=== PATIENT | male | born 1950 | race Caucasian/White ===

== ENCOUNTER → 2017-03-14 | Outpatient (CLI) | payer MEDICARE, OTHER ==
[2017-03-14 10:37] LABS: MEAN CORPUSCULAR HEMOGLOBIN 32.7 pg (27.0-33.0); MEAN CORPUSCULAR HGB CONC 34.6 g/dl (32.0-36.5); MEAN CORPUSCULAR VOLUME 94.5 fl (80.0-96.0); RED CELL DISTRIBUTION WIDTH 12.5 % (11.5-14.5); WHITE BLOOD COUNT 7.7 K/mm3 (4.0-10.0)
[2017-03-14 11:17] LABS: ALBUMIN 3.5 GM/DL (3.2-5.2); ALKALINE PHOSPHATASE 71 U/L (45-117); ALT/SGPT 35 U/L (12-78); ANION GAP 6 MEQ/L (8-16); AST/SGOT 26 U/L (15-37); BILIRUBIN,TOTAL 0.5 MG/DL (0.2-1.0); BLOOD UREA NITROGEN 13 MG/DL (7-18); CALCIUM LEVEL 8.7 MG/DL (8.8-10.2); CARBON DIOXIDE LEVEL 30 MEQ/L (21-32); CHLORIDE LEVEL 106 MEQ/L (98-107); CHOLESTEROL LEVEL 79 MG/DL (<200); CREATININE FOR GFR 0.95 MG/DL (0.70-1.30); GLOMERULAR FILTRATION RATE > 60.0 (>49); GLUCOSE, FASTING 124 MG/DL (80-110); SODIUM LEVEL 142 MEQ/L (136-145); TOTAL PROTEIN 6.2 GM/DL (6.4-8.2); TRIGLYCERIDES LEVEL 82 MG/DL (<150)
== END ==
LOC: M LAB 09:23
PROVIDERS: ATTEND Physician Assistant
DX: I25.118 Atherosclerotic heart disease of native coronary artery with other forms of angina pectoris (principal); E78.00 Pure hypercholesterolemia, unspecified; I25.5 Ischemic cardiomyopathy

== ENCOUNTER → 2017-03-14 | Outpatient (CLI) | payer MEDICARE, OTHER ==
[2017-03-14 10:36] LABS: MEAN CORPUSCULAR HEMOGLOBIN 32.5 pg (27.0-33.0); MEAN CORPUSCULAR HGB CONC 34.4 g/dl (32.0-36.5); MEAN CORPUSCULAR VOLUME 94.4 fl (80.0-96.0); RED CELL DISTRIBUTION WIDTH 12.5 % (11.5-14.5); WHITE BLOOD COUNT 7.4 K/mm3 (4.0-10.0)
[2017-03-14 11:15] LABS: ALBUMIN 3.5 GM/DL (3.2-5.2); ALKALINE PHOSPHATASE 70 U/L (45-117); ALT/SGPT 34 U/L (12-78); ANION GAP 7 MEQ/L (8-16); AST/SGOT 28 U/L (15-37); BILIRUBIN,TOTAL 0.5 MG/DL (0.2-1.0); BLOOD UREA NITROGEN 12 MG/DL (7-18); CALCIUM LEVEL 8.7 MG/DL (8.8-10.2); CARBON DIOXIDE LEVEL 30 MEQ/L (21-32); CHLORIDE LEVEL 105 MEQ/L (98-107); CHOLESTEROL LEVEL 84 MG/DL (<200); CREATININE FOR GFR 0.94 MG/DL (0.70-1.30); GLOMERULAR FILTRATION RATE > 60.0 (>49); GLUCOSE, FASTING 124 MG/DL (80-110); SODIUM LEVEL 142 MEQ/L (136-145); TOTAL PROTEIN 6.2 GM/DL (6.4-8.2); TRIGLYCERIDES LEVEL 82 MG/DL (<150)
== END ==
LOC: M LAB 09:21
PROVIDERS: ATTEND Family Medicine
DX: E11.9 Type 2 diabetes mellitus without complications (principal)

== ENCOUNTER → 2017-08-20 | Outpatient (CLI) | payer MEDICARE, OTHER ==
[2017-08-20 13:46] LABS: MEAN CORPUSCULAR HEMOGLOBIN 30.7 pg (27.0-33.0); MEAN CORPUSCULAR HGB CONC 33.3 g/dl (32.0-36.5); MEAN CORPUSCULAR VOLUME 92.3 fl (80.0-96.0); PLATELET COUNT, AUTOMATED 227 10^3/uL (150-450); WHITE BLOOD COUNT 9.7 10^3/uL (4.0-10.0)
[2017-08-20 14:07] LABS: ALBUMIN 3.3 GM/DL (3.2-5.2); ALBUMIN/GLOBULIN RATIO 1.03 (1.00-1.93); ALKALINE PHOSPHATASE 101 U/L (45-117); ALT/SGPT 22 U/L (12-78); ANION GAP 8 MEQ/L (8-16); AST/SGOT 20 U/L (7-37); BILIRUBIN,TOTAL 0.7 MG/DL (0.2-1.0); BLOOD UREA NITROGEN 16 MG/DL (7-18); CARBON DIOXIDE LEVEL 28 MEQ/L (21-32); CHLORIDE LEVEL 102 MEQ/L (98-107); CREATININE FOR GFR 1.02 MG/DL (0.70-1.30); GLOMERULAR FILTRATION RATE > 60.0 (>49); GLUCOSE, FASTING 244 MG/DL (80-110); SODIUM LEVEL 138 MEQ/L (136-145); TOTAL PROTEIN 6.5 GM/DL (6.4-8.2)
== END ==
LOC: M LAB 13:25
PROVIDERS: ATTEND Physician Assistant
DX: I25.118 Atherosclerotic heart disease of native coronary artery with other forms of angina pectoris (principal)

== ENCOUNTER → 2018-02-24 | Outpatient (CLI) | payer MEDICARE, OTHER ==
[2018-02-24 11:11] LABS: ALBUMIN 3.6 GM/DL (3.2-5.2); ALBUMIN/GLOBULIN RATIO 1.16 (1.00-1.93); ALKALINE PHOSPHATASE 77 U/L (45-117); ALT/SGPT 29 U/L (12-78); ANION GAP 6 MEQ/L (8-16); AST/SGOT 16 U/L (7-37); BILIRUBIN,TOTAL 0.5 MG/DL (0.2-1.0); BLOOD UREA NITROGEN 13 MG/DL (7-18); CALCIUM LEVEL 8.6 MG/DL (8.8-10.2); CARBON DIOXIDE LEVEL 30 MEQ/L (21-32); CHLORIDE LEVEL 104 MEQ/L (98-107); CHOLESTEROL LEVEL 56 MG/DL (<200); CHOLESTEROL RISK RATIO 2.074 (<5); CREATININE FOR GFR 1.08 MG/DL (0.70-1.30); GLOMERULAR FILTRATION RATE > 60.0 (>49); GLUCOSE, FASTING 249 MG/DL (70-100); HDL CHOLESTEROL 27 MG/DL (>40); LDL CHOLESTEROL 17.6 MG/DL (<100); MAGNESIUM LEVEL 1.3 MG/DL (1.8-2.4); NON-HDL-C 29 MG/DL; POTASSIUM SERUM 4.4 MEQ/L (3.5-5.1); SODIUM LEVEL 140 MEQ/L (136-145); TOTAL PROTEIN 6.7 GM/DL (6.4-8.2); TRIGLYCERIDES LEVEL 57 MG/DL (<150)
== END ==
LOC: M LAB 10:17
DX: I25.118 Atherosclerotic heart disease of native coronary artery with other forms of angina pectoris (principal); I25.5 Ischemic cardiomyopathy; E78.00 Pure hypercholesterolemia, unspecified
CPT/HCPCS: 83735

== ENCOUNTER → 2018-07-18 | Outpatient (CLI) | payer MEDICARE, OTHER ==
[2018-07-18 10:37] LABS: ANION GAP 3 MEQ/L (8-16); BLOOD UREA NITROGEN 26 MG/DL (7-18); CALCIUM LEVEL 8.9 MG/DL (8.8-10.2); CARBON DIOXIDE LEVEL 31 MEQ/L (21-32); CHLORIDE LEVEL 105 MEQ/L (98-107); CREATININE FOR GFR 1.24 MG/DL (0.70-1.30); GLOMERULAR FILTRATION RATE > 60.0 (>49); GLUCOSE, FASTING 195 MG/DL (70-100); POTASSIUM SERUM 4.5 MEQ/L (3.5-5.1); SODIUM LEVEL 139 MEQ/L (136-145)
== END ==
LOC: M LAB 09:37
DX: E11.9 Type 2 diabetes mellitus without complications (principal); I25.5 Ischemic cardiomyopathy

== ENCOUNTER → 2018-07-18 | Outpatient (CLI) | payer MEDICARE, OTHER ==
[2018-07-18 10:36] LABS: ANION GAP 4 MEQ/L (8-16); BLOOD UREA NITROGEN 24 MG/DL (7-18); CARBON DIOXIDE LEVEL 30 MEQ/L (21-32); CHLORIDE LEVEL 105 MEQ/L (98-107); CREATININE FOR GFR 1.21 MG/DL (0.70-1.30); GLOMERULAR FILTRATION RATE > 60.0 (>49); GLUCOSE, FASTING 190 MG/DL (70-100); MAGNESIUM LEVEL 1.6 MG/DL (1.8-2.4); POTASSIUM SERUM 4.7 MEQ/L (3.5-5.1); SODIUM LEVEL 139 MEQ/L (136-145)
== END ==
LOC: M LAB 09:31
DX: I25.5 Ischemic cardiomyopathy (principal); E11.9 Type 2 diabetes mellitus without complications
CPT/HCPCS: 83735

== ENCOUNTER 2018-10-18 09:55 | Inpatient (IN) | payer MEDICARE, OTHER ==
[~2018-10-18] VITALS: Ht 177.8 cm; Wt 72.6 kg
[2018-10-18 10:47] LABS: HEMATOCRIT 43.1 % (42.0-52.0); HEMOGLOBIN 14.4 g/dl (13.5-17.5); MEAN CORPUSCULAR HEMOGLOBIN 31.4 pg (27.0-33.0); MEAN CORPUSCULAR HGB CONC 33.4 g/dl (32.0-36.5); MEAN CORPUSCULAR VOLUME 94.1 fl (80.0-96.0); PLATELET COUNT, AUTOMATED 193 10^3/uL (150-450); RED BLOOD COUNT 4.58 10^6/uL (4.30-6.10)
[2018-10-18 11:01] LABS: INR 0.89; PROTHROMBIN TIME 12.1 SECONDS (12.1-14.4)
[2018-10-18 11:02] LABS: PARTIAL THROMBOPLASTIN TIME 29.9 SECONDS (25.4-37.6)
[2018-10-18 11:17] LABS: ALT/SGPT 24 U/L (12-78); BILIRUBIN,DIRECT 0.2 MG/DL (0.0-0.2); BILIRUBIN,TOTAL 0.5 MG/DL (0.2-1.0); BLOOD UREA NITROGEN 23 MG/DL (7-18); CALCIUM LEVEL 8.8 MG/DL (8.8-10.2); CARBON DIOXIDE LEVEL 28 MEQ/L (21-32); CHLORIDE LEVEL 104 MEQ/L (98-107); CPK CREATINE PHOSPHOKINASE 84 U/L (39-308); CREATININE FOR GFR 1.49 MG/DL (0.70-1.30); GLOMERULAR FILTRATION RATE 49.9 (>49); GLUCOSE, FASTING 221 MG/DL (70-100); LIPASE 584 U/L (73-393); MB/CK RELATIVE INDEX 2.02 (< OR =4); POTASSIUM SERUM 4.3 MEQ/L (3.5-5.1); SODIUM LEVEL 138 MEQ/L (136-145); TOTAL PROTEIN 6.9 GM/DL (6.4-8.2); TROPONIN I < 0.02 NG/ML (< 0.10)
[2018-10-18] MEDS ORDERED: ISOVUE-370 76% 100ML VIAL (Q9967) As Ordered ONE (11:18)
[2018-10-18 11:21] LABS: ATYPICAL LYMPH 2 % (0-5); EOSINOPHILS 1 % (0-5); LYMPHOCYTES 44 % (16-52); MONOCYTES 6 % (0-8); NEUTROPHILS 46 % (35-75); PLATELET ESTIMATE NORMAL (NORMAL)
[2018-10-18 11:22] LABS: ANISOCYTOSIS 1+
--- NOTE | 2018-10-18 11:23 | REP ---
CT BRAIN WITHOUT IV CONTRAST: CT brain performed without IV contrast. Comparison 11/25/2010. There is moderate atrophy. There is no midline shift or mass effect. There are mild periventricular small vessel ischemic changes which are chronic in nature. There is no acute hemorrhage. There is no extra-axial fluid collection. There are vascular calcifications in the carotid siphons. There is heavy calcification of the basilar artery. IMPRESSION: Atrophy. Mild periventricular small vessel ischemic change. Vascular calcifications. No acute intracranial process identified. Electronically Signed by Mushtaq Davidson MD 10/18/2018 07:22 P
--- NOTE | 2018-10-18 11:25 | REP ---
CHEST, SINGLE VIEW: Single AP view of the chest is performed and compared to a prior study of 10/16/2006. There is no acute infiltrate. Heart is normal in size. There are multiple mediastinal clips present. There are multiple sternal wires present. There is a left single lead pacemaker. IMPRESSION: No acute infiltrate. Electronically Signed by Mushtaq Davidson MD 10/18/2018 07:22 P
[2018-10-18] MEDS ORDERED: MULT1TAB18 PO (12:21)
[2018-10-18] MEDS ORDERED: GLIM4TAB PO (12:21)
[2018-10-18] MEDS ORDERED: MAGN64TASA PO ×2 (12:21→12:23)
[2018-10-18] MEDS ORDERED: VENL75CA47 PO (12:21)
[2018-10-18] MEDS ORDERED: METF10004 PO (12:21)
[2018-10-18] MEDS ORDERED: ISOS30TA4 PO (12:21)
[2018-10-18] MEDS ORDERED: ASPI81TA21 PO (12:21)
[2018-10-18] MEDS ORDERED: BENA20TA8 PO (12:21)
[2018-10-18] MEDS ORDERED: CLOP75TA2 PO (12:21)
[2018-10-18] MEDS ORDERED: RANI150C (12:21)
[2018-10-18] MEDS ORDERED: NIAC500T64 PO (12:23)
[2018-10-18] MEDS ORDERED: TOUJ1.2I (12:23)
[2018-10-18] MEDS ORDERED: ATOR80TA59 PO (12:23)
[2018-10-18] MEDS ORDERED: ATEN50TA2 PO (12:23)
--- NOTE | 2018-10-18 13:04 | REP ---
CT ANGIOGRAM OF THE NECK: Following the intravenous administration of 100 mL of Isovue 370 axial imaging is performed of the carotid vasculature in the neck from the aortic arch to the base of the skull. Sagittal, coronal, and 3D reconstruction images are performed. The right common carotid artery demonstrates mild scattered partially calcified plaquing. There is occlusion at the origin of the right internal carotid artery, with no flow in any portion of the more distal right internal carotid artery. There is moderate narrowing of the proximal right external iliac artery. Left common carotid artery demonstrates mild scattered plaquing and narrowing. Focal stenosis is seen of the left carotid bulb in the range of about 70-80%. There is moderate narrowing of the origin of the external iliac artery on the left. The left internal carotid artery demonstrates mild plaquing and narrowing. There is moderate plaquing and narrowing of the left internal carotid artery in the carotid siphon. Left vertebral artery is occluded at its origin. There is reconstitution of the left vertebral artery at about the C3 level. There is fairly high grade stenosis of the left vertebral artery just distal to that at the C2-3 level, another focal stenosis is seen at about the C1 level as well as in the distal aspect. Right vertebral artery is diffusely hypoplastic with severe stenosis at its distal aspect near the anastomosis with the left vertebral artery. IMPRESSION: There is occlusion of the right internal carotid artery from its origin to its distal end. Stenosis of the left carotid bulb in the range of about 70-80%. 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 The left vertebral artery is reconstituted at the C3 level with multifocal stenosis of its distal aspect. 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 Findings were discussed with Dr. Chantal Rowan 10/18/2018 at approximately 11:50 a.m. Electronically Signed by Mushtaq Davidson MD 10/18/2018 07:26 P
--- NOTE | 2018-10-18 13:10 | REP ---
CT ANGIOGRAM OF THE BRAIN: Following the intravenous administration of the 100 mL of Isovue [address] CT angiogram of the brain is performed with axial imaging followed by coronal, sagittal, and 3D reconstruction images. There is occlusion of the intracranial portion of the right internal carotid artery. Left internal carotid artery demonstrates moderate plaquing and narrowing in the region of the carotid siphon. Left middle cerebral artery is patent. Right middle cerebral artery demonstrates extremely high grade stenosis 1.3 cm distal to its origin. Anterior communicating arteries are patent. Anterior cerebral arteries are patent bilaterally. Basilar artery is patent as are the bilateral posterior cerebral arteries. There are patent posterior communicating arteries. Left posterior communicating artery appears diffusely narrowed compared to the right. No definite aneurysm or AVM is seen. IMPRESSION: Extremely high grade stenosis right middle cerebral artery approximately 1.3 cm distal to its origin. Electronically Signed by Mushtaq Davidson MD 10/18/2018 07:26 P
[2018-10-18] MEDS ORDERED: INSUH10VL SC (13:16)
[2018-10-18] MEDS ORDERED: VITMTA PO (13:16)
[2018-10-18] MEDS ORDERED: RANI150T PO (13:16)
[2018-10-18] MEDS ORDERED: GLUCAGON FOR INJ 1 MG VIAL (J1610) SC PRN (14:30)
[2018-10-18] MEDS ORDERED: DEXTROSE 50% 50 ML SYRINGE IV PRN (14:30)
[2018-10-18] MEDS ORDERED: GLUCOSE 4 GM CHEW TABLET PO PRN (14:30)
[2018-10-18 15:22] LABS: CHOLESTEROL RISK RATIO 2.541 (<5)
--- NOTE | 2018-10-18 15:47 | HPEPDOC ---
[facility] Medical History & Physical Date of Admission Oct 18, 2018 Primary Care Physician: MAGALY MORTENSEN MD [facility] Attending Physician: GUILLE ALBERT MD History and Physical CHIEF COMPLAINT: Skroke HISTORY OF PRESENT ILLNESS: Patient is a 67-year-old male with a past medical history of diabetes, 4 cardiac stents, hypertension, atherosclerotic disease, cardiac defibrillator, presents with left-sided weakness, slurred speech and left-sided facial droop. According to patient and his , he went to bed at 11 PM feeling his normal self. He got up in the middle of night to use the bathroom, and this is typical for patient. He did not notice any neurological symptom at that time. He woke up this morning at 8:30 and walked to the living room, where he noticed that his speech was slurred, he then did proceeded to have his morning coffee, he did not having dysphasia, did not have any cough. After coffee. Patient attempted to use the shower where he noticed that he had difficulty lifting his left leg to get into the shower tub. At the moment. Patient alerted his and his brought him to the ED. On the ED initial evaluation, patient was noted to have left-sided facial drooping, moderate s lurred speech, left-sided weakness, patient was unable to sit straight without falling. Transferred to [place] could not be done because patient had a completed stroke. Neurology, vascular surgery, and hospital team were consulted for admission. He denied any chest pain, denied any breathing difficulty, denies any recent sickness, denies any weight loss, denied nausea and vomiting. Admit to abdominal pain. He did admit to a recent bout of confusion one week ago and the hardware store when he could remember when he was doing. He denied any recent headaches, denied any blurry vision. He denied any recent changes in medication. Denied Patient is full code. PAST MEDICAL HISTORY: Diabetes Hypertension Arthrosclerotic disease. Cardiac defibrillator. Cardiac stent Lower extremity stents Hyperlipidemia GERD PAST SURGICAL HISTORY: 4 cardiac stents Hernia repair SOCIAL HISTORY: Lives at home with his , admits to occasional alcohol use, quit smoking in 1986, admits to infrequent marijuana use, denies any other illicit drugs FAMILY HISTORY: Noncontributory ALLERGIES: Please see below. REVIEW OF SYSTEMS: CONSTITUTIONAL: No fevers, denies chills, denies weight loss, denies lethargy HEENT: No rhinorrhea, no itchy eyes, no congesion, CARDIOVASCULAR: No murmurs no palpitations and arrhythmias RESPIRATORY: Not cough, No SOB, no issues to report GASTROINTESTINAL: No nausea, no vomiting, no difficulty swallowing, no pain with eating, no diarrhea HEMATOLOGICAL: No bleeding GENITOURINARY:No Issues HEMATOLOGIC/LYMPHATIC: No swelling NUERO: Left-sided facial drooping, left-sided weakness, no headache PE VITALS: See Below GENERAL APPEARANCE: Alert, pleasant gentleman, resting in bed, no acute distress SKIN: Warm, well perfused., No bruising, no rashes ENT: Supple, no JVD LUNGS: Clear to auscultation bilaterally. HEART: Normal S1, S2. No murmurs, no rubs, no gallops ABDOMEN: Soft. No masses. Bowel sounds are present., Slight tenderness noted on patient's left lower quadrant TRUNK/SPINE:Straight. EXTREMITIES: Moves all extremities equally. No gross deformities. PULSES: 2+ upper and lower extremity . NEURO: Cranial nerves II through XII grossly intact, patient is unable to sit up straight without falling to the left, left-sided whole-body weakness, sensation intact in bilateral upper and lower extremity, muscle strength is 2 out of 5 in left-sided upper extremity, muscle strength is 4 out of 5 in left lower extremity, no nystagmus, no numbness, abnormal finger to nose finger, due to patient's inability to move his left arm with ease, alert, oriented 3, facial drooping on left side, asymmetric smile, slurring of speech with few words in a sentence HOME MEDICATIONS: Please see below. LABORATORY DATA: See below. IMAGING: CT angiography OF THE BRAIN: Extremely high grade stenosis right middle cerebral artery approximately 1.3 cm distal to its origin. Neck CTA There is occlusion of the right internal carotid artery from its origin to its distal end. Stenosis of the left carotid bulb in the range of about 70-80%. 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 The left vertebral artery is reconstituted at the C3 level with multifocal stenosis of its distal aspect. 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 Findings were discussed with Dr. Chantal Rowan 10/18/2018 at approximately 11:50 a.m Chest x-ray No acute infiltrate. Head CT without contrast Atrophy. Mild periventricular small vessel ischemic change. Vascular calcifications. No acute intracranial process identified. MICROBIOLOGY: Please see below. ASSESSMENT: Patient is a 67-year-old male presenting with left facial droop, slurred speech and left sided weakness, he has a past medical history of diabetes, hypertension, atherosclerotic disease, and GERD. He'll be admitted for stroke with neurology and cardiovascular surgery on board. #Stroke most likely ischemic 2/2 . Right internal carotid artery stenosis, 2/2 of the sclerotic disease, 2/2 diabetes -MRI pending -CT angiography of the brain, CT of the neck, head CT above -Neurology consult, Dr. Ruby recommended Plavix, echocardiogram (Pending), Lipitor 80 mg, and aspirin -Vascular surgery has been consulted for right internal carotid stenosis -Admitted with telemetry, every 4 hours neuro checks, -Allow for permissive hypertension, holding BP meds, -IV fluids -PT ordered for rehabilitation -Lipid panel pending #Diabetes -Slight scale #Hypertension -Hold hypertension medications # #DVT -Plavix, TEDs Vital Signs Vital Signs Date Time Temp Pulse Resp B/P (MAP) Pulse Ox O2 Delivery O2 Flow Rate FiO2 10/18/18 14:46 63 10/18/18 14:45 132/58 (82) 10/18/18 13:16 16 10/18/18 09:56 97.1 97 Room Air Laboratory Data Labs 24H Laboratory Tests 2 10/18/18 10:38: White Blood Count 10.0, Red Blood Count 4.58, Hemoglobin 14.4, Hematocrit 43.1, Mean Corpuscular Volume 94.1, Mean Corpuscular Hemoglobin 31.4, Mean Corpuscular Hemoglobin Concent 33.4, Red Cell Distribution Width 12.5, Platelet Count 193, Lymphocytes # (Auto) , Nucleated Red Blood Cells % (auto) 0.0, Neutrophils 46, Band Neutrophils 1, Lymphocytes (Manual) 44, Monocytes (Manual) 6, Eosinophils (Manual) 1, Atypical Lymphocytes 2, Platelet Estimate NORMAL, Anisocytosis 1+, Prothrombin Time 12.1, Prothromb Time International Ratio 0.89, Activated Partial Thromboplast Time 29.9, Anion Gap 6L, Glomerular Filtration Rate 49.9, Calcium Level 8.8, Aspartate Amino Transf (AST/SGOT) 18, Alanine Aminotransferase (ALT/SGPT) 24, Alkaline Phosphatase 79, Total Bilirubin 0.5, Direct Bilirubin 0.2, Total Creatine Kinase 84, Creatine Kinase MB 2.0, Creatine Kinase MB Relative Index 2.02, Troponin I < 0.02, Total Protein 6.9, Albumin 4.0, Albumin/Globulin Ratio 1.38, Lipase 584H 10/18/18 10:47: Bedside Glucose (Misc Panel) 193H 10/18/18 14:49: CBC/BMP Laboratory Tests 10/18/18 10:38 Red Blood Count 4.58, Mean Corpuscular Volume 94.1, Mean Corpuscular Hemoglobin 31.4, Mean Corpuscular Hemoglobin Concent 33.4, Red Cell Distribution Width 12.5, Lymphocytes # (Auto) Home Medications Scheduled (Ivana Conway) 300 Unit/Ml Inj, 40 UNITS QHS Aspirin (Aspir-Low) 81 Mg Tab, 81 MG PO DAILY Atenolol (Atenolol) 50 Mg Tab, 50 MG PO BID Atorvastatin Calcium (Atorvastatin Calcium) 80 Mg Tab, 80 MG PO QHS Benazepril HCl (Benazepril HCl) 20 Mg Tab, 20 MG PO DAILY Clopidogrel Bisulfate (Clopidogrel) 75 Mg Tab, 75 MG PO DAILY Glimepiride (Glimepiride) 4 Mg Tab, 4 MG PO BID Insulin Aspart (Novolog) 100 U/Ml Inj, 1 DOSE SC AC PER SLIDING SCALE Isosorbide Mononitrate (Isosorbide Mononitrate ER) 30 Mg Tab, 30 MG PO DAILY Magnesium Chloride (Mag64) 64 Mg Tabcr, 2 TAB PO QAM Magnesium Chloride (Mag64) 64 Mg Tabcr, 1 TAB PO QPM Metformin Hydrochloride (Metformin HCl) 1,000 Mg Tab, 1,000 MG PO BID Multivitamins *[facility] STOCKED* (Thera M Plus *[facility] STOCKED*) 1 Tab Tab, 1 TAB PO DAILY Niacin (Niacin ER) 500 Mg Tab, 500 MG PO QHS Ranitidine HCl (Ranitidine HCl) 150 Mg Tab, 1 TAB PO DAILY Venlafaxine HCl (Venlafaxine HCl ER) 75 Mg Capcr, 75 MG PO DAILY Allergies Coded Allergies: No Known Allergies (Unverified , 10/18/18) GME ATTESTATION GME ATTESTATION My faculty preceptor for this patient encounter was physically present during the encounter and was fully available. All aspects of the patient interview, examination, medical decision making process, and medical care plan development were reviewed and approved by the faculty preceptor. The faculty preceptor is aware and concurs with the plan as stated in the body of this note and will attest to such by his/her cosignature. LATANYA DASILVA DO Oct 18, 2018 15:47
[2018-10-18] MEDS: NS 1,000 ML IV SCH (16:00)
[2018-10-18] MEDS: HumaLOG INSULIN (NovoLOG) PER UNIT SC SCH ×2 (17:30→21:00)
--- NOTE | 2018-10-18 19:27 | ECGEPIP ---
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
[2018-10-18 20:42] VITALS: BP 130/65
[2018-10-18] MEDS: ATORVASTATIN 20 MG TAB PO SCH (21:00)
[2018-10-18] MEDS: NIACIN SR (NIASPAN) 500 MG TAB PO SCH (21:00)
[2018-10-18 22:00] VITALS: BP 130/65
[2018-10-18] MEDS: HEPARIN SOD (PORCINE) 5000 UNITS/ML VIAL SQ SCH (22:10)
--- NOTE | 2018-10-18 22:12 | CR.PDOC ---
Subjective General Date/Time Seen The patient was seen on 10/18/18 at 22:10. Subject Chief Complaint/History The patient is a 67-year-old male admitted with a reason for visit of Carotid Artery Disease Non Hemorrhagic Cva. Current Medications Current Medications Current Medications Aspirin (Ecotrin) 81 mg DAILY PO ; Start 10/19/18 at 09:00 Atorvastatin Calcium (Lipitor) 80 mg QHS PO ; Start 10/18/18 at 21:00 Clopidogrel Bisulfate (PLAVix) 75 mg DAILY PO ; Start 10/19/18 at 09:00 Dextrose (Dextrose 50%) 25 ml ASDIRECTED PRN IV SEE LABEL COMMENTS; Start 10/18/18 at 14:30 Famotidine (Pepcid) 20 mg DAILY PO ; Start 10/19/18 at 09:00 Glucagon (Glucagon) 1 mg ASDIRECTED PRN SC SEE LABEL COMMENTS; Start 10/18/18 at 14:30 Glucose (Glucose) 16 GM ASDIRECTED PRN PO SEE LABEL COMMENTS; Start 10/18/18 at 14:30 Heparin Sodium (Porcine) (Heparin) 5,000 units Q8H SQ ; Start 10/18/18 at 22:00 Home Med (Med Rec Complete!) ASDIRECTED XX ; Start 10/18/18 at 13:30; Stop 10/18/18 at 13:30; Status DC Insulin Human Lispro (HumaLOG INSULIN) SEE PROTOCOL TABLE AC SC ; Start 10/18/18 at 17:30 Insulin Human Lispro (HumaLOG INSULIN) SEE PROTOCOL TABLE QHS SC ; Start 10/18/18 at 21:00 Multivitamins (Theragram-M) 1 tab DAILY PO ; Start 10/19/18 at 09:00 Niacin (Niaspan) 500 mg QHS PO ; Start 10/18/18 at 21:00 Sodium Chloride 1,000 ml @ 125 mls/hr Q8H IV Last administered on 10/18/18at 16:00; Start 10/18/18 at 16:00 Allergies Coded Allergies: No Known Allergies (Unverified , 10/18/18) General Date of Admission Oct 18, 2018 at 14:20 Chief Complaint The patient is a 67-year-old male admitted with a reason for visit of Carotid Artery Disease Non Hemorrhagic Cva. Home Medications Scheduled (Ivana Conway) 300 Unit/Ml Inj, 40 UNITS QHS, (Reported) Aspirin (Aspir-Low) 81 Mg Tab, 81 MG PO DAILY, (Reported) Atenolol (Atenolol) 50 Mg Tab, 50 MG PO BID, (Reported) Atorvastatin Calcium (Atorvastatin Calcium) 80 Mg Tab, 80 MG PO QHS, (Reported) Benazepril HCl (Benazepril HCl) 20 Mg Tab, 20 MG PO DAILY, (Reported) Clopidogrel Bisulfate (Clopidogrel) 75 Mg Tab, 75 MG PO DAILY, (Reported) Glimepiride (Glimepiride) 4 Mg Tab, 4 MG PO BID, (Reported) Insulin Aspart (Novolog) 100 U/Ml Inj, 1 DOSE SC AC, (Reported) PER SLIDING SCALE Isosorbide Mononitrate (Isosorbide Mononitrate ER) 30 Mg Tab, 30 MG PO DAILY, (Reported) Magnesium Chloride (Mag64) 64 Mg Tabcr, 2 TAB PO QAM, (Reported) Magnesium Chloride (Mag64) 64 Mg Tabcr, 1 TAB PO QPM, (Reported) Metformin Hydrochloride (Metformin HCl) 1,000 Mg Tab, 1,000 MG PO BID, (Reported) Multivitamins *[facility] STOCKED* (Thera M Plus *[facility] STOCKED*) 1 Tab Tab, 1 TAB PO DAILY, (Reported) Niacin (Niacin ER) 500 Mg Tab, 500 MG PO QHS, (Reported) Ranitidine HCl (Ranitidine HCl) 150 Mg Tab, 1 TAB PO DAILY, (Reported) Venlafaxine HCl (Venlafaxine HCl ER) 75 Mg Capcr, 75 MG PO DAILY, (Reported) Calvin Porras MD Oct 18, 2018 22:12
[2018-10-19] MEDS: NS 1,000 ML IV SCH ×2 (00:53→08:30)
[2018-10-19 04:38] LABS: HEMATOCRIT 39.4 % (42.0-52.0); HEMOGLOBIN 13.4 g/dl (13.5-17.5); MEAN CORPUSCULAR HEMOGLOBIN 31.5 pg (27.0-33.0); MEAN CORPUSCULAR VOLUME 92.5 fl (80.0-96.0); PLATELET COUNT, AUTOMATED 180 10^3/uL (150-450); RED BLOOD COUNT 4.26 10^6/uL (4.30-6.10); WHITE BLOOD COUNT 11.2 10^3/uL (4.0-10.0)
[2018-10-19 04:53] LABS: CALCIUM LEVEL 8.4 MG/DL (8.8-10.2); CREATININE FOR GFR 1.32 MG/DL (0.70-1.30); GLOMERULAR FILTRATION RATE 57.4 (>49); POTASSIUM SERUM 3.9 MEQ/L (3.5-5.1)
[2018-10-19 06:00] VITALS: BP 113/56
[2018-10-19] MEDS: HEPARIN SOD (PORCINE) 5000 UNITS/ML VIAL SQ SCH ×3 (06:14→21:11)
[2018-10-19 07:15] LABS: THYROID STIMULATING HORMONE 1.6 uIU/ML (0.358-3.740)
[2018-10-19 07:21] LABS: HEMOGLOBIN A1c 8.8 %
[2018-10-19 07:44] VITALS: BP 114/62
[2018-10-19] MEDS: MULTIVITAMINS/MINERALS THERAP 1 TAB PO SCH (08:18)
[2018-10-19] MEDS: HumaLOG INSULIN (NovoLOG) PER UNIT SC SCH ×4 (08:18→20:45)
[2018-10-19] MEDS: FAMOTIDINE 20 MG TAB PO SCH (09:27)
[2018-10-19] MEDS: CLOPIDOGREL 75 MG TAB PO SCH (09:28)
[2018-10-19] MEDS: ASPIRIN 81 MG ENTERIC TAB PO SCH (09:28)
--- NOTE | 2018-10-19 10:19 | IPNPDOC ---
Date Seen The patient was seen on 10/19/18. Progress Note SUBJECTIVE: Patient tells me that his left-sided weakness slurred speech and left-sided facial droop are all little bit better today, he still has significant weakness in the left hand does have a slight facial droop at the left leg is much improved OBJECTIVE PHYSICAL EXAMINATION: VITAL SIGNS: Please see below. GENERAL: Elderly man sleeping on his left side awake alert oriented 3 does not appear to be in any acute distress HEENT: Left-sided facial droop that is midline no elevation in CVP pressure CARDIOVASCULAR: . S1-S2 regular RESPIRATORY: . Clear to auscultation bilaterally ABDOMINAL: Bowel sounds are present abdomen soft EXTREMITIES: 4/5 strength in the left upper extremity but otherwise 5 out of 5 throughout NEUROLOGICAL: Significant decrease strength of the left upper extremity difficulty with spreading his fingers left facial droop LABORATORY DATA, IMAGING STUDIES, MICROBIOLOGY: Please see below. Echocardiogram: Ordered. DVT prophylaxis ordered?: Heparin every 8 ASSESSMENT AND PLAN: This is a 67-year-old man with what appears to be in acute CVA. PROBLEMS: 1. Left-sided weakness slurred speech and left-sided facial droop concerning for acute CVA: High likelihood of CVA secondary to intracranial vascular disease radiology reports as follows "Extremely high grade stenosis right middle cerebral artery approximately 1.3 cm distal to its origin. as well as There is occlusion of the right internal carotid artery from its origin to its distal end. Stenosis of the left carotid bulb in the range of about 70-80%. 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 The left vertebral artery is reconstituted at the C3 level with multifocal stenosis of its distal aspect. Right vertebral artery is hypoplastic with severe stenosis distally just before the anastomosis with the left vertebral artery." Vascular surgery consultation placed, neurology consult has been placed as well. The patient on aspirin Plavix high dose statin. With permissive hypertension he is actually on IV fluids PTOT and speech therapy ordered. We'll check a TSH and hemoglobin A1c to make her best ever for secondary prevention. I warned MRI/MRA as well echocardiogram has been ordered 2. Coronary artery disease status post defibrillator: No symptoms at this time he is on aspirin Plavix statin home beta casie currently on hold. 3. Diabetes: Home metformin and glimepiride and toujeo. He is on sliding scale insulin statistics well controlled 4. Hypertension: Home medications on hold for permissive hypertension consider resuming atenolol benazepril and isosorbide mononitrate as needed 5. Elevated lipase: No signs or symptoms of clinical pancreatitis 6. Mood disorder: Resume venlafaxine as he is able to tolerate by mouth 7. Dyslipidemia: He is on high intensity statin as well as niacin A gastric esophageal reflux disease: He is on Pepcid his home ranitidine is on hold DISPOSITION: Pending PT and OT echo neurology and vascular surgery consultation. VS, I&O, 24H, Fishbone Vital Signs/I&O Vital Signs Date Time Temp Pulse Resp B/P (MAP) Pulse Ox O2 Delivery O2 Flow Rate FiO2 10/19/18 06:00 98.2 60 12 113/56 (75) 98 10/18/18 20:29 Room Air I&O- Last 24 Hours up to 6 AM 10/19/18 06:00 Intake Total 1250 ml Output Total 425 ml Balance 825 ml Laboratory Data 24H LABS Laboratory Tests 2 10/18/18 10:38: White Blood Count 10.0, Red Blood Count 4.58, Hemoglobin 14.4, Hematocrit 43.1, Mean Corpuscular Volume 94.1, Mean Corpuscular Hemoglobin 31.4, Mean Corpuscular Hemoglobin Concent 33.4, Red Cell Distribution Width 12.5, Platelet Count 193, Lymphocytes # (Auto) , Nucleated Red Blood Cells % (auto) 0.0, Neutrophils 46, Band Neutrophils 1, Lymphocytes (Manual) 44, Monocytes (Manual) 6, Eosinophils (Manual) 1, Atypical Lymphocytes 2, Platelet Estimate NORMAL, Anisocytosis 1+, Prothrombin Time 12.1, Prothromb Time International Ratio 0.89, Activated Partial Thromboplast Time 29.9, Anion Gap 6L, Glomerular Filtration Rate 49.9, Calcium Level 8.8, Aspartate Amino Transf (AST/SGOT) 18, Alanine Aminotransferase (ALT/SGPT) 24, Alkaline Phosphatase 79, Total Bilirubin 0.5, Direct Bilirubin 0.2, Total Creatine Kinase 84, Creatine Kinase MB 2.0, Creatine Kinase MB Relative Index 2.02, Troponin I < 0.02, Total Protein 6.9, Albumin 4.0, Albumin/Globulin Ratio 1.38, Lipase 584H 10/18/18 10:47: Bedside Glucose (Misc Panel) 193H 10/18/18 14:49: Triglycerides Level 53, LDL Cholesterol 26, Total Cholesterol 61, Non-HDL Cholesterol (LDL + VLDL) 37, Total HDL Cholesterol 24L, Cholesterol/HDL Ratio 2.541 10/18/18 18:32: Bedside Glucose (Misc Panel) 67L 10/18/18 20:49: Bedside Glucose (Misc Panel) 185H 10/19/18 04:14: Nucleated Red Blood Cells % (auto) 0.0, Anion Gap 4L, Glomerular Filtration Rate 57.4, Blood Urea Nitrogen 19H, Creatinine 1.32H, Sodium Level 138, Potassium Level 3.9, Chloride Level 108H, Carbon Dioxide Level 26, Calcium Level 8.4L CBC/BMP Laboratory Tests 10/18/18 10:38 Red Blood Count 4.58, Mean Corpuscular Volume 94.1, Mean Corpuscular Hemoglobin 31.4, Mean Corpuscular Hemoglobin Concent 33.4, Red Cell Distribution Width 12.5, Lymphocytes # (Auto) 10/19/18 04:14 Red Blood Count 4.26 L, Mean Corpuscular Volume 92.5, Mean Corpuscular Hemoglobin 31.5, Mean Corpuscular Hemoglobin Concent 34.0, Red Cell Distribution Width 12.4, Calcium Level 8.4 L ROXANA MAJOR MD Oct 19, 2018 06:48
[2018-10-19 11:49] VITALS: BP 156/82
[2018-10-19] MEDS: VENLAFAXINE **XR** 75MG CAPSULE PO SCH (12:38)
[2018-10-19 16:29] VITALS: BP 170/85
[2018-10-19 20:00] VITALS: BP 138/71
[2018-10-19] MEDS: NIACIN SR (NIASPAN) 500 MG TAB PO SCH (20:45)
[2018-10-19] MEDS: ATORVASTATIN 20 MG TAB PO SCH (20:45)
[2018-10-20] VITALS (7 sets, daily range): BP systolic 132–174; BP diastolic 63–90
[2018-10-20 05:07] LABS: HEMATOCRIT 43.3 % (42.0-52.0); HEMOGLOBIN 14.8 g/dl (13.5-17.5); MEAN CORPUSCULAR HEMOGLOBIN 31.4 pg (27.0-33.0); MEAN CORPUSCULAR HGB CONC 34.2 g/dl (32.0-36.5); MEAN CORPUSCULAR VOLUME 91.7 fl (80.0-96.0); PLATELET COUNT, AUTOMATED 197 10^3/uL (150-450); RED BLOOD COUNT 4.72 10^6/uL (4.30-6.10); WHITE BLOOD COUNT 14.4 10^3/uL (4.0-10.0)
[2018-10-20 05:16] LABS: CALCIUM LEVEL 8.9 MG/DL (8.8-10.2); CREATININE FOR GFR 1.32 MG/DL (0.70-1.30); GLOMERULAR FILTRATION RATE 57.4 (>49); POTASSIUM SERUM 3.8 MEQ/L (3.5-5.1)
[2018-10-20] MEDS: HEPARIN SOD (PORCINE) 5000 UNITS/ML VIAL SQ SCH ×3 (05:25→21:45)
--- NOTE | 2018-10-20 07:21 | ECHO ---
DATE OF STUDY: 10/18/2018 REFERRING PHYSICIAN: Dr. Rashid INDICATION: Stroke. HEIGHT: 70 inches. WEIGHT: 73 kg. DIMENSIONS: IVS: 0.9 LV: 5.4 LVPW: 1.0 Left atrium: 4.6 Aorta: 3.2 IVC: 1.4 Left atrial volume index: 23 Mitral E wave velocity: 65 A-wave: 94 E prime septal: 4.7 E prime lateral: 8.7 FINDINGS: This study is of good technical quality. Left ventricle is normal size. There is severe global hypokinesis and septal dyskinesis possibly related to conductive system disease or ventricular pacing. I estimate overall EF around 30%, the computer calculated LVEF as 38%. The right ventricle appears grossly normal size and systolic function. Left atrium is normal size, right atrium also appears normal. There is an echo artifact in the right-sided heart chambers consistent with defibrillator or pacemaker lead. Aortic valve is heavily sclerotic but it has three leaflets and preserved mobility. Mitral tricuspid and pulmonic valves appear normal. No pericardial effusion is noted. Inferior vena cava is normal size and appropriately collapses with respiration, indicative of likely normal central venous pressure. Aortic root is normal. Aortic arch and abdominal aorta were not well seen. Doppler interrogation of aortic valve reveals no insufficiency and no stenosis. There is mild mitral and mild tricuspid insufficiency. Calculated pulmonary artery pressure is within normal limits. Pulmonic valve is functionally competent. Mitral inflow pattern and tissue Doppler imaging of mitral annulus reveals grade 1 diastolic dysfunction. CONCLUSIONS: 1. Study is of good technical quality. 2. Normal LV size with severe global hypokinesis, septal dyskinesis and overall left ventricle ejection fraction around 30%. No segmental wall motion abnormality is appreciated as such. No left ventricular thrombus was seen. 3. No hemodynamically significant valvular disease. 4. Normal central venous pressure and normal pulmonary artery pressure. COMMENTS: Subacute bacterial endocarditis (SBE) prophylaxis is not recommended. Study does not provide obvious explanation for cerebrovascular accident, even though LV dysfunction is certainly a risk factor. Both ischemic and nonischemic etiology of cardiomyopathy should be considered.
[2018-10-20] MEDS: HumaLOG INSULIN (NovoLOG) PER UNIT SC SCH ×4 (07:30→21:00)
--- NOTE | 2018-10-20 07:43 | REP ---
CT BRAIN WITHOUT IV CONTRAST: CT brain performed without IV contrast and compared to prior exam, 10/18/2018. New ill-defined low density is seen in the right basal ganglia region with edema in this area causing mild impression upon the frontal horn of the right lateral ventricle. There appears to be some mild ill-defined low density also involving the right internal capsule anterior limb, and there are new mild ill-defined areas of low density in the right menon radiata. Findings are consistent with acute infarct involving the vascular distribution of the right middle cerebral artery. There is no acute intracranial hemorrhage. There is no midline shift. There is moderate atrophy. There are no other acute changes. IMPRESSION: Findings consistent with acute infarct involving the vascular distribution of the right middle cerebral artery. No acute intracranial hemorrhage. There is mild edema and mild impression upon the frontal horn of the right lateral ventricle. Incomplete MTDD
--- NOTE | 2018-10-20 08:56 | CR ---
DATE OF CONSULTATION: 10/19/2018 REFERRING PHYSICIAN: Dr. Katia Rice REASON FOR CONSULTATION: Left-sided weakness. HISTORY OF PRESENT ILLNESS: Gary Messina is a 67-year-old man with history of diabetes, coronary artery disease, peripheral arterial disease, cardiac defibrillator, who presented to [facility] with slurred speech, left-sided facial and arm/leg weakness. He went to bed around 11 p.m. on 10/17/2018 and woke up at 4 in the morning and did not have any issues. He used the restroom and went back to sleep. He woke up at 8:30 in the morning and had slurred speech, left-sided weakness, left-sided facial weakness and trouble walking. He came to [facility] and was noted to have left hemiplegia. He had slurred speech. [facility] was contacted, but patient was deemed not to be a candidate for tissue plasminogen activator (tPA). 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 He has severe stenosis of right middle cerebral artery and 70-80% stenosis of left internal carotid artery. Patient has history of peripheral arterial disease and had a stent placed in his left iliac/femoral artery by Dr. Cunnignham at [place], [place]. He has been following with Dr. Cunningham for a number of years. He also has history of coronary artery disease and has four stents. He has been taking aspirin, Plavix regularly since 1996. He denies any headaches or neck pain. He has a history of chronic back pain. He denies any falls, loss of consciousness, diplopia or urinary incontinence. PAST MEDICAL HISTORY: 1. Diabetes. 2. Hypertension. 3. Peripheral arterial disease. 4. Coronary artery disease status post four stents, cardiac defibrillator. 5. Lower extremity stents for peripheral arterial disease. 6. Dyslipidemia. 7. Acid reflux. 8. Hernia repair. SOCIAL HISTORY: He quit smoking in 1996. He smoked 1/2-3/4 pack per day since age 17-years-old. FAMILY HISTORY: Mother had coronary artery disease. HOME MEDICATIONS: - aspirin 81 mg by mouth daily - atenolol 50 mg by mouth twice a day - Lipitor 80 mg by mouth daily - benazepril 20 mg by mouth daily - Plavix 75 mg by mouth daily - glimepiride 4 mg by mouth twice a day - insulin Toujeo 40 units subcutaneous daily - isosorbide mononitrate 30 mg by mouth daily - magnesium - metformin 1000 mg by mouth twice a day - multivitamin 1 tablet by mouth daily - Zantac 150 mg by mouth daily - venlafaxine extended release 75 mg by mouth daily ALLERGIES: NO KNOWN DRUG ALLERGIES. REVIEW OF SYSTEMS: All systems were reviewed and found to be noncontributory except as mentioned in history of present illness. PHYSICAL EXAMINATION: Temperature 97.1, respiratory 16, 97% saturation on room air. Blood pressure 132/58. Heart: regular rate and rhythm. Lungs: Clear to auscultation. Abdomen: Soft, nontender, nondistended. No pedal edema. No musculoskeletal abnormalities. No rash. No signs of meningeal irritation. No edema at ankles. Patient is awake, alert, oriented to place, person and time. Normal speech, comprehension and repetition. Recent and distant memory is intact. Extraocular muscles are intact. Visual william are full to confrontation. Pupils are 6 mm bilaterally reactive to light. He has left-sided upper motor neuron type facial weakness affecting left lower face only. Tongue and uvula are midline. Strength in his left upper extremity is 2/5 and left lower extremity 4-/5. His plantars are mute. He has decreased cold pinprick vibration sensation in his feet. Gait is unsteady. He has left-sided dysmetria. DIAGNOSTIC STUDIES: CT scan of head showed small vessel ischemic disease of brain without acute disease. CT angiography of head and neck is described above. Patient cannot have MRI scan of brain. His capital LDL was 26 with capital HDL 37 and total cholesterol 61. ASSESSMENT: 1. Suspected right middle cerebral artery distribution acute ischemic stroke. 2. Severe stenosis of right middle cerebral artery. 3. 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 4. Severe stenosis of bilateral vertebral arteries. 5. History of coronary artery disease, dyslipidemia, hypertension, diabetes, and peripheral arterial disease. PLAN: 1. Continue aspirin 81 mg by mouth daily and Plavix 75 mg by mouth daily. 2. Continue Lipitor 80 mg by mouth daily. 3. Vascular surgery consult for left internal carotid artery endarterectomy is strongly recommended. 4. Physical and occupational therapy. 5. Close followup with cardiology and vascular surgery. Dr. Porras has been consulted. Patient usually follows with Dr. Cunningham at [facility] for peripheral arterial disease. 6. Follow with our office in 2-4 weeks after hospital discharge.
[2018-10-20] MEDS: MULTIVITAMINS/MINERALS THERAP 1 TAB PO SCH (09:41)
[2018-10-20] MEDS: ASPIRIN 81 MG ENTERIC TAB PO SCH (09:41)
[2018-10-20] MEDS: CLOPIDOGREL 75 MG TAB PO SCH (09:41)
[2018-10-20] MEDS: VENLAFAXINE **XR** 75MG CAPSULE PO SCH (09:41)
[2018-10-20] MEDS: FAMOTIDINE 20 MG TAB PO SCH (09:42)
--- NOTE | 2018-10-20 11:04 | IPNPDOC ---
Text Note Date of Service The patient was seen on 10/20/18. NOTE SUBJECTIVE: Patient was examined bedside. He has ongoing slurred speech, with left-sided facial droop. He also has weakness in his left side. However, overall, patient has improved since initial presentation. He had no acute complaints. No overnight activities OBJECTIVE PHYSICAL EXAMINATION: VITAL SIGNS: Please see below. GENERAL: male, resting comfortably in bed, no acute complaints, alert and orientated, slurred speech HEENT: Left-sided facial droop , CARDIOVASCULAR: . S1-S2 regular. Normal RESPIRATORY: . Clear to auscultation bilaterally EXTREMITIES: 4/5 strength in the left upper extremity but otherwise 5 out of 5 throughout NEUROLOGICAL: Left-sided facial droop, cranial nerves II through XII grossly intact, sensation intact throughout upper and lower extremity LABORATORY DATA, IMAGING STUDIES, MICROBIOLOGY: Please see below. Echocardiogram: 1. Study is of good technical quality. 2. Normal LV size with severe global hypokinesis, septal dyskinesis and overall left ventricle ejection fraction around 30%. No segmental wall motion abnormality is appreciated as such. No left ventricular thrombus was seen. 3. No hemodynamically significant valvular disease. 4. Normal central venous pressure and normal pulmonary artery pressure. DVT prophylaxis ordered?: Heparin every 8 ASSESSMENT AND PLAN: This is a 67-year-old man with what appears to be in acute CVA. PROBLEMS: 1. Left-sided weakness slurred speech and left-sided facial droop concerning for acute CVA: High likelihood of CVA secondary to intracranial vascular disease radiology reports as follows "Extremely high grade stenosis right middle cerebral artery approximately 1.3 cm distal to its origin. as well as There is occlusion of the right internal carotid artery from its origin to its distal end. Stenosis of the left carotid bulb in the range of about 70-80%. 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 The left vertebral artery is reconstituted at the C3 level with multifocal stenosis of its distal aspect. Right vertebral artery is hypoplastic with severe stenosis distally just before the anastomosis with the left vertebral artery." -CTA of head without contrast Findings consistent with acute infarct involving the vascular distribution of the right middle cerebral artery. No acute intracranial hemorrhage. There is mild edema and mild impression upon the frontal horn of the right lateral ventricle CT of head with contrast Extremely high grade stenosis right middle cerebral artery approximately 1.3 cm distal to its origin -Vascular surgery, Dr. Porras, has recommended carotid endarterectomy in 1 month -Neurology consult, Dr. Ruby, he has recommended continue aspirin 81 mg, continue Plavix 75 mg, continue Lipitor 80 mg by mouth daily. Recommend physical and occupational therapy. Rule out SBP between 150 and 180, allow DBP between 70-100 -Patient has been development by speech pathology. There recommended mechanical soft diet at level II. Order has been placed -Continue physical therapy and occupational therapy -Will likely transfer patient ARU for rehab 2. Grade1 diastolic dysfunction. - Echocardiogram shows an ejection fraction of 30%, his previous echocardiogram had an ejection fraction of 40%, Dr. Mijares, wireline operator, has been made aware, he will adjust patient's medication as an outpatient, seening as how patient is well compensated and does not have any cardiac symptoms. He is euvolemic -Coronary artery disease status post defibrillator: No symptoms at this time he is on aspirin Plavix statin home beta casie currently on hold. 3. Diabetes: Home metformin and glimepiride and toujeo. He is on sliding scale insulin -Hemoglobin A1c of 8.8 4. Hypertension: Home medications on hold for permissive hypertension. Systolic blood pressure between 150 and 180, diastolic pressure between 70 and 100, consider resuming atenolol benazepril and isosorbide mononitrate as needed. 5. Elevated lipase: No signs or symptoms of clinical pancreatitis 6. Mood disorder: Resume venlafaxine as he is able to tolerate by mouth 7. Dyslipidemia: He is on high intensity statin as well as niacin A gastric esophageal reflux disease: He is on Pepcid his home ranitidine is on hold DISPOSITION: Possibly transfer to ARU tomorrow. VS,Fishbone, I+O VS, Fishbone, I+O Laboratory Tests 10/20/18 04:43 Red Blood Count 4.72, Mean Corpuscular Volume 91.7, Mean Corpuscular Hemoglobin 31.4, Mean Corpuscular Hemoglobin Concent 34.2, Red Cell Distribution Width 12.4, Calcium Level 8.9 Vital Signs Date Time Temp Pulse Resp B/P (MAP) Pulse Ox O2 Delivery O2 Flow Rate FiO2 10/20/18 06:00 98.4 75 16 162/66 (98) 99 10/18/18 20:29 Room Air I&O- Last 24 Hours up to 6 AM 10/20/18 06:00 Intake Total 812.5 ml Output Total 2700 ml Balance -1887.5 ml GME ATTESTATION GME ATTESTATION My faculty preceptor for this patient encounter was physically present during the encounter and was fully available. All aspects of the patient interview, examination, medical decision making process, and medical care plan development were reviewed and approved by the faculty preceptor. The faculty preceptor is aware and concurs with the plan as stated in the body of this note and will attest to such by his/her cosignature. LATANYA DASILVA DO Oct 20, 2018 07:43
--- NOTE | 2018-10-20 13:50 | NUR ---
Pt seen for beside swallow evaluation d/t CVA with observed oral dysfunction. Pt presents with mild-moderate oral phase dysphagia. Noted left facial droop, left tongue weakness and decreased left oral sensation. Recommend: Level 2 solids and regular thin liquids. Head turn to the left for all solids/liquids. Meds whole 2-3 at a time with liquid wash. Please administer meds from the Pt left side. Addendum: 10/20/18 at 1353 by JOSUE ALMENDAREZ [facility] Amended: Links added.
--- NOTE | 2018-10-20 20:26 | IPNPDOC ---
Subjective General Date/Time Seen The patient was seen on 10/20/18 at 20:23. Subject Chief Complaint/History The patient is a 67-year-old male admitted with a reason for visit of Carotid Artery Disease Non Hemorrhagic Cva. Current Medications Current Medications Current Medications Aspirin (Ecotrin) 81 mg DAILY PO Last administered on 10/20/18at 09:41; Start 10/19/18 at 09:00 Atorvastatin Calcium (Lipitor) 80 mg QHS PO Last administered on 10/19/18at 20:45; Start 10/18/18 at 21:00 Clopidogrel Bisulfate (PLAVix) 75 mg DAILY PO Last administered on 10/20/18 09 :41; Start 10/19/18 at 09:00 Dextrose (Dextrose 50%) 25 ml ASDIRECTED PRN IV SEE LABEL COMMENTS; Start 10/18/18 at 14:30 Famotidine (Pepcid) 20 mg DAILY PO Last administered on 10/20/18at 09:42; Start 10/19/18 at 09:00 Glucagon (Glucagon) 1 mg ASDIRECTED PRN SC SEE LABEL COMMENTS; Start 10/18/18 at 14:30 Glucose (Glucose) 16 GM ASDIRECTED PRN PO SEE LABEL COMMENTS; Start 10/18/18 at 14:30 Heparin Sodium (Porcine) (Heparin) 5,000 units Q8H SQ Last administered on 10/20/18at 14:34; Start 10/18/18 at 22:00 Home Med (Med Rec Complete!) ASDIRECTED XX ; Start 10/18/18 at 13:30; Stop 10/18/18 at 13:30; Status DC Insulin Human Lispro (HumaLOG INSULIN) SEE PROTOCOL TABLE AC SC Last administered on 10/20/18at 18:15; Start 10/18/18 at 17:30 Insulin Human Lispro (HumaLOG INSULIN) SEE PROTOCOL TABLE QHS SC ; Start 10/18/18 at 21:00 Multivitamins (Theragram-M) 1 tab DAILY PO Last administered on 10/20/18at 09:41; Start 10/19/18 at 09:00 Niacin (Niaspan) 500 mg QHS PO Last administered on 10/19/18at 20:45; Start 10/18/18 at 21:00 Sodium Chloride 1,000 ml @ 125 mls/hr Q8H IV Last administered on 10/19/18at 08:30; Start 10/18/18 at 16:00; Stop 10/19/18 at 12:29; Status DC Venlafaxine HCl (Effexor Xr) 75 mg DAILY PO Last administered on 10/20/18at 09:41; Start 10/19/18 at 09:00 Allergies Coded Allergies: No Known Allergies (Unverified , 10/18/18) VITAL SIGNS VITAL SIGNS Vital Signs Date Time Temp Pulse Resp B/P (MAP) Pulse Ox O2 Delivery O2 Flow Rate FiO2 10/20/18 14:52 98.1 93 18 172/90 (117) 97 10/20/18 12:00 170/78 (108) 10/20/18 08:00 98.4 87 20 174/84 (114) 99 10/20/18 06:00 98.4 75 16 162/66 (98) 99 10/20/18 04:00 98.3 74 14 134/66 (88) 98 10/20/18 00:00 99.2 73 18 165/89 (114) 99 Intake & Output 10/20/18 06:00 Intake Total 812.5 ml Output Total 2700 ml Balance -1887.5 ml Laboratory Tests 10/19/18 20:40: Bedside Glucose (Misc Panel) 64L 10/19/18 20:41: Bedside Glucose (Misc Panel) 68L 10/19/18 21:28: Bedside Glucose (Misc Panel) 116H 10/20/18 04:43: White Blood Count 14.4H, Red Blood Count 4.72, Hemoglobin 14.8, Hematocrit 43.3, Mean Corpuscular Volume 91.7, Mean Corpuscular Hemoglobin 31.4, Mean Corpuscular Hemoglobin Concent 34.2, Red Cell Distribution Width 12.4, Platelet Count 197, Nucleated Red Blood Cells % (auto) 0.0, Blood Urea Nitrogen 14, Creatinine 1.32H, Sodium Level 139, Potassium Level 3.8, Chloride Level 106, Carbon Dioxide Level 25, Calcium Level 8.9, Anion Gap 8, Glomerular Filtration Rate 57.4, Fast ing Glucose 114H 10/20/18 08:48: Bedside Glucose (Misc Panel) 128H 10/20/18 12:50: Bedside Glucose (Misc Panel) 334H 10/20/18 16:36: Bedside Glucose (Misc Panel) 225H Current Medications Medications (Trade) Dose Ordered Sig/Lisa Route PRN Reason Start Time Stop Time Status Last Admin Dose Admin Aspirin (Ecotrin) 81 mg DAILY PO 10/19/18 09:00 10/20/18 09:41 Atorvastatin Calcium (Lipitor) 80 mg QHS PO 10/18/18 21:00 10/19/18 20:45 Clopidogrel Bisulfate (PLAVix) 75 mg DAILY PO 10/19/18 09:00 10/20/18 09:41 Famotidine (Pepcid) 20 mg DAILY PO 10/19/18 09:00 10/20/18 09:42 Heparin Sodium (Porcine) (Heparin) 5,000 units Q8H SQ 10/18/18 22:00 10/20/18 14:34 Insulin Human Lispro (HumaLOG INSULIN) SEE PROTOCOL TABLE AC SC 10/18/18 17:30 10/20/18 18:15 Multivitamins (Theragram-M) 1 tab DAILY PO 10/19/18 09:00 10/20/18 09:41 Niacin (Niaspan) 500 mg QHS PO 10/18/18 21:00 10/19/18 20:45 Venlafaxine HCl (Effexor Xr) 75 mg DAILY PO 10/19/18 09:00 10/20/18 09:41 Laboratory Tests Test 10/19/18 20:40 10/19/18 20:41 10/19/18 21:28 10/20/18 08:48 Range/Units Bedside Glucose (Misc Panel) 64 68 116 128 80-115 MG/DL Test 10/20/18 12:50 10/20/18 16:36 Range/Units Bedside Glucose (Misc Panel) 334 225 80-115 MG/DL Laboratory Tests 10/19/18 04:14 Red Blood Count 4.26 L, Mean Corpuscular Volume 92.5, Mean Corpuscular Hemoglobin 31.5, Mean Corpuscular Hemoglobin Concent 34.0, Red Cell Distribution Width 12.4, Calcium Level 8.4 L 10/20/18 04:43 Red Blood Count 4.72, Mean Corpuscular Volume 91.7, Mean Corpuscular Hemoglobin 31.4, Mean Corpuscular Hemoglobin Concent 34.2, Red Cell Distribution Width 12.4, Calcium Level 8.9 Objective Date of Service The patient was seen on 10/20/18. Calvin Porras MD Oct 20, 2018 20:26
[2018-10-20] MEDS ORDERED: HEPARIN SOD (PORCINE) 5000 UNITS/ML VIAL As Ordered ONE (21:39)
[2018-10-20] MEDS: NIACIN SR (NIASPAN) 500 MG TAB PO SCH (21:44)
[2018-10-20] MEDS: ATORVASTATIN 20 MG TAB PO SCH (21:44)
[2018-10-21 06:00] VITALS: BP 182/86
[2018-10-21] MEDS: HEPARIN SOD (PORCINE) 5000 UNITS/ML VIAL SQ SCH ×3 (06:11→21:39)
[2018-10-21 06:39] LABS: HEMOGLOBIN 14.4 g/dl (13.5-17.5); MEAN CORPUSCULAR HEMOGLOBIN 30.8 pg (27.0-33.0); MEAN CORPUSCULAR HGB CONC 34.3 g/dl (32.0-36.5); MEAN CORPUSCULAR VOLUME 89.7 fl (80.0-96.0); PLATELET COUNT, AUTOMATED 173 10^3/uL (150-450); RED BLOOD COUNT 4.68 10^6/uL (4.30-6.10); WHITE BLOOD COUNT 11.2 10^3/uL (4.0-10.0)
[2018-10-21 07:12] LABS: CALCIUM LEVEL 8.8 MG/DL (8.8-10.2); CREATININE FOR GFR 1.32 MG/DL (0.70-1.30); GLOMERULAR FILTRATION RATE 57.4 (>49); POTASSIUM SERUM 3.9 MEQ/L (3.5-5.1)
[2018-10-21] MEDS: ASPIRIN 81 MG ENTERIC TAB PO SCH (08:03)
[2018-10-21] MEDS: CLOPIDOGREL 75 MG TAB PO SCH (08:03)
[2018-10-21] MEDS: VENLAFAXINE **XR** 75MG CAPSULE PO SCH (08:04)
[2018-10-21] MEDS: HumaLOG INSULIN (NovoLOG) PER UNIT SC SCH ×4 (08:04→21:38)
[2018-10-21] MEDS: FAMOTIDINE 20 MG TAB PO SCH (08:04)
[2018-10-21] MEDS: MULTIVITAMINS/MINERALS THERAP 1 TAB PO SCH (08:04)
--- NOTE | 2018-10-21 09:49 | IPNPDOC ---
Text Note Date of Service The patient was seen on 10/21/18. NOTE SUBJECTIVE: Patient was examined bedside. He was sleeping in bed without any acute distress. He is alert and oriented and is able to follow commands. No overnight activities. OBJECTIVE PHYSICAL EXAMINATION: VITAL SIGNS: Please see below. GENERAL: male, resting comfortably in bed, no acute complaints, alert and orientated, slurred speech HEENT: Left-sided facial droop CARDIOVASCULAR: S1-S2 regular normal RESPIRATORY: . Clear to auscultation bilaterally EXTREMITIES: 4/5 strength in the left upper extremity but otherwise 5 out of 5 throughout NEUROLOGICAL: Left-sided facial droop, cranial nerves II through XII grossly intact, LABORATORY DATA, IMAGING STUDIES, MICROBIOLOGY: Please see below. Echocardiogram: 1. Study is of good technical quality. 2. Normal LV size with severe global hypokinesis, septal dyskinesis and overall left ventricle ejection fraction around 30%. No segmental wall motion abnormality is appreciated as such. No left ventricular thrombus was seen. 3. No hemodynamically significant valvular disease. 4. Normal central venous pressure and normal pulmonary artery pressure. DVT prophylaxis ordered?: Heparin every 8 ASSESSMENT AND PLAN: This is a 67-year-old man with what appears to be in acute CVA. PROBLEMS: 1. Left-sided weakness slurred speech and left-sided facial droop concerning for acute CVA: High likelihood of CVA secondary to intracranial vascular disease radiology reports as follows "Extremely high grade stenosis right middle cerebral artery approximately 1.3 cm distal to its origin. as well as There is occlusion of the right internal carotid artery from its origin to its distal end. Stenosis of the left carotid bulb in the range of about 70-80%. 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 The left vertebral artery is reconstituted at the C3 level with multifocal stenosis of its distal aspect. Right vertebral artery is hypoplastic with severe stenosis distally just before the anastomosis with the left vertebral artery." -CTA of head without contrast Findings consistent with acute infarct involving the vascular distribution of the right middle cerebral artery. No acute intracranial hemorrhage. There is mild edema and mild impression upon the frontal horn of the right lateral ventr icle CT of head with contrast Extremely high grade stenosis right middle cerebral artery approximately 1.3 cm distal to its origin -Vascular surgery, Dr. Porras, has recommended carotid endarterectomy in 1 month -Neurology consult, Dr. Ruby, he has recommended continue aspirin 81 mg, continue Plavix 75 mg, continue Lipitor 80 mg by mouth daily. Recommend physical and occupational therapy. Rule out SBP between 150 and 180, allow DBP between 70-100 -Patient has been development by speech pathology. There recommended mechanical soft diet at level II. Order has been placed -Continue physical therapy and occupational therapy -ARU for rehab 2. Grade1 diastolic dysfunction - Echocardiogram shows an ejection fraction of 30%, his previous echocardiogram had an ejection fraction of 40%, Dr. Mijares, application integration engineer, has been made aware, he will adjust patient's medication as an outpatient, seening as how patient is well compensated and does not have any cardiac symptoms. He is euvolemic -Coronary artery disease status post defibrillator: No symptoms at this time he is on aspirin Plavix statin home beta casie currently on hold. 3. Diabetes: Home metformin and glimepiride and toujeo. He is on sliding scale insulin -Hemoglobin A1c of 8.8 4. Hypertension: Home medications on hold for permissive hypertension. Systolic blood pressure between 150 and 180, diastolic pressure between 70 and 100, consider resuming atenolol benazepril and isosorbide mononitrate as needed. 5. Elevated lipase: No signs or symptoms of clinical pancreatitis 6. Mood disorder: Resume venlafaxine as he is able to tolerate by mouth 7. Dyslipidemia: He is on high intensity statin as well as niacin A gastric esophageal reflux disease: He is on Pepcid his home ranitidine is on hold DISPOSITION: Possibly transfer to ARU tomorrow. VS,Fishbone, I+O VS, Fishbone, I+O Laboratory Tests 10/21/18 06:21 Red Blood Count 4.68, Mean Corpuscular Volume 89.7, Mean Corpuscular Hemoglobin 30.8, Mean Corpuscular Hemoglobin Concent 34.3, Red Cell Distribution Width 12.2, Calcium Level 8.8 Vital Signs Date Time Temp Pulse Resp B/P (MAP) Pulse Ox O2 Delivery O2 Flow Rate FiO2 10/21/18 06:00 96.8 75 20 182/86 (118) 96 10/18/18 20:29 Room Air I&O- Last 24 Hours up to 6 AM 10/21/18 06:00 Intake Total 2270 ml Output Total 1260 ml Balance 1010 ml GME ATTESTATION GME ATTESTATION My faculty preceptor for this patient encounter was physically present during the encounter and was fully available. All aspects of the patient interview, examination, medical decision making process, and medical care plan development were reviewed and approved by the faculty preceptor. The faculty preceptor is aware and concurs with the plan as stated in the body of this note and will attest to such by his/her cosignature. LATANYA DASILVA DO Oct 21, 2018 09:48
[2018-10-21 10:00] VITALS: BP 150/78
[2018-10-21] MEDS ORDERED: MIRALAX *UNIT DOSE* 17GM PACKET PO PRN (11:00)
[2018-10-21] MEDS: BENAZEPRIL 20 MG TAB PO SCH (11:01)
[2018-10-21] MEDS: ATENOLOL 50 MG TAB PO SCH ×2 (11:02→21:38)
[2018-10-21] MEDS: SENNA 8.6 MG TAB (SENOKOT) PO SCH ×2 (12:25→21:38)
[2018-10-21 13:15] VITALS: BP 146/88
[2018-10-21 14:00] VITALS: BP 143/78
[2018-10-21 16:19] VITALS: BP 148/80
--- NOTE | 2018-10-21 17:06 | REP ---
CT Head without contrast HISTORY: Change in neurologic status COMPARISON: 10/19/2018 Decreased attenuation is present in the right basal ganglia , internal capsule , insular and sub insular region of the right temporal lobe and centrum semiovale valley of the anterior right parietal lobe. This represents an acute infarction. A small amount of hemorrhage is present. There is mass effect with partial effacement of the anterior horn of the right lateral ventricle without midline shift. Areas of decreased attenuation are present in the periventricular white matter. This represents small-vessel ischemic disease. The ventricular system and cortical sulci are dilated consistent with mild volume loss. There is no extra cerebral collection. There is no fracture. The visualized sinuses are clear. IMPRESSION: 1. An acute infarction in the right basal ganglia, internal capsule , insular , sub insular right temporal lobe and centrum semiovale of the the anterior right parietal lobe. A small hemorrhagic component is present. There is no midline shift. 2. Small vessel ischemic disease. 3. Mild volume loss. Electronically Signed by Yuriy Grey MD 10/21/2018 04:57 P
--- NOTE | 2018-10-21 20:00 | IPNPDOC ---
Text Note Date of Service The patient was seen on 10/21/18. NOTE Progress note Update: Was called by nursing staff to be informed of change in neuro status with neurological checks. She was expressing worsening of his left upper and lower ex tremity strength. Patient received a CT scan stat. CT scan was consistent with acute infarction. The right basal ganglia, internal capsule, insular, subinsular right temporal lobe and centrum semiovale. I'll of the anterior right parietal lobe. A small hemorrhagic component is present. . There is no midline shift. I have contacted neurology and given them an update and they have recommended that I contact [facility] for potential transfer. Case has been discussed thoroughly with Dr. Smita Ordaz, the neuro-grinder machine setter at [facility]. . He has been given imaging for it by our radiology department for his own revealed. . He is indicated that he has reviewed all 3 imaging sets from October 18, and . Currently, he agrees that there was a small amount of hemorrhagic infarct present on the and that there has been progression to . I have explained to him that the patient has been placed on dual antiplatelet therapy for his vasculopathy including 100% occlusion in his right internal carotid artery, coronary artery disease status post stent placement as well as peripheral vascular disease, status post stent placement. Currently Dr. Ordaz's recommendation is to discontinue Plavix but to continue with aspirin 81 and heparin 5000 for DVT prophylaxis. He is indicated that he would not consider transfer of this patient at this time given that he would not be doing anything differently there. At this time we will get a repeat imaging via CT head tomorrow morning. If there is any worsening of the patient's neurologic symptoms and the CT head should be acquired sooner. VS,Tavaresbone, I+O VS, Fishbone, I+O Laboratory Tests 10/21/18 06:21 Red Blood Count 4.68, Mean Corpuscular Volume 89.7, Mean Corpuscular Hemoglobin 30.8, Mean Corpuscular Hemoglobin Concent 34.3, Red Cell Distribution Width 12.2, Calcium Level 8.8 Vital Signs Date Time Temp Pulse Resp B/P (MAP) Pulse Ox O2 Delivery O2 Flow Rate FiO2 10/21/18 16:19 148/80 (102) 10/21/18 14:00 97.8 68 16 96 10/18/18 20:29 Room Air I&O- Last 24 Hours up to 6 AM 10/21/18 06:00 Intake Total 2270 ml Output Total 1260 ml Balance 1010 ml VANIA BORJA MD Oct 21, 2018 20:00
[2018-10-21] MEDS: NIACIN SR (NIASPAN) 500 MG TAB PO SCH (21:38)
[2018-10-21] MEDS: ATORVASTATIN 20 MG TAB PO SCH (21:38)
[2018-10-21 22:00] VITALS: BP 144/77
[2018-10-22] MEDS: HEPARIN SOD (PORCINE) 5000 UNITS/ML VIAL SQ SCH ×3 (04:53→21:37)
[2018-10-22 06:00] VITALS: BP 146/81
[2018-10-22 06:44] LABS: HEMATOCRIT 43.3 % (42.0-52.0); HEMOGLOBIN 14.6 g/dl (13.5-17.5); MEAN CORPUSCULAR HGB CONC 33.7 g/dl (32.0-36.5); MEAN CORPUSCULAR VOLUME 91.9 fl (80.0-96.0); PLATELET COUNT, AUTOMATED 191 10^3/uL (150-450); RED BLOOD COUNT 4.71 10^6/uL (4.30-6.10); WHITE BLOOD COUNT 12.2 10^3/uL (4.0-10.0)
[2018-10-22 07:04] LABS: CALCIUM LEVEL 8.9 MG/DL (8.8-10.2); CREATININE FOR GFR 1.38 MG/DL (0.70-1.30); GLOMERULAR FILTRATION RATE 54.5 (>49)
--- NOTE | 2018-10-22 08:25 | REP ---
CT Head without contrast HISTORY: Infarction COMPARISON: 10/21/2018 Decreased attenuation is present in the right basal ganglia and internal capsular insular , right temporal lobe and anterior right parietal lobe. This represents an acute infarction. A small hemorrhagic component is present. There is mass effect with partial effacement of the sylvian fissure and anterior horn of the right lateral ventricle. There is no midline shift. This is unchanged compared to the previous study. Areas of decreased attenuation are present in the periventricular white matter. This represents small-vessel ischemic disease. The ventricular system and cortical sulci are dilated consistent with mild volume loss. There is no extracerebral collection. There is no fracture. The visualized sinuses are clear. IMPRESSION: 1. Acute right basal ganglia ganglia, temporal lobe and parietal lobe infarction with a small hemorrhagic component unchanged compared to the previous study. 2. Small vessel ischemic disease. 3. Mild volume loss. Electronically Signed by Yuriy Grey MD 10/22/2018 08:17 A
[2018-10-22] MEDS: MULTIVITAMINS/MINERALS THERAP 1 TAB PO SCH (08:26)
[2018-10-22] MEDS: HumaLOG INSULIN (NovoLOG) PER UNIT SC SCH ×4 (08:26→21:36)
[2018-10-22] MEDS: FAMOTIDINE 20 MG TAB PO SCH (08:27)
[2018-10-22] MEDS: VENLAFAXINE **XR** 75MG CAPSULE PO SCH (08:27)
[2018-10-22] MEDS: SENNA 8.6 MG TAB (SENOKOT) PO SCH ×2 (08:27→21:35)
[2018-10-22] MEDS: ATENOLOL 50 MG TAB PO SCH (08:27)
[2018-10-22] MEDS: BENAZEPRIL 20 MG TAB PO SCH (08:27)
[2018-10-22] MEDS ORDERED: ASPIRIN 81 MG ENTERIC TAB PO SCH (09:00)
[2018-10-22 14:00] VITALS: BP 179/84
--- NOTE | 2018-10-22 15:07 | REP ---
CT Head without contrast HISTORY: Confusion COMPARISON: 08:02 a.m. Decreased attenuation is present in the right basal ganglia and internal capsule, right temporal lobe and anterior right parietal lobe. This represents an acute infarction. A small a hemorrhagic component is present. There is mass effect with partial effacement of the sylvian fissure and anterior horn of the right lateral ventricle. There is no midline shift. This is unchanged compared to the previous study. Areas of decreased attenuation are present in the periventricular white matter. This represents small-vessel ischemic disease. The ventricular system and cortical sulci are dilated consistent with mild volume loss. The visualized sinuses are clear. IMPRESSION: 1. Acute right basal ganglia, internal capsule, right temporal and parietal lobe infarction with a small hemorrhagic component unchanged compared to the previous study. 2. Small vessel ischemic disease. 3. Mild volume loss. Electronically Signed by Yuriy Grey MD 10/22/2018 02:58 P
--- NOTE | 2018-10-22 17:31 | IPNPDOC ---
Text Note Date of Service The patient was seen on 10/22/18. NOTE Subjective: Patient was seen and examined at the bedside. Patient was seen on his way to get CT scan completed this morning. Denied any changes overnight. Is still experiencing weakness of his left upper and lower extremity. Denies any chest pain, shortness breath or palpitations. Denies any abdominal pain, constipation, diarrhea or discomfort with urination Objective: Vitals (See below) General: Lying in bed, no acute distress, comfortable, AAOx3 HEENT: NC, AT CVS: RRR, +S1S2 Lungs: Fair air entry b/l, -w/r/r Abdomen: Soft, Non-distended, non-tender Extremities: - Edema, - Calf tenderness Neuro: Significant loss of strength at left upper / lower extremity Assessment and plan: Left facial weakness / left upper + lower extremity weakness - likely 2/2 acute CVA - likely 2/2 ischemic etiology, possibly conversion to hemorrhagic - On 10/21 patient had worsening weakness of his left upper and lower extremity; his remains persistent. This morning - Physical confirms the above - Labs unremarkable - Patient is unable to go for MRI given that he has an pacemaker in place - CT head 10/22: 1. Acute right basal ganglia, internal capsule, right temporal and parietal lobe infarction with a small hemorrhagic component unchanged compared to the previous study. 2. Small vessel ischemic disease. 3. Mild volume loss. - CT head 10/21: 1. An acute infarction in the right basal ganglia, internal capsule, insular, sub insular right temporal lobe and centrum semiovale of the the anterior right parietal lobe. A small hemorrhagic component is present. There is no midline shift. 2. Small vessel ischemic disease. 3. Mild volume loss. - CT head 10/19: Findings consistent with acute infarct involving the vascular distribution of the right middle cerebral artery. No acute intracranial hemorrhage. There is mild edema and mild impression upon the frontal horn of the right lateral ventricle. - CT head 10/18: Atrophy. Mild periventricular small vessel ischemic change. Vascular calcifications. No acute intracranial process identified. - CTA head 10/18: Extremely high grade stenosis right middle cerebral artery approximately 1.3 cm distal to its origin. - CTA Neck 10/18: There is occlusion of the right internal carotid artery from its origin to its distal end. Stenosis of the left carotid bulb in the range of about 70-80%. 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 The left vertebral artery is reconstituted at the C3 level with multifocal stenosis of its distal aspect. 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 - Findings of new hemorrhagic notes on imaging were discussed with Dr. Smita Ordaz; currently does not want to accept patient on transfer; has recommended stopping Plavix alone - c/w ASA and Atorvastatin; s/p Plavix - Neurology on consultation; appreciate their input - Vascular surgery on consultation; will likely consider surgery in 4-6 weeks - c/w PT and OT Compensated Systolic and Diastolic CHF - ECHO 10/19: EF 30%, G1DD, CAD - c/w ASA, Atorvastatin, Benazepril, Atenolol DLP - c/w Atorvastatin and Niacin IDDM2 - c/w ISS HTN - BP moderately controlled - s/p Permissive hypertension period - c/w Benazepril, Atenolol Mood disorder - c/w Venlafaxine GERD - c/w Famotine DVT prophylaxis - c/w Heparin Disposition: - Awaiting clinical improvement - Repeat CT head if changes in mental status / neurological checks noted - Discussed with [facility]: Dr. Smita Guerrier; c/w ASA and Heparin (for DVT prophylaxis); hold Plavix DISPOSITION: Possibly transfer to ARU tomorrow. VS,Latisha, I+O VS, Tavaresbone, I+O Laboratory Tests 10/22/18 06:30 Red Blood Count 4.71, Mean Corpuscular Volume 91.9, Mean Corpuscular Hemoglobin 31.0, Mean Corpuscular Hemoglobin Concent 33.7, Red Cell Distribution Width 12.2, Calcium Level 8.9 Vital Signs Date Time Temp Pulse Resp B/P (MAP) Pulse Ox O2 Delivery O2 Flow Rate FiO2 10/22/18 14:00 97.6 67 20 179/84 (115) 97 10/18/18 20:29 Room Air I&O- Last 24 Hours up to 6 AM 10/22/18 06:00 Intake Total 2520 ml Output Total 2120 ml Balance 400 ml VANIA BORJA MD Oct 22, 2018 17:31
[2018-10-22] MEDS: ATORVASTATIN 20 MG TAB PO SCH (21:35)
[2018-10-22] MEDS: NIACIN SR (NIASPAN) 500 MG TAB PO SCH (21:35)
[2018-10-22 22:00] VITALS: BP 131/80
[2018-10-23] MEDS: HEPARIN SOD (PORCINE) 5000 UNITS/ML VIAL SQ SCH ×3 (05:05→21:15)
[2018-10-23 06:00] VITALS: BP 130/60
[2018-10-23 06:53] LABS: HEMATOCRIT 41.2 % (42.0-52.0); HEMOGLOBIN 14.3 g/dl (13.5-17.5); MEAN CORPUSCULAR HEMOGLOBIN 31.2 pg (27.0-33.0); MEAN CORPUSCULAR HGB CONC 34.7 g/dl (32.0-36.5); MEAN CORPUSCULAR VOLUME 89.8 fl (80.0-96.0); PLATELET COUNT, AUTOMATED 191 10^3/uL (150-450); RED BLOOD COUNT 4.59 10^6/uL (4.30-6.10); WHITE BLOOD COUNT 13.3 10^3/uL (4.0-10.0)
[2018-10-23 07:21] LABS: CREATININE FOR GFR 1.46 MG/DL (0.70-1.30); GLOMERULAR FILTRATION RATE 51.1 (>49); POTASSIUM SERUM 4.3 MEQ/L (3.5-5.1)
[2018-10-23] MEDS ORDERED: NS 1,000 ML IV SCH (07:45)
[2018-10-23] MEDS: ASPIRIN 81 MG ENTERIC TAB PO SCH (08:07)
[2018-10-23] MEDS: FAMOTIDINE 20 MG TAB PO SCH (08:07)
[2018-10-23] MEDS: VENLAFAXINE **XR** 75MG CAPSULE PO SCH (08:07)
[2018-10-23] MEDS: HumaLOG INSULIN (NovoLOG) PER UNIT SC SCH ×4 (08:07→21:15)
[2018-10-23] MEDS: SENNA 8.6 MG TAB (SENOKOT) PO SCH ×2 (08:07→21:15)
[2018-10-23] MEDS: MULTIVITAMINS/MINERALS THERAP 1 TAB PO SCH (08:07)
--- NOTE | 2018-10-23 09:38 | IPNPDOC ---
Text Note Date of Service The patient was seen on 10/23/18. NOTE Subjective: Patient was examined at bedside, prior to this, he was being assisted to use the bedside commode. Hearing complaints. Denies any further increase neurological deficit. He was afebrile at night. No new activities reported. Denies breathing difficulty, denies chest pain, denies palpitation, denies any issues or urination, denies any abdominal discomfort. Objective: Vitals (See below) General: Alert and oriented 3, comfortable, able to follow HEENT: Head is atraumatic, facial asymmetry with left-sided facial droop, no JVD CVS: S1, S2 normal, no murmurs, rubs or gallops Lungs: Clear to auscultate Abdomen: Soft, nontender. Bowel sounds present Extremities: Without edema, deformity Neuro: 2 / 5 strength in bilateral upper and lower left extremity, there is a significant decrease from presentation Assessment and plan: Left facial weakness / left upper + lower extremity weakness - likely 2/2 acute CVA - likely 2/2 ischemic etiology, possibly conversion to hemorrhagic - On 10/21 patient had worsening weakness of his left upper and lower extremity; his remains persistent. This morning - Physical confirms the above - Labs unremarkable - Patient is unable to go for MRI given that he has an pacemaker in place - CT head 10/22: 1. Acute right basal ganglia, internal capsule, right temporal and parietal lobe infarction with a small hemorrhagic component unchanged compared to the previous study. 2. Small vessel ischemic disease. 3. Mild volume loss. - CT head 10/21: 1. An acute infarction in the right basal ganglia, internal capsule, insular, sub insular right temporal lobe and centrum semiovale of the the anterior right parietal lobe. A small hemorrhagic component is present. There is no midline shift. 2. Small vessel ischemic disease. 3. Mild volume loss. - CT head 10/19: Findings consistent with acute infarct involving the vascular distribution of the right middle cerebral artery. No acute intracranial hemorrhage. There is mild edema and mild impression upon the frontal horn of the right lateral ventricle. - CT head 10/18: Atrophy. Mild periventricular small vessel ischemic change. Vascular calcifications. No acute intracranial process identified. - CTA head 10/18: Extremely high grade stenosis right middle cerebral artery approximately 1.3 cm distal to its origin. - CTA Neck 10/18: There is occlusion of the right internal carotid artery from its origin to its distal end. Stenosis of the left carotid bulb in the range of about 70-80%. 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 The left vertebral artery is reconstituted at the C3 level with multifocal stenosis of its distal aspect. 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 - Findings of new hemorrhagic notes on imaging were discussed with Dr. Smita Ordaz; currently does not want to accept patient on transfer; has recommended stopping Plavix alone - c/w ASA and Atorvastatin; s/p Plavix - Neurology on consultation; appreciate their input - Vascular surgery on consultation; will likely consider surgery in 4-6 weeks - c/w PT and OT - Neuro status appears to be stable for now. Will continue to monitor Elevated Cr on CKD3 - Cr baseline of 1-1.2 - Cr mildly elevated from baseline - Will start IV fluid hydration Compensated Systolic and Diastolic CHF - ECHO 10/19: EF 30%, G1DD CAD - c/w ASA, Atorvastatin DLP - c/w Atorvastatin and Niacin IDDM2 - c/w ISS HTN; Still allow for permissive hypertension - BP moderately suppressed - s/p Benazepril and Atenolol - Started IV fluid hydration Mood disorder - c/w Venlafaxine GERD - c/w Famotine DVT prophylaxis - c/w Heparin Disposition: - Awaiting clinical improvement - Repeat CT head if changes in mental status / neurological checks noted - Discussed with MICHELLE mann: Dr. Smita uGerrier; c/w ASA and Heparin (for DVT prophylaxis); Hold Plavix VS,Fishbone, I+O VS, Fishbone, I+O Laboratory Tests 10/23/18 06:40 Red Blood Count 4.59, Mean Corpuscular Volume 89.8, Mean Corpuscular Hemoglobin 31.2, Mean Corpuscular Hemoglobin Concent 34.7, Red Cell Distribution Width 12 .5, Calcium Level 9.0 Vital Signs Date Time Temp Pulse Resp B/P (MAP) Pulse Ox O2 Delivery O2 Flow Rate FiO2 10/23/18 06:00 97.8 62 18 130/60 (83) 100 10/18/18 20:29 Room Air I&O- Last 24 Hours up to 6 AM 10/23/18 06:00 Intake Total 1320 ml Output Total 1075 ml Balance 245 ml GME ATTESTATION GME ATTESTATION My faculty preceptor for this patient encounter was physically present during the encounter and was fully available. All aspects of the patient interview, examination, medical decision making process, and medical care plan development were reviewed and approved by the faculty preceptor. The faculty preceptor is aware and concurs with the plan as stated in the body of this note and will attest to such by his/her cosignature. ATTENDING NOTE I, Karol Roberts, have both independently examined this patient as well as reviewed the documentation. I have discussed in detail with the resident the findings and plan of treatment as documented in the residents documentation. I will continue to follow the patient and offer further guidance to the patients care as necessary during this hospital stay. LATANYA DASILVA DO Oct 23, 2018 07:40 KAROL ROBERTS MD Oct 23, 2018 15:26
[2018-10-23 15:20] VITALS: BP 182/90
[2018-10-23] MEDS ORDERED: ATENOLOL 12.5MG PER 1/2 TABLET PO ONE (18:00)
[2018-10-23 18:12] VITALS: BP 173/83
[2018-10-23] MEDS: NIACIN SR (NIASPAN) 500 MG TAB PO SCH (21:15)
[2018-10-23] MEDS: ATORVASTATIN 20 MG TAB PO SCH (21:15)
[2018-10-23 22:00] VITALS: BP 164/88
[2018-10-23 22:50] VITALS: BP 153/89
[2018-10-24] MEDS: HEPARIN SOD (PORCINE) 5000 UNITS/ML VIAL SQ SCH (05:42)
[2018-10-24 06:00] VITALS: BP 147/83
[2018-10-24 06:20] LABS: HEMATOCRIT 43.3 % (42.0-52.0); HEMOGLOBIN 14.9 g/dl (13.5-17.5); MEAN CORPUSCULAR HEMOGLOBIN 31.5 pg (27.0-33.0); MEAN CORPUSCULAR HGB CONC 34.4 g/dl (32.0-36.5); MEAN CORPUSCULAR VOLUME 91.5 fl (80.0-96.0); PLATELET COUNT, AUTOMATED 204 10^3/uL (150-450); RED BLOOD COUNT 4.73 10^6/uL (4.30-6.10); WHITE BLOOD COUNT 15.3 10^3/uL (4.0-10.0)
[2018-10-24 06:50] LABS: CALCIUM LEVEL 9.1 MG/DL (8.8-10.2); CREATININE FOR GFR 1.5 MG/DL (0.70-1.30); GLOMERULAR FILTRATION RATE 49.5 (>49); POTASSIUM SERUM 4.5 MEQ/L (3.5-5.1)
[2018-10-24] MEDS ORDERED: LEVEMIR (INSULIN DETEMIR) 1 UNITS/0.01ML SC SCH (09:00)
--- NOTE | 2018-10-24 09:08 | IPNPDOC ---
Text Note Date of Service The patient was seen on 10/24/18. NOTE Subjective: Patient was examined at bedside. He was sleeping comfortably, had to be awakened. He still has ongoing left-sided weakness. He had no acute complaints. He continues to follow with physical therapy. Objective: Vitals (See below) General: Alert and oriented 3,follows commands HEENT: Head is atraumatic, facial asymmetry with left-sided facial droop, neck is supple, no thyromegaly CVS: S1, S2 normal Lungs: Clear, no wheezing, Extremities: Without edema, deformity Neuro: Left-sided upper and lower extremity weakness Assessment and plan: Left facial weakness / left upper + lower extremity weakness - likely 2/2 acute CVA - likely 2/2 ischemic etiology, possibly conversion to hemorrhagic - On 10/21 patient had worsening weakness of his left upper and lower extremity; his remains persistent. This morning - Physical confirms the above - Labs unremarkable - Patient is unable to go for MRI given that he has an pacemaker in place - CT head 10/22: 1. Acute right basal ganglia, internal capsule, right temporal and parietal lobe infarction with a small hemorrhagic component unchanged compared to the previous study. 2. Small vessel ischemic disease. 3. Mild volume loss. - CT head 10/21: 1. An acute infarction in the right basal ganglia, internal capsule, insular, sub insular right temporal lobe and centrum semiovale of the the anterior right parietal lobe. A small hemorrhagic component is present. There is no midline shift. 2. Small vessel ischemic disease. 3. Mild volume loss. - CT head 10/19: Findings consistent with acute infarct involving the vascular distribution of the right middle cerebral artery. No acute intracranial hemorrhage. There is mild edema and mild impression upon the frontal horn of the right lateral ventricle. - CT head 10/18: Atrophy. Mild periventricular small vessel ischemic change. Vascular calcifications. No acute intracranial process identified. - CTA head 10/18: Extremely high grade stenosis right middle cerebral artery approximately 1.3 cm distal to its origin. - CTA Neck 10/18: There is occlusion of the right internal carotid artery from its origin to its distal end. Stenosis of the left carotid bulb in the range of about 70-80%. 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 The left vertebral artery is reconstituted at the C3 level with multifocal stenosis of its distal aspect. 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 - Findings of new hemorrhagic notes on imaging were discussed with Dr. Smita Ordaz; currently does not want to accept patient on transfer; has recommended stopping Plavix alone - Vascular surgery on consultation; will likely consider surgery in 4-6 weeks - c/w ASA and Atorvastatin; s/p Plavix - Neurology on consultation; appreciate their input - c/w PT and OT - Neuro status appears to be stable for now. Will continue to monitor Elevated Cr on CKD3 - Cr baseline of 1-1.2 - Elevated from baseline - Continue IV fluid hydration at 60 mls/h Compensated Systolic and Diastolic CHF - ECHO 10/19: EF 30%, G1DD CAD - c/w ASA, Atorvastatin DLP - c/w Atorvastatin and Niacin IDDM2 - c/w ISS HTN; Still allow for permissive hypertension - BP moderately suppressed - Hold BP meds - Started IV fluid hydration Mood disorder - c/w Venlafaxine GERD - c/w Famotine DVT prophylaxis - c/w Heparin Disposition: - Awaiting clinical improvement - Repeat CT head if changes in mental status / neurological checks noted - Discussed with MICHELLE mann: Dr. Smita Guerrier; c/w ASA and Heparin (for DVT prophylaxis); Hold Plavix VS,Fishbone, I+O VS, Fishbone, I+O Laboratory Tests 10/24/18 05:59 Red Blood Count 4.73, Mean Corpuscular Volume 91.5, Mean Corpuscular Hemoglobin 31.5, Mean Corpuscular Hemoglobin Concent 34.4, Red Cell Distribution Width 12. 3, Calcium Level 9.1 Vital Signs Date Time Temp Pulse Resp B/P (MAP) Pulse Ox O2 Delivery O2 Flow Rate FiO2 10/24/18 06:00 97.7 76 16 147/83 (104) 95 10/18/18 20:29 Room Air I&O- Last 24 Hours up to 6 AM 10/24/18 06:00 Intake Total 2028 ml Output Total 1550 ml Balance 478 ml GME ATTESTATION GME ATTESTATION My faculty preceptor for this patient encounter was physically present during the encounter and was fully available. All aspects of the patient interview, examination, medical decision making process, and medical care plan development were reviewed and approved by the faculty preceptor. The faculty preceptor is aware and concurs with the plan as stated in the body of this note and will attest to such by his/her cosignature. LATANYA DASILVA DO Oct 24, 2018 09:08
[2018-10-24] MEDS: MULTIVITAMINS/MINERALS THERAP 1 TAB PO SCH (10:20)
[2018-10-24] MEDS: ASPIRIN 81 MG ENTERIC TAB PO SCH (10:20)
[2018-10-24] MEDS: VENLAFAXINE **XR** 75MG CAPSULE PO SCH (10:20)
[2018-10-24] MEDS: SENNA 8.6 MG TAB (SENOKOT) PO SCH (10:20)
[2018-10-24] MEDS: FAMOTIDINE 20 MG TAB PO SCH (10:20)
[2018-10-24] MEDS: HumaLOG INSULIN (NovoLOG) PER UNIT SC SCH ×2 (10:22→13:04)
[2018-10-24] MEDS ORDERED: ATEN50TA2 PO (11:17)
--- NOTE | 2018-10-24 15:48 | DS.PDOC ---
Discharge Summary General Date of Admission Oct 18, 2018 at 14:20 Date of Discharge 10/24/2018 Primary Care Physician: MAGALY MORTENSEN MD [facility] Attending Physician: KAROL ROBERTS MD Specialist/Consultants Involve: Calvin Porras MD Specialist/Consultants Involve Mr. Kyung Ruby Shona Discharge Summary PROCEDURES PERFORMED DURING STAY: None ADMITTING DIAGNOSES / DISCHARGE DIAGNOSES: Left facial weakness / left upper + lower extremity weakness - likely 2/2 acute CVA - likely 2/2 ischemic etiology & conversion to hemorrhagic Compensated Systolic and Diastolic CHF CAD DLP IDDM2 HTN Mood disorder GERD DVT prophylaxis COMPLICATIONS/CHIEF COMPLAINT: Left sided weakness of arm, leg and face HISTORY OF PRESENT ILLNESS: Patient is a 67-year-old male with a past medical history of diabetes, 4 cardiac stents, hypertension, atherosclerotic disease, cardiac defibrillator, presents with left-sided weakness, slurred speech and left-sided facial droop. According to patient and his , he went to bed at 11 PM, the day before presentation, feeling his normal self. He got up in the middle of night to use the bathroom, this is typical for patient. He did not notice any neurological symptom at that time. He woke up this morning at 8:30 am and walked to the living room, where he noticed that his speech was slurred, he then did proceeded to have his morning coffee, he did not having dysphasia, did not have any cough. After coffee. Patient attempted to use the shower where he noticed that he had difficulty lifting his left leg to get into the shower tub. At the moment. Patient alerted his and his brought him to the ED. On the ED initial evaluation, patient was noted to have left-sided facial drooping, moderate slurred speech, left-sided weakness, patient was unable to sit straight without falling. Is discussed to [facility]; was outside of tPA window. Hospitalist team were called for evaluation and treatment. Urology and vascular surgery were called on consultation. HOSPITAL COURSE: Left facial weakness / left upper + lower extremity weakness - likely 2/2 acute CVA - likely 2/2 ischemic etiology & conversion to hemorrhagic - On 10/21 patient had worsening weakness of his left upper and lower extremity; this remained persistent until discharge - Patient is unable to go for MRI given that he has an pacemaker in place - CT head 10/22: 1. Acute right basal ganglia, internal capsule, right temporal and parietal lobe infarction with a small hemorrhagic component unchanged compared to the previous study. 2. Small vessel ischemic disease. 3. Mild volume loss. - CT head 10/21: 1. An acute infarction in the right basal ganglia, internal capsule, insular, sub insular right temporal lobe and centrum semiovale of the the anterior right parietal lobe. A small hemorrhagic component is present. There is no midline shift. 2. Small vessel ischemic disease. 3. Mild volume loss. - CT head 10/19: Findings consistent with acute infarct involving the vascular distribution of the right middle cerebral artery. No acute intracranial hemorrhage. There is mild edema and mild impression upon the frontal horn of the right lateral ventricle. - CT head 10/18: Atrophy. Mild periventricular small vessel ischemic change. Vascular calcifications. No acute intracranial process identified. - CTA head 10/18: Extremely high grade stenosis right middle cerebral artery approximately 1.3 cm distal to its origin. - CTA Neck 10/18: There is occlusion of the right internal carotid artery from its origin to its distal end. Stenosis of the left carotid bulb in the range of about 70-80%. 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 The left vertebral artery is reconstituted at the C3 level with multifocal stenosis of its distal aspect. 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 - Findings of new hemorrhagic notes on imaging were discussed with Dr. Smita Ordaz; currently does not want to accept patient on transfer; has recommended stopping Plavix alone - c/w ASA and Atorvastatin - Plan to resume Plavix in next 2 weeks; will likely require subsequent imaging to ensure no changes occur - Neurology on consultation; appreciate their input - Vascular surgery on consultation; will likely consider surgery , carotid endarterectomy in 4-6 weeks, - c/w PT and OT at [facility]U Compensated Systolic and Diastolic CHF - ECHO 10/19: EF 30%, G1DD, CAD - c/w ASA, Atorvastatin, Benazepril, Atenolol DLP - c/w Atorvastatin and Niacin IDDM2 - c/w ISS HTN - BP moderately controlled - c/w Benazepril, Atenolol Mood disorder - c/w Venlafaxine GERD - c/w Famotine DVT prophylaxis - c/w Heparin DISCHARGE MEDICATIONS: Please see below. ALLERGIES: Please see below. PHYSICAL EXAMINATION ON DISCHARGE: VITAL SIGNS: Please see below. General: Lying in bed, no acute distress, comfortable, AAOx3 HEENT: NC, AT CVS: RRR, +S1S2 Lungs: Fair air entry b/l, -w/r/r Abdomen: Soft, Non-distended, non-tender Extremities: - Edema, - Calf tenderness Neuro: Significant loss of strength at left upper / lower extremity LABORATORY DATA: Please see below. IMAGING: CT head 10/22/2018: 1. Acute right basal ganglia, internal capsule, right temporal and parietal lobe infarction with a small hemorrhagic component unchanged compared to the previous study. 2. Small vessel ischemic disease. 3. Mild volume loss. CT head 10/22/2018: 1. Acute right basal ganglia ganglia, temporal lobe and parietal lobe infarction with a small hemorrhagic component unchanged compared to the previous study. 2. Small vessel ischemic disease. 3. Mild volume loss. CT head 10/21/2018: 1. An acute infarction in the right basal ganglia, internal capsule , insular , sub insular right temporal lobe and centrum semiovale of the the anterior right parietal lobe. A small hemorrhagic component is present. There is no midline shift. 2. Small vessel ischemic disease. 3. Mild volume loss. CT head 10/19/2018: Findings consistent with acute infarct involving the vascular distribution of the right middle cerebral artery. No acute intracranial hemorrhage. There is mild edema and mild impression upon the frontal horn of the right lateral ventricle. CT angiography, 10/18/2018: Extremely high grade stenosis right middle cerebral artery approximately 1.3 cm distal to its origin. Neck CTA to 05/29/2019: 1. There is occlusion of the right internal carotid artery from its origin to its distal end. 2. Stenosis of the left carotid bulb in the range of about 70-80%. 3. 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 The left vertebral artery is reconstituted at the C3 level with multifocal stenosis of its distal aspect. 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 Chest x-ray 10/18/2018: No acute infiltrate. CT head 10/18/2018: Atrophy. Mild periventricular small vessel ischemic change. Vascular calcifications. No acute intracranial process identified. PROGNOSIS: Fair ACTIVITY: As tolerated DIET: Regular DISPOSITION: Stable DISCHARGE INSTRUCTIONS: Transfer to ARU for continued rehabilitation Remain compliant with treatment plan and medications Return to the ER if you experience any problems DISCHARGE CONDITION: Stable TIME SPENT ON DISCHARGE: Greater than 30 minutes. Vital Signs/I&Os Vital Signs Date Time Temp Pulse Resp B/P (MAP) Pulse Ox O2 Delivery O2 Flow Rate FiO2 10/24/18 06:00 97.7 76 16 147/83 (104) 95 10/18/18 20:29 Room Air I&O- Last 24 Hours up to 6 AM 10/24/18 06:00 Intake Total 2028 ml Output Total 1550 ml Balance 478 ml Laboratory Data Labs 24H Laboratory Tests 2 10/23/18 17:11: Bedside Glucose (Misc Panel) 304H 10/23/18 20:29: Bedside Glucose (Misc Panel) 361H 10/24/18 05:59: Nucleated Red Blood Cells % (auto) 0.0, Anion Gap 9, Glomerular Filtration Rate 49.5, Blood Urea Nitrogen 24H, Creatinine 1.50H, Sodium Level 134L, Potassium Level 4.5, Chloride Level 99, Carbon Dioxide Level 26, Calcium Level 9.1 10/24/18 11:35: Bedside Glucose (Misc Panel) 414H 10/24/18 11:38: Bedside Glucose (Misc Panel) 399H CBC/BMP Laboratory Tests 10/24/18 05:59 Red Blood Count 4.73, Mean Corpuscular Volume 91.5, Mean Corpuscular Hemoglobin 31.5, Mean Corpuscular Hemoglobin Concent 34.4, Red Cell Distribution Width 12.3, Calcium Level 9.1 FSBS Laboratory Tests Test 10/23/18 17:11 10/23/18 20:29 10/24/18 11:35 10/24/18 11:38 Range/Units Bedside Glucose (Misc Panel) 304 361 414 399 80-115 MG/DL Discharge Medications Scheduled (Ivana Conway) 300 Unit/Ml Inj, 40 UNITS QHS, (Reported) Aspirin (Aspir-Low) 81 Mg Tab, 81 MG PO DAILY, (Reported) Atenolol (Atenolol) 50 Mg Tab, 25 MG PO BID Atorvastatin Calcium (Atorvastatin Calcium) 80 Mg Tab, 80 MG PO QHS, (Reported) Benazepril HCl (Benazepril HCl) 20 Mg Tab, 20 MG PO DAILY, (Reported) Glimepiride (Glimepiride) 4 Mg Tab, 4 MG PO BID, (Reported) Insulin Aspart (Novolog) 100 U/Ml Inj, 1 DOSE SC AC, (Reported) PER SLIDING SCALE Magnesium Chloride (Mag64) 64 Mg Tabcr, 2 TAB PO QAM, (Reported) Magnesium Chloride (Mag64) 64 Mg Tabcr, 1 TAB PO QPM, (Reported) Metformin Hydrochloride (Metformin HCl) 1,000 Mg Tab, 1,000 MG PO BID, (Reported) Multivitamins *[facility] STOCKED* (Thera M Plus *[facility] STOCKED*) 1 Tab Tab, 1 TAB PO DAILY, (Reported) Niacin (Niacin ER) 500 Mg Tab, 500 MG PO QHS, (Reported) Ranitidine HCl (Ranitidine HCl) 150 Mg Tab, 1 TAB PO DAILY, (Reported) Venlafaxine HCl (Venlafaxine HCl ER) 75 Mg Capcr, 75 MG PO DAILY, (Reported) Allergies Coded Allergies: No Known Allergies (Unverified , 10/18/18) GME ATTESTATION GME ATTESTATION My faculty preceptor for this patient encounter was physically present during the encounter and was fully available. All aspects of the patient interview, examination, medical decision making process, and medical care plan development were reviewed and approved by the faculty preceptor. The faculty preceptor is aware and concurs with the plan as stated in the body of this note and will attest to such by his/her cosignature. ATTENDING NOTE I, Karol Roberts, have both independently examined this patient as well as reviewed the documentation. I have discussed in detail with the resident the findings and plan of treatment as documented in the residents documentation. I will continue to follow the patient and offer further guidance to the patients care as necessary during this hospital stay. LATANYA DASILVA DO Oct 24, 2018 15:48 KAROL ROBERTS MD Oct 24, 2018 17:48
== END 2018-10-24 14:35 | DRG 64 ==
LOC: M ED 09:55 → M ED INP 14:20 → M ICU 20:37 → M MS5PR 10-20 14:40 → M MS4PR 10-23 22:45
PROVIDERS: ADMIT Internal Medicine; ATTEND Internal Medicine
DX: I63.511 Cerebral infarction due to unspecified occlusion or stenosis of right middle cerebral artery (principal); G93.6 Cerebral edema; I50.42 Chronic combined systolic (congestive) and diastolic (congestive) heart failure; G81.94 Hemiplegia, unspecified affecting left nondominant side; E11.9 Type 2 diabetes mellitus without complications; I65.23 Occlusion and stenosis of bilateral carotid arteries; I11.0 Hypertensive heart disease with heart failure; I65.03 Occlusion and stenosis of bilateral vertebral arteries; I25.10 Atherosclerotic heart disease of native coronary artery without angina pectoris; E78.5 Hyperlipidemia, unspecified; R29.810 Facial weakness; F39 Unspecified mood [affective] disorder; R47.81 Slurred speech; K21.9 Gastro-esophageal reflux disease without esophagitis; Z95.810 Presence of automatic (implantable) cardiac defibrillator; Z95.5 Presence of coronary angioplasty implant and graft; Z87.891 Personal history of nicotine dependence; Z95.820 Peripheral vascular angioplasty status with implants and grafts; Z79.82 Long term (current) use of aspirin; Z79.02 Long term (current) use of antithrombotics/antiplatelets; Z79.4 Long term (current) use of insulin; Z79.899 Other long term (current) drug therapy

== ENCOUNTER 2018-10-24 12:10 | Inpatient (IN) | payer MEDICARE, OTHER ==
[~2018-10-24] VITALS: Ht 177.8 cm; Wt 54.0 kg
[~2018-10-24 12:10] MED LIST: ASPI81TA21 PO; ATEN50TA2 PO; ATOR80TA59 PO; BENA20TA8 PO; CLOP75TA2 PO; GLIM4TAB PO; INSUH10VL SC; ISOS30TA4 PO; MAGN64TASA PO; METF10004 PO; MULT1TAB18 PO; NIAC500T64 PO; RANI150C; RANI150T PO; TOUJ1.2I; VENL75CA47 PO; VITMTA PO
[2018-10-24 15:40] VITALS: BP 156/84
[2018-10-24] MEDS ORDERED: GLUCOSE 4 GM CHEW TABLET PO PRN (16:15)
[2018-10-24] MEDS ORDERED: MIRALAX *UNIT DOSE* 17GM PACKET PO PRN (16:15)
[2018-10-24] MEDS ORDERED: DEXTROSE 50% 50 ML SYRINGE IV PRN (16:15)
[2018-10-24] MEDS ORDERED: GLUCAGON FOR INJ 1 MG VIAL (J1610) SC PRN (16:15)
[2018-10-24] MEDS ORDERED: ONDANSETRON 4 MG TAB (S0181) PO PRN (16:30)
[2018-10-24] MEDS: HumaLOG INSULIN (NovoLOG) PER UNIT SC SCH ×2 (17:42→21:33)
[2018-10-24 20:00] VITALS: BP 158/79
[2018-10-24] MEDS ORDERED: LEVEMIR (INSULIN DETEMIR) 1 UNITS/0.01ML SC SCH (21:00)
[2018-10-24] MEDS ORDERED: NIACIN 100 MG TAB PO SCH (21:00)
[2018-10-24 21:03] LABS: APPEARANCE, URINE CLEAR (CLEAR); BACTERIA, URINE AUTO NEGATIVE (NEGATIVE); BILIRUBIN, URINE AUTO NEGATIVE (NEGATIVE); BLOOD, URINE BLOOD NEGATIVE (NEGATIVE); COLOR, URINE YELLOW (YELLOW); GLUCOSE, URINE (UA) AUTO 3+ mg/dL (NEGATIVE); KETONE, URINE AUTO NEGATIVE (NEGATIVE); LEUKOCYTE ESTERASE, URINE AUTO NEGATIVE (NEGATIVE); MUCUS, URINE SMALL (NEGATIVE); NITRITE, URINE AUTO NEGATIVE (NEGATIVE); PROTEIN, URINE AUTO NEGATIVE (NEGATIVE); RBC, URINE AUTO 0 /HPF (0-3); SPECIFIC GRAVITY URINE AUTO 1.021 (1.002-1.035); SQUAMOUS EPITHELIAL CELL UR AU 0 /HPF (0-6); UROBILINOGEN, URINE AUTO 0.2 mg/dL (0.0-2.0); WBC, URINE AUTO 0 /HPF (0-3)
[2018-10-24] MEDS: SENNA 8.6 MG TAB (SENOKOT) PO SCH (21:33)
[2018-10-24] MEDS: DOCUSATE SODIUM 100 MG CAP PO SCH (21:33)
[2018-10-24] MEDS: ATORVASTATIN 20 MG TAB PO SCH (21:33)
[2018-10-24] MEDS: HEPARIN SOD (PORCINE) 5000 UNITS/ML VIAL SQ SCH (21:34)
[2018-10-25 04:00] VITALS: BP 144/85
[2018-10-25] MEDS: HEPARIN SOD (PORCINE) 5000 UNITS/ML VIAL SQ SCH ×3 (06:14→21:25)
[2018-10-25 06:47] LABS: MEAN CORPUSCULAR HEMOGLOBIN 31.4 pg (27.0-33.0); MEAN CORPUSCULAR HGB CONC 34.1 g/dl (32.0-36.5); MEAN CORPUSCULAR VOLUME 92.1 fl (80.0-96.0); PLATELET COUNT, AUTOMATED 211 10^3/uL (150-450); RED BLOOD COUNT 4.78 10^6/uL (4.30-6.10)
[2018-10-25 06:52] LABS: WHITE BLOOD COUNT 13.7 10^3/uL (4.0-10.0)
[2018-10-25 07:15] LABS: ATYPICAL LYMPH 1 % (0-5); EOSINOPHILS 2 % (0-5); LYMPHOCYTES 47 % (16-52); MONOCYTES 1 % (0-8); NEUTROPHILS 49 % (35-75); PLATELET ESTIMATE NORMAL (NORMAL); SMUDGE CELLS 1+
[2018-10-25 07:20] LABS: ALBUMIN 3.8 GM/DL (3.2-5.2); BILIRUBIN,TOTAL 0.6 MG/DL (0.2-1.0); CALCIUM LEVEL 9.5 MG/DL (8.8-10.2); CREATININE FOR GFR 1.54 MG/DL (0.70-1.30); GLOMERULAR FILTRATION RATE 48.1 (>49); POTASSIUM SERUM 4.5 MEQ/L (3.5-5.1); TOTAL PROTEIN 7.7 GM/DL (6.4-8.2)
[2018-10-25] MEDS: VENLAFAXINE **XR** 75MG CAPSULE PO SCH (08:35)
[2018-10-25] MEDS: HumaLOG INSULIN (NovoLOG) PER UNIT SC SCH ×4 (08:35→20:25)
[2018-10-25] MEDS: FLUoxetine 20 MG CAP PO SCH (08:35)
[2018-10-25] MEDS: ASPIRIN 81 MG CHEW TABLET PO SCH (08:35)
[2018-10-25] MEDS: DOCUSATE SODIUM 100 MG CAP PO SCH ×2 (08:35→20:25)
[2018-10-25] MEDS: MULTIVITAMINS/MINERALS THERAP 1 TAB PO SCH (08:35)
[2018-10-25] MEDS: FAMOTIDINE 20 MG TAB PO SCH (08:35)
[2018-10-25] MEDS ORDERED: PREVNAR 13 VACCINE SYRINGE (CPT CODE:90670) IM ONE (09:00)
[2018-10-25 11:19] VITALS: BP 144/85
--- NOTE | 2018-10-25 12:14 | NUR ---
Bedside dysphagia eval completed. Recommend level 2 diet with thin liquids, meds whole 2-3 at a time with liquid wash. Give meds from L side (place on R side on mouth). Recommend pt use tongue/finger sweep, cheek rub, and mirror during meals/snacks to prevent and clear pocketed material. Fully upright OOB for all meals with support laterally to prevent slouching to side. Addendum: 10/25/18 at 1216 by NIEVES RAINEY SSBarby SP Amended: Links added.
--- NOTE | 2018-10-25 12:17 | NUR ---
Edu and visuals provided for pt and for carryover of compensatory strategies to be used with PO intake. Training in ROM exercises for tongue. Addendum: 10/25/18 at 1218 by NIEVES RAINEY SSBarby SP Amended: Links added.
--- NOTE | 2018-10-25 13:33 | IPNPDOC ---
Text Note Date of Service The patient was seen on 10/25/18. NOTE Subjective: Patient was examined today while receiving physical therapy in the gym. Patient denies any chest pain or shortness of breath. He denies any events overnight. Denies any nausea, vomiting, abdominal pain, constipation or diarrhea. Does not express any urinary discomfort. Objective: Vitals (See below) General: Alert and oriented 3,follows commands HEENT: NC, AT, facial asymmetry with left-sided facial droop CVS: S1, S2 normal Lungs: Fair air entry bilaterally without evidence of rhonchi, rales or wheeze Extremities: Lower extremities are without any edema, no calf tenderness Neuro: Persistence of left-sided weakness at U/LE Assessment and plan: Left facial weakness / left upper + lower extremity weakness - likely 2/2 acute CVA - likely 2/2 ischemic etiology, possibly conversion to hemorrhagic - On 10/21 patient had worsening weakness of his left upper and lower extremity; his remains persistent. This morning - Physical confirms the above - Labs unremarkable - Patient is unable to go for MRI given that he has an pacemaker in place - CT head 10/22: 1. Acute right basal ganglia, internal capsule, right temporal and parietal lobe infarction with a small hemorrhagic component unchanged compared to the previous study. 2. Small vessel ischemic disease. 3. Mild volume loss. - CT head 10/21: 1. An acute infarction in the right basal ganglia, internal capsule, insular, sub insular right temporal lobe and centrum semiovale of the the anterior right parietal lobe. A small hemorrhagic component is present. There is no midline shift. 2. Small vessel ischemic disease. 3. Mild volume loss. - CT head 10/19: Findings consistent with acute infarct involving the vascular distribution of the right middle cerebral artery. No acute intracranial hemorrhage. There is mild edema and mild impression upon the frontal horn of the right lateral ventricle. - CT head 10/18: Atrophy. Mild periventricular small vessel ischemic change. Vascular calcifications. No acute intracranial process identified. - CTA head 10/18: Extremely high grade stenosis right middle cerebral artery approximately 1.3 cm distal to its origin. - CTA Neck 10/18: There is occlusion of the right internal carotid artery from its origin to its distal end. Stenosis of the left carotid bulb in the range of about 70-80%. 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 The left vertebral artery is reconstituted at the C3 level with multifocal stenosis of its distal aspect. 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 - Vascular surgery on consultation; will likely consider possible endarterectomy in 4-6 weeks - c/w ASA and Atorvastatin; s/p Plavix; plan to resume in next 2 weeks - Patient and transferred over to ARU for continued PT and OT Elevated Cr on CKD3 - Cr baseline of 1-1.2 - Elevated from baseline - Will restart IV fluid at 60cc/hr Compensated Systolic and Diastolic CHF - ECHO 10/19: EF 30%, G1DD CAD - c/w ASA, Atorvastatin DLP - c/w Atorvastatin and Niacin IDDM2 - c/w ISS HTN - BP well controlled - BP medications currently on hold; likely will resume Benazepril and Atenolol in next 24 hours Mood disorder - c/w Venlafaxine GERD - c/w Famotine DVT prophylaxis - c/w Heparin Disposition: - c/w PT and OT VS,Fishbone, I+O VS, Fishbone, I+O Laboratory Tests 10/25/18 06:25 Red Blood Count 4.78, Mean Corpuscular Volume 92.1, Mean Corpuscular Hemoglobin 31.4, Mean Corpuscular Hemoglobin Concent 34.1, Red Cell Distribution Width 12.3, Lymphocytes # (Auto) , Calcium Level 9.5, Aspartate Amino Transf (AST/SGOT) 16, Alanine Aminotransferase (ALT/SGPT) 34, Alkaline Phosphatase 102, Total Bilirubin 0.6, Total Protein 7.7, Albumin 3.8 Vital Signs Date Time Temp Pulse Resp B/P (MAP) Pulse Ox O2 Delivery O2 Flow Rate FiO2 10/25/18 11:19 98.9 92 18 144/85 96 I&O- Last 24 Hours up to 6 AM 10/25/18 06:00 Intake Total 600 ml Output Total 200 ml Balance 400 ml VANIA BORJA MD Oct 25, 2018 13:33
[2018-10-25 14:00] VITALS: BP 176/101
[2018-10-25] MEDS: ATENOLOL 25 MG TAB PO SCH ×2 (14:41→20:26)
[2018-10-25] MEDS: NS 1,000 ML IV SCH (14:41)
--- NOTE | 2018-10-25 15:10 | HPEPDOC ---
Corporate Director Note DATE OF ADMISSION: Oct 24, 2018 at 14:30 SOURCE OF ADMISSION INFORMATION: [facility] records and patient CHIEF COMPLAINT: stroke HISTORY OF PRESENT ILLNESS: 67M pmh DM, CAD s/p stenting x4, PAD, defibrillator who developed slurred speech and left sided facial droop and left sided weakness on 10/17/18 and presented to [facility] ED where initial CTH was negative for infarct. He was deemed to be not appropriate for TPA. CTA neck showed, "There is occlusion of the right internal carotid artery from its origin to its distal end. Stenosis of the left carotid bulb in the range of about 70-80%. 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 The left vertebral artery is reconstituted at the C3 level with multifocal stenosis of its distal aspect. Right vertebral artery is hypoplastic with severe stenosis distally just before the anastomosis with the left vertebral artery." CTA brain showed, "Extremely high grade stenosis right middle cerebral artery approximately 1.3 cm distal to its origin." He was seen by Dr. Porras who recommended surgical intervention in 4-6 weeks. ECHO on 10/18/18 showed, "Normal LV size with severe global hypokinesis, septal dyskinesis and overall left ventricle ejection fraction around 30%." He developed worsening weakness of his left side and repeat CTH on 10/21/18 showed, "An acute infarction in the right basal ganglia, internal capsule , insular ,sub insular right temporal lobe and centrum semiovale of the the anterior right parietal lobe. A small hem orrhagic component is present." His Plavix was held and ASA and prophylactic heparin continued. He was evaluated by therapy and found to have significant gait and ADL impairments and deemed medically appropriate for discharge to ARU on 10/24/18. REVIEW OF SYSTEMS: The following is a completed review of systems and has been reviewed. Review of systems otherwise unremarkable. PAIN: Patient self reports no pain EYES: Negative for recent vision loss EARS, NOSE, & THROAT: +dysphagia CARDIOVASCULAR: denies chest pain or palpitations PULMONARY: Negative. Denies shortness of breath GASTROINTESTINAL: Negative for diarrhea or constipation GENITOURINARY: Negative for dysuria or hematuria NEUROLOGICAL: left sided paresis HEMATOLOGICAL: Negative SKIN: no rash or skin breakdown PSYCHIATRIC: Unremarkable All other review of systems found to be negative. PAST MEDICAL HISTORY: DM, CAD s/p stenting x4, PAD, defibrillator, GERD, depression PAST SURGICAL HISTORY: cardiac stenting x4 left iliofemoral bypass (Dr. Cunningham) ALLERGIES: Please see below. MEDICATIONS: Please see below. 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 GENERAL: Pleasant and cooperative. No acute distress. HEENT: PERRL. Extraocular movements intact. Clear conjunctiva, left facial droop CARDIOVASCULAR: Regular rate and rhythm. No murmurs, rubs, or gallops LUNGS: Clear to auscultation bilaterally. No wheezes. No rhonchi. ABDOMEN: Soft, nontender, nondistended. Positive bowel sounds. Normal active bowel sounds. NEUROLOGICAL: Alert and oriented times three. Cranial nerves II through XII grossly intact. Sensation grossly intact. EXTREMITIES: 5\\5 strength right upper extremities. flaccid paralysis LUE except 1/5 product management analyst, 5\\5 strength right lower extremity. 1/5 strength in left hip flexors, 2/5 knee extensors, 1/5 ankle Df and EHL SKIN:intact IMAGING: Imaging documentation personally reviewed by record FUNCTIONAL STATUS: Premorbid: Independent with all activities of daily life as well as mobility. On Admission: Mod-Max assistance for lower body dressing, shower transfers, and all functional transfers. GOALS: Contact Guard-SBA for ambulation with RW, functional transfers, dressing, bathing, medical optimization, family training, assess for DME needs. ASSESSMENT:67-year-old M with past medical history of CAD, DM, PAD who presents status post stroke with hemorrhagia conversion. PLAN: 1. 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 Neuro: s/p MCA territory stroke in the setting of "Extremely high grade stenosis right middle cerebral artery approximately 1.3 cm distal to its origin." and right ICA occlusion with hemorrhagic conversion, Plavix being held, continue ASA and statin therapy, avoid hypoperfusion -Prozac for motor recovery, monitor for serotonin syndrome with concurrent Effexors -will need outpatient follow-up with Dr Porras for CEA in 4-6 weeks 3. Cardio: systolic and diastolic CHF with EF of 30% with defibrillator- medicine consulted, continue Atenolol 4. Resp: Monitor for infection, encourage incentive spirometry 5. Renal: CKD ,receiving gentle hydration 6. Endo: pmh uncontrolled DM, continue insulin 7. : f/u admission UA and Ucx, monitor PVRs 8. DVT ppx: on heparin 9. Psych: pmh depression continue Effexor 10. Dispo: TBD to home POST ADMISSION PHYSICIAN EVALUATION: Medical and functional status: Description of medical status, medical assessment: As above. Rehabilitation diagnosis and current and prior cold morbid medical conditions as above. Risk of complications and plans to mitigate them as above. Description of functional status current status is as above. Prior status as above. Status compared to preadmission: There are no clinically significant differences between the patient's current status and the information described on the preadmission screening document. Treatment plan anticipated: Treatment plan is as described above. Required disciplines including physical therapy, occupational therapy, others as noted above. Intensity of services: 3 hours a day, 6 days a week. Special considerations: There are no specific special or safety considerations that would likely preclude immediate implementation of an intensive rehabilitation program or subsequently influence the plan of care ATTESTATION: Considering all the information above, it is my best judgment that this patient requires intensive rehabilitation therapy as described above and an inpatient hospital environment due to the complexity of nursing, medical, and rehabilitation needs required by the patient. Furthermore, this patient can reasonably be expected to participate in an benefit from an inpatient rehabilitation stay with an interdisciplinary team approach to the delivery of rehabilitation care under the direction and supervision of rehabilitation physician PROGNOSIS: good ESTIMATED LENGTH OF STAY:21-24 days. PROJECTED DISCHARGE DESTINATION: Home with family support and any durable medical equipment required to increase functional safety and mobility. TIME SPENT COUNSELING AND COORDINATING INITIAL CARE: Greater than 70minutes. Vital Signs Vital Signs Date Time Temp Pulse Resp B/P (MAP) Pulse Ox O2 Delivery O2 Flow Rate FiO2 10/24/18 15:40 97.7 96 18 156/84 (108) 97 Home Medications Scheduled (Ivana Conway) 300 Unit/Ml Inj, 40 UNITS QHS, (Reported) Aspirin (Aspir-Low) 81 Mg Tab, 81 MG PO DAILY, (Reported) Atenolol (Atenolol) 50 Mg Tab, 25 MG PO BID Atorvastatin Calcium (Atorvastatin Calcium) 80 Mg Tab, 80 MG PO QHS, (Reported) Benazepril HCl (Benazepril HCl) 20 Mg Tab, 20 MG PO DAILY, (Reported) Glimepiride (Glimepiride) 4 Mg Tab, 4 MG PO BID, (Reported) Insulin Aspart (Novolog) 100 U/Ml Inj, 1 DOSE SC AC, (Reported) PER SLIDING SCALE Magnesium Chloride (Mag64) 64 Mg Tabcr, 2 TAB PO QAM, (Reported) Magnesium Chloride (Mag64) 64 Mg Tabcr, 1 TAB PO QPM, (Reported) Metformin Hydrochloride (Metformin HCl) 1,000 Mg Tab, 1,000 MG PO BID, (Reported) Multivitamins *[facility] STOCKED* (Thera M Plus *[facility] STOCKED*) 1 Tab Tab, 1 TAB PO DAILY, (Reported) Niacin (Niacin ER) 500 Mg Tab, 500 MG PO QHS, (Reported) Ranitidine HCl (Ranitidine HCl) 150 Mg Tab, 1 TAB PO DAILY, (Reported) Venlafaxine HCl (Venlafaxine HCl ER) 75 Mg Capcr, 75 MG PO DAILY, (Reported) Allergies Coded Allergies: No Known Allergies (Unverified , 10/18/18) PAUL YE MD Oct 24, 2018 16:01
[2018-10-25 17:20] VITALS: BP 184/103
[2018-10-25 20:00] VITALS: BP 162/90
[2018-10-25] MEDS: ATORVASTATIN 20 MG TAB PO SCH (20:25)
[2018-10-25] MEDS: LEVEMIR (INSULIN DETEMIR) 1 UNITS/0.01ML SC SCH (20:25)
[2018-10-25] MEDS: BENAZEPRIL 20 MG TAB PO SCH (20:26)
[2018-10-25] MEDS: SENNA 8.6 MG TAB (SENOKOT) PO SCH (20:26)
[2018-10-25] MEDS: ACETAMINOPHEN TAB 650MG DOSE (2X325MG) PO PRN (23:32)
--- NOTE | 2018-10-26 00:46 | REPVR ---
EXAM: XR Left Ankle Complete, 3 or more Views EXAM DATE/TIME: 10/25/2018 11:17 PM CLINICAL HISTORY: 67 years old, male; Injury or trauma; Fall; Initial encounter; Sprain or strain; Ankle; Left TECHNIQUE: XR Left ankle 3 or more views. COMPARISON: CR Foot, complete 02/28/2012 1:45 PM FINDINGS: Bones/joints: Transverse nondisplaced fracture of the distal fibular/ malleolus. On lateral view, there appears to be tiny density adjacent to the medial malleolus, may represent tiny avulsion fracture. Soft tissues: Moderate soft tissue swelling. Vasculature: vascular calcification. IMPRESSION: Transverse nondisplaced fracture of the distal fibular/ malleolus. On lateral view, there appears to be tiny density adjacent to the medial malleolus, may represent tiny avulsion fracture. Moderate soft tissue swelling. Electronically signed by: Angelica Phelan On 10/26/2018 00:45:48 AM
--- NOTE | 2018-10-26 01:27 | IPNPDOC ---
Text Note Date of Service The patient was seen on 10/26/18. NOTE Called to ARU to evaluate a swollen ankle with ankle pain S: 67 year old male who had CVA resulting in left-sided hemiparesis. He states that he slipped out of his chair this afternoon. States his left ankle is swollen, and that the pain is on the outside, and rates it a 5/10. He denies any numbness or tingling in his toes, but states that he has had difficulty moving that leg/foot/ankle/toes since having his stroke. O: VS stable, Patient is an elderly male in no acute distress. Knee: No swelling or pain to palpation of the left patella, proximal fibula, or proximal tibia. Good popliteal pulse. Right knee is without swelling or tenderness. Calves: No pain to palpation of the calves bilaterally Ankles: Left ankle is noticeably more swollen than the right. The right ankle has no pinpoint tenderness, dorsiflexion and plantarflexion are intact, ankle drawer test within normal limits. The left ankle has point tenderness to the inferior aspect of the lateral malleolus. No pain to palpation of the superior aspect of the malleolus. No pain to palpation of the medial malleolus. Feet: Good dorsalis pedis and posterior tibialis pulses bilaterally. Sensation intact bilaterally. Xray of the left ankle: Official read pending, but there is a transverse nondisplaced fracture of lateral malleolus/distal fibula. A: 67 year old male with CVA resulting in left-sided hemiparesis, status post fall with a transverse nondisplaced fracture of the lateral malleolus. No vascular or neurological compromise. P: I splinted the left lower extremity to immobilize, kidney function may not support anti-inflammatories so tylenol for pain control. Orthopedic consult in the morning. VS,Fishbone, I+O VS, Fishbone, I+O Laboratory Tests 10/25/18 06:25 Red Blood Count 4.78, Mean Corpuscular Volume 92.1, Mean Corpuscular Hemoglobin 31.4, Mean Corpuscular Hemoglobin Concent 34.1, Red Cell Distribution Width 12.3, Lymphocytes # (Auto) , Calcium Level 9.5, Aspartate Amino Transf (AST/SGOT) 16, Alanine Aminotransferase (ALT/SGPT) 34, Alkaline Phosphatase 102, Total Bilirubin 0.6, Total Protein 7.7, Albumin 3.8 Vital Signs Date Time Temp Pulse Resp B/P (MAP) Pulse Ox O2 Delivery O2 Flow Rate FiO2 10/25/18 20:26 74 162/90 10/25/18 20:00 99.5 18 95 I&O- Last 24 Hours up to 6 AM 10/26/18 06:00 Intake Total 980 ml Output Total 100 ml Balance 880 ml GME ATTESTATION GME ATTESTATION My faculty preceptor for this patient encounter was physically present during the encounter and was fully available. All aspects of the patient interview, examination, medical decision making process, and medical care plan development were reviewed and approved by the faculty preceptor. The faculty preceptor is aware and concurs with the plan as stated in the body of this note and will attest to such by his/her cosignature. MANAS YE DO Oct 26, 2018 01:27
[2018-10-26 04:00] VITALS: BP 133/79
[2018-10-26] MEDS: NS 1,000 ML IV SCH ×2 (04:02→14:30)
[2018-10-26] MEDS: HEPARIN SOD (PORCINE) 5000 UNITS/ML VIAL SQ SCH ×3 (06:15→21:31)
[2018-10-26 08:05] LABS: HEMATOCRIT 42.3 % (42.0-52.0); HEMOGLOBIN 14.4 g/dl (13.5-17.5); MEAN CORPUSCULAR HEMOGLOBIN 31.5 pg (27.0-33.0); MEAN CORPUSCULAR VOLUME 92.6 fl (80.0-96.0); PLATELET COUNT, AUTOMATED 199 10^3/uL (150-450); RED BLOOD COUNT 4.57 10^6/uL (4.30-6.10)
[2018-10-26 08:13] LABS: WHITE BLOOD COUNT 16.4 10^3/uL (4.0-10.0)
[2018-10-26 08:21] LABS: INR 0.9; PROTHROMBIN TIME 12.2 SECONDS (12.1-14.4)
[2018-10-26 08:44] LABS: ATYPICAL LYMPH 1 % (0-5); EOSINOPHILS 1 % (0-5); LYMPHOCYTES 37 % (16-52); MONOCYTES 5 % (0-8); NEUTROPHILS 56 % (35-75); PLATELET ESTIMATE NORMAL (NORMAL)
[2018-10-26 08:45] LABS: OVALOCYTES 1+
[2018-10-26 08:50] LABS: ALBUMIN 3.5 GM/DL (3.2-5.2); CREATININE FOR GFR 1.3 MG/DL (0.70-1.30); GLOMERULAR FILTRATION RATE 58.4 (>49); MAGNESIUM LEVEL 1.9 MG/DL (1.8-2.4); POTASSIUM SERUM 4.7 MEQ/L (3.5-5.1); TOTAL PROTEIN 7.1 GM/DL (6.4-8.2)
[2018-10-26] MEDS: FLUoxetine 20 MG CAP PO SCH (08:54)
[2018-10-26] MEDS: HumaLOG INSULIN (NovoLOG) PER UNIT SC SCH ×4 (08:54→21:31)
[2018-10-26] MEDS: ASPIRIN 81 MG CHEW TABLET PO SCH (08:54)
[2018-10-26] MEDS: VENLAFAXINE **XR** 75MG CAPSULE PO SCH (08:54)
[2018-10-26] MEDS: MULTIVITAMINS/MINERALS THERAP 1 TAB PO SCH (08:54)
[2018-10-26] MEDS: DOCUSATE SODIUM 100 MG CAP PO SCH ×2 (08:54→21:29)
[2018-10-26] MEDS: FAMOTIDINE 20 MG TAB PO SCH (08:55)
[2018-10-26] MEDS: ATENOLOL 25 MG TAB PO SCH ×2 (08:55→21:30)
--- NOTE | 2018-10-26 10:57 | HPE ---
DATE OF ADMISSION: 10/24/2018 CHIEF COMPLAINT: Left ankle fracture. HISTORY OF PRESENT ILLNESS: This 59-year-old man was seen today at the ARU unit in [facility]. I got a call this morning for an injury that he sustained yesterday. He was trying to get out of bed apparently, or out of a chair, and had a slip and fall twisting injury to his left ankle. He is having no pain or problems on that side before. However, he did recently have a stroke that left him was some definite left lower extremity weakness. He was seen by the admitting physician and they placed him into a splint. PAST MEDICAL HISTORY: Includes: Diabetes. Coronary artery disease (CAD), stenting times four. Peripheral arterial disease. Defibrillator. Recent stroke. MEDICATIONS: - aspirin. - atenolol - atorvastatin - benazepril - glimepiride - insulin - magnesium - metformin - multivitamin - niacin - ranitidine - venlafaxine ALLERGIES: No known drug allergies. SURGICAL HISTORY: Cardiac stenting times four. Left iliofemoral bypass. FAMILY HISTORY: Mother with CAD. SOCIAL HISTORY: Ex-smoker. Denies illicit drug use or alcohol use. Lives with his who is here with him today. PHYSICAL EXAMINATION: Vital signs blood pressure 133/79, pulse rate 69, temperature 97.3. 95% on room air. Respiratory rate 17. He is alert and oriented times three, but definitely somnolent. His mood affect a little bit withdrawn. Examination of both his lower extremities reveal splint on the left side which I cut down to see the ankle. Little bit of pain to the lateral malleolus, nothing on the medial side. He is not able to wiggle his toes presumably from the stroke. Does have sensation in the foot and foot is warm and well perfused with good pedal pulses. No pain or pathology at the knee. Radiographs were reviewed. Three views of left ankle. This shows a transverse fracture, a Muñiz A of the distal fibula. This is definitely below the syndesmosis. There is perhaps a small avulsion type fracture of the medial malleolus. Overall the mortise appears in good alignment. The distal fibula fracture appears nondisplaced on the AP radiograph. However, on the lateral radiograph the distal fragment appears to be slightly displaced posteriorly. This was 1-2 mm or less. There was some angulation of the distal fragment as well on the lateral radiographs. Overall, there is no medial space widening or other problems of the ankle mortise. ASSESSMENT/PLAN: This is a 67-year-old man with a minimally displaced Muñiz A ankle fracture. With a history of recent stroke and left-sided hemiparesis, I believe that we should be treating this nonoperatively. Even if we went ahead with surgery this would not speed his recovery. I discussed the pros and cons of nonoperative versus operative management in this with his and she is agreement as well as Gary. They had no further questions. I think that the best thing would actually to be in an orthosis boot, which I will go ahead and order. The fiberglass back slab was not really providing much support on the lateral side and I think he can be toe-touch, or touchdown, or weightbearing as he will have some difficulty ambulating given his medical status. We will take x-rays in a week to follow this up.
--- NOTE | 2018-10-26 11:01 | NUR ---
Training in use of safe swallowing strategies during meal with present and assisting pt. Mod-max cues necessary for appropriate use. Needs consistent support to demo L head turn with swallow and management and prevention of pocketed material. AMANDA Gage updated with today's presentation and recommendations for supervision with meals d/t inconsistent awareness and self monitoring. Addendum: 10/26/18 at 1102 by NIEVES RAINEY SSV SP Amended: Links added.
--- NOTE | 2018-10-26 11:26 | NUR ---
Deficits noted in the following areas: attention to L visual field (reduced visual scanning/cancellation, begins task in center of page moving to R side with lack of attention to L side; however, will attend to people on L side); visual perceptual tasks; short term recall (difficulty recalling events of yesterday); problem solving and safety awareness (fell out of recliner in pm and caused hairline fx to L leg); distractible; reduced awareness and self monitoring. Addendum: 10/26/18 at 1132 by NIEVES RAINEY SSV SP Amended: Links added.
[2018-10-26 14:00] VITALS: BP 131/75
--- NOTE | 2018-10-26 16:18 | IPNPDOC ---
Text Note Date of Service The patient was seen on 10/26/18. NOTE Subjective: Overnight, patient was complaining of left foot pain after he had all his recliner that afternoon. He received imaging that was consistent with an avul criss fracture and orthopedic surgery was called on consultation. Orthopedic surgery has recommended a boot, no surgical intervention at this time. Patient was examined at the bedside. Currently, he does not experience any chest pain, shortness of breath or palpitations. Denies any nausea or vomiting. Has constipation, diarrhea, or discomfort with urination. Objective: Vitals (See below) General: Alert and oriented 3,follows commands HEENT: NC, AT, facial asymmetry with left-sided facial droop CVS: +S1S2 Lungs: Fair air entry bilaterally, does not appear to be any evidence of rhonchi, wheezing or rales. Upon auscultation Extremities: Lower extremities are without any edema, no calf tenderness, left foot pain (has been splinted) Neuro: Persistence of left-sided weakness at U/LE Assessment and plan: Left ankle pain - likely 2/2 fracture - likely 2/2 mechanical fall of recliner - XR Ankle 10/25: Transverse nondisplaced fracture of the distal fibular/ malleolus. On lateral view, there appears to be tiny density adjacent to the medial malleolus, may represent tiny avulsion fracture. Moderate soft tissue swelling. - c/w pain control and PT - Orthopedic surgery on consultation; recommended a boot; no indications for surgery at this time Left facial weakness / left upper + lower extremity weakness - likely 2/2 acute CVA - likely 2/2 ischemic etiology, possibly conversion to hemorrhagic - On 10/21 patient had worsening weakness of his left upper and lower extremity; his remains persistent. This morning - Physical confirms the above - Labs unremarkable - Patient is unable to go for MRI given that he has an pacemaker in place - CT head 10/22: 1. Acute right basal ganglia, internal capsule, right temporal and parietal lobe infarction with a small hemorrhagic component unchanged compared to the previous study. 2. Small vessel ischemic disease. 3. Mild volume loss. - CT head 10/21: 1. An acute infarction in the right basal ganglia, internal capsule, insular, sub insular right temporal lobe and centrum semiovale of the the anterior right parietal lobe. A small hemorrhagic component is present. There is no midline shift. 2. Small vessel ischemic disease. 3. Mild volume loss. - CT head 10/19: Findings consistent with acute infarct involving the vascular distribution of the right middle cerebral artery. No acute intracranial hemorrhage. There is mild edema and mild impression upon the frontal horn of the right lateral ventricle. - CT head 10/18: Atrophy. Mild periventricular small vessel ischemic change. Vascular calcifications. No acute intracranial process identified. - CTA head 10/18: Extremely high grade stenosis right middle cerebral artery approximately 1.3 cm distal to its origin. - CTA Neck 10/18: There is occlusion of the right internal carotid artery from its origin to its distal end. Stenosis of the left carotid bulb in the range of about 70-80%. 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 The left vertebral artery is reconstituted at the C3 level with multifocal stenosis of it s distal aspect. 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 - Vascular surgery on consultation; will likely consider possible endarterectomy in 4-6 weeks - c/w ASA and Atorvastatin; s/p Plavix; plan to resume in next 2 weeks - Patient and transferred over to ARU for continued PT and OT Elevated Cr on CKD3 - Cr baseline of 1-1.2 - Elevated from baseline - Will DC IV fluids today Compensated Systolic and Diastolic CHF - No evidence of fluid overload - ECHO 10/19: EF 30%, G1DD - Currently not on any diuretics CAD - c/w ASA, Atorvastatin DLP - c/w Atorvastatin and Niacin IDDM2 - c/w ISS HTN - BP well controlled - c/w Benazepril and Atenolol Mood disorder - c/w Venlafaxine GERD - c/w Famotine DVT prophylaxis - c/w Heparin Disposition: - c/w PT and OT VS,Fishbone, I+O VS, Fishbone, I+O Laboratory Tests 10/26/18 07:55 Red Blood Count 4.57, Mean Corpuscular Volume 92.6, Mean Corpuscular Hemoglobin 31.5, Mean Corpuscular Hemoglobin Concent 34.0, Red Cell Distribution Width 12.4, Lymphocytes # (Auto) , Calcium Level 9.0, Aspartate Amino Transf (AST/SGOT) 19, Alanine Aminotransferase (ALT/SGPT) 31, Alkaline Phosphatase 97, Total Bilirubin 1.0 #, Total Protein 7.1, Albumin 3.5 Vital Signs Date Time Temp Pulse Resp B/P (MAP) Pulse Ox O2 Delivery O2 Flow Rate FiO2 10/26/18 14:00 97.1 95 16 131/75 (93) 95 I&O- Last 24 Hours up to 6 AM 10/26/18 06:00 Intake Total 2043 ml Output Total 250 ml Balance 1793 ml VANIA BORJA MD Oct 26, 2018 16:18
[2018-10-26 20:00] VITALS: BP 134/78
[2018-10-26] MEDS: ATORVASTATIN 20 MG TAB PO SCH (21:29)
[2018-10-26] MEDS: BENAZEPRIL 20 MG TAB PO SCH (21:29)
[2018-10-26] MEDS: LEVEMIR (INSULIN DETEMIR) 1 UNITS/0.01ML SC SCH (21:30)
[2018-10-26] MEDS: SENNA 8.6 MG TAB (SENOKOT) PO SCH (21:30)
[2018-10-27] MEDS: ACETAMINOPHEN TAB 650MG DOSE (2X325MG) PO PRN ×3 (05:12→13:29)
[2018-10-27] MEDS: HEPARIN SOD (PORCINE) 5000 UNITS/ML VIAL SQ SCH ×3 (05:12→21:35)
[2018-10-27 06:00] VITALS: BP 140/70
[2018-10-27 07:08] LABS: HEMATOCRIT 43.2 % (42.0-52.0); HEMOGLOBIN 14.9 g/dl (13.5-17.5); MEAN CORPUSCULAR HEMOGLOBIN 31.7 pg (27.0-33.0); MEAN CORPUSCULAR HGB CONC 34.5 g/dl (32.0-36.5); MEAN CORPUSCULAR VOLUME 91.9 fl (80.0-96.0); PLATELET COUNT, AUTOMATED 234 10^3/uL (150-450)
[2018-10-27 07:09] LABS: WHITE BLOOD COUNT 15.8 10^3/uL (4.0-10.0)
[2018-10-27 07:29] LABS: ATYPICAL LYMPH 5 % (0-5); LYMPHOCYTES 29 % (16-52); MONOCYTES 7 % (0-8); NEUTROPHILS 59 % (35-75)
[2018-10-27 07:30] LABS: ANISOCYTOSIS 1+; CALCIUM LEVEL 9.2 MG/DL (8.8-10.2); CREATININE FOR GFR 1.35 MG/DL (0.70-1.30); MAGNESIUM LEVEL 1.9 MG/DL (1.8-2.4); PLATELET ESTIMATE NORMAL (NORMAL); POTASSIUM SERUM 4.3 MEQ/L (3.5-5.1)
[2018-10-27] MEDS: VENLAFAXINE **XR** 75MG CAPSULE PO SCH (09:09)
[2018-10-27] MEDS: HumaLOG INSULIN (NovoLOG) PER UNIT SC SCH ×3 (09:10→17:49)
[2018-10-27] MEDS: FLUoxetine 20 MG CAP PO SCH (09:10)
[2018-10-27] MEDS: MULTIVITAMINS/MINERALS THERAP 1 TAB PO SCH (09:10)
[2018-10-27] MEDS: FAMOTIDINE 20 MG TAB PO SCH (09:10)
[2018-10-27] MEDS: DOCUSATE SODIUM 100 MG CAP PO SCH ×2 (09:11→21:34)
[2018-10-27] MEDS: ATENOLOL 25 MG TAB PO SCH ×2 (09:11→21:34)
[2018-10-27] MEDS: ASPIRIN 81 MG CHEW TABLET PO SCH (09:12)
--- NOTE | 2018-10-27 12:51 | IPNPDOC ---
PM&R Progress Note DATE OF SERVICE: Oct 27, 2018 Security And Privacy Consultant Progress Note Subjective: Patient fell on Saturday from his recliner and sustained a left ankle fracture, was evaluated by ortho, splinted, and made NWB until boot placement. Patient and his very upset about this injury. Patient noted to be gaining motor strength in both his LUE and LLE, therapy restarted today. REVIEW OF SYSTEMS: The following is a completed review of systems and has been reviewed. Review of systems otherwise unremarkable. PAIN: Patient self reports no pain EYES: Negative for recent vision loss EARS, NOSE, & THROAT: +dysphagia CARDIOVASCULAR: denies chest pain or palpitations PULMONARY: Negative. Denies shortness of breath GASTROINTESTINAL: Negative for diarrhea or constipation GENITOURINARY: Negative for dysuria or hematuria NEUROLOGICAL: left sided paresis MSK: left ankle fracture HEMATOLOGICAL: Negative SKIN: no rash or skin breakdown PSYCHIATRIC: Unremarkable All other review of systems found to be negative. PHYSICAL EXAMINATION: VITAL SIGNS: Please see below. GENERAL: Pleasant and cooperative. No acute distress. HEENT: PERRL. Extraocular movements intact. Clear conjunctiva, left facial droop CARDIOVASCULAR: Regular rate and rhythm. No murmurs, rubs, or gallops LUNGS: Clear to auscultation bilaterally. No wheezes. No rhonchi. ABDOMEN: Soft, nontender, nondistended. Positive bowel sounds. Normal active bowel sounds. NEUROLOGICAL: Alert and oriented times three. Cranial nerves II through XII grossly intact. Sensation grossly intact. EXTREMITIES: 5\\5 strength right upper extremities. Left biceps 1/5, triceps 2/5, wrist extension1/5, water superintendent 2/5, 5\\5 strength right lower extremity. 3/5 strength in left hip flexors, 3/5 knee extensors, ankle DF and EHL unable to be tested SKIN:intact ASSESSMENT:67-year-old M with past medical history of CAD, DM, PAD who presents status post stroke with hemorrhagia conversion. PLAN: 1. Rehab: PT/OT, [employer], assess for DME needs 2. Neuro: s/p MCA territory stroke in the setting of "Extremely high grade stenosis right middle cerebral artery approximately 1.3 cm distal to its origin. " and right ICA occlusion with hemorrhagic conversion, Plavix being held, continue ASA and statin therapy, avoid hypoperfusion -Prozac for motor recovery, monitor for serotonin syndrome with concurrent Effexors -will need outpatient follow-up with Dr Porras for CEA in 4-6 weeks 3. Cardio: systolic and diastolic CHF with EF of 30% with defibrillator- medicine consulted, continue Atenolol and Benazepril 4. Resp: Monitor for infection, encourage incentive spirometry-stable 5. Renal: CKD , s/p gentle hydration 6. Endo: pmh uncontrolled DM, will increase evening Detemir to 20 units and monitor 7. : admission UA and Ucx negative, monitor PVRs 8. DVT ppx: on heparin 9. Psych: pmh depression continue Effexor 10. Ortho: s/p fall on 10/25/18 with left ankle fracture, currently NWB while awaiting boot placement- medical hold 10/26/18 for ankle fracture 10. Dispo: TBD to home Allergies Coded Allergies: No Known Allergies (Unverified , 10/18/18) Vital Signs Vital Signs Date Time Temp Pulse Resp B/P (MAP) Pulse Ox O2 Delivery O2 Flow Rate FiO2 10/27/18 09:11 82 140/80 10/27/18 06:00 96.2 18 95 Laboratory Data CBC/BMP Laboratory Tests 10/27/18 06:51 Red Blood Count 4.70, Mean Corpuscular Volume 91.9, Mean Corpuscular Hemoglobin 31.7, Mean Corpuscular Hemoglobin Concent 34.5, Red Cell Distribution Width 12.4, Lymphocytes # (Auto) , Calcium Level 9.2 Labs 24H Laboratory Tests 2 10/26/18 11:59: Bedside Glucose (Misc Panel) 340H 10/26/18 16:58: Bedside Glucose (Misc Panel) 300H 10/26/18 20:12: Bedside Glucose (Misc Panel) 341H 10/27/18 06:51: White Blood Count 15.8H, Red Blood Count 4.70, Hemoglobin 14.9, Hematocrit 43.2, Mean Corpuscular Volume 91.9, Mean Corpuscular Hemoglobin 31.7, Mean Corpuscular Hemoglobin Concent 34.5, Red Cell Distribution Width 12.4, Platelet Count 234, Lymphocytes # (Auto) , Nucleated Red Blood Cells % (auto) 0.0, Neutrophils 59, Lymphocytes (Manual) 29, Monocytes (Manual) 7, Atypical Lymphocytes 5, Platelet Estimate NORMAL, Anisocytosis 1+, Anion Gap 7L, Glomerular Filtration Rate 56.0, Blood Urea Nitrogen 28H, Creatinine 1.35H, Sodium Level 133L, Potassium Level 4.3, Chloride Level 99, Carbon Dioxide Level 27, Calcium Level 9.2, Magnesium Level 1.9 10/27/18 11:18: Bedside Glucose (Misc Panel) 370H Microbiology Microbiology 10/24/18 Urine Culture - Final, Complete Current Medications Current Medications Current Medications Acetaminophen (Tylenol Tab) 650 mg Q4HP PRN PO fever/MILD PAIN (PS 1-4) Last administered on 10/27/18 09:11; Start 10/24/18 at 16:30 Aspirin (Aspirin Chewable) 81 mg DAILY PO Last administered on 10/27/18 09:12; Start 10/25/18 at 09:00 Atenolol (Tenormin) 25 mg BID PO Last administered on 10/27/18 09:11; Start 10/25/18 at 15:00 Atorvastatin Calcium (Lipitor) 80 mg QHS PO Last administered on 10/26/18 21:29; Start 10/24/18 at 21:00 Benazepril HCl (Lotensin) 20 mg QPM PO Last administered on 10/26/18 21:29; Start 10/25/18 at 21:00 Dextrose (Dextrose 50%) 25 ml ASDIRECTED PRN IV SEE LABEL COMMENTS; Start 10/24/18 at 16:15 Docusate Sodium (Colace) 100 mg BID PO Last administered on 10/27/18 09:11; Start 10/24/18 at 21:00 Famotidine (Pepcid) 20 mg DAILY PO Last administered on 10/27/18 09:10; Start 10/25/18 at 09:00 Fluoxetine HCl (PROzac) 20 mg DAILY PO Last administered on 10/27/18 09:10; Start 10/25/18 at 09:00 Glucagon (Glucagon) 1 mg ASDIRECTED PRN SC SEE LABEL COMMENTS; Start 10/24/18 at 16:15 Glucose (Glucose) 16 GM ASDIRECTED PRN PO SEE LABEL COMMENTS; Start 10/24/18 at 16:15 Heparin Sodium (Porcine) (Heparin) 5,000 units Q8H SQ Last administered on 10/27/18at 05:12; Start 10/24/18 at 22:00 Insulin Detemir (Levemir Insulin) 5 units QHS SC Last administered on 10/24/18at 21:34; Start 10/24/18 at 21:00; Stop 10/25/18 at 13:03; Status DC Insulin Detemir (Levemir Insulin) 12 units QHS SC Last administered on 10/26/18 21:30; Start 10/25/18 at 21:00 Insulin Human Lispro (HumaLOG INSULIN) SEE PROTOCOL TABLE AC SC Last administ ered on 10/27/18 09:10; Start 10/24/18 at 17:30 Insulin Human Lispro (HumaLOG INSULIN) SEE PROTOCOL TABLE QHS SC Last administered on 10/26/18 21:31; Start 10/24/18 at 21:00 Multivitamins (Theragram-M) 1 tab DAILY PO Last administered on 10/27/18 09:10; Start 10/25/18 at 09:00 Niacin (Niacin) 500 mg QHS PO ; Start 10/24/18 at 21:00; Status Future Hold Ondansetron HCl (Zofran) 4 mg Q6HP PRN PO NAUSEA; Start 10/24/18 at 16:30 Polyethylene Glycol (Miralax) 1 pkt DAILYPRN PRN PO CONSTIPATION; Start 10/24/18 at 16:15 Senna (Senokot) 1 tab QHS PO Last administered on 10/26/18 21:30; Start 10/24/18 at 21:00 Sodium Chloride 1,000 ml @ 80 mls/hr [id number] IV Last administered on 10/26/18at 04:02; Start 10/25/18 at 13:30; Stop 10/26/18 at 19:59; Status DC Venlafaxine HCl (Effexor Xr) 75 mg DAILY PO Last administered on 10/27/18 09:09; Start 10/25/18 at 09:00 PAUL YE MD Oct 27, 2018 12:51
[2018-10-27 14:00] VITALS: BP 129/73
--- NOTE | 2018-10-27 15:13 | REP ---
LEFT WRIST, FOUR VIEWS: HISTORY: Fall. There is no acute fracture or dislocation. The joint spaces are normal in appearance. IMPRESSION:There is no acute fracture or dislocation. Electronically Signed by Yuriy Grey MD 10/27/2018 03:48 P
[2018-10-27 20:00] VITALS: BP 169/86
[2018-10-27] MEDS ORDERED: LEVEMIR (INSULIN DETEMIR) 1 UNITS/0.01ML SC SCH (21:00)
[2018-10-27] MEDS: SENNA 8.6 MG TAB (SENOKOT) PO SCH (21:34)
[2018-10-27] MEDS: BENAZEPRIL 20 MG TAB PO SCH (21:34)
[2018-10-27] MEDS: ATORVASTATIN 20 MG TAB PO SCH (21:34)
[2018-10-28] MEDS: HEPARIN SOD (PORCINE) 5000 UNITS/ML VIAL SQ SCH ×3 (05:48→21:01)
[2018-10-28 06:00] VITALS: BP 128/74
[2018-10-28] MEDS: ASPIRIN 81 MG CHEW TABLET PO SCH (09:25)
[2018-10-28] MEDS: MULTIVITAMINS/MINERALS THERAP 1 TAB PO SCH (09:25)
[2018-10-28] MEDS: DOCUSATE SODIUM 100 MG CAP PO SCH ×2 (09:25→21:00)
[2018-10-28] MEDS: FLUoxetine 20 MG CAP PO SCH (09:25)
[2018-10-28] MEDS: FAMOTIDINE 20 MG TAB PO SCH (09:26)
[2018-10-28] MEDS: ATENOLOL 25 MG TAB PO SCH ×2 (09:26→21:00)
[2018-10-28] MEDS: HumaLOG INSULIN (NovoLOG) PER UNIT SC SCH ×4 (09:27→17:36)
[2018-10-28] MEDS: VENLAFAXINE **XR** 75MG CAPSULE PO SCH (09:29)
--- NOTE | 2018-10-28 13:53 | IPNPDOC ---
Date Seen The patient was seen on 10/28/18. 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 He also had slipped out of his chair 10/26/18 sustaining left ankle fracture. Boot in place. Pt was transferred to the care of ARU, Dr Owen, 10/25/18. No acute medical complaints today. The pt is OOB to chair eating lunch. Feeling frustrated overall with progress. at bedside. Denies any fevers, chills, weakness, fatigue, Headache, Chest Pain, Shortness of breath, cough, palpitations, abdominal pain, N/V/D or changes in bowel or bladder habits. PAST MEDICAL HISTORY: Diabetes Hypertension Arthrosclerotic disease. Cardiac defibrillator. Cardiac stent Lower extremity stents. Dr Cunningham. Hyperlipidemia GERD PAST SURGICAL HISTORY: 4 cardiac stents Hernia repair PE: GEN: yo, appears stated age. Well-nourished, well developed. No acute distress. Alert and oriented x 3. Pleasant, interactive. HEENT: Normocephalic, atraumatic. Pupils are equal, round, and reactive to light. Extraocular movements are intact. No nystagmus appreciated. Sclera are nonicteric. Conjunctiva without injection. Nose midline. Nasal turbinates without bogginess. EACs both patent BL. TMs both visualized and miles with good cone of light, no bulging or erythema. No facial asymmetry. Moist mucous membranes. Dentition fair. Pharynx pink and moist, no cobblestoning. Neck supple, trachea midline. No lymphadenopathy or thyromegaly appreciated. CHEST: Regular rate and rhythm, +S1, +S2 LUNGS: Clear to auscultation bilaterally. No wheezes, rales, or rhonchi. Breathing appears symmetric and easy. Patient is speaking in full sentences. No accessory muscle use. ABD: Round, soft, non-tender, non-distended. +Bowel sounds throughout. No rebound or guarding. No costovertebral angle tenderness. EXT: Pulses 2+ bilaterally dorsalis pedis and radial. No lower extremity edema appreciated. SKIN: Gerrard, dry, warm. Capillary refill <2sec. No rashes. NEURO: Alert and oriented x 3. Cranial nerves III-XII are intact. No focal deficits appreciated. 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 He also had slipped out of his chair 10/26/18 sustaining left ankle fracture. Boot in place. Pt was transferred to the care of ARU, Dr Owen, 10/25/18. 1. Left facial weakness / left upper + lower extremity weakness/acute CVA. Patient unable to have MRI given that he has an pacemaker in place - CT head 10/22: 1. Acute right basal ganglia, internal capsule, right temporal and parietal lobe infarction with a small hemorrhagic component unchanged compared to the previous study. 2. Small vessel ischemic disease. 3. Mild volume loss. - CTA head 10/18: Extremely high grade stenosis right middle cerebral artery approximately 1.3 cm distal to its origin. - CTA Neck 10/18: There is occlusion of the right internal carotid artery from its origin to its distal end. Stenosis of the left carotid bulb in the range of about 70-80%. 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 The left vertebral artery is reconstituted at the C3 level with multifocal stenosis of its distal aspect. 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 Vascular surgery consulted, possibly consider possible endarterectomy in 4-6 weeks Outpt F/U with Neurology. Mgmt as per ARU. PT/OT/ST as per ARU. Pain control/Bowel care as per ARU. DVT prophylaxis as per ARU, SQ Heparin. Disposition as per ARU. Continue ASA and Atorvastatin Plan at time of d/c was to resume Plavix in next 2 weeks; will likely require subsequent imaging to ensure no changes occur Elevated Cr on CKD3 Cr baseline of 1-1.2 1.35, monitor. Systolic and Diastolic CHF, compensated. ECHO 10/19: EF 30%, G1DD CAD c/w ASA, Atorvastatin DLP c/w Atorvastatin and Niacin IDDM2 c/w ISS adjustments as per Dr Owen. HTN Benazepril Atenolol Mood disorder Venlafaxine GERD Famotine VS, I&O, 24H, Fishbone Vital Signs/I&O Vital Signs Date Time Temp Pulse Resp B/P (MAP) Pulse Ox O2 Delivery O2 Flow Rate FiO2 10/28/18 09:26 68 128/74 10/28/18 06:00 96.2 17 98 I&O- Last 24 Hours up to 6 AM 10/28/18 06:00 Intake Total 1020 ml Output Total 800 ml Balance 220 ml Laboratory Data 24H LABS Laboratory Tests 2 10/27/18 16:55: Bedside Glucose (Misc Panel) 368H 10/27/18 21:07: Bedside Glucose (Misc Panel) 310H 10/28/18 05:45: Bedside Glucose (Misc Panel) 302H 10/28/18 05:48: Bedside Glucose (Misc Panel) 285H 10/28/18 11:46: Bedside Glucose (Misc Panel) 391H Microbiology Microbiology 10/24/18 Urine Culture - Final, Complete Margaret Hsieh Oct 28, 2018 13:53
[2018-10-28 14:45] VITALS: BP 154/78
[2018-10-28 20:00] VITALS: BP 169/86
[2018-10-28] MEDS: ATORVASTATIN 20 MG TAB PO SCH (20:59)
[2018-10-28] MEDS: SENNA 8.6 MG TAB (SENOKOT) PO SCH (21:00)
[2018-10-28] MEDS: BENAZEPRIL 20 MG TAB PO SCH (21:00)
[2018-10-28] MEDS ORDERED: LEVEMIR (INSULIN DETEMIR) 1 UNITS/0.01ML SC SCH (21:00)
[2018-10-29] MEDS: ACETAMINOPHEN TAB 650MG DOSE (2X325MG) PO PRN (04:10)
[2018-10-29 06:00] VITALS: BP 141/82
[2018-10-29] MEDS: HEPARIN SOD (PORCINE) 5000 UNITS/ML VIAL SQ SCH ×3 (06:30→21:57)
[2018-10-29 07:20] LABS: HEMATOCRIT 42.7 % (42.0-52.0); HEMOGLOBIN 14.4 g/dl (13.5-17.5); MEAN CORPUSCULAR HGB CONC 33.7 g/dl (32.0-36.5); PLATELET COUNT, AUTOMATED 252 10^3/uL (150-450); RED BLOOD COUNT 4.64 10^6/uL (4.30-6.10)
[2018-10-29 07:48] LABS: ALBUMIN 3.4 GM/DL (3.2-5.2); BILIRUBIN,TOTAL 0.7 MG/DL (0.2-1.0); CALCIUM LEVEL 9.3 MG/DL (8.8-10.2); CREATININE FOR GFR 1.66 MG/DL (0.70-1.30); GLOMERULAR FILTRATION RATE 44.1 (>49); POTASSIUM SERUM 4.6 MEQ/L (3.5-5.1); TOTAL PROTEIN 7.5 GM/DL (6.4-8.2)
[2018-10-29] MEDS: HumaLOG INSULIN (NovoLOG) PER UNIT SC SCH ×7 (08:26→21:57)
[2018-10-29] MEDS: ASPIRIN 81 MG CHEW TABLET PO SCH (08:27)
[2018-10-29] MEDS: MULTIVITAMINS/MINERALS THERAP 1 TAB PO SCH (08:27)
[2018-10-29] MEDS: FLUoxetine 20 MG CAP PO SCH (08:27)
[2018-10-29] MEDS: VENLAFAXINE **XR** 75MG CAPSULE PO SCH (08:27)
[2018-10-29] MEDS: DOCUSATE SODIUM 100 MG CAP PO SCH ×2 (08:27→21:56)
[2018-10-29] MEDS: FAMOTIDINE 20 MG TAB PO SCH (08:28)
[2018-10-29] MEDS: ATENOLOL 25 MG TAB PO SCH ×2 (08:31→21:56)
[2018-10-29] MEDS ORDERED: LEVEMIR (INSULIN DETEMIR) 1 UNITS/0.01ML SC SCH ×2 (09:00→21:00)
--- NOTE | 2018-10-29 11:05 | IPNPDOC ---
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 REVIEW OF SYSTEMS: The following is a completed review of systems and has been reviewed. Review of systems otherwise unremarkable. PAIN: Patient self reports no pain EYES: Negative for recent vision loss EARS, NOSE, & THROAT: +dysphagia CARDIOVASCULAR: denies chest pain or palpitations PULMONARY: Negative. Denies shortness of breath GASTROINTESTINAL: Negative for diarrhea or constipation GENITOURINARY: Negative for dysuria or hematuria NEUROLOGICAL: left sided paresis MSK: left ankle fracture HEMATOLOGICAL: Negative SKIN: no rash or skin breakdown PSYCHIATRIC: Unremarkable All other review of systems found to be negative. PHYSICAL EXAMINATION: VITAL SIGNS: Please see below. GENERAL: Pleasant and cooperative. No acute distress. HEENT: PERRL. Extraocular movements intact. Clear conjunctiva, left facial droop CARDIOVASCULAR: Regular rate and rhythm. No murmurs, rubs, or gallops LUNGS: Clear to auscultation bilaterally. No wheezes. No rhonchi. ABDOMEN: Soft, nontender, nondistended. Positive bowel sounds. Normal active bowel sounds. NEUROLOGICAL: Alert and oriented times three. Cranial nerves II through XII grossly intact. Sensation grossly intact. EXTREMITIES: 5\\5 strength right upper extremities. Left biceps 1/5, triceps 2/5, wrist extension1/5, agile test lead 2/5, 5\\5 strength right lower extremity. 3/5 strength in left hip flexors, 3/5 knee extensors, ankle DF and EHL unable to be tested SKIN:+blanchable erythematous area dorsum of left foot and medal ankle ASSESSMENT:67-year-old M with past medical history of CAD, DM, PAD who presents status post stroke with hemorrhagia conversion. PLAN: 1. Rehab: PT/OT, [employer], assess for DME needs, working on [id number], left wrist splint ordered 2. Neuro: s/p MCA territory stroke in the setting of "Extremely high grade stenosis right middle cerebral artery approximately 1.3 cm distal to its origin." and right ICA occlusion with hemorrhagic conversion, Plavix being held, continue ASA and statin therapy, avoid hypoperfusion -Prozac for motor recovery, monitor for serotonin syndrome with concurrent Effexors -will need outpatient follow-up with Dr Porras for CEA in 4-6 weeks 3. Cardio: systolic and diastolic CHF with EF of 30% with defibrillator- medicine consulted, continue Atenolol and Benazepril with holding parameters 4. Resp: Monitor for infection, encourage incentive spirometry-stable 5. Renal: CKD , s/p gentle hydration-stable 6. Endo: pmh uncontrolled DM, will increase evening Detemir to 25 units and will continue to adjust 7. : admission UA and Ucx negative, monitor PVRs 8. DVT ppx: on heparin 9. Psych: pmh depression continue Effexor 10. Ortho: s/p fall on 10/25/18 with left ankle fracture, CAM boot placed, WBAT, inside barrel polisher and ortho recs appreciated, monitor for skin breakdown, mepilex applied to right ankle, sock removed 10. Dispo: 11/17/18 to home, progressing towards goals Allergies Coded Allergies: No Known Allergies (Unverified , 10/18/18) Vital Signs Vital Signs Date Time Temp Pulse Resp B/P (MAP) Pulse Ox O2 Delivery O2 Flow Rate FiO2 10/29/18 08:31 84 120/82 10/29/18 06:00 96.7 18 96 Laboratory Data CBC/BMP Laboratory Tests 10/29/18 06:44 Red Blood Count 4.64, Mean Corpuscular Volume 92.0, Mean Corpuscular Hemoglobin 31.0, Mean Corpuscular Hemoglobin Concent 33.7, Red Cell Distribution Width 12.5, Calcium Level 9.3, Aspartate Amino Transf (AST/SGOT) 20, Alanine Aminotransferase (ALT/SGPT) 29, Alkaline Phosphatase 104, Total Bilirubin 0.7, Total Protein 7.5, Albumin 3.4 Labs 24H Laboratory Tests 2 10/28/18 11:46: Bedside Glucose (Misc Panel) 391H 10/28/18 17:23: Bedside Glucose (Misc Panel) 339H 10/28/18 20:15: Bedside Glucose (Misc Panel) 434H 10/29/18 06:44: Nucleated Red Blood Cells % (auto) 0.0, Anion Gap 6L, Glomerular Filtration Rate 44.1L, Blood Urea Nitrogen 38H, Creatinine 1.66H, Sodium Level 135L, Potassium Level 4.6, Chloride Level 102, Carbon Dioxide Level 27, Calcium Level 9.3, Aspartate Amino Transf (AST/SGOT) 20, Alanine Aminotransferase (ALT/SGPT) 29, Alkaline Phosphatase 104, Total Bilirubin 0.7, Total Protein 7.5, Albumin 3.4, Albumin/Globulin Ratio 0.83L Microbiology Microbiology 10/24/18 Urine Culture - Final, Complete Current Medications Current Medications Current Medications Acetaminophen (Tylenol Tab) 650 mg Q4HP PRN PO fever/MILD PAIN (PS 1-4) Last administered on 10/29/18 04:10; Start 10/24/18 at 16:30 Aspirin (Aspirin Chewable) 81 mg DAILY PO Last administered on 10/29/18 08:27; Start 10/25/18 at 09:00 Atenolol (Tenormin) 25 mg BID PO Last administered on 10/28/18 21:00; Start 10/25/18 at 15:00 Atorvastatin Calcium (Lipitor) 80 mg QHS PO Last administered on 10/28/18 20:59; Start 10/24/18 at 21:00 Benazepril HCl (Lotensin) 20 mg QPM PO Last administered on 10/28/18at 21:00; Start 10/25/18 at 21:00 Dextrose (Dextrose 50%) 25 ml ASDIRECTED PRN IV SEE LABEL COMMENTS; Start 10/24/18 at 16:15 Docusate Sodium (Colace) 100 mg BID PO Last administered on 10/29/18 08:27; Start 10/24/18 at 21:00 Famotidine (Pepcid) 20 mg DAILY PO Last administered on 10/29/18at 08:28; Start 10/25/18 at 09:00 Fluoxetine HCl (PROzac) 20 mg DAILY PO Last administered on 10/29/18at 08:27; Start 10/25/18 at 09:00 Glucagon (Glucagon) 1 mg ASDIRECTED PRN SC SEE LABEL COMMENTS; Start 10/24/18 at 16:15 Glucose (Glucose) 16 GM ASDIRECTED PRN PO SEE LABEL COMMENTS; Start 10/24/18 at 16:15 Heparin Sodium (Porcine) (Heparin) 5,000 units Q8H SQ Last administered on 10/29at 06:30; Start 10/24/18 at 22:00 Insulin Detemir (Levemir Insulin) 5 units QHS SC Last administered on 10/24/18at 21:34; Start 10/24/18 at 21:00; Stop 10/25/18 at 13:03; Status DC Insulin Detemir (Levemir Insulin) 8 units DAILY SC ; Start 10/29/18 at 09:00 Insulin Detemir (Levemir Insulin) 12 units QHS SC Last administered on 10/26/18at 21:30; Start 10/25/18 at 21:00; Stop 10/27/18 at 11:48; Status DC Insulin Detemir (Levemir Insulin) 20 units QHS SC Last administered on 10/27/18at 21:35; Start 10/27/18 at 21:00; Stop 10/28/18 at 10:12; Status DC Insulin Detemir (Levemir Insulin) 25 units QHS SC Last administered on 10/28/18at 21:01; Start 10/28/18 at 21:00 Insulin Human Lispro (HumaLOG INSULIN) 4 units AC SC Last administered on 10/29/18at 08:27; Start 10/28/18 at 17:30 Insulin Human Lispro (HumaLOG INSULIN) SEE PROTOCOL TABLE AC SC Last administered on 10/29/18at 08:26; Start 10/24/18 at 17:30 Insulin Human Lispro (HumaLOG INSULIN) SEE PROTOCOL TABLE QHS SC Last administered on 10/26/18at 21:31; Start 10/24/18 at 21:00; Stop 10/27/18 at 11:48; Status DC Multivitamins (Theragram-M) 1 tab DAILY PO Last administered on 10/29/18at 08:27; Start 10/25/18 at 09:00 Niacin (Niacin) 500 mg QHS PO ; Start 10/24/18 at 21:00; Stop 10/29/18 at 10:54; Status DC Niacin (Niaspan) 500 mg QHS PO ; Start 10/29/18 at 21:00 Ondansetron HCl (Zofran) 4 mg Q6HP PRN PO NAUSEA; Start 10/24/18 at 16:30 Polyethylene Glycol (Miralax) 1 pkt DAILYPRN PRN PO CONSTIPATION; Start 10/24/18 at 16:15 Senna (Senokot) 1 tab QHS PO Last administered on 10/28/18at 21:00; Start 10/24/18 at 21:00 Sodium Chloride 1,000 ml @ 80 mls/hr [id number] IV Last administered on 10/26/18at 04:02; Start 10/25/18 at 13:30; Stop 10/26/18 at 19:59; Status DC Venlafaxine HCl (Effexor Xr) 75 mg DAILY PO Last administered on 10/29/18at 08:27; Start 10/25/18 at 09:00 PAUL YE MD Oct 29, 2018 11:05
[2018-10-29] MEDS ORDERED: DEXTROSE 50% 50 ML SYRINGE IV PRN (11:15)
[2018-10-29] MEDS ORDERED: GLUCAGON FOR INJ 1 MG VIAL (J1610) SC PRN (11:15)
[2018-10-29] MEDS ORDERED: GLUCOSE 4 GM CHEW TABLET PO PRN (11:15)
--- NOTE | 2018-10-29 11:25 | IPNPDOC ---
PM&R Progress Note DATE OF SERVICE: Oct 29, 2018 Slate Cutter Operator Progress Note Subjective: Patient seen in his room, denies cough, fever or chills. He reports he has not been drinking Glucerna. REVIEW OF SYSTEMS: The following is a completed review of systems and has been reviewed. Review of systems otherwise unremarkable. PAIN: Patient self reports no pain EYES: Negative for recent vision loss EARS, NOSE, & THROAT: +dysphagia CARDIOVASCULAR: denies chest pain or palpitations PULMONARY: Negative. Denies shortness of breath GASTROINTESTINAL: Negative for diarrhea or constipation GENITOURINARY: Negative for dysuria or hematuria NEUROLOGICAL: left sided paresis MSK: left ankle fracture HEMATOLOGICAL: Negative SKIN: no rash or skin breakdown PSYCHIATRIC: Unremarkable All other review of systems found to be negative. PHYSICAL EXAMINATION: VITAL SIGNS: Please see below. GENERAL: Pleasant and cooperative. No acute distress. HEENT: PERRL. Extraocular movements intact. Clear conjunctiva, left facial droop CARDIOVASCULAR: Regular rate and rhythm. No murmurs, rubs, or gallops LUNGS: Clear to auscultation bilaterally. No wheezes. No rhonchi. ABDOMEN: Soft, nontender, nondistended. Positive bowel sounds. Normal active bowel sounds. NEUROLOGICAL: Alert and oriented times three. Cranial nerves II through XII grossly intact. Sensation grossly intact. EXTREMITIES: 5\\5 strength right upper extremities. Left biceps 1/5, triceps 2/5, wrist extension1/5, business insurance agent 2/5, 5\\5 strength right lower extremity. 3/5 strength in left hip flexors, 3/5 knee extensors, ankle DF and EHL unable to be tested SKIN:+blanchable erythematous area dorsum of left foot and medial ankle- covered with mepilex ASSESSMENT:67-year-old M with past medical history of CAD, DM, PAD who presents status post stroke with hemorrhagia conversion. PLAN: 1. 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 Neuro: s/p MCA territory stroke in the setting of "Extremely high grade stenosis right middle cerebral artery approximately 1.3 cm distal to its origin." and right ICA occlusion with hemorrhagic conversion, Plavix being held, continue ASA and statin therapy, avoid hypoperfusion -Prozac for motor recovery, monitor for serotonin syndrome with concurrent Effexors -will need outpatient follow-up with Dr Porras for CEA in 4-6 weeks 3. Cardio: systolic and diastolic CHF with EF of 30% with defibrillator- wi luigi consulted, continue Atenolol and Benazepril with holding parameters 4. Resp: Monitor for infection, encourage incentive spirometry-stable -CXR ordered today for persistent leukocytosis despite denying a cough 5. Renal: CKD , s/p gentle hydration-stable 6. Endo: pmh uncontrolled DM, will increase evening Detemir to 30 units, add HS coverage, change to consistent carb diet and d/c glucerna, will continue to monitor and adjust prn 7. : admission UA and Ucx negative, monitor PVRs 8. DVT ppx: on heparin 9. Psych: pmh depression continue Effexor 10. Ortho: s/p fall on 10/25/18 with left ankle fracture, CAM boot placed, WBAT, auto servicer and ortho recs appreciated, monitor for skin breakdown, mepilex applied to right ankle, sock removed 10. Dispo: 11/17/18 to home, progressing towards goals Allergies Coded Allergies: No Known Allergies (Unverified , 10/18/18) Vital Signs Vital Signs Date Time Temp Pulse Resp B/P (MAP) Pulse Ox O2 Delivery O2 Flow Rate FiO2 10/29/18 08:31 84 120/82 10/29/18 06:00 96.7 18 96 Laboratory Data CBC/BMP Laboratory Tests 10/29/18 06:44 Red Blood Count 4.64, Mean Corpuscular Volume 92.0, Mean Corpuscular Hemoglobin 31.0, Mean Corpuscular Hemoglobin Concent 33.7, Red Cell Distribution Width 12.5, Calcium Level 9.3, Aspartate Amino Transf (AST/SGOT) 20, Alanine Aminotransferase (ALT/SGPT) 29, Alkaline Phosphatase 104, Total Bilirubin 0.7, Total Protein 7.5, Albumin 3.4 Labs 24H Laboratory Tests 2 10/28/18 11:46: Bedside Glucose (Misc Panel) 391H 10/28/18 17:23: Bedside Glucose (Misc Panel) 339H 10/28/18 20:15: Bedside Glucose (Misc Panel) 434H 10/29/18 06:44: Nucleated Red Blood Cells % (auto) 0.0, Anion Gap 6L, Glomerular Filtration Rate 44.1L, Blood Urea Nitrogen 38H, Creatinine 1.66H, Sodium Level 135L, Potassium Level 4.6, Chloride Level 102, Carbon Dioxide Level 27, Calcium Level 9.3, Aspartate Amino Transf (AST/SGOT) 20, Alanine Aminotransferase (ALT/SGPT) 29, Alkaline Phosphatase 104, Total Bilirubin 0.7, Total Protein 7.5, Albumin 3.4, Albumin/Globulin Ratio 0.83L Microbiology Microbiology 10/24/18 Urine Culture - Final, Complete Current Medications Current Medications Current Medications Acetaminophen (Tylenol Tab) 650 mg Q4HP PRN PO fever/MILD PAIN (PS 1-4) Last administered on 10/29/18 04:10; Start 10/24/18 at 16:30 Aspirin (Aspirin Chewable) 81 mg DAILY PO Last administered on 10/29/18at 08:27; Start 10/25/18 at 09:00 Atenolol (Tenormin) 25 mg BID PO Last administered on 10/28/18 21:00; Start 10/25/18 at 15:00 Atorvastatin Calcium (Lipitor) 80 mg QHS PO Last administered on 10/28/18at 20:59; Start 10/24/18 at 21:00 Benazepril HCl (Lotensin) 20 mg QPM PO Last administered on 10/28/18 21:00; Start 10/25/18 at 21:00 Dextrose (Dextrose 50%) 25 ml ASDIRECTED PRN IV SEE LABEL COMMENTS; Start 10/24/18 at 16:15 Docusate Sodium (Colace) 100 mg BID PO Last administered on 10/29/18at 08:27; Start 10/24/18 at 21:00 Famotidine (Pepcid) 20 mg DAILY PO Last administered on 10/29/18at 08:28; Start 10/25/18 at 09:00 Fluoxetine HCl (PROzac) 20 mg DAILY PO Last administered on 10/29/18at 08:27; Start 10/25/18 at 09:00 Glucagon (Glucagon) 1 mg ASDIRECTED PRN SC SEE LABEL COMMENTS; Start 10/24/18 at 16:15 Glucose (Glucose) 16 GM ASDIRECTED PRN PO SEE LABEL COMMENTS; Start 10/24/18 at 16:15 Heparin Sodium (Porcine) (Heparin) 5,000 units Q8H SQ Last administered on 10/29/18at 06:30; Start 10/24/18 at 22:00 Insulin Detemir (Levemir Insulin) 5 units QHS SC Last administered on 10/24/18at 21:34; Start 10/24/18 at 21:00; Stop 10/25/18 at 13:03; Status DC Insulin Detemir (Levemir Insulin) 8 units DAILY SC ; Start 10/29/18 at 09:00 Insulin Detemir (Levemir Insulin) 12 units QHS SC Last administered on 10/26/18at 21:30; Start 10/25/18 at 21:00; Stop 10/27/18 at 11:48; Status DC Insulin Detemir (Levemir Insulin) 20 units QHS SC Last administered on 10/27/18at 21:35; Start 10/27/18 at 21:00; Stop 10/28/18 at 10:12; Status DC Insulin Detemir (Levemir Insulin) 25 units QHS SC Last administered on 10/28/18at 21:01; Start 10/28/18 at 21:00 Insulin Human Lispro (HumaLOG INSULIN) 4 units AC SC Last administered on 10/29/18at 08:27; Start 10/28/18 at 17:30 Insulin Human Lispro (HumaLOG INSULIN) SEE PROTOCOL TABLE AC SC Last administered on 10/29/18at 08:26; Start 10/24/18 at 17:30 Insulin Human Lispro (HumaLOG INSULIN) SEE PROTOCOL TABLE QHS SC Last administered on 10/26/18at 21:31; Start 10/24/18 at 21:00; Stop 10/27/18 at 11:48; Status DC Multivitamins (Theragram-M) 1 tab DAILY PO Last administered on 10/29/18at 08:27; Start 10/25/18 at 09:00 Niacin (Niacin) 500 mg QHS PO ; Start 10/24/18 at 21:00; Stop 10/29/18 at 10:54; Status DC Niacin (Niaspan) 500 mg QHS PO ; Start 10/29/18 at 21:00 Ondansetron HCl (Zofran) 4 mg Q6HP PRN PO NAUSEA; Start 10/24/18 at 16:30 Polyethylene Glycol (Miralax) 1 pkt DAILYPRN PRN PO CONSTIPATION; Start 10/24/18 at 16:15 Senna (Senokot) 1 tab QHS PO Last administered on 10/28/18at 21:00; Start 10/24/18 at 21:00 Sodium Chloride 1,000 ml @ 80 mls/hr [id number] IV Last administered on 10/26/18at 04:02; Start 10/25/18 at 13:30; Stop 10/26/18 at 19:59; Status DC Venlafaxine HCl (Effexor Xr) 75 mg DAILY PO Last administered on 10/29/18at 08:27; Start 10/25/18 at 09:00 PAUL YE MD Oct 29, 2018 11:25
--- NOTE | 2018-10-29 12:16 | REP ---
Portable chest, 09:14 a.m., single AP view, patient sitting: Comparison is 10/18/2018. Lung william are clear. Cardiac size is normal. The scott, mediastinum, skeletal structures are unremarkable. Sternotomy wires and pacemaker/AICD are again identified, unchanged. Impression: There are no acute cardiopulmonary findings. No interval change. Electronically Signed by Msuhtaq Muñiz MD 10/29/2018 12:07 P
--- NOTE | 2018-10-29 13:55 | IPNPDOC ---
Date Seen The patient was seen on 10/29/18. 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 He also had slipped out of his chair 10/26/18 sustaining left ankle fracture. Boot in place. Pt was transferred to the care of ARU, Dr Owen, 10/25/18. The pt is OOB to chair eating lunch. at bedside. The pt states he has had some urinary urgency. Denies dysuria, frequency, abdominal or back pain. Denies any fevers, chills, weakness, fatigue, Headache, Chest Pain, Shortness of breath, cough, palpitations, abdominal pain, N/V/D or changes in bowel or bladder habits. PAST MEDICAL HISTORY: Diabetes Hypertension Arthrosclerotic disease. Cardiac defibrillator. Cardiac stent Lower extremity stents. Dr Cunningham. Hyperlipidemia GERD PAST SURGICAL HISTORY: 4 cardiac stents Hernia repair PE: GEN: yo, appears stated age. Well-nourished, well developed. No acute distress. Alert and oriented x 3. Pleasant, interactive. HEENT: Normocephalic, atraumatic. Pupils are equal, round, and reactive to light. Extraocular movements are intact. No nystagmus appreciated. Sclera are nonicteric. Conjunctiva without injection. Nose midline. Nasal turbinates without bogginess. EACs both patent BL. TMs both visualized and miles with good cone of light, no bulging or erythema. No facial asymmetry. Moist mucous membranes. Dentition fair. Pharynx pink and moist, no cobblestoning. Neck supple, trachea midline. No lymphadenopathy or thyromegaly appreciated. CHEST: Regular rate and rhythm, +S1, +S2 LUNGS: Clear to auscultation bilaterally. No wheezes, rales, or rhonchi. Breathing appears symmetric and easy. Patient is speaking in full sentences. No accessory muscle use. ABD: Round, soft, non-tender, non-distended. +Bowel sounds throughout. No rebound or guarding. No costovertebral angle tenderness. EXT: Pulses 2+ bilaterally dorsalis pedis and radial. No lower extremity edema appreciated. SKIN: [place], dry, warm. Capillary refill <2sec. No rashes. NEURO: Alert and oriented x 3. Cranial nerves III-XII are intact. No focal deficits appreciated. 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 He also had slipped out of his chair 10/26/18 sustaining left ankle fracture. Boot in place. Pt was transferred to the care of ARU, Dr Owen, 10/25/18. Left facial weakness / left upper + lower extremity weakness/acute CVA. Patient unable to have MRI given that he has an pacemaker in place - CT head 10/22: 1. Acute right basal ganglia, internal capsule, right temporal and parietal lobe infarction with a small hemorrhagic component unchanged compared to the previous study. 2. Small vessel ischemic disease. 3. Mild volume loss. - CTA head 10/18: Extremely high grade stenosis right middle cerebral artery approximately 1.3 cm distal to its origin. - CTA Neck 10/18: There is occlusion of the right internal carotid artery from its origin to its distal end. Stenosis of the left carotid bulb in the range of about 70-80%. 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 The left vertebral artery is reconstituted at the C3 level with multifocal stenosis of its distal aspect. 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 Vascular surgery consulted, possibly consider possible endarterectomy in 4-6 weeks Outpt F/U with Neurology. Mgmt as per ARU. PT/OT/ST as per ARU. Pain control/Bowel care as per ARU. DVT prophylaxis as per ARU, SQ Heparin. Disposition as per ARU. Continue ASA and Atorvastatin Plan at time of d/c was to resume Plavix in next 2 weeks; will likely require subsequent imaging to ensure no changes occur Elevated Cr on CKD3 Cr trend 1.3-1.5. 1.66 this AM, monitor. BMP in Am. leukocytosis. pt is afebrile, he reports some urinary urgency but no urinary symptoms otherwise. CXR this Am with NAD. UA with reflex culture pending. Recheck CBC in Am. Systolic and Diastolic CHF, compensated. ECHO 10/19: EF 30%, G1DD Would advise caution with IVF. CAD c/w ASA, Atorvastatin DLP c/w Atorvastatin and Niacin IDDM2 c/w ISS adjustments as per Dr Owen. HTN Benazepril Atenolol Mood disorder Venlafaxine GERD Famotine VS, I&O, 24H, Fishbone Vital Signs/I&O Vital Signs Date Time Temp Pulse Resp B/P (MAP) Pulse Ox O2 Delivery O2 Flow Rate FiO2 10/29/18 08:31 84 120/82 10/29/18 06:00 96.7 18 96 I&O- Last 24 Hours up to 6 AM 10/29/18 06:00 Intake Total 1240 ml Output Total 1050 ml Balance 190 ml Laboratory Data 24H LABS Laboratory Tests 2 10/28/18 17:23: Bedside Glucose (Misc Panel) 339H 10/28/18 20:15: Bedside Glucose (Misc Panel) 434H 10/29/18 06:44: Nucleated Red Blood Cells % (auto) 0.0, Anion Gap 6L, Glomerular Filtration Rate 44.1L, Blood Urea Nitrogen 38H, Creatinine 1.66H, Sodium Level 135L, Potassium Level 4.6, Chloride Level 102, Carbon Dioxide Level 27, Calcium Level 9.3, Aspartate Amino Transf (AST/SGOT) 20, Alanine Aminotransferase (ALT/SGPT) 29, Alkaline Phosphatase 104, Total Bilirubin 0.7, Total Protein 7.5, Albumin 3.4, Albumin/Globulin Ratio 0.83L 10/29/18 11:44: Bedside Glucose (Misc Panel) 396H CBC/BMP Laboratory Tests 10/29/18 06:44 Red Blood Count 4.64, Mean Corpuscular Volume 92.0, Mean Corpuscular Hemoglobin 31.0, Mean Corpuscular Hemoglobin Concent 33.7, Red Cell Distribution Width 12.5, Calcium Level 9.3, Aspartate Amino Transf (AST/SGOT) 20, Alanine Aminotransferase (ALT/SGPT) 29, Alkaline Phosphatase 104, Total Bilirubin 0.7, Total Protein 7.5, Albumin 3.4 Microbiology Microbiology 10/24/18 Urine Culture - Final, Complete Margaert Hsieh Oct 29, 2018 13:55
[2018-10-29 14:00] VITALS: BP 132/78
[2018-10-29 20:00] VITALS: BP 162/84
[2018-10-29] MEDS: ATORVASTATIN 20 MG TAB PO SCH (21:56)
[2018-10-29] MEDS: NIACIN SR (NIASPAN) 500 MG TAB PO SCH (21:56)
[2018-10-29] MEDS: SENNA 8.6 MG TAB (SENOKOT) PO SCH (21:56)
[2018-10-29] MEDS: BENAZEPRIL 20 MG TAB PO SCH (21:56)
[2018-10-30 06:00] VITALS: BP 138/84
[2018-10-30] MEDS: HEPARIN SOD (PORCINE) 5000 UNITS/ML VIAL SQ SCH ×3 (06:11→21:39)
[2018-10-30 07:08] LABS: HEMOGLOBIN 13.8 g/dl (13.5-17.5); MEAN CORPUSCULAR HEMOGLOBIN 30.7 pg (27.0-33.0); MEAN CORPUSCULAR HGB CONC 34.5 g/dl (32.0-36.5); MEAN CORPUSCULAR VOLUME 89.1 fl (80.0-96.0); PLATELET COUNT, AUTOMATED 243 10^3/uL (150-450); RED BLOOD COUNT 4.49 10^6/uL (4.30-6.10)
[2018-10-30 07:25] LABS: CALCIUM LEVEL 9.2 MG/DL (8.8-10.2); CREATININE FOR GFR 1.44 MG/DL (0.70-1.30); GLOMERULAR FILTRATION RATE 51.9 (>49); POTASSIUM SERUM 4.4 MEQ/L (3.5-5.1)
[2018-10-30] MEDS: BOUDREAUX'S BUTT PASTE 4OZ TOP SCH ×2 (09:00→21:41)
[2018-10-30] MEDS: LIDOCAINE 5% (LIDODERM) PATCH TD SCH (09:00)
[2018-10-30] MEDS: DOCUSATE SODIUM 100 MG CAP PO SCH ×2 (09:06→21:38)
[2018-10-30] MEDS: FLUoxetine 20 MG CAP PO SCH (09:06)
[2018-10-30] MEDS: MULTIVITAMINS/MINERALS THERAP 1 TAB PO SCH (09:06)
[2018-10-30] MEDS: VENLAFAXINE **XR** 75MG CAPSULE PO SCH (09:06)
[2018-10-30] MEDS: ASPIRIN 81 MG CHEW TABLET PO SCH (09:07)
[2018-10-30] MEDS: FAMOTIDINE 20 MG TAB PO SCH (09:07)
[2018-10-30] MEDS: ATENOLOL 25 MG TAB PO SCH ×2 (09:07→21:38)
[2018-10-30] MEDS: HumaLOG INSULIN (NovoLOG) PER UNIT SC SCH ×7 (09:10→21:40)
[2018-10-30] MEDS: LEVEMIR (INSULIN DETEMIR) 1 UNITS/0.01ML SC SCH (13:10)
[2018-10-30 14:00] VITALS: BP 137/80
[2018-10-30 20:00] VITALS: BP 149/85
[2018-10-30] MEDS ORDERED: LEVEMIR (INSULIN DETEMIR) 1 UNITS/0.01ML SC SCH (21:00)
[2018-10-30] MEDS: **NOTE PATIENT COMMENT** MISC XX SCH (21:00)
[2018-10-30] MEDS: ATORVASTATIN 20 MG TAB PO SCH (21:38)
[2018-10-30] MEDS: SENNA 8.6 MG TAB (SENOKOT) PO SCH (21:38)
[2018-10-30] MEDS: NIACIN SR (NIASPAN) 500 MG TAB PO SCH (21:39)
[2018-10-30] MEDS: BENAZEPRIL 20 MG TAB PO SCH (21:39)
[2018-10-31 06:00] VITALS: BP 127/77
[2018-10-31] MEDS: HEPARIN SOD (PORCINE) 5000 UNITS/ML VIAL SQ SCH ×3 (06:25→20:22)
[2018-10-31 07:20] LABS: HEMATOCRIT 44.3 % (42.0-52.0); HEMOGLOBIN 14.8 g/dl (13.5-17.5); MEAN CORPUSCULAR HEMOGLOBIN 30.8 pg (27.0-33.0); MEAN CORPUSCULAR HGB CONC 33.4 g/dl (32.0-36.5); MEAN CORPUSCULAR VOLUME 92.1 fl (80.0-96.0); PLATELET COUNT, AUTOMATED 297 10^3/uL (150-450); RED BLOOD COUNT 4.81 10^6/uL (4.30-6.10)
[2018-10-31 07:43] LABS: CALCIUM LEVEL 9.4 MG/DL (8.8-10.2); CREATININE FOR GFR 1.47 MG/DL (0.70-1.30); GLOMERULAR FILTRATION RATE 50.7 (>49)
--- NOTE | 2018-10-31 08:06 | IPNPDOC ---
PM&R Progress Note DATE OF SERVICE: Oct 30, 2018 Substation Design Draftsperson Progress Note Subjective: Patient seen in his room and later in the gym working on gravity eliminated LUE strengthening. He and his were educated on importance of adding long-acting detemir to daytime regimen for better glucose control. REVIEW OF SYSTEMS: The following is a completed review of systems and has been reviewed. Review of systems otherwise unremarkable. PAIN: Patient self reports no pain EYES: Negative for recent vision loss EARS, NOSE, & THROAT: +dysphagia CARDIOVASCULAR: denies chest pain or palpitations PULMONARY: Negative. Denies shortness of breath GASTROINTESTINAL: Negative for diarrhea or constipation GENITOURINARY: Negative for dysuria or hematuria NEUROLOGICAL: left sided paresis MSK: left ankle fracture HEMATOLOGICAL: Negative SKIN: no rash or skin breakdown PSYCHIATRIC: Unremarkable All other review of systems found to be negative. PHYSICAL EXAMINATION: VITAL SIGNS: Please see below. GENERAL: Pleasant and cooperative. No acute distress. HEENT: PERRL. Extraocular movements intact. Clear conjunctiva, left facial droop CARDIOVASCULAR: Regular rate and rhythm. No murmurs, rubs, or gallops LUNGS: Clear to auscultation bilaterally. No wheezes. No rhonchi. ABDOMEN: Soft, nontender, nondistended. Positive bowel sounds. Normal active bowel sounds. NEUROLOGICAL: Alert and oriented times three. Cranial nerves II through XII grossly intact. Sensation grossly intact. EXTREMITIES: 5\\5 strength right upper extremities. Left biceps 1/5, triceps 2/5, wrist extension1/5, front desk coordinator 2/5, 5\\5 strength right lower extremity. 3/5 strength in left hip flexors, 3/5 knee extensors, ankle DF and EHL unable to be tested left wrist non-tender to palpation, however pain with valgus strain SKIN:+blanchable erythematous area dorsum of left foot and medial ankle- covered with mepilex ASSESSMENT:67-year-old M with past medical history of CAD, DM, PAD who presents status post stroke with hemorrhagia conversion. PLAN: 1. Rehab: PT/OT, SLAG MIXER, assess for DME needs, working on [id number], continue left wrist splint and left shoulder taping, left knee buckling in therapy howver gaining active movement in limb. 2. Neuro: s/p MCA territory stroke in the setting of "Extremely high grade stenosis right middle cerebral artery approximately 1.3 cm distal to its origin." and right ICA occlusion with hemorrhagic conversion, Plavix being held, continue ASA and statin therapy, avoid hypoperfusion -Prozac for motor recovery, monitor for serotonin syndrome with concurrent Effexors -will need outpatient follow-up with Dr Porras for CEA in 4-6 weeks 3. Cardio: systolic and diastolic CHF with EF of 30% with defibrillator- medicine consulted, continue Atenolol and Benazepril with holding parameters 4. Resp: Monitor for infection, encourage incentive spirometry-stable -CXR ordered today for persistent leukocytosis despite denying a cough 5. Renal: CKD , s/p gentle hydration-stable 6. Endo: pmh uncontrolled DM, will increase evening Detemir to 36 units, add HS coverage and add daily long-acting coverage, change to consistent carb diet and d/c glucerna, will continue to monitor and adjust prn 7. : admission UA and Ucx negative, monitor PVRs 8. DVT ppx: on heparin 9. Psych: pmh depression continue Effexor 10. 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 Dispo: 11/17/18 to home, progressing towards goals Allergies Coded Allergies: No Known Allergies (Unverified , 10/18/18) Vital Signs Vital Signs Date Time Temp Pulse Resp B/P (MAP) Pulse Ox O2 Delivery O2 Flow Rate FiO2 10/31/18 06:00 97.9 77 18 127/77 (94) 96 Laboratory Data CBC/BMP Laboratory Tests 10/31/18 06:54 Red Blood Count 4.81, Mean Corpuscular Volume 92.1, Mean Corpuscular Hemoglobin 30.8, Mean Corpuscular Hemoglobin Concent 33.4, Red Cell Distribution Width 12.3, Calcium Level 9.4 Labs 24H Laboratory Tests 2 10/30/18 12:15: Bedside Glucose (Misc Panel) 322H 10/30/18 16:27: Bedside Glucose (Misc Panel) 284H 10/30/18 20:35: Bedside Glucose (Misc Panel) 349H 10/31/18 06:26: Bedside Glucose (Misc Panel) 200H 10/31/18 06:54: Nucleated Red Blood Cells % (auto) 0.0, Anion Gap 7L, Glomerular Filtration Rate 50.7, Blood Urea Nitrogen 36H, Creatinine 1.47H, Sodium Level 137, Potassium Level 4.0, Chloride Level 101, Carbon Dioxide Level 29, Calcium Level 9.4 Microbiology Microbiology 10/24/18 Urine Culture - Final, Complete Current Medications Current Medications Current Medications Acetaminophen (Tylenol Tab) 650 mg Q4HP PRN PO fever/MILD PAIN (PS 1-4) Last administered on 10/29/18 04:10; Start 10/24/18 at 16:30 Aspirin (Aspirin Chewable) 81 mg DAILY PO Last administered on 10/30/18 09:07; Start 10/25/18 at 09:00 Atenolol (Tenormin) 25 mg BID PO Last administered on 10/30/18at 21:38; Start 10/25/18 at 15:00 Atorvastatin Calcium (Lipitor) 80 mg QHS PO Last administered on 10/30/18 21:38; Start 10/24/18 at 21:00 Benazepril HCl (Lotensin) 20 mg QPM PO Last administered on 10/30/18at 21:39; Start 10/25/18 at 21:00 Dextrose (Dextrose 50%) 25 ml ASDIRECTED PRN IV SEE LABEL COMMENTS; Start 10/24/18 at 16:15; Stop 10/29/18 at 11:19; Status DC Dextrose (Dextrose 50%) 25 ml ASDIRECTED PRN IV SEE LABEL COMMENTS; Start 10/29/18 at 11:15 Docusate Sodium (Colace) 100 mg BID PO Last administered on 10/30/18at 21:38; Start 10/24/18 at 21:00 Famotidine (Pepcid) 20 mg DAILY PO Last administered on 10/30/18at 09:07; Start 10/25/18 at 09:00 Fluoxetine HCl (PROzac) 20 mg DAILY PO Last administered on 10/30/18at 09:06; Start 10/25/18 at 09:00 Glucagon (Glucagon) 1 mg ASDIRECTED PRN SC SEE LABEL COMMENTS; Start 10/24/18 at 16:15; Stop 10/29/18 at 11:19; Status DC Glucagon (Glucagon) 1 mg ASDIRECTED PRN SC SEE LABEL COMMENTS; Start 10/29/18 at 11:15 Glucose (Glucose) 16 GM ASDIRECTED PRN PO SEE LABEL COMMENTS; Start 10/24/18 at 16:15; Stop 10/29/18 at 11:19; Status DC Glucose (Glucose) 16 GM ASDIRECTED PRN PO SEE LABEL COMMENTS; Start 10/29/18 at 11:15 Heparin Sodium (Porcine) (Heparin) 5,000 units Q8H SQ Last administered on 10/31/18at 06:25; Start 10/24/18 at 22:00 Insulin Detemir (Levemir Insulin) 5 units QHS SC Last administered on 10/24/18at 21:34; Start 10/24/18 at 21:00; Stop 10/25/18 at 13:03; Status DC Insulin Detemir (Levemir Insulin) 8 units DAILY SC ; Start 10/29/18 at 09:00; Stop 10/29/18 at 11:02; Status DC Insulin Detemir (Levemir Insulin) 10 units DAILY SC Last administered on 10/30/18at 13:10; Start 10/30/18 at 09:45 Insulin Detemir (Levemir Insulin) 12 units QHS SC Last administered on 10/26/18at 21:30; Start 10/25/18 at 21:00; Stop 10/27/18 at 11:48; Status DC Insulin Detemir (Levemir Insulin) 20 units QHS SC Last administered on 10/27/18at 21:35; Start 10/27/18 at 21:00; Stop 10/28/18 at 10:12; Status DC Insulin Detemir (Levemir Insulin) 25 units QHS SC Last administered on 10/28/18at 21:01; Start 10/28/18 at 21:00; Stop 10/29/18 at 11:17; Status DC Insulin Detemir (Levemir Insulin) 30 units QHS SC Last administered on 10/29/18at 21:57; Start 10/29/18 at 21:00; Stop 10/30/18 at 09:34; Status DC Insulin Detemir (Levemir Insulin) 36 units QHS SC Last administered on 10/30/18at 21:40; Start 10/30/18 at 21:00; Stop 10/31/18 at 07:18; Status DC Insulin Detemir (Levemir Insulin) 40 units QHS SC ; Start 10/31/18 at 21:00 Insulin Human Lispro (HumaLOG INSULIN) 4 units AC SC Last administered on 10/30/18at 17:30; Start 10/28/18 at 17:30 Insulin Human Lispro (HumaLOG INSULIN) SEE PROTOCOL TABLE AC SC Last administered on 10/30/18at 17:29; Start 10/24/18 at 17:30 Insulin Human Lispro (HumaLOG INSULIN) SEE PROTOCOL TABLE QHS SC Last administered on 10/26/18at 21:31; Start 10/24/18 at 21:00; Stop 10/27/18 at 11:48; Status DC Insulin Human Lispro (HumaLOG INSULIN) SEE PROTOCOL TABLE QHS SC Last administered on 10/30/18at 21:40; Start 10/29/18 at 21:00 Lidocaine (Lidoderm Patch) APPLY TO LEFT WRIST DAILY TD ; Start 10/30/18 at 09:00 Multivitamins (Theragram-M) 1 tab DAILY PO Last administered on 10/30/18at 09:06; Start 10/25/18 at 09:00 Niacin (Niacin) 500 mg QHS PO ; Start 10/24/18 at 21:00; Stop 10/29/18 at 10:54; Status DC Niacin (Niaspan) 500 mg QHS PO Last administered on 10/30/18at 21:39; Start 10/29/18 at 21:00 Non-Formulary Medication ( See Comment Field Below ) REMOVE LIDODERM PATCH DAILY@21 XX ; Start 10/30/18 at 21:00 Ondansetron HCl (Zofran) 4 mg Q6HP PRN PO NAUSEA; Start 10/24/18 at 16:30 Polyethylene Glycol (Miralax) 1 pkt DAILYPRN PRN PO CONSTIPATION; Start 10/24/18 at 16:15 Senna (Senokot) 1 tab QHS PO Last administered on 10/30/18at 21:38; Start 10/24/18 at 21:00 Sodium Chloride 1,000 ml @ 80 mls/hr [id number] IV Last administered on 10/26/18at 04:02; Start 10/25/18 at 13:30; Stop 10/26/18 at 19:59; Status DC Venlafaxine HCl (Effexor Xr) 75 mg DAILY PO Last administered on 10/30/18at 09:06; Start 10/25/18 at 09:00 Zinc Oxide (Boudreauxs Butt Paste) APPLY TO BUTTOCK AREA BID TOP Last administered on 10/30/18at 21:41; Start 10/30/18 at 09:00 PAUL YE MD Oct 31, 2018 08:06
[2018-10-31] MEDS: BOUDREAUX'S BUTT PASTE 4OZ TOP SCH ×2 (09:00→20:24)
[2018-10-31] MEDS: HumaLOG INSULIN (NovoLOG) PER UNIT SC SCH ×7 (09:03→20:23)
[2018-10-31] MEDS: ASPIRIN 81 MG CHEW TABLET PO SCH (09:03)
[2018-10-31] MEDS: VENLAFAXINE **XR** 75MG CAPSULE PO SCH (09:03)
[2018-10-31] MEDS: ATENOLOL 25 MG TAB PO SCH ×2 (09:03→20:23)
[2018-10-31] MEDS: DOCUSATE SODIUM 100 MG CAP PO SCH ×2 (09:03→20:20)
[2018-10-31] MEDS: FLUoxetine 20 MG CAP PO SCH (09:04)
[2018-10-31] MEDS: MULTIVITAMINS/MINERALS THERAP 1 TAB PO SCH (09:04)
[2018-10-31] MEDS: FAMOTIDINE 20 MG TAB PO SCH (09:04)
[2018-10-31] MEDS: LEVEMIR (INSULIN DETEMIR) 1 UNITS/0.01ML SC SCH ×2 (09:06→20:23)
[2018-10-31] MEDS: LIDOCAINE 5% (LIDODERM) PATCH TD SCH (09:07)
[2018-10-31 14:00] VITALS: BP 135/69
[2018-10-31 20:00] VITALS: BP 137/82
[2018-10-31] MEDS: ATORVASTATIN 20 MG TAB PO SCH (20:20)
[2018-10-31] MEDS: SENNA 8.6 MG TAB (SENOKOT) PO SCH (20:20)
[2018-10-31] MEDS: BENAZEPRIL 20 MG TAB PO SCH (20:21)
[2018-10-31] MEDS: NIACIN SR (NIASPAN) 500 MG TAB PO SCH (20:21)
[2018-10-31] MEDS: **NOTE PATIENT COMMENT** MISC XX SCH (20:24)
[2018-11-01 06:00] VITALS: BP 123/72
[2018-11-01] MEDS: HEPARIN SOD (PORCINE) 5000 UNITS/ML VIAL SQ SCH ×3 (06:04→20:31)
[2018-11-01] MEDS: LEVEMIR (INSULIN DETEMIR) 1 UNITS/0.01ML SC SCH ×2 (08:30→20:32)
[2018-11-01] MEDS: HumaLOG INSULIN (NovoLOG) PER UNIT SC SCH ×7 (08:30→20:32)
[2018-11-01] MEDS: ASPIRIN 81 MG CHEW TABLET PO SCH (08:31)
[2018-11-01] MEDS: ATENOLOL 25 MG TAB PO SCH ×2 (08:31→20:30)
[2018-11-01] MEDS: FLUoxetine 20 MG CAP PO SCH (08:31)
[2018-11-01] MEDS: DOCUSATE SODIUM 100 MG CAP PO SCH ×2 (08:31→20:30)
[2018-11-01] MEDS: FAMOTIDINE 20 MG TAB PO SCH (08:31)
[2018-11-01] MEDS: VENLAFAXINE **XR** 75MG CAPSULE PO SCH (08:31)
[2018-11-01] MEDS: MULTIVITAMINS/MINERALS THERAP 1 TAB PO SCH (08:31)
[2018-11-01] MEDS: BOUDREAUX'S BUTT PASTE 4OZ TOP SCH ×2 (08:32→20:32)
[2018-11-01] MEDS: LIDOCAINE 5% (LIDODERM) PATCH TD SCH (08:32)
[2018-11-01] MEDS: ACETAMINOPHEN TAB 650MG DOSE (2X325MG) PO PRN ×2 (11:42→20:27)
[2018-11-01 14:13] VITALS: BP 121/78
[2018-11-01 20:00] VITALS: BP 138/78
[2018-11-01] MEDS: NIACIN SR (NIASPAN) 500 MG TAB PO SCH (20:28)
[2018-11-01] MEDS: SENNA 8.6 MG TAB (SENOKOT) PO SCH (20:28)
[2018-11-01] MEDS: BENAZEPRIL 20 MG TAB PO SCH (20:30)
[2018-11-01] MEDS: ATORVASTATIN 20 MG TAB PO SCH (20:30)
[2018-11-01] MEDS: **NOTE PATIENT COMMENT** MISC XX SCH (20:33)
[2018-11-02] MEDS: ACETAMINOPHEN TAB 650MG DOSE (2X325MG) PO PRN ×2 (01:56→20:17)
[2018-11-02 06:00] VITALS: BP 126/61
[2018-11-02] MEDS: HEPARIN SOD (PORCINE) 5000 UNITS/ML VIAL SQ SCH ×3 (06:00→20:17)
[2018-11-02] MEDS: HumaLOG INSULIN (NovoLOG) PER UNIT SC SCH ×7 (07:51→20:18)
[2018-11-02] MEDS: LIDOCAINE 5% (LIDODERM) PATCH TD SCH (07:51)
[2018-11-02] MEDS: ASPIRIN 81 MG CHEW TABLET PO SCH (07:52)
[2018-11-02] MEDS: FAMOTIDINE 20 MG TAB PO SCH (07:52)
[2018-11-02] MEDS: ATENOLOL 25 MG TAB PO SCH ×2 (07:52→20:16)
[2018-11-02] MEDS: DOCUSATE SODIUM 100 MG CAP PO SCH ×2 (07:52→20:15)
[2018-11-02] MEDS: FLUoxetine 20 MG CAP PO SCH (07:52)
[2018-11-02] MEDS: MULTIVITAMINS/MINERALS THERAP 1 TAB PO SCH (07:52)
[2018-11-02] MEDS: BOUDREAUX'S BUTT PASTE 4OZ TOP SCH ×2 (07:52→20:18)
[2018-11-02] MEDS: VENLAFAXINE **XR** 75MG CAPSULE PO SCH (07:53)
[2018-11-02] MEDS: LEVEMIR (INSULIN DETEMIR) 1 UNITS/0.01ML SC SCH ×2 (07:53→20:18)
[2018-11-02 14:26] VITALS: BP 120/66
[2018-11-02 20:04] VITALS: BP 129/77
[2018-11-02] MEDS: ATORVASTATIN 20 MG TAB PO SCH (20:15)
[2018-11-02] MEDS: SENNA 8.6 MG TAB (SENOKOT) PO SCH (20:15)
[2018-11-02] MEDS: BENAZEPRIL 20 MG TAB PO SCH (20:16)
[2018-11-02] MEDS: NIACIN SR (NIASPAN) 500 MG TAB PO SCH (20:16)
[2018-11-02] MEDS: **NOTE PATIENT COMMENT** MISC XX SCH (20:19)
[2018-11-03] MEDS: ACETAMINOPHEN TAB 650MG DOSE (2X325MG) PO PRN ×2 (05:26→21:17)
[2018-11-03] MEDS: HEPARIN SOD (PORCINE) 5000 UNITS/ML VIAL SQ SCH ×3 (05:26→21:10)
[2018-11-03 06:00] VITALS: BP 134/74
[2018-11-03] MEDS: HumaLOG INSULIN (NovoLOG) PER UNIT SC SCH ×7 (07:54→21:10)
[2018-11-03] MEDS: LEVEMIR (INSULIN DETEMIR) 1 UNITS/0.01ML SC SCH ×2 (07:55→21:10)
[2018-11-03] MEDS: ASPIRIN 81 MG CHEW TABLET PO SCH (07:55)
[2018-11-03] MEDS: FLUoxetine 20 MG CAP PO SCH (07:55)
[2018-11-03] MEDS: VENLAFAXINE **XR** 75MG CAPSULE PO SCH (07:55)
[2018-11-03] MEDS: FAMOTIDINE 20 MG TAB PO SCH (07:56)
[2018-11-03] MEDS: ATENOLOL 25 MG TAB PO SCH ×2 (07:56→21:09)
[2018-11-03] MEDS: MULTIVITAMINS/MINERALS THERAP 1 TAB PO SCH (07:56)
[2018-11-03] MEDS: LIDOCAINE 5% (LIDODERM) PATCH TD SCH (07:56)
[2018-11-03] MEDS: DOCUSATE SODIUM 100 MG CAP PO SCH ×2 (07:56→21:08)
[2018-11-03] MEDS: BOUDREAUX'S BUTT PASTE 4OZ TOP SCH ×2 (07:57→21:11)
--- NOTE | 2018-11-03 12:29 | IPNPDOC ---
Date Seen The patient was seen on 11/03/18. 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 He also had slipped out of his chair 10/26/18 sustaining left ankle fracture. Boot in place. Pt was transferred to the care of ARU, Dr Owen, 10/25/18. The pt is OOB to chair. at bedside. The pt states he still has some Left wrist discomfort, splint applied. XR of Lt ankle pending. Denies any fevers, chills, weakness, fatigue, Headache, Chest Pain, Shortness of breath, cough, palpitations, abdominal pain, N/V/D or changes in bowel or bladder habits. PAST MEDICAL HISTORY: Diabetes Hypertension Arthrosclerotic disease. Cardiac defibrillator. Cardiac stent Lower extremity stents. Dr Cunningham. Hyperlipidemia GERD PAST SURGICAL HISTORY: 4 cardiac stents Hernia repair PE: GEN: yo, appears stated age. Alert and oriented x 3. HEENT: Normocephalic, atraumatic. Sclera are nonicteric. Conjunctiva without injection. Moist mucous membranes. CHEST: Regular rate and rhythm, +S1, +S2 LUNGS: Clear to auscultation bilaterally. No wheezes, rales, or rhonchi. ABD: Round, soft, non-tender, non-distended. +Bowel sounds throughout. EXT: No lower extremity edema appreciated. SKIN: [place], dry, warm. No rashes. NEURO: Alert and oriented x 3. Left sided weakness. 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 He also had slipped out of his chair 10/26/18 sustaining left ankle fracture. Boot in pl [place]. Pt was transferred to the care of ARU, Dr Owen, 10/25/18. Left facial weakness / left upper + lower extremity weakness/acute CVA. Patient unable to have MRI given that he has an pacemaker in place - CT head 10/22: 1. Acute right basal ganglia, internal capsule, right temporal and parietal lobe infarction with a small hemorrhagic component unchanged compared to the previous study. 2. Small vessel ischemic disease. 3. Mild volume loss. - CTA head 10/18: Extremely high grade stenosis right middle cerebral artery approximately 1.3 cm distal to its origin. - CTA Neck 10/18: There is occlusion of the right internal carotid artery from its origin to its distal end. Stenosis of the left carotid bulb in the range of about 70-80%. 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 The left vertebral artery is reconstituted at the C3 level with multifocal stenosis of its distal aspect. 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 Vascular surgery consulted, possibly consider possible endarterectomy in 4-6 weeks Outpt F/U with Neurology. Mgmt as per ARU. PT/OT/ST as per ARU. Pain control/Bowel care as per ARU. DVT prophylaxis as per ARU, SQ Heparin. Disposition as per ARU. Continue ASA and Atorvastatin Plan at time of d/c was to resume Plavix in next 2 weeks; will likely require subsequent imaging to ensure no changes occur Pt had slipped out of his chair 10/26/18 sustaining left ankle fracture. Boot ordered as per Orthopedic surgery. XR Left ankle pending. XR Lt wrist unremarkable. Elevated Cr on CKD3 Cr trend 1.3-1.5. 1.47 per labs 10/31 leukocytosis. pt is afebrile. CXR 10/29 with NAD. UA neg 10/30 Recheck CBC in Am. Systolic and Diastolic CHF, compensated. ECHO 10/19: EF 30%, G1DD Would advise caution with IVF. CAD ASA, Atorvastatin DLP c/w Atorvastatin and Niacin IDDM2 c/w ISS adjustments as per Dr Owen. HTN Benazepril Atenolol Mood disorder Venlafaxine GERD Pepcid VS, I&O, 24H, Fishbone Vital Signs/I&O Vital Signs Date Time Temp Pulse Resp B/P (MAP) Pulse Ox O2 Delivery O2 Flow Rate FiO2 11/03/18 07:56 68 134/74 11/03/18 06:00 96.6 18 98 I&O- Last 24 Hours up to 6 AM 11/03/18 06:00 Intake Total 1260 ml Output Total 850 ml Balance 410 ml Laboratory Data 24H LABS Laboratory Tests 2 11/02/18 16:32: Bedside Glucose (Misc Panel) 221H 11/02/18 19:48: Bedside Glucose (Misc Panel) 317H 11/03/18 05:47: Bedside Glucose (Misc Panel) 180H 11/03/18 11:25: Bedside Glucose (Misc Panel) 244H Microbiology Microbiology 10/24/18 Urine Culture - Final, Complete Margaret Hsieh Nov 03, 2018 12:29
--- NOTE | 2018-11-03 12:51 | REP ---
Clinical: Trauma. Fall. Technique: AP, lateral views of the left ankle. Findings: Minimally displaced fracture of the distal fibula / lateral malleolus noted with overlying soft tissue swelling and mild widening to the ankle mortise. Peripheral vascular disease. Impression: Mildly displaced fracture involving the distal fibular metaphysis / lateral malleolus with overlying soft tissue swelling. Electronically Signed by Olivier Zhu MD 11/03/2018 10:59 A
[2018-11-03 14:19] VITALS: BP 138/85
--- NOTE | 2018-11-03 14:48 | NUR ---
Recommend please upgrade to level 3 mechanical soft (NDD) solids and continue thin liquids, OOB for meals w/ set-up assist. Addendum: 11/03/18 at 1450 by CLARISA RASCON [facility] Amended: Links added.
[2018-11-03 20:00] VITALS: BP 158/81
[2018-11-03] MEDS: NIACIN SR (NIASPAN) 500 MG TAB PO SCH (21:08)
[2018-11-03] MEDS: SENNA 8.6 MG TAB (SENOKOT) PO SCH (21:09)
[2018-11-03] MEDS: ATORVASTATIN 20 MG TAB PO SCH (21:09)
[2018-11-03] MEDS: BENAZEPRIL 20 MG TAB PO SCH (21:09)
[2018-11-03] MEDS: **NOTE PATIENT COMMENT** MISC XX SCH (21:11)
[2018-11-04] MEDS: HEPARIN SOD (PORCINE) 5000 UNITS/ML VIAL SQ SCH ×3 (05:31→21:00)
[2018-11-04 06:00] VITALS: BP 144/70
[2018-11-04 06:31] LABS: HEMATOCRIT 42.8 % (42.0-52.0); HEMOGLOBIN 14.5 g/dl (13.5-17.5); MEAN CORPUSCULAR HGB CONC 33.9 g/dl (32.0-36.5); MEAN CORPUSCULAR VOLUME 91.5 fl (80.0-96.0); PLATELET COUNT, AUTOMATED 272 10^3/uL (150-450); RED BLOOD COUNT 4.68 10^6/uL (4.30-6.10); WHITE BLOOD COUNT 13.2 10^3/uL (4.0-10.0)
[2018-11-04] MEDS: ACETAMINOPHEN TAB 650MG DOSE (2X325MG) PO PRN ×3 (06:39→18:12)
[2018-11-04 07:03] LABS: CALCIUM LEVEL 8.9 MG/DL (8.8-10.2); CREATININE FOR GFR 1.44 MG/DL (0.70-1.30); GLOMERULAR FILTRATION RATE 51.9 (>49); POTASSIUM SERUM 4.5 MEQ/L (3.5-5.1)
[2018-11-04] MEDS: HumaLOG INSULIN (NovoLOG) PER UNIT SC SCH ×7 (07:30→20:58)
--- NOTE | 2018-11-04 07:50 | IPN ---
DATE OF SERVICE: 11/04/2018 CHIEF COMPLAINT: 1 week follow-up of left ankle fracture. HISTORY OF PRESENT ILLNESS: This 67-year-old man was admitted to the hospital with a stroke and left-sided weakness. He had a slip and fall, sustained a Muñiz A lateral malleolus fracture on the left side. Due to his difficulty ambulating and weakness, we had been making him weightbearing as tolerated/toe-touch weightbearing if he is able to and an orthosis boot as a cast I think would be a little bit too difficult given his current medical situation. He is doing well. No concerns from the nurses or him. He has still a little bit of pain to the distal lateral aspect of the left ankle. PHYSICAL EXAMINATION: Vital signs 144/70. Pulse rate 73. Temperature 97.7. 97% on room air, respiratory rate 18. He is alert and oriented times three. He is sitting up in chair eating breakfast. He has orthosis boot on left side. Nothing on the right side. Also left wrist brace/splint. He is unable to wiggle his toes given the left-sided weakness but he does have normal sensation throughout the foot. The foot is warm and well-perfused. No pain on the medial side but still with residual soreness and swelling to the lateral malleolus. Radiographs were reviewed, three views left ankle, AP, lateral and mortise. This shows transverse fracture of the distal fibula below the mortise and below the joint line itself. This appears relatively undisplaced on AP radiograph, however on the lateral radiograph, it has some gaping anteriorly. The ankle mortise appears well reduced and free of any kind of Ethel shaft or tibiofibular widening. No medial malleolus fracture is noted. ASSESSMENT/PLAN: 67-year-old man with Muñiz A ankle fracture. We are treating this with an orthosis boot due to his medical situation. He continued to be toe-touch/weightbearing as tolerated given that he has difficulty protecting left side and still ambulating appropriately. We will take another x-ray in 1 week to follow this up. He is in agreement with plan and aware.
[2018-11-04] MEDS: ASPIRIN 81 MG CHEW TABLET PO SCH (08:47)
[2018-11-04] MEDS: FLUoxetine 20 MG CAP PO SCH (08:47)
[2018-11-04] MEDS: DOCUSATE SODIUM 100 MG CAP PO SCH ×2 (08:47→20:56)
[2018-11-04] MEDS: ATENOLOL 25 MG TAB PO SCH ×2 (08:47→20:57)
[2018-11-04] MEDS: FAMOTIDINE 20 MG TAB PO SCH (08:47)
[2018-11-04] MEDS: MULTIVITAMINS/MINERALS THERAP 1 TAB PO SCH (08:47)
[2018-11-04] MEDS: VENLAFAXINE **XR** 75MG CAPSULE PO SCH (08:47)
[2018-11-04] MEDS: LEVEMIR (INSULIN DETEMIR) 1 UNITS/0.01ML SC SCH ×2 (08:48→20:58)
[2018-11-04] MEDS: LIDOCAINE 5% (LIDODERM) PATCH TD SCH (08:49)
[2018-11-04] MEDS: BOUDREAUX'S BUTT PASTE 4OZ TOP SCH ×2 (08:49→20:58)
--- NOTE | 2018-11-04 11:08 | IPNPDOC ---
Date Seen The patient was seen on 11/04/18. 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 He also had slipped out of his chair 10/26/18 sustaining left ankle fracture. Boot in place. Pt was transferred to the care of ARU, Dr Owen, 10/25/18. The pt is in bed, waiting for OT to wash and dress this AM at bedside. Splint applied to left wrist, XR negative for fracture. XR of Lt ankle reviewed by [facility], Dr Main 11/04/18. Denies any fevers, chills, weakness, fatigue, Headache, Chest Pain, Shortness of breath, cough, palpitations, abdominal pain, N/V/D or changes in bowel or bladder habits. PAST MEDICAL HISTORY: Diabetes Hypertension Arthrosclerotic disease. Cardiac defibrillator. Cardiac stent Lower extremity stents. Dr Cunningham. Hyperlipidemia GERD PAST SURGICAL HISTORY: 4 cardiac stents Hernia repair PE: GEN: 67yo, appears stated age. Alert and oriented x 3. HEENT: Normocephalic, atraumatic. Sclera are nonicteric. Conjunctiva without injection. Moist mucous membranes. CHEST: Regular rate and rhythm, +S1, +S2 LUNGS: Clear to auscultation bilaterally. No wheezes, rales, or rhonchi. ABD: Round, soft, non-tender, non-distended. +Bowel sounds throughout. EXT: No lower extremity edema appreciated. SKIN: [place], dry, warm. No rashes. NEURO: Alert and oriented x 3. Left sided weakness. 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 He also had slipped out of his chair 10/26/18 sustaining left ankle fracture. Boot in place. Pt was transferred to the care of ARU, Dr Owen, 10/25/18. Left facial weakness / left upper + lower extremity weakness/acute CVA. Patient unable to have MRI given that he has an pacemaker in place - CT head 10/22: 1. Acute right basal ganglia, internal capsule, right temporal and parietal lobe infarction with a small hemorrhagic component unchanged compared to the previous study. 2. Small vessel ischemic disease. 3. Mild volume loss. - CTA head 10/18: Extremely high grade stenosis right middle cerebral artery approximately 1.3 cm distal to its origin. - CTA Neck 10/18: There is occlusion of the right internal carotid artery from its origin to its distal end. Stenosis of the left carotid bulb in the range of about 70-80%. 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 The left vertebral artery is reconstituted at the C3 level with multifocal stenosis of its distal aspect. 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 Vascular surgery consulted, possibly consider possible endarterectomy in 4-6 weeks, Outpt F/U. Outpt F/U with Neurology. Mgmt as per ARU. PT/OT/ST as per ARU. Pain control/Bowel care as per ARU. DVT prophylaxis as per ARU, SQ Heparin. Disposition as per ARU. Continue ASA and Atorvastatin Plan at time of d/c was to resume Plavix in next 2 weeks; will likely require alfredo bsequent imaging to ensure no changes occur. Pt had slipped out of his chair 10/26/18 sustaining left ankle fracture. Mgmt as per Orthopedic Surgery. Boot ordered as per Orthopedic surgery. Pt reviewed by Orthopedics 11/04/18 with review of repeat imaging. XR Lt wrist unremarkable. Plan as per orthopedics is to continue with boot, WB as per orthopedics, repeat XR 1 week. Elevated Cr on CKD3 Cr trend 1.3-1.5. 1.44 leukocytosis. pt is afebrile. CXR 10/29 with NAD. UA neg 10/30 UA with reflex culture today pending. Trend improved this AM. Monitor. Systolic and Diastolic CHF, compensated. ECHO 10/19: EF 30%, G1DD Would advise caution with IVF. CAD ASA, Atorvastatin DLP c/w Atorvastatin and Niacin IDDM2 c/w ISS adjustments as per Dr Owen. HTN Benazepril Atenolol Mood disorder Venlafaxine GERD Pepcid VS, I&O, 24H, Fishbone Vital Signs/I&O Vital Signs Date Time Temp Pulse Resp B/P (MAP) Pulse Ox O2 Delivery O2 Flow Rate FiO2 11/04/18 08:47 73 144/70 11/04/18 06:00 97.7 18 97 I&O- Last 24 Hours up to 6 AM 11/04/18 06:00 Intake Total 1200 ml Output Total 775 ml Balance 425 ml Laboratory Data 24H LABS Laboratory Tests 2 2/25/19 11:25: Bedside Glucose (Misc Panel) 244H 11/03/18 16:41: Bedside Glucose (Misc Panel) 311H 11/03/18 20:56: Bedside Glucose (Misc Panel) 278H 11/04/18 06:14: Nucleated Red Blood Cells % (auto) 0.2H, Anion Gap 5L, Glomerular Filtration Rate 51.9, Blood Urea Nitrogen 28H, Creatinine 1.44H, Sodium Level 134L, Potassium Level 4.5, Chloride Level 100, Carbon Dioxide Level 29, Calcium Level 8.9 CBC/BMP Laboratory Tests 11/04/18 06:14 Red Blood Count 4.68, Mean Corpuscular Volume 91.5, Mean Corpuscular Hemoglobin 31.0, Mean Corpuscular Hemoglobin Concent 33.9, Red Cell Distribution Width 12.3, Calcium Level 8.9 Margaret Hsieh Nov 04, 2018 11:08
--- NOTE | 2018-11-04 12:26 | REP ---
Left ankle two views: Comparison is 10/25/2018. There is a nondisplaced fracture of the distal fibula. The mortise appears symmetric. There is circumferential soft tissue edema. Electronically Signed by Mushtaq Muñiz MD 11/02/2018 09:04 A
[2018-11-04 14:00] VITALS: BP 137/73
--- NOTE | 2018-11-04 14:21 | IPNPDOC ---
PM&R Progress Note DATE OF SERVICE: Nov 03, 2018 [facility] Progress Note Subjective: Patient seen in his room reporting his feels well overall and denies any new weakness. REVIEW OF SYSTEMS: The following is a completed review of systems and has been reviewed. Review of systems otherwise unremarkable. PAIN: Patient self reports no pain EYES: Negative for recent vision loss EARS, NOSE, & THROAT: +dysphagia CARDIOVASCULAR: denies chest pain or palpitations PULMONARY: Negative. Denies shortness of breath GASTROINTESTINAL: Negative for diarrhea or constipation GENITOURINARY: Negative for dysuria or hematuria NEUROLOGICAL: left sided paresis MSK: left ankle fracture HEMATOLOGICAL: Negative SKIN: no rash or skin breakdown PSYCHIATRIC: Unremarkable All other review of systems found to be negative. PHYSICAL EXAMINATION: VITAL SIGNS: Please see below. GENERAL: Pleasant and cooperative. No acute distress. HEENT: PERRL. Extraocular movements intact. Clear conjunctiva, left facial droop CARDIOVASCULAR: Regular rate and rhythm. No murmurs, rubs, or gallops LUNGS: Clear to auscultation bilaterally. No wheezes. No rhonchi. ABDOMEN: Soft, nontender, nondistended. Positive bowel sounds. Normal active bowel sounds. NEUROLOGICAL: Alert and oriented times three. Cranial nerves II through XII grossly intact. Sensation grossly intact. EXTREMITIES: 5\\5 strength right upper extremities. Left biceps 1/5, triceps 2/5, wrist extension1/5, hr manager 2/5, 5\\5 strength right lower extremity. 3/5 strength in left hip flexors, 3/5 knee extensors, ankle DF and EHL unable to be tested left wrist non-tender to palpation, however pain with valgus strain SKIN:+blanchable erythematous area dorsum of left foot, medial ankle resolved- covered with mepilex ASSESSMENT:67-year-old M with past medical history of CAD, DM, PAD who presents status post stroke with hemorrhagic conversion. PLAN: 1. Rehab: PT/OT, [employer], assess for DME needs, working on [id number], continue left wrist splint and left shoulder taping, left knee buckling in therapy ho wever gaining active movement in limb, vacillating levels of assistance required given energy levels -upgraded to level 3 diet 2. Neuro: s/p MCA territory stroke in the setting of "Extremely high grade stenosis right middle cerebral artery approximately 1.3 cm distal to its origin." and right ICA occlusion with hemorrhagic conversion, Plavix being held, continue ASA and statin therapy, avoid hypoperfusion -Prozac for motor recovery, monitor for serotonin syndrome with concurrent Effexors-stable -will need outpatient follow-up with Dr Porras for CEA in 4-6 weeks 3. Cardio: systolic and diastolic CHF with EF of 30% with defibrillator- medicine consulted, continue Atenolol and Benazepril with holding parameters 4. Resp: Monitor for infection, encourage incentive spirometry-stable -CXR 10/30/18 shows no active disease, no cough, no fever 5. Renal: CKD , s/p gentle hydration-stable 6. Endo: pmh uncontrolled DM, will increase evening Detemir to 40 units, add HS coverage and continue daily long-acting coverage, change to consistent carb diet and d/c glucerna, will continue to monitor and adjust prn-gradually improving 7. : admission UA and Ucx negative, monitor PVRs 8. DVT ppx: c/u heparin 9. Psych: pmh depression continue Effexor 10. Ortho: s/p fall on 10/25/18 with left ankle fracture, CAM boot placed, WBAT, supervisor special services and ortho recs appreciated, monitor for skin breakdown, mepilex applied to left ankle, sock removed -left shoulder pain-improves with taping, encouraging patient and therapists to work on scapular retraction -left wrist pain- recent XRs negative for fracture, no swelling suspect ligamental injury, will continue splint and add lidoderm patch -repeat ankle X-ray ordered, results pending, recs to continue CAM boot 10. Dispo: 11/17/18 to home, progressing towards goals Allergies Coded Allergies: No Known Allergies (Unverified , 10/18/18) Vital Signs Vital Signs Date Time Temp Pulse Resp B/P (MAP) Pulse Ox O2 Delivery O2 Flow Rate FiO2 11/04/18 14:00 98.0 82 19 137/73 (94) 97 Laboratory Data CBC/BMP Laboratory Tests 11/04/18 06:14 Red Blood Count 4.68, Mean Corpuscular Volume 91.5, Mean Corpuscular Hemoglobin 31.0, Mean Corpuscular Hemoglobin Concent 33.9, Red Cell Distribution Width 12.3, Calcium Level 8.9 Labs 24H Laboratory Tests 2 11/03/18 16:41: Bedside Glucose (Misc Panel) 311H 11/03/18 20:56: Bedside Glucose (Misc Panel) 278H 11/04/18 06:14: Nucleated Red Blood Cells % (auto) 0.2H, Anion Gap 5L, Glomerular Filtration Rate 51.9, Blood Urea Nitrogen 28H, Creatinine 1.44H, Sodium Level 134L, Potassium Level 4.5, Chloride Level 100, Carbon Dioxide Level 29, Calcium Level 8.9 11/04/18 11:40: Bedside Glucose (Misc Panel) 316H Current Medications Current Medications Current Medications Acetaminophen (Tylenol Tab) 650 mg Q4HP PRN PO fever/MILD PAIN (PS 1-4) Last administered on 11/04/18 13:55; Start 10/24/18 at 16:30 Aspirin (Aspirin Chewable) 81 mg DAILY PO Last administered on 11/04/18 08:47; Start 10/25/18 at 09:00 Atenolol (Tenormin) 25 mg BID PO Last administered on 11/04/18 08:47; Start 10/25/18 at 15:00 Atorvastatin Calcium (Lipitor) 80 mg QHS PO Last administered on 11/03/18 21:09; Start 10/24/18 at 21:00 Benazepril HCl (Lotensin) 20 mg QPM PO Last administered on 11/03/18 21:09; Start 10/25/18 at 21:00 Dextrose (Dextrose 50%) 25 ml ASDIRECTED PRN IV SEE LABEL COMMENTS; Start 10/24/18 at 16:15; Stop 10/29/18 at 11:19; Status DC Dextrose (Dextrose 50%) 25 ml ASDIRECTED PRN IV SEE LABEL COMMENTS; Start 10/29/18 at 11:15 Docusate Sodium (Colace) 100 mg BID PO Last administered on 11/04/18 08:47; Start 10/24/18 at 21:00 Famotidine (Pepcid) 20 mg DAILY PO Last administered on 11/04/18 08:47; Start 10/25/18 at 09:00 Fluoxetine HCl (PROzac) 20 mg DAILY PO Last administered on 11/04/18at 08:47; Start 10/25/18 at 09:00 Glucagon (Glucagon) 1 mg ASDIRECTED PRN SC SEE LABEL COMMENTS; Start 10/24/18 at 16:15; Stop 10/29/18 at 11:19; Status DC Glucagon (Glucagon) 1 mg ASDIRECTED PRN SC SEE LABEL COMMENTS; Start 10/29/18 at 11:15 Glucose (Glucose) 16 GM ASDIRECTED PRN PO SEE LABEL COMMENTS; Start 10/24/18 at 16:15; Stop 10/29/18 at 11:19; Status DC Glucose (Glucose) 16 GM ASDIRECTED PRN PO SEE LABEL COMMENTS; Start 10/29/18 at 11:15 Heparin Sodium (Porcine) (Heparin) 5,000 units Q8H SQ Last administered on 11/04at 13:56; Start 10/24/18 at 22:00 Insulin Detemir (Levemir Insulin) 5 units QHS SC Last administered on 10/24/18at 21:34; Start 10/24/18 at 21:00; Stop 10/25/18 at 13:03; Status DC Insulin Detemir (Levemir Insulin) 8 units DAILY SC ; Start 10/29/18 at 09:00; Stop 10/29/18 at 11:02; Status DC Insulin Detemir (Levemir Insulin) 10 units DAILY SC Last administered on 11/01/18at 08:30; Start 10/30/18 at 09:45; Stop 11/01/18 at 20:23; Status DC Insulin Detemir (Levemir Insulin) 12 units QHS SC Last administered on 10/26/18at 21:30; Start 10/25/18 at 21:00; Stop 10/27/18 at 11:48; Status DC Insulin Detemir (Levemir Insulin) 15 units DAILY SC Last administered on 11/04/18at 08:48; Start 11/02/18 at 09:00 Insulin Detemir (Levemir Insulin) 20 units QHS SC Last administered on 10/27/18at 21:35; Start 10/27/18 at 21:00; Stop 10/28/18 at 10:12; Status DC Insulin Detemir (Levemir Insulin) 25 units QHS SC Last administered on 10/28/18at 21:01; Start 10/28/18 at 21:00; Stop 10/29/18 at 11:17; Status DC Insulin Detemir (Levemir Insulin) 30 units QHS SC Last administered on 10/29/18at 21:57; Start 10/29/18 at 21:00; Stop 10/30/18 at 09:34; Status DC Insulin Detemir (Levemir Insulin) 36 units QHS SC Last administered on 10/30/18at 21:40; Start 10/30/18 at 21:00; Stop 10/31/18 at 07:18; Status DC Insulin Detemir (Levemir Insulin) 40 units QHS SC Last administered on 11/03/18at 21:10; Start 10/31/18 at 21:00; Stop 11/04/18 at 10:24; Status DC Insulin Detemir (Levemir Insulin) 44 units QHS SC ; Start 11/04/18 at 21:00 Insulin Human Lispro (HumaLOG INSULIN) 4 units AC SC Last administered on 11/01/18at 16:47; Start 10/28/18 at 17:30; Stop 11/01/18 at 20:23; Status DC Insulin Human Lispro (HumaLOG INSULIN) 6 units AC SC Last administered on 11/04/18at 12:00; Start 11/02/18 at 07:30 Insulin Human Lispro (HumaLOG INSULIN) SEE PROTOCOL TABLE AC SC Last administered on 11/04/18at 12:07; Start 10/24/18 at 17:30 Insulin Human Lispro (HumaLOG INSULIN) SEE PROTOCOL TABLE QHS SC Last administered on 10/26/18at 21:31; Start 10/24/18 at 21:00; Stop 10/27/18 at 11:48; Status DC Insulin Human Lispro (HumaLOG INSULIN) SEE PROTOCOL TABLE QHS SC Last administered on 11/03/18at 21:10; Start 10/29/18 at 21:00 Lidocaine (Lidoderm Patch) APPLY TO LEFT WRIST DAILY TD Last administered on at 08:49; Start 10/30/18 at 09:00 Multivitamins (Theragram-M) 1 tab DAILY PO Last administered on 11/04/18at 08:47; Start 10/25/18 at 09:00 Niacin (Niacin) 500 mg QHS PO ; Start 10/24/18 at 21:00; Stop 10/29/18 at 10:54; Status DC Niacin (Niaspan) 500 mg QHS PO Last administered on 11/03/18 21:08; Start 10/29/18 at 21:00 Non-Formulary Medication ( See Comment Field Below ) REMOVE LIDODERM PATCH DAILY@21 XX Last administered on 11/03/18at 21:11; Start 10/30/18 at 21:00 Ondansetron HCl (Zofran) 4 mg Q6HP PRN PO NAUSEA; Start 10/24/18 at 16:30 Polyethylene Glycol (Miralax) 1 pkt DAILYPRN PRN PO CONSTIPATION; Start 10/24/18 at 16:15 Senna (Senokot) 1 tab QHS PO Last administered on 11/03/18 21:09; Start 10/24/18 at 21:00 Sodium Chloride 1,000 ml @ 80 mls/hr [id number] IV Last administered on 10/26/18at 04:02; Start 10/25/18 at 13:30; Stop 10/26/18 at 19:59; Status DC Venlafaxine HCl (Effexor Xr) 75 mg DAILY PO Last administered on 11/04/18 08:47; Start 10/25/18 at 09:00 Zinc Oxide (Boudreauxs Butt Paste) APPLY TO BUTTOCK AREA BID TOP Last administered on 11/04/18at 08:49; Start 10/30/18 at 09:00 PAUL YE MD Nov 04, 2018 14:21
--- NOTE | 2018-11-04 16:34 | IPNPDOC ---
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 He reported pain in his chest with deep inspiration that began while in side-lying position ad resolved with normal breathing. REVIEW OF SYSTEMS: The following is a completed review of systems and has been reviewed. Review of systems otherwise unremarkable. PAIN: Patient self reports no pain EYES: Negative for recent vision loss EARS, NOSE, & THROAT: +dysphagia CARDIOVASCULAR: denies chest pain or palpitations PULMONARY: Negative. Denies shortness of breath GASTROINTESTINAL: Negative for diarrhea or constipation GENITOURINARY: Negative for dysuria or hematuria NEUROLOGICAL: left sided paresis MSK: left ankle fracture HEMATOLOGICAL: Negative SKIN: no rash or skin breakdown PSYCHIATRIC: Unremarkable All other review of systems found to be negative. PHYSICAL EXAMINATION: VITAL SIGNS: Please see below. GENERAL: Pleasant and cooperative. No acute distress. HEENT: PERRL. Extraocular movements intact. Clear conjunctiva, left facial droop CARDIOVASCULAR: Regular rate and rhythm. No murmurs, rubs, or gallops, +TTP left chest wall at the costo-sternal joint LUNGS: Clear to auscultation bilaterally. No wheezes. No rhonchi. ABDOMEN: Soft, nontender, nondistended. Positive bowel sounds. Normal active bowel sounds. NEUROLOGICAL: Alert and oriented times three. Cranial nerves II through XII grossly intact. Sensation grossly intact. EXTREMITIES: 5\\5 strength right upper extremities. 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 3/5 strength in left hip flexors, 3/5 knee extensors, ankle DF and EHL unable to be tested left wrist non-tender to palpation, however pain with valgus strain SKIN:+blanchable erythematous area dorsum of left foot, medial ankle resolved- covered with mepilex ASSESSMENT:67-year-old M with past medical history of CAD, DM, PAD who presents status post stroke with hemorrhagic conversion. PLAN: 1. 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 Neuro: s/p MCA territory stroke in the setting of "Extremely high grade stenosis right middle cerebral artery approximately 1.3 cm distal to its origin." and right ICA occlusion with hemorrhagic conversion, Plavix being held, continue ASA and statin therapy, avoid hypoperfusion -Prozac for motor recovery, monitor for serotonin syndrome with concurrent Effexors-stable -will need outpatient follow-up with Dr Porras for CEA in 4-6 weeks 3. Cardio: systolic and diastolic CHF with EF of 30% with defibrillator- medicine consulted, continue Atenolol and Benazepril with holding parameters -patient reported focal chest pain with deep inhalation today, able to point to it with one finger and exam consistent with costochondritis treat with Tylenol 4. Resp: Monitor for infection, encourage incentive spirometry-stable -CXR 10/30/18 shows no active disease, no cough, no fever 5. Renal: CKD , s/p gentle hydration-stable 6. Endo: pmh uncontrolled DM, will increase evening Detemir to 40 units, add HS coverage and will increase daily long-acting coverage, change to consistent carb diet and d/c glucerna, will continue to monitor and adjust prn-gradually improving 7. : admission UA and Ucx negative, monitor PVRs 8. DVT ppx: c/u heparin 9. Psych: pmh depression continue Effexor, episodes of delirium discussed this with patient's and will order repeat UA and optimize sleep-wake cycle and to look for infectious source, patient lucid on my exam today 10. Ortho: s/p fall on 10/25/18 with left ankle fracture, CAM boot placed, WBAT, schedule hanger and ortho recs appreciated, monitor for skin breakdown, mepilex applied to left ankle, sock removed -left shoulder pain-improves with taping, encouraging patient and therapists to work on scapular retraction -left wrist pain- recent XRs negative for fracture, no swelling suspect ligamental injury, will continue splint and add lidoderm patch -repeat ankle X-ray ordered showing mild lateral malleoli displacement, reviewed by Dr. Main and discussed with patient, continue CAM boot 11. Sleep: patient reporting insomnia- will trial trazodone 10. Dispo: 11/17/18 to home, progressing towards goals Allergies Coded Allergies: No Known Allergies (Unverified , 10/18/18) Vital Signs Vital Signs Date Time Temp Pulse Resp B/P (MAP) Pulse Ox O2 Delivery O2 Flow Rate FiO2 11/04/18 14:00 98.0 82 19 137/73 (94) 97 Laboratory Data CBC/BMP Laboratory Tests 11/04/18 06:14 Red Blood Count 4.68, Mean Corpuscular Volume 91.5, Mean Corpuscular Hemoglobin 31.0, Mean Corpuscular Hemoglobin Concent 33.9, Red Cell Distribution Width 12.3, Calcium Level 8.9 Labs 24H Laboratory Tests 2 11/03/18 16:41: Bedside Glucose (Misc Panel) 311H 11/03/18 20:56: Bedside Glucose (Misc Panel) 278H 11/04/18 06:14: Nucleated Red Blood Cells % (auto) 0.2H, Anion Gap 5L, Glomerular Filtration Rate 51.9, Blood Urea Nitrogen 28H, Creatinine 1.44H, Sodium Level 134L, Potassium Level 4.5, Chloride Level 100, Carbon Dioxide Level 29, Calcium Level 8.9 11/04/18 11:40: Bedside Glucose (Misc Panel) 316H Current Medications Current Medications Current Medications Acetaminophen (Tylenol Tab) 650 mg Q4HP PRN PO fever/MILD PAIN (PS 1-4) Last administered on 11/04/18at 13:55; Start 10/24/18 at 16:30 Aspirin (Aspirin Chewable) 81 mg DAILY PO Last administered on 11/04/18at 08:47; Start 10/25/18 at 09:00 Atenolol (Tenormin) 25 mg BID PO Last administered on 11/04/18at 08:47; Start 10/25/18 at 15:00 Atorvastatin Calcium (Lipitor) 80 mg QHS PO Last administered on 11/03/18at 21:09; Start 10/24/18 at 21:00 Benazepril HCl (Lotensin) 20 mg QPM PO Last administered on 11/03/18at 21:09; Start 10/25/18 at 21:00 Dextrose (Dextrose 50%) 25 ml ASDIRECTED PRN IV SEE LABEL COMMENTS; Start 10/10 01/25 at 16:15; Stop 10/29/18 at 11:19; Status DC Dextrose (Dextrose 50%) 25 ml ASDIRECTED PRN IV SEE LABEL COMMENTS; Start 10/29/18 at 11:15 Docusate Sodium (Colace) 100 mg BID PO Last administered on 11/04/18at 08:47; Start 10/24/18 at 21:00 Famotidine (Pepcid) 20 mg DAILY PO Last administered on 11/04/18at 08:47; Start 10/25/18 at 09:00 Fluoxetine HCl (PROzac) 20 mg DAILY PO Last administered on 11/04/18at 08:47; Start 10/25/18 at 09:00 Glucagon (Glucagon) 1 mg ASDIRECTED PRN SC SEE LABEL COMMENTS; Start 10/24/18 at 16:15; Stop 10/29/18 at 11:19; Status DC Glucagon (Glucagon) 1 mg ASDIRECTED PRN SC SEE LABEL COMMENTS; Start 10/29/18 at 11:15 Glucose (Glucose) 16 GM ASDIRECTED PRN PO SEE LABEL COMMENTS; Start 10/24/18 at 16:15; Stop 10/29/18 at 11:19; Status DC Glucose (Glucose) 16 GM ASDIRECTED PRN PO SEE LABEL COMMENTS; Start 10/29/18 at 11:15 Heparin Sodium (Porcine) (Heparin) 5,000 units Q8H SQ Last administered on 11/04/18at 13:56; Start 10/24/18 at 22:00 Insulin Detemir (Levemir Insulin) 5 units QHS SC Last administered on 10/24/18at 21:34; Start 10/24/18 at 21:00; Stop 10/25/18 at 13:03; Status DC Insulin Detemir (Levemir Insulin) 8 units DAILY SC ; Start 10/29/18 at 09:00; Stop 10/29/18 at 11:02; Status DC Insulin Detemir (Levemir Insulin) 10 units DAILY SC Last administered on 11/01/18at 08:30; Start 10/30/18 at 09:45; Stop 11/01/18 at 20:23; Status DC Insulin Detemir (Levemir Insulin) 12 units QHS SC Last administered on 10/26/18at 21:30; Start 10/25/18 at 21:00; Stop 10/27/18 at 11:48; Status DC Insulin Detemir (Levemir Insulin) 15 units DAILY SC Last administered on 11/04/18at 08:48; Start 11/02/18 at 09:00; Stop 11/04/18 at 14:17; Status DC Insulin Detemir (Levemir Insulin) 20 units DAILY SC ; Start 11/05/18 at 09:00 Insulin Detemir (Levemir Insulin) 20 units QHS SC Last administered on 10/27/18at 21:35; Start 10/27/18 at 21:00; Stop 10/28/18 at 10:12; Status DC Insulin Detemir (Levemir Insulin) 25 units QHS SC Last administered on at 21:01; Start 10/28/18 at 21:00; Stop 10/29/18 at 11:17; Status DC Insulin Detemir (Levemir Insulin) 30 units QHS SC Last administered on 10/29/18at 21:57; Start 10/29/18 at 21:00; Stop 10/30/18 at 09:34; Status DC Insulin Detemir (Levemir Insulin) 36 units QHS SC Last administered on 10/30/18 at 21:40; Start 10/30/18 at 21:00; Stop 10/31/18 at 07:18; Status DC Insulin Detemir (Levemir Insulin) 40 units QHS SC Last administered on 11/03/18at 21:10; Start 10/31/18 at 21:00; Stop 11/04/18 at 10:24; Status DC Insulin Detemir (Levemir Insulin) 44 units QHS SC ; Start 11/04/18 at 21:00 Insulin Human Lispro (HumaLOG INSULIN) 4 units AC SC Last administered on 11/01/18at 16:47; Start 10/28/18 at 17:30; Stop 11/01/18 at 20:23; Status DC Insulin Human Lispro (HumaLOG INSULIN) 6 units AC SC Last administered on 11/04/18at 12:00; Start 11/02/18 at 07:30 Insulin Human Lispro (HumaLOG INSULIN) SEE PROTOCOL TABLE AC SC Last administered on 11/04/18at 12:07; Start 10/24/18 at 17:30 Insulin Human Lispro (HumaLOG INSULIN) SEE PROTOCOL TABLE QHS SC Last administered on 10/26/18at 21:31; Start 10/24/18 at 21:00; Stop 10/27/18 at 11:48; Status DC Insulin Human Lispro (HumaLOG INSULIN) SEE PROTOCOL TABLE QHS SC Last administered on 11/03/18 21:10; Start 10/29/18 at 21:00 Lidocaine (Lidoderm Patch) APPLY TO LEFT WRIST DAILY TD Last administered on 11/04/18 08:49; Start 10/30/18 at 09:00 Multivitamins (Theragram-M) 1 tab DAILY PO Last administered on 11/04/18 08:47; Start 10/25/18 at 09:00 Niacin (Niacin) 500 mg QHS PO ; Start 10/24/18 at 21:00; Stop 10/29/18 at 10:54; Status DC Niacin (Niaspan) 500 mg QHS PO Last administered on 11/03/18 21:08; Start 10/29/18 at 21:00 Non-Formulary Medication ( See Comment Field Below ) REMOVE LIDODERM PATCH DAILY@21 XX Last administered on 11/03/18 21:11; Start 10/30/18 at 21:00 Ondansetron HCl (Zofran) 4 mg Q6HP PRN PO NAUSEA; Start 10/24/18 at 16:30 Polyethylene Glycol (Miralax) 1 pkt DAILYPRN PRN PO CONSTIPATION; Start 10/24 at 16:15 Senna (Senokot) 1 tab QHS PO Last administered on 11/03/18 21:09; Start 10/24/18 at 21:00 Sodium Chloride 1,000 ml @ 80 mls/hr [id number] IV Last administered on 10/26/18at 04:02; Start 10/25/18 at 13:30; Stop 10/26/18 at 19:59; Status DC Venlafaxine HCl (Effexor Xr) 75 mg DAILY PO Last administered on 11/04/18 08:47; Start 10/25/18 at 09:00 Zinc Oxide (Boudreauxs Butt Paste) APPLY TO BUTTOCK AREA BID TOP Last administered on 11/04/18 08:49; Start 10/30/18 at 09:00 PAUL YE MD Nov 04, 2018 16:34
[2018-11-04 20:00] VITALS: BP 140/78
[2018-11-04] MEDS: NIACIN SR (NIASPAN) 500 MG TAB PO SCH (20:56)
[2018-11-04] MEDS: traZODone 25MG PER 1/2 TABLET PO SCH (20:56)
[2018-11-04] MEDS: SENNA 8.6 MG TAB (SENOKOT) PO SCH (20:56)
[2018-11-04] MEDS: ATORVASTATIN 20 MG TAB PO SCH (20:57)
[2018-11-04] MEDS: BENAZEPRIL 20 MG TAB PO SCH (20:57)
[2018-11-04] MEDS: **NOTE PATIENT COMMENT** MISC XX SCH (20:58)
[2018-11-05 06:00] VITALS: BP 111/61
[2018-11-05] MEDS: HEPARIN SOD (PORCINE) 5000 UNITS/ML VIAL SQ SCH ×3 (06:36→20:41)
[2018-11-05] MEDS: FAMOTIDINE 20 MG TAB PO SCH (09:54)
[2018-11-05] MEDS: ATENOLOL 25 MG TAB PO SCH ×2 (09:54→20:39)
[2018-11-05] MEDS: DOCUSATE SODIUM 100 MG CAP PO SCH ×2 (09:54→20:39)
[2018-11-05] MEDS: VENLAFAXINE **XR** 75MG CAPSULE PO SCH (09:54)
[2018-11-05] MEDS: ASPIRIN 81 MG CHEW TABLET PO SCH (09:54)
[2018-11-05] MEDS: MULTIVITAMINS/MINERALS THERAP 1 TAB PO SCH (09:54)
[2018-11-05] MEDS: FLUoxetine 20 MG CAP PO SCH (09:54)
[2018-11-05] MEDS: HumaLOG INSULIN (NovoLOG) PER UNIT SC SCH ×7 (09:55→20:40)
[2018-11-05] MEDS: LEVEMIR (INSULIN DETEMIR) 1 UNITS/0.01ML SC SCH ×2 (09:55→20:41)
[2018-11-05] MEDS: LIDOCAINE 5% (LIDODERM) PATCH TD SCH (09:56)
[2018-11-05] MEDS: BOUDREAUX'S BUTT PASTE 4OZ TOP SCH ×2 (09:56→20:42)
[2018-11-05 14:00] VITALS: BP 118/69
--- NOTE | 2018-11-05 14:11 | IPNPDOC ---
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 He was isntructed to work on eccentric activation of his left arm and his was taught how to help him engage his biceps muscles. REVIEW OF SYSTEMS: The following is a completed review of systems and has been reviewed. Review of systems otherwise unremarkable. PAIN: Patient self reports no pain EYES: Negative for recent vision loss EARS, NOSE, & THROAT: +dysphagia(improving) CARDIOVASCULAR: denies chest pain or palpitations PULMONARY: Negative. Denies shortness of breath GASTROINTESTINAL: Negative for diarrhea or constipation GENITOURINARY: Negative for dysuria or hematuria NEUROLOGICAL: left sided paresis MSK: left ankle fracture HEMATOLOGICAL: Negative SKIN: no rash or skin breakdown PSYCHIATRIC: Unremarkable All other review of systems found to be negative. PHYSICAL EXAMINATION: VITAL SIGNS: Please see below. GENERAL: Pleasant and cooperative. No acute distress. HEENT: PERRL. Extraocular movements intact. Clear conjunctiva, left facial droop CARDIOVASCULAR: Regular rate and rhythm. No murmurs, rubs, or gallops, +TTP left chest wall at the costo-sternal joint LUNGS: Clear to auscultation bilaterally. No wheezes. No rhonchi. ABDOMEN: Soft, nontender, nondistended. Positive bowel sounds. Normal active bowel sounds. NEUROLOGICAL: Alert and oriented times three. Cranial nerves II through XII grossly intact. Sensation grossly intact. EXTREMITIES: 5\\5 strength right upper extremities. Left biceps 1/5, triceps 2/5, wrist extension1/5, doula 2/5, 5\\5 strength right lower extremity. 3/5 strength in left hip flexors, 3/5 knee extensors, ankle DF and EHL unable to be tested left wrist non-tender to palpation, however pain with valgus strain SKIN:+blanchable erythematous area dorsum of left foot, medial ankle resolved- covered with mepilex ASSESSMENT:67-year-old M with past medical history of CAD, DM, PAD who presents status post stroke with hemorrhagic conversion. PLAN: 1. 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 Neuro: s/p MCA territory stroke in the setting of "Extremely high grade stenosis right middle cerebral artery approximately 1.3 cm distal to its origin." and right ICA occlusion with hemorrhagic conversion, Plavix being held, continue ASA and statin therapy, avoid hypoperfusion -Prozac for motor recovery, monitor for serotonin syndrome with concurrent Effexors-stable -will need outpatient follow-up with Dr Porras for CEA in 4-6 weeks 3. Cardio: systolic and diastolic CHF with EF of 30% with defibrillator- medici ne consulted, continue Atenolol and Benazepril with holding parameters -patient reported focal chest pain 11/04/18 with deep inhalation today, able to point to it with one finger and exam consistent with costochondritis treat with Tylenol-improved today 4. Resp: Monitor for infection, encourage incentive spirometry-stable -CXR 10/30/18 shows no active disease, no cough, no fever 5. Renal: CKD , s/p gentle hydration-stable 6. Endo: pmh uncontrolled DM, will increase evening Detemir to 40 units, add HS coverage and will increase daily long-acting coverage, change to consistent carb diet and d/c glucerna, will continue to monitor and adjust prn-gradually improving 7. : admission UA and Ucx negative, monitor PVRs 8. DVT ppx: c/u heparin 9. Psych: pmh depression continue Effexor, episodes of delirium discussed this with patient's and will order repeat UA and optimize sleep-wake cycle and to look for infectious source, patient continue to be lucid on my exam today- repeat UA negative 10. 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 Main and discussed with patient, continue CAM boot 11. Sleep: patient reporting insomnia- continue trazodone 10. Dispo: 11/17/18 to home, progressing towards goals Allergies Coded Allergies: No Known Allergies (Unverified , 10/18/18) Vital Signs Vital Signs Date Time Temp Pulse Resp B/P (MAP) Pulse Ox O2 Delivery O2 Flow Rate FiO2 11/05/18 09:54 81 121/78 11/05/18 06:00 97.9 17 98 Laboratory Data Labs 24H Laboratory Tests 2 11/04/18 16:39: Bedside Glucose (Misc Panel) 220H 11/04/18 19:59: Bedside Glucose (Misc Panel) 357H 11/04/18 22:00: Urine Color STRAW, Urine Appearance CLEAR, Urine pH 5.0, Urine Specific [place] 1.016, Urine Protein NEGATIVE, Urine Glucose (UA) 3+H, Urine Ketones NEGATIVE, Urine Blood NEGATIVE, Urine Nitrite NEGATIVE, Urine Bilirubin NEGATIVE, Urine Urobilinogen 0.2, Urine Leukocyte Esterase NEGATIVE, Urine WBC (Auto) 1, Urine RBC (Auto) 0, Urine Hyaline Casts (Auto) 0, Urine Bacteria (Auto) NEGATIVE, Urine Squamous Epithelial Cells 0, Urine Sperm (Auto) 11/05/18 06:18: Bedside Glucose (Misc Panel) 184H 11/05/18 12:00: Bedside Glucose (Misc Panel) 335H Current Medications Current Medications Current Medications Acetaminophen (Tylenol Tab) 650 mg Q4HP PRN PO fever/MILD PAIN (PS 1-4) Last administered on 11/04/18at 18:12; Start 10/24/18 at 16:30 Aspirin (Aspirin Chewable) 81 mg DAILY PO Last administered on 11/05/18at 09:54; Start 10/25/18 at 09:00 Atenolol (Tenormin) 25 mg BID PO Last administered on 11/05/18at 09:54; Start 10/25/18 at 15:00 Atorvastatin Calcium (Lipitor) 80 mg QHS PO Last administered on 11/04/18at 20:57; Start 10/24/18 at 21:00 Benazepril HCl (Lotensin) 20 mg QPM PO Last administered on 11/04/18at 20:57; Start 10/25/18 at 21:00 Dextrose (Dextrose 50%) 25 ml ASDIRECTED PRN IV SEE LABEL COMMENTS; Start 10/24/18 at 16:15; Stop 10/29/18 at 11:19; Status DC Dextrose (Dextrose 50%) 25 ml ASDIRECTED PRN IV SEE LABEL COMMENTS; Start 10/29/18 at 11:15 Docusate Sodium (Colace) 100 mg BID PO Last administered on 11/05/18at 09:54; Start 10/24/18 at 21:00 Famotidine (Pepcid) 20 mg DAILY PO Last administered on 11/05/18at 09:54; Start 10/25/18 at 09:00 Fluoxetine HCl (PROzac) 20 mg DAILY PO Last administered on 11/05/18at 09:54; Start 10/25/18 at 09:00 Glucagon (Glucagon) 1 mg ASDIRECTED PRN SC SEE LABEL COMMENTS; Start 10/24/18 at 16:15; Stop 10/29/18 at 11:19; Status DC Glucagon (Glucagon) 1 mg ASDIRECTED PRN SC SEE LABEL COMMENTS; Start 10/29/18 at 11:15 Glucose (Glucose) 16 GM ASDIRECTED PRN PO SEE LABEL COMMENTS; Start 10/24/18 at 16:15; Stop 10/29/18 at 11:19; Status DC Glucose (Glucose) 16 GM ASDIRECTED PRN PO SEE LABEL COMMENTS; Start 10/29/18 at 11:15 Heparin Sodium (Porcine) (Heparin) 5,000 units Q8H SQ Last administered on 11/05/18at 06:36; Start 10/24/18 at 22:00 Insulin Detemir (Levemir Insulin) 5 units QHS SC Last administered on 10/24/18at 21:34; Start 10/24/18 at 21:00; Stop 10/25/18 at 13:03; Status DC Insulin Detemir (Levemir Insulin) 8 units DAILY SC ; Start 10/29/18 at 09:00; Stop 10/29/18 at 11:02; Status DC Insulin Detemir (Levemir Insulin) 10 units DAILY SC Last administered on 11/01/18at 08:30; Start 10/30/18 at 09:45; Stop 11/01/18 at 20:23; Status DC Insulin Detemir (Levemir Insulin) 12 units QHS SC Last administered on 10/26/18at 21:30; Start 10/25/18 at 21:00; Stop 10/27/18 at 11:48; Status DC Insulin Detemir (Levemir Insulin) 15 units DAILY SC Last administered on 11/04/18at 08:48; Start 11/02/18 at 09:00; Stop 11/04/18 at 14:17; Status DC Insulin Detemir (Levemir Insulin) 20 units DAILY SC Last administered on 11/05/18at 09:55; Start 11/05/18 at 09:00 Insulin Detemir (Levemir Insulin) 20 units QHS SC Last administered on 10/27/18at 21:35; Start 10/27/18 at 21:00; Stop 10/28/18 at 10:12; Status DC Insulin Detemir (Levemir Insulin) 25 units QHS SC Last administered on 10/28/18at 21:01; Start 10/28/18 at 21:00; Stop 10/29/18 at 11:17; Status DC Insulin Detemir (Levemir Insulin) 30 units QHS SC Last administered on 10/29/18at 21:57; Start 10/29/18 at 21:00; Stop 10/30/18 at 09:34; Status DC Insulin Detemir (Levemir Insulin) 36 units QHS SC Last administered on 10/30/18at 21:40; Start 10/30/18 at 21:00; Stop 10/31/18 at 07:18; Status DC Insulin Detemir (Levemir Insulin) 40 units QHS SC Last administered on 11/03/18at 21:10; Start 10/31/18 at 21:00; Stop 11/04/18 at 10:24; Status DC Insulin Detemir (Levemir Insulin) 44 units QHS SC Last administered on 11/04/18at 20:58; Start 11/04/18 at 21:00 Insulin Human Lispro (HumaLOG INSULIN) 4 units AC SC Last administered on 11/01/18at 16:47; Start 10/28/18 at 17:30; Stop 11/01/18 at 20:23; Status DC Insulin Human Lispro (HumaLOG INSULIN) 6 units AC SC Last administered on 11/05/18at 12:26; Start 11/02/18 at 07:30 Insulin Human Lispro (HumaLOG INSULIN) SEE PROTOCOL TABLE AC SC Last administered on 11/05/18at 12:26; Start 10/24/18 at 17:30 Insulin Human Lispro (HumaLOG INSULIN) SEE PROTOCOL TABLE QHS SC Last administered on 10/26/18at 21:31; Start 10/24/18 at 21:00; Stop 10/27/18 at 11:48; Status DC Insulin Human Lispro (HumaLOG INSULIN) SEE PROTOCOL TABLE QHS SC Last administered on 11/04/18at 20:58; Start 10/29/18 at 21:00 Lidocaine (Lidoderm Patch) APPLY TO LEFT WRIST DAILY TD Last administered on 11/05/18 09:56; Start 10/30/18 at 09:00 Multivitamins (Theragram-M) 1 tab DAILY PO Last administered on 11/05/18at 09:54; Start 10/25/18 at 09:00 Niacin (Niacin) 500 mg QHS PO ; Start 10/24/18 at 21:00; Stop 10/29/18 at 10:54; Status DC Niacin (Niaspan) 500 mg QHS PO Last administered on 11/04/18at 20:56; Start 10/29/18 at 21:00 Non-Formulary Medication ( See Comment Field Below ) REMOVE LIDODERM PATCH DAILY@21 XX Last administered on 11/04/18at 20:58; Start 10/30/18 at 21:00 Ondansetron HCl (Zofran) 4 mg Q6HP PRN PO NAUSEA; Start 10/24/18 at 16:30; Stop 11/04/18 at 16:22; Status DC Polyethylene Glycol (Miralax) 1 pkt DAILYPRN PRN PO CONSTIPATION; Start 10/24/18 at 16:15 Senna (Senokot) 1 tab QHS PO Last administered on 11/04/18at 20:56; Start 10/24/18 at 21:00 Sodium Chloride 1,000 ml @ 80 mls/hr [id number] IV Last administered on 10/26/18at 04:02; Start 10/25/18 at 13:30; Stop 10/26/18 at 19:59; Status DC Trazodone HCl (Desyrel) 25 mg QHS PO Last administered on 11/04/18at 20:56; Start 11/04/18 at 21:00 Trazodone HCl (Desyrel) 25 mg QHSP PRN PO INSOMNIA; Start 11/04/18 at 16:30 Venlafaxine HCl (Effexor Xr) 75 mg DAILY PO Last administered on 11/05/18at 09:54; Start 10/25/18 at 09:00 Zinc Oxide (Boudreauxs Butt Paste) APPLY TO BUTTOCK AREA BID TOP Last administered on 11/05/18at 09:56; Start 10/30/18 at 09:00 PAUL YE MD Nov 05, 2018 14:11
--- NOTE | 2018-11-05 18:31 | REP ---
CT BRAIN WITHOUT CONTRAST: CT brain performed without IV contrast. COMPARISON: 10/22/2018 Once again there is an evolving subacute infarct seen in the right basal ganglia and internal capsule also involving the adjacent right temporal and parietal lobes. There is mass effect on the right lateral ventricle which has slightly improved. The inferior hemorrhagic component is essentially resolved but there is a new thin linear area of acute hemorrhage in the superior posterior aspect of the infarct in the right parietal lobe. No other new findings are seen. There is underlying moderate atrophy as well as periventricular small vessel ischemic changes. Vascular calcifications are see in the carotid siphons. Vascular calcifications are seen in the basilar artery. IMPRESSION: Evolving right sided infarct involving the basal ganglia, anterior limb internal capsule, , as well as portions of the right temporal and parietal lobes. Previously noted more inferior area of hemorrhage within the infarct has resolved, while there is a new tiny linear area of more acute hemorrhage, more superiorly in the area of infarction. Electronically Signed by Mushtaq Davidson MD 11/05/2018 07:47 P
[2018-11-05 20:00] VITALS: BP 130/79
[2018-11-05] MEDS: NIACIN SR (NIASPAN) 500 MG TAB PO SCH (20:38)
[2018-11-05] MEDS: traZODone 25MG PER 1/2 TABLET PO SCH (20:38)
[2018-11-05] MEDS: SENNA 8.6 MG TAB (SENOKOT) PO SCH (20:38)
[2018-11-05] MEDS: ATORVASTATIN 20 MG TAB PO SCH (20:39)
[2018-11-05] MEDS: BENAZEPRIL 20 MG TAB PO SCH (20:39)
[2018-11-05] MEDS: **NOTE PATIENT COMMENT** MISC XX SCH (20:42)
[2018-11-06] MEDS: ACETAMINOPHEN TAB 650MG DOSE (2X325MG) PO PRN (01:49)
[2018-11-06] MEDS: HEPARIN SOD (PORCINE) 5000 UNITS/ML VIAL SQ SCH (05:41)
[2018-11-06 06:00] VITALS: BP 118/73
[2018-11-06 06:51] LABS: HEMATOCRIT 39.6 % (42.0-52.0); HEMOGLOBIN 13.2 g/dl (13.5-17.5); MEAN CORPUSCULAR HEMOGLOBIN 30.8 pg (27.0-33.0); MEAN CORPUSCULAR HGB CONC 33.3 g/dl (32.0-36.5); MEAN CORPUSCULAR VOLUME 92.3 fl (80.0-96.0); PLATELET COUNT, AUTOMATED 256 10^3/uL (150-450); RED BLOOD COUNT 4.29 10^6/uL (4.30-6.10)
[2018-11-06 06:52] LABS: WHITE BLOOD COUNT 13.3 10^3/uL (4.0-10.0)
[2018-11-06 07:10] LABS: ATYPICAL LYMPH 17 % (0-5); EOSINOPHILS 1 % (0-5); LYMPHOCYTES 44 % (16-52); MONOCYTES 4 % (0-8); NEUTROPHILS 34 % (35-75); PLATELET CLUMPS SMALL AMT; PLATELET ESTIMATE NORMAL (NORMAL)
[2018-11-06 07:19] LABS: CREATININE FOR GFR 1.44 MG/DL (0.70-1.30); GLOMERULAR FILTRATION RATE 51.9 (>49)
[2018-11-06] MEDS: LIDOCAINE 5% (LIDODERM) PATCH TD SCH (09:00)
[2018-11-06] MEDS: BOUDREAUX'S BUTT PASTE 4OZ TOP SCH ×2 (09:00→21:25)
[2018-11-06] MEDS: ATENOLOL 25 MG TAB PO SCH ×2 (09:00→21:19)
[2018-11-06] MEDS: VENLAFAXINE **XR** 75MG CAPSULE PO SCH (09:25)
[2018-11-06] MEDS: MULTIVITAMINS/MINERALS THERAP 1 TAB PO SCH (09:25)
[2018-11-06] MEDS: FLUoxetine 20 MG CAP PO SCH (09:25)
[2018-11-06] MEDS: ASPIRIN 81 MG CHEW TABLET PO SCH (09:25)
[2018-11-06] MEDS: FAMOTIDINE 20 MG TAB PO SCH (09:25)
[2018-11-06] MEDS: DOCUSATE SODIUM 100 MG CAP PO SCH ×2 (09:25→21:19)
[2018-11-06] MEDS: LEVEMIR (INSULIN DETEMIR) 1 UNITS/0.01ML SC SCH ×2 (09:26→21:24)
[2018-11-06] MEDS: HumaLOG INSULIN (NovoLOG) PER UNIT SC SCH ×7 (09:27→21:25)
--- NOTE | 2018-11-06 10:36 | IPN ---
DATE OF SERVICE: 11/06/2018 CHIEF COMPLAINT: Followup of left lateral malleolus fracture. 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 He is asleep. His was, unfortunately, not there yet this morning. PHYSICAL EXAMINATION: Again, this man was simply just asleep this morning, and I looked for his , but she had not arrived yet. ASSESSMENT AND PLAN: I would like to continue this man to be weightbearing as tolerated. Ideally, he would be protected weightbearing for 6 weeks with this kind of fracture, but given his left-sided weakness from his stroke, I do not think this is reasonable, so for now if he is able to be protected weightbearing that would be ideal, but given his medical circumstances, I think it is reasonable to focus more on his rehabilitation in terms of getting his strength back in the lower extremity; and of he has to bear weight on this, this is fine; so, he remains weightbearing as tolerated.
[2018-11-06 14:00] VITALS: BP 137/85
--- NOTE | 2018-11-06 16:03 | NUR ---
Recommending please upgrade to regular solids. Reported to Dr. Owen. Addendum: 11/06/18 at [address] [facility] Amended: Links added.
[2018-11-06 20:00] VITALS: BP 142/84
[2018-11-06] MEDS: **NOTE PATIENT COMMENT** MISC XX SCH (21:00)
[2018-11-06] MEDS: NIACIN SR (NIASPAN) 500 MG TAB PO SCH (21:19)
[2018-11-06] MEDS: traZODone 25MG PER 1/2 TABLET PO SCH (21:20)
[2018-11-06] MEDS: SENNA 8.6 MG TAB (SENOKOT) PO SCH (21:20)
[2018-11-06] MEDS: ATORVASTATIN 20 MG TAB PO SCH (21:20)
[2018-11-06] MEDS: BENAZEPRIL 20 MG TAB PO SCH (21:24)
[2018-11-06 22:00] VITALS: BP 142/84
[2018-11-07 04:00] VITALS: BP 127/75
[2018-11-07] MEDS: HumaLOG INSULIN (NovoLOG) PER UNIT SC SCH ×7 (07:30→22:31)
[2018-11-07] MEDS: BOUDREAUX'S BUTT PASTE 4OZ TOP SCH ×2 (09:00→22:31)
[2018-11-07] MEDS: MULTIVITAMINS/MINERALS THERAP 1 TAB PO SCH (09:32)
[2018-11-07] MEDS: DOCUSATE SODIUM 100 MG CAP PO SCH ×2 (09:32→22:29)
[2018-11-07] MEDS: VENLAFAXINE **XR** 75MG CAPSULE PO SCH (09:32)
[2018-11-07] MEDS: ASPIRIN 81 MG CHEW TABLET PO SCH (09:32)
[2018-11-07] MEDS: FLUoxetine 20 MG CAP PO SCH (09:32)
[2018-11-07] MEDS: FAMOTIDINE 20 MG TAB PO SCH (09:33)
[2018-11-07] MEDS: LIDOCAINE 5% (LIDODERM) PATCH TD SCH (09:33)
[2018-11-07] MEDS: ATENOLOL 25 MG TAB PO SCH ×2 (09:33→22:30)
[2018-11-07] MEDS: LEVEMIR (INSULIN DETEMIR) 1 UNITS/0.01ML SC SCH ×2 (09:34→22:30)
--- NOTE | 2018-11-07 11:29 | IPNPDOC ---
Date Seen The patient was seen on 11/07/18. 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 He also had slipped out of his chair 10/26/18 sustaining left ankle fracture. Boot in place. Pt was transferred to the care of ARU, Dr Owen, 10/25/18. The pt is OOB, has been working with therapy, at bedside. Pt states he is feeling stronger, has noticed improvements with speech. Splint applied to left wrist, XR negative for fracture. [facility], Dr Main is following pt for Lt ankle fracture, last seen 11/06/18. Boot in place. Denies any fevers, chills, weakness, fatigue, Headache, Chest Pain, Shortness of breath, cough, palpitations, abdominal pain, N/V/D or changes in bowel or bladder habits. PAST MEDICAL HISTORY: Diabetes Hypertension Arthrosclerotic disease. Cardiac defibrillator. Cardiac stent Lower extremity stents. Dr Cunningham. Hyperlipidemia GERD PAST SURGICAL HISTORY: 4 cardiac stents Hernia repair PE: GEN: 67yo, appears stated age. Alert and oriented x 3. HEENT: Normocephalic, atraumatic. Sclera are nonicteric. Conjunctiva without injection. Moist mucous membranes. CHEST: Regular rate and rhythm, +S1, +S2 LUNGS: Clear to auscultation bilaterally. No wheezes, rales, or rhonchi. ABD: Round, soft, non-tender, non-distended. +Bowel sounds throughout. EXT: No lower extremity edema appreciated. Boot in place LLE. SKIN: Margaret, dry, warm. No rashes. NEURO: Alert and oriented x 3. left sided weakness. 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 He also had slipped out of his chair 10/26/18 sustaining left ankle fracture. Boot in place. Pt was transferred to the care of ARU, Dr Owen, 10/25/18. Left facial weakness / left upper + lower extremity weakness/acute CVA. Patient unable to have MRI given that he has an pacemaker in place - CT head 10/22: 1. Acute right basal ganglia, internal capsule, right temporal and parietal lobe infarction with a small hemorrhagic component unchanged compared to the previous study. 2. Small vessel ischemic disease. 3. Mild volume loss. - CTA head 10/18: Extremely high grade stenosis right middle cerebral artery approximately 1.3 cm distal to its origin. - CTA Neck 10/18: There is occlusion of the right internal carotid artery from its origin to its distal end. Stenosis of the left carotid bulb in the range of about 70-80%. 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 The left vertebral artery is reconstituted at the C3 level with multifocal stenosis of its distal aspect. 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 Vascular surgery consulted, possibly consider possible endarterectomy in 4-6 weeks, Outpt F/U. Outpt F/U with Neurology. Mgmt as per ARU. PT/OT/ST as per ARU. Pain control/Bowel care as per ARU. DVT prophylaxis as per ARU. TEDS. Disposition as per ARU. Continue ASA and Atorvastatin Plan at time of d/c was to resume Plavix in next 2 weeks pending F/U imaging. CTH 11/05/18 Evolving right sided infarct involving the basal ganglia, anterior limb internal capsule, , as well as portions of the right temporal and parietal lobes. Previously noted more inferior area of hemorrhage within the infarct has resolved, while there is a new tiny linear area of more acute hemorrhage, more superiorly in the area of infarction. Electronically Signed by Mushtaq Davidson MD 11/05/2018 07:47 P Imaging was reviewed by Dr Owen with neurology, Dr Ruby, who is familiar with the pt. Recommended f/u CTH in 1-2 days and Hold off on restarting Plavix for now. Discussed with Dr Owen, F/U CTH is planned for 11/10/18. SQ Heparin d/cd. LLE ankle fracture Pt had slipped out of his chair 10/26/18 sustaining left ankle fracture. Mgmt as per Orthopedic Surgery, Dr Main. Boot ordered as per Orthopedic surgery. Pt reviewed by Orthopedics 11/04/18 with review of repeat imaging. XR Lt wrist unremarkable. Plan as per orthopedics is to continue with boot, WB as per orthopedics, repeat XR 1 week. Elevated Cr on CKD3 Cr trend 1.3-1.5. 1.44 leukocytosis. pt is afebrile. CXR 10/29 with NAD. UA neg 10/30 UA with reflex culture today pending. Trend improved this AM. Monitor. Systolic and Diastolic CHF, compensated. ECHO 10/19: EF 30%, G1DD Would advise caution with IVF. CAD ASA, Atorvastatin DLP Atorvastatin and Niacin IDDM2 SSI adjustments as per Dr Owen. HTN Benazepril Atenolol Mood disorder Venlafaxine GERD Pepcid VS, I&O, 24H, Fishbone Vital Signs/I&O Vital Signs Date Time Temp Pulse Resp B/P (MAP) Pulse Ox O2 Delivery O2 Flow Rate FiO2 11/07/18 09:33 79 127/75 11/07/18 04:00 98.6 20 99 I&O- Last 24 Hours up to 6 AM 11/07/18 06:00 Intake Total 2040 ml Output Total 1045 ml Balance 995 ml Laboratory Data 24H LABS Laboratory Tests 2 11/06/18 11:42: Bedside Glucose (Misc Panel) 336H 11/06/18 16:52: Bedside Glucose (Misc Panel) 236H 11/06/18 20:09: Bedside Glucose (Misc Panel) 267H 11/07/18 06:14: Bedside Glucose (Misc Panel) 126H Margaret Hsieh Nov 07, 2018 11:29
--- NOTE | 2018-11-07 12:52 | IPNPDOC ---
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 REVIEW OF SYSTEMS: The following is a completed review of systems and has been reviewed. Review of systems otherwise unremarkable. PAIN: Patient self reports no pain EYES: Negative for recent vision loss EARS, NOSE, & THROAT: +dysphagia(improving) CARDIOVASCULAR: denies chest pain or palpitations PULMONARY: Negative. Denies shortness of breath GASTROINTESTINAL: Negative for diarrhea or constipation GENITOURINARY: Negative for dysuria or hematuria NEUROLOGICAL: left sided paresis MSK: left ankle fracture HEMATOLOGICAL: Negative SKIN: no rash or skin breakdown PSYCHIATRIC: Unremarkable All other review of systems found to be negative. PHYSICAL EXAMINATION: VITAL SIGNS: Please see below. GENERAL: Pleasant and cooperative. No acute distress. HEENT: PERRL. Extraocular movements intact. Clear conjunctiva, left facial droop CARDIOVASCULAR: Regular rate and rhythm. No murmurs, rubs, or gallops, +TTP left chest wall at the costo-sternal joint LUNGS: Clear to auscultation bilaterally. No wheezes. No rhonchi. ABDOMEN: Soft, nontender, nondistended. Positive bowel sounds. Normal active bowel sounds. NEUROLOGICAL: Alert and oriented times three. Cranial nerves II through XII grossly intact. Sensation grossly intact. EXTREMITIES: 5\\5 strength right upper extremities. 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 3/5 strength in left hip flexors, 3/5 knee extensors, ankle DF and EHL unable to be tested left wrist non-tender to palpation, however pain with valgus strain SKIN:+blanchable erythematous area dorsum of left foot, medial ankle resolved- covered with mepilex ASSESSMENT:67-year-old M with past medical history of CAD, DM, PAD who presents status post stroke with hemorrhagic conversion. PLAN: 1. Rehab: PT/OT, [employer], assess for DME needs, working on [id number], continue left wrist splint and left shoulder taping, better left knee stability in therapy -upgraded to regular diet 2. Neuro: s/p MCA territory stroke in the setting of "Extremely high grade stenosis right middle cerebral artery approximately 1.3 cm distal to its origin." and right ICA occlusion with hemorrhagic conversion, Plavix being held, continue ASA and statin therapy, avoid hypoperfusion -Prozac for motor recovery, monitor for serotonin syndrome with concurrent Effexors-stable -repeat CT11/05/18 showed new linear hemorrhage discussed with Dr. Osorio who recommended continue to hold Plavix and repeat imaging in a few days before considering restarting-will also hold prophylactic c heparin -will need outpatient follow-up with Dr Porras for CEA in 4-6 weeks 3. Cardio: systolic and diastolic CHF with EF of 30% with defibrillator- medicine consulted, continue Atenolol and Benazepril with holding parameters -patient reported focal chest pain 11/04/18 with deep inhalation today, able to point to it with one finger and exam consistent with costochondritis treat with Tylenol-improved today 4. Resp: Monitor for infection, encourage incentive spirometry-stable -CXR 10/30/18 shows no active disease, no cough, no fever 5. Renal: CKD , s/p gentle hydration-stable 6. Endo: pmh uncontrolled DM, will increase evening Detemir to 40 units, add HS coverage and will increase daily long-acting coverage, change to consistent carb diet and d/c glucerna, will continue to monitor and adjust prn-gradually improving 7. : admission UA and Ucx negative, monitor PVRs 8. DVT ppx: c/u heparin 9. Psych: pmh depression continue Effexor, episodes of delirium discussed this with patient's and will order repeat UA and optimize sleep-wake cycle and to look for infectious source, patient continue to be lucid on my exam today- repeat UA negative 10. Ortho: s/p fall on 10/25/18 with left ankle fracture, CAM boot placed, WBAT, tape transferrer and ortho recs appreciated, monitor for skin breakdown, mepilex applied to left ankle, sock removed -left shoulder pain-improves with taping, encouraging patient and therapists to work on scapular retraction -left wrist pain- recent XRs negative for fracture, no swelling suspect ligamental injury, will continue splint and add lidoderm patch -repeat ankle X-ray ordered showing mild lateral malleoli displacement, reviewed by Dr. Main and discussed with patient, continue CAM boot and WBAT 11. Sleep: patient reporting insomnia- continue trazodone-improving 10. Dispo: 11/17/18 to home, progressing towards goals Allergies Coded Allergies: No Known Allergies (Unverified , 10/18/18) Vital Signs Vital Signs Date Time Temp Pulse Resp B/P (MAP) Pulse Ox O2 Delivery O2 Flow Rate FiO2 11/07/18 09:33 79 127/75 11/07/18 04:00 98.6 20 99 Laboratory Data Labs 24H Laboratory Tests 2 11/06/18 16:52: Bedside Glucose (Misc Panel) 236H 11/06/18 20:09: Bedside Glucose (Misc Panel) 267H 11/07/18 06:14: Bedside Glucose (Misc Panel) 126H 11/07/18 11:47: Bedside Glucose (Misc Panel) 239H Current Medications Current Medications Current Medications Acetaminophen (Tylenol Tab) 650 mg Q4HP PRN PO fever/MILD PAIN (PS 1-4) Last administered on 11/06/18 01:49; Start 10/24/18 at 16:30 Aspirin (Aspirin Chewable) 81 mg DAILY PO Last administered on 11/07/18 09:32; Start 10/25/18 at 09:00 Atenolol (Tenormin) 25 mg BID PO Last administered on 11/07/18 09:33; Start 10/25/18 at 15:00 Atorvastatin Calcium (Lipitor) 80 mg QHS PO Last administered on 11/06/18 21:20; Start 10/24/18 at 21:00 Benazepril HCl (Lotensin) 20 mg QPM PO Last administered on 11/06/18at 21:24; Start 10/25/18 at 21:00 Dextrose (Dextrose 50%) 25 ml ASDIRECTED PRN IV SEE LABEL COMMENTS; Start 10/24/18 at 16:15; Stop 10/29/18 at 11:19; Status DC Dextrose (Dextrose 50%) 25 ml ASDIRECTED PRN IV SEE LABEL COMMENTS; Start 10/29/18 at 11:15 Docusate Sodium (Colace) 100 mg BID PO Last administered on 11/07/18 09:32; Start 10/24/18 at 21:00 Famotidine (Pepcid) 20 mg DAILY PO Last administered on 11/07/18at 09:33; Start 10/25/18 at 09:00 Fluoxetine HCl (PROzac) 20 mg DAILY PO Last administered on 11/07/18at 09:32; Start 10/25/18 at 09:00 Glucagon (Glucagon) 1 mg ASDIRECTED PRN SC SEE LABEL COMMENTS; Start 10/24/18 at 16:15; Stop 10/29/18 at 11:19; Status DC Glucagon (Glucagon) 1 mg ASDIRECTED PRN SC SEE LABEL COMMENTS; Start 10/29/18 at 11:15 Glucose (Glucose) 16 GM ASDIRECTED PRN PO SEE LABEL COMMENTS; Start 10/24/18 at 16:15; Stop 10/29/18 at 11:19; Status DC Glucose (Glucose) 16 GM ASDIRECTED PRN PO SEE LABEL COMMENTS; Start 10/29/18 at 11:15 Heparin Sodium (Porcine) (Heparin) 5,000 units Q8H SQ Last administered on 11/06/18at 05:41; Start 10/24/18 at 22:00; Stop 11/06/18 at 09:30; Status DC Insulin Detemir (Levemir Insulin) 5 units QHS SC Last administered on 10/24/18at 21:34; Start 10/24/18 at 21:00; Stop 10/25/18 at 13:03; Status DC Insulin Detemir (Levemir Insulin) 8 units DAILY SC ; Start 10/29/18 at 09:00; Stop 10/29/18 at 11:02; Status DC Insulin Detemir (Levemir Insulin) 10 units DAILY SC Last administered on 11/01/18at 08:30; Start 10/30/18 at 09:45; Stop 11/01/18 at 20:23; Status DC Insulin Detemir (Levemir Insulin) 12 units QHS SC Last administered on 10/26/18at 21:30; Start 10/25/18 at 21:00; Stop 10/27/18 at 11:48; Status DC Insulin Detemir (Levemir Insulin) 15 units DAILY SC Last administered on 11/04/18at 08:48; Start 11/02/18 at 09:00; Stop 11/04/18 at 14:17; Status DC Insulin Detemir (Levemir Insulin) 20 units DAILY SC Last administered on 11/07/18at 09:34; Start 11/05/18 at 09:00 Insulin Detemir (Levemir Insulin) 20 units QHS SC Last administered on 10/27/18at 21:35; Start 10/27/18 at 21:00; Stop 10/28/18 at 10:12; Status DC Insulin Detemir (Levemir Insulin) 25 units QHS SC Last administered on 10/28/18at 21:01; Start 10/28/18 at 21:00; Stop 10/29/18 at 11:17; Status DC Insulin Detemir (Levemir Insulin) 30 units QHS SC Last administered on 10/29/18at 21:57; Start 10/29/18 at 21:00; Stop 10/30/18 at 09:34; Status DC Insulin Detemir (Levemir Insulin) 36 units QHS SC Last administered on 10/30/18at 21:40; Start 10/30/18 at 21:00; Stop 10/31/18 at 07:18; Status DC Insulin Detemir (Levemir Insulin) 40 units QHS SC Last administered on 11/03/18at 21:10; Start 10/31/18 at 21:00; Stop 11/04/18 at 10:24; Status DC Insulin Detemir (Levemir Insulin) 44 units QHS SC Last administered on 11/05/18at 20:41; Start 11/04/18 at 21:00; Stop 11/06/18 at 10:14; Status DC Insulin Detemir (Levemir Insulin) 46 units QHS SC Last administered on 11/06/18at 21:24; Start 11/06/18 at 21:00 Insulin Human Lispro (HumaLOG INSULIN) 4 units AC SC Last administered on 11/01/18at 16:47; Start 10/28/18 at 17:30; Stop 11/01/18 at 20:23; Status DC Insulin Human Lispro (HumaLOG INSULIN) 6 units AC SC Last administered on 11/06/18at 12:07; Start 11/02/18 at 07:30; Stop 11/06/18 at 16:29; Status DC Insulin Human Lispro (HumaLOG INSULIN) 12 units AC SC Last administered on 11/07/18at 07:30; Start 11/06/18 at 17:30 Insulin Human Lispro (HumaLOG INSULIN) SEE PROTOCOL TABLE AC SC Last administered on 11/07/18 09:32; Start 10/24/18 at 17:30 Insulin Human Lispro (HumaLOG INSULIN) SEE PROTOCOL TABLE QHS SC Last administered on 10/26/18at 21:31; Start 10/24/18 at 21:00; Stop 10/27/18 at 11:48; Status DC Insulin Human Lispro (HumaLOG INSULIN) SEE PROTOCOL TABLE QHS SC Last admini stered on 11/06/18at 21:25; Start 10/29/18 at 21:00 Lidocaine (Lidoderm Patch) APPLY TO LEFT WRIST DAILY TD Last administered on 11/07/18 09:33; Start 10/30/18 at 09:00 Miscellaneous (Unresolved Clarification Entry) SEE LABEL COMMENTS DAILY XX ; Start 11/06/18 at 09:00; Stop 11/06/18 at 09:33; Status DC Multivitamins (Theragram-M) 1 tab DAILY PO Last administered on 11/07/18 09:32; Start 10/25/18 at 09:00 Niacin (Niacin) 500 mg QHS PO ; Start 10/24/18 at 21:00; Stop 10/29/18 at 10:54; Status DC Niacin (Niaspan) 500 mg QHS PO Last administered on 11/06/18 21:19; Start 10/29/18 at 21:00 Non-Formulary Medication ( See Comment Field Below ) REMOVE LIDODERM PATCH DAILY@21 XX Last administered on 11/05/18at 20:42; Start 10/30/18 at 21:00 Ondansetron HCl (Zofran) 4 mg Q6HP PRN PO NAUSEA; Start 10/24/18 at 16:30; Stop 11/04/18 at 16:22; Status DC Polyethylene Glycol (Miralax) 1 pkt DAILYPRN PRN PO CONSTIPATION; Start 10/24/18 at 16:15 Senna (Senokot) 1 tab QHS PO Last administered on 11/06/18at 21:20; Start 10/24/18 at 21:00 Sodium Chloride 1,000 ml @ 80 mls/hr [id number] IV Last administered on 10/26/18at 04:02; Start 10/25/18 at 13:30; Stop 10/26/18 at 19:59; Status DC Trazodone HCl (Desyrel) 25 mg QHS PO Last administered on 11/06/18at 21:20; Start 11/04/18 at 21:00 Trazodone HCl (Desyrel) 25 mg QHSP PRN PO INSOMNIA; Start 11/04/18 at 16:30 Venlafaxine HCl (Effexor Xr) 75 mg DAILY PO Last administered on 11/07/18at 09:32; Start 10/25/18 at 09:00 Zinc Oxide (Boudreauxs Butt Paste) APPLY TO BUTTOCK AREA BID TOP Last administered on 11/07/18at 09:00; Start 10/30/18 at 09:00 PAUL YE MD Nov 07, 2018 12:52
--- NOTE | 2018-11-07 12:55 | IPNPDOC ---
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 REVIEW OF SYSTEMS: The following is a completed review of systems and has been reviewed. Review of systems otherwise unremarkable. PAIN: Patient self reports no pain EYES: Negative for recent vision loss EARS, NOSE, & THROAT: +dysphagia(improving) CARDIOVASCULAR: denies chest pain or palpitations PULMONARY: Negative. Denies shortness of breath GASTROINTESTINAL: Negative for diarrhea or constipation GENITOURINARY: Negative for dysuria or hematuria NEUROLOGICAL: left sided paresis MSK: left ankle fracture HEMATOLOGICAL: Negative SKIN: no rash or skin breakdown PSYCHIATRIC: Unremarkable All other review of systems found to be negative. PHYSICAL EXAMINATION: VITAL SIGNS: Please see below. GENERAL: Pleasant and cooperative. No acute distress. HEENT: PERRL. Extraocular movements intact. Clear conjunctiva, left facial droop CARDIOVASCULAR: Regular rate and rhythm. No murmurs, rubs, or gallops, +TTP left chest wall at the costo-sternal joint LUNGS: Clear to auscultation bilaterally. No wheezes. No rhonchi. ABDOMEN: Soft, nontender, nondistended. Positive bowel sounds. Normal active bowel sounds. NEUROLOGICAL: Alert and oriented times three. Cranial nerves II through XII grossly intact. Sensation grossly intact. EXTREMITIES: 5\\5 strength right upper extremities. 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 3/5 strength in left hip flexors, 3/5 knee extensors, ankle DF and EHL unable to be tested left wrist non-tender to palpation, however pain with valgus strain SKIN:+blanchable erythematous area dorsum of left foot, medial ankle resolved- covered with mepilex ASSESSMENT:67-year-old M with past medical history of CAD, DM, PAD who presents status post stroke with hemorrhagic conversion. PLAN: 1. Rehab: PT/OT, [employer], assess for DME needs, working on [id number], continue left wrist splint and left shoulder taping, better left knee stability in therap y -upgraded to regular diet 2. Neuro: s/p MCA territory stroke in the setting of "Extremely high grade stenosis right middle cerebral artery approximately 1.3 cm distal to its origin." and right ICA occlusion with hemorrhagic conversion, Plavix being held, continue ASA and statin therapy, avoid hypoperfusion -Prozac for motor recovery, monitor for serotonin syndrome with concurrent Effexors-stable -repeat CT11/05/18 showed new linear hemorrhage discussed with Dr. Osorio who recommended continue to hold Plavix and repeat imaging in a few days before considering restarting-will also hold prophylactic c heparin -will need outpatient follow-up with Dr Porras for CEA in 4-6 weeks 3. Cardio: systolic and diastolic CHF with EF of 30% with defibrillator- medi cine consulted, continue Atenolol and Benazepril with holding parameters -patient reported focal chest pain 11/04/18 with deep inhalation able to point to it with one finger and exam consistent with costochondritis treat with Tylenol- resolved 4. Resp: Monitor for infection, encourage incentive spirometry-stable -CXR 10/30/18 shows no active disease, no cough, no fever 5. Renal: CKD , s/p gentle hydration-stable 6. Endo: pmh uncontrolled DM, will increase evening Detemir to 40 units, add HS coverage and increased daily long-acting coverage, continue consistent carb diet and d/c glucerna, will continue to monitor and adjust prn-better 7. : admission UA and Ucx negative, monitor PVRs 8. DVT ppx: hold heparin, continue TEDs 9. Psych: pmh depression continue Effexor, episodes of delirium discussed this with patient's and will order repeat UA and optimize sleep-wake cycle and to look for infectious source, patient continue to be lucid on my exam today- repeat UA negative 10. Ortho: s/p fall on 10/25/18 with left ankle fracture, CAM boot placed, WBAT, climbing guide and ortho recs appreciated, monitor for skin breakdown, mepilex applied to left ankle, sock removed -left shoulder pain-improves with taping, encouraging patient and therapists to work on scapular retraction -left wrist pain- recent XRs negative for fracture, no swelling suspect ligamental injury, will continue splint- requesting to stop lidoderm patch -repeat ankle X-ray ordered showing mild lateral malleoli displacement, reviewed by Dr. Main and discussed with patient, continue CAM boot and WBAT 11. Sleep: patient reporting insomnia- continue trazodone-improving 10. Dispo: 11/17/18 to home, progressing towards goals Allergies Coded Allergies: No Known Allergies (Unverified , 10/18/18) Vital Signs Vital Signs Date Time Temp Pulse Resp B/P (MAP) Pulse Ox O2 Delivery O2 Flow Rate FiO2 11/07/18 09:33 79 127/75 11/07/18 04:00 98.6 20 99 Laboratory Data Labs 24H Laboratory Tests 2 11/06/18 16:52: Bedside Glucose (Misc Panel) 236H 11/06/18 20:09: Bedside Glucose (Misc Panel) 267H 11/07/18 06:14: Bedside Glucose (Misc Panel) 126H 11/07/18 11:47: Bedside Glucose (Misc Panel) 239H Current Medications Current Medications Current Medications Acetaminophen (Tylenol Tab) 650 mg Q4HP PRN PO fever/MILD PAIN (PS 1-4) Last administered on 11/06/18 01:49; Start 10/24/18 at 16:30 Aspirin (Aspirin Chewable) 81 mg DAILY PO Last administered on 11/07/18 09:32; Start 10/25/18 at 09:00 Atenolol (Tenormin) 25 mg BID PO Last administered on 11/07/18 09:33; Start 10/25/18 at 15:00 Atorvastatin Calcium (Lipitor) 80 mg QHS PO Last administered on 11/06/18 21:20; Start 10/24/18 at 21:00 Benazepril HCl (Lotensin) 20 mg QPM PO Last administered on 11/06/18at 21:24; Start 10/25/18 at 21:00 Dextrose (Dextrose 50%) 25 ml ASDIRECTED PRN IV SEE LABEL COMMENTS; Start 10/24/18 at 16:15; Stop 10/29/18 at 11:19; Status DC Dextrose (Dextrose 50%) 25 ml ASDIRECTED PRN IV SEE LABEL COMMENTS; Start 10/29/18 at 11:15 Docusate Sodium (Colace) 100 mg BID PO Last administered on 11/07/18 09:32; Start 10/24/18 at 21:00 Famotidine (Pepcid) 20 mg DAILY PO Last administered on 11/07/18at 09:33; Start 10/25/18 at 09:00 Fluoxetine HCl (PROzac) 20 mg DAILY PO Last administered on 11/07/18at 09:32; Start 10/25/18 at 09:00 Glucagon (Glucagon) 1 mg ASDIRECTED PRN SC SEE LABEL COMMENTS; Start 10/24/18 at 16:15; Stop 10/29/18 at 11:19; Status DC Glucagon (Glucagon) 1 mg ASDIRECTED PRN SC SEE LABEL COMMENTS; Start 10/29/18 at 11:15 Glucose (Glucose) 16 GM ASDIRECTED PRN PO SEE LABEL COMMENTS; Start 10/24/18 at 16:15; Stop 10/29/18 at 11:19; Status DC Glucose (Glucose) 16 GM ASDIRECTED PRN PO SEE LABEL COMMENTS; Start 10/29/18 at 11:15 Heparin Sodium (Porcine) (Heparin) 5,000 units Q8H SQ Last administered on 11/06/18at 05:41; Start 10/24/18 at 22:00; Stop 11/06/18 at 09:30; Status DC Insulin Detemir (Levemir Insulin) 5 units QHS SC Last administered on 10/24/18at 21:34; Start 10/24/18 at 21:00; Stop 10/25/18 at 13:03; Status DC Insulin Detemir (Levemir Insulin) 8 units DAILY SC ; Start 10/29/18 at 09:00; Stop 10/29/18 at 11:02; Status DC Insulin Detemir (Levemir Insulin) 10 units DAILY SC Last administered on 11/01/18at 08:30; Start 10/30/18 at 09:45; Stop 11/01/18 at 20:23; Status DC Insulin Detemir (Levemir Insulin) 12 units QHS SC Last administered on 10/26/18at 21:30; Start 10/25/18 at 21:00; Stop 10/27/18 at 11:48; Status DC Insulin Detemir (Levemir Insulin) 15 units DAILY SC Last administered on 11/04/18at 08:48; Start 11/02/18 at 09:00; Stop 11/04/18 at 14:17; Status DC Insulin Detemir (Levemir Insulin) 20 units DAILY SC Last administered on 11/07/18at 09:34; Start 11/05/18 at 09:00 Insulin Detemir (Levemir Insulin) 20 units QHS SC Last administered on 10/27/18at 21:35; Start 10/27/18 at 21:00; Stop 10/28/18 at 10:12; Status DC Insulin Detemir (Levemir Insulin) 25 units QHS SC Last administered on 10/28/18at 21:01; Start 10/28/18 at 21:00; Stop 10/29/18 at 11:17; Status DC Insulin Detemir (Levemir Insulin) 30 units QHS SC Last administered on 10/29/18at 21:57; Start 10/29/18 at 21:00; Stop 10/30/18 at 09:34; Status DC Insulin Detemir (Levemir Insulin) 36 units QHS SC Last administered on 10/30/18at 21:40; Start 10/30/18 at 21:00; Stop 10/31/18 at 07:18; Status DC Insulin Detemir (Levemir Insulin) 40 units QHS SC Last administered on at 21:10; Start 10/31/18 at 21:00; Stop 11/04/18 at 10:24; Status DC Insulin Detemir (Levemir Insulin) 44 units QHS SC Last administered on 11/05/18at 20:41; Start 11/04/18 at 21:00; Stop 11/06/18 at 10:14; Status DC Insulin Detemir (Levemir Insulin) 46 units QHS SC Last administered on 11/06/18at 21:24; Start 11/06/18 at 21:00 Insulin Human Lispro (HumaLOG INSULIN) 4 units AC SC Last administered on 11/01/18at 16:47; Start 10/28/18 at 17:30; Stop 11/01/18 at 20:23; Status DC Insulin Human Lispro (HumaLOG INSULIN) 6 units AC SC Last administered on 11/06/18at 12:07; Start 11/02/18 at 07:30; Stop 11/06/18 at 16:29; Status DC Insulin Human Lispro (HumaLOG INSULIN) 12 units AC SC Last administered on 11/07/18at 07:30; Start 11/06/18 at 17:30 Insulin Human Lispro (HumaLOG INSULIN) SEE PROTOCOL TABLE AC SC Last administered on 11/07/18 09:32; Start 10/24/18 at 17:30 Insulin Human Lispro (HumaLOG INSULIN) SEE PROTOCOL TABLE QHS SC Last administered on 10/26/18at 21:31; Start 10/24/18 at 21:00; Stop 10/27/18 at 11:48; Status DC Insulin Human Lispro (HumaLOG INSULIN) SEE PROTOCOL TABLE QHS SC Last administered on 11/06/18at 21:25; Start 10/29/18 at 21:00 Lidocaine (Lidoderm Patch) APPLY TO LEFT WRIST DAILY TD Last administered on 11/07/18 09:33; Start 10/30/18 at 09:00 Miscellaneous (Unresolved Clarification Entry) SEE LABEL COMMENTS DAILY XX ; Start 11/06/18 at 09:00; Stop 11/06/18 at 09:33; Status DC Multivitamins (Theragram-M) 1 tab DAILY PO Last administered on 11/07/18 09:32; Start 10/25/18 at 09:00 Niacin (Niacin) 500 mg QHS PO ; Start 10/24/18 at 21:00; Stop 10/29/18 at 10:54; Status DC Niacin (Niaspan) 500 mg QHS PO Last administered on 11/06/18at 21:19; Start 10/29/18 at 21:00 Non-Formulary Medication ( See Comment Field Below ) REMOVE LIDODERM PATCH DAILY@21 XX Last administered on 11/05/18at 20:42; Start 10/30/18 at 21:00 Ondansetron HCl (Zofran) 4 mg Q6HP PRN PO NAUSEA; Start 10/24/18 at 16:30; Stop 11/04/18 at 16:22; Status DC Polyethylene Glycol (Miralax) 1 pkt DAILYPRN PRN PO CONSTIPATION; Start 10/24/18 at 16:15 Senna (Senokot) 1 tab QHS PO Last administered on 11/06/18at 21:20; Start 10/24/18 at 21:00 Sodium Chloride 1,000 ml @ 80 mls/hr [id number] IV Last administered on 10/26/18at 04:02; Start 10/25/18 at 13:30; Stop 10/26/18 at 19:59; Status DC Trazodone HCl (Desyrel) 25 mg QHS PO Last administered on 11/06/18at 21:20; Start 11/04/18 at 21:00 Trazodone HCl (Desyrel) 25 mg QHSP PRN PO INSOMNIA; Start 11/04/18 at 16:30 Venlafaxine HCl (Effexor Xr) 75 mg DAILY PO Last administered on 11/07/18at 09:32; Start 10/25/18 at 09:00 Zinc Oxide (Boudreauxs Butt Paste) APPLY TO BUTTOCK AREA BID TOP Last administered on 11/07/18at 09:00; Start 10/30/18 at 09:00 PAUL YE MD Nov 07, 2018 12:55
[2018-11-07 20:00] VITALS: BP 135/73
[2018-11-07] MEDS: ATORVASTATIN 20 MG TAB PO SCH (22:29)
[2018-11-07] MEDS: NIACIN SR (NIASPAN) 500 MG TAB PO SCH (22:29)
[2018-11-07] MEDS: traZODone 25MG PER 1/2 TABLET PO SCH (22:29)
[2018-11-07] MEDS: BENAZEPRIL 20 MG TAB PO SCH (22:29)
[2018-11-07] MEDS: SENNA 8.6 MG TAB (SENOKOT) PO SCH (22:29)
[2018-11-08 06:00] VITALS: BP 128/78
[2018-11-08] MEDS: VENLAFAXINE **XR** 75MG CAPSULE PO SCH (09:02)
[2018-11-08] MEDS: DOCUSATE SODIUM 100 MG CAP PO SCH ×2 (09:02→20:29)
[2018-11-08] MEDS: ACETAMINOPHEN TAB 650MG DOSE (2X325MG) PO PRN ×2 (09:02→13:06)
[2018-11-08] MEDS: MULTIVITAMINS/MINERALS THERAP 1 TAB PO SCH (09:02)
[2018-11-08] MEDS: ASPIRIN 81 MG CHEW TABLET PO SCH (09:02)
[2018-11-08] MEDS: FAMOTIDINE 20 MG TAB PO SCH (09:02)
[2018-11-08] MEDS: ATENOLOL 25 MG TAB PO SCH ×2 (09:02→20:28)
[2018-11-08] MEDS: FLUoxetine 20 MG CAP PO SCH (09:02)
[2018-11-08] MEDS: BOUDREAUX'S BUTT PASTE 4OZ TOP SCH ×2 (09:03→20:30)
[2018-11-08] MEDS: LEVEMIR (INSULIN DETEMIR) 1 UNITS/0.01ML SC SCH ×2 (09:03→20:29)
[2018-11-08] MEDS: HumaLOG INSULIN (NovoLOG) PER UNIT SC SCH ×7 (09:03→20:29)
[2018-11-08 14:00] VITALS: BP 143/66
[2018-11-08 20:00] VITALS: BP 135/69
[2018-11-08] MEDS: ATORVASTATIN 20 MG TAB PO SCH (20:28)
[2018-11-08] MEDS: traZODone 25MG PER 1/2 TABLET PO SCH (20:28)
[2018-11-08] MEDS: SENNA 8.6 MG TAB (SENOKOT) PO SCH (20:29)
[2018-11-08] MEDS: BENAZEPRIL 20 MG TAB PO SCH (20:29)
[2018-11-08] MEDS: NIACIN SR (NIASPAN) 500 MG TAB PO SCH (20:29)
[2018-11-09 06:00] VITALS: BP 137/67
[2018-11-09 07:26] LABS: HEMATOCRIT 40.8 % (42.0-52.0); HEMOGLOBIN 13.5 g/dl (13.5-17.5); MEAN CORPUSCULAR HEMOGLOBIN 30.8 pg (27.0-33.0); MEAN CORPUSCULAR HGB CONC 33.1 g/dl (32.0-36.5); MEAN CORPUSCULAR VOLUME 93.2 fl (80.0-96.0); PLATELET COUNT, AUTOMATED 254 10^3/uL (150-450); RED BLOOD COUNT 4.38 10^6/uL (4.30-6.10); WHITE BLOOD COUNT 13.7 10^3/uL (4.0-10.0)
[2018-11-09 07:54] LABS: CALCIUM LEVEL 8.8 MG/DL (8.8-10.2); CREATININE FOR GFR 1.51 MG/DL (0.70-1.30); GLOMERULAR FILTRATION RATE 49.2 (>49); MAGNESIUM LEVEL 1.7 MG/DL (1.8-2.4); POTASSIUM SERUM 4.1 MEQ/L (3.5-5.1)
[2018-11-09] MEDS: LEVEMIR (INSULIN DETEMIR) 1 UNITS/0.01ML SC SCH ×2 (08:34→20:36)
[2018-11-09] MEDS: ACETAMINOPHEN TAB 650MG DOSE (2X325MG) PO PRN ×2 (08:34→20:37)
[2018-11-09] MEDS: HumaLOG INSULIN (NovoLOG) PER UNIT SC SCH ×7 (08:35→20:36)
[2018-11-09] MEDS: VENLAFAXINE **XR** 75MG CAPSULE PO SCH (08:35)
[2018-11-09] MEDS: FLUoxetine 20 MG CAP PO SCH (08:35)
[2018-11-09] MEDS: MULTIVITAMINS/MINERALS THERAP 1 TAB PO SCH (08:35)
[2018-11-09] MEDS: ATENOLOL 25 MG TAB PO SCH ×2 (08:36→20:35)
[2018-11-09] MEDS: ASPIRIN 81 MG CHEW TABLET PO SCH (08:36)
[2018-11-09] MEDS: FAMOTIDINE 20 MG TAB PO SCH (08:36)
[2018-11-09] MEDS: DOCUSATE SODIUM 100 MG CAP PO SCH ×2 (08:36→20:34)
[2018-11-09] MEDS: BOUDREAUX'S BUTT PASTE 4OZ TOP SCH ×2 (08:36→20:38)
[2018-11-09] MEDS ORDERED: MAG SULF 1GM/100ML (MAG RUN) 1 GM in APPROPRIATE DILUENT 1 EA IV ONE (12:00)
[2018-11-09 14:00] VITALS: BP 134/74
[2018-11-09 20:00] VITALS: BP 162/80
[2018-11-09] MEDS: traZODone 25MG PER 1/2 TABLET PO SCH (20:34)
[2018-11-09] MEDS: ATORVASTATIN 20 MG TAB PO SCH (20:34)
[2018-11-09] MEDS: SENNA 8.6 MG TAB (SENOKOT) PO SCH (20:36)
[2018-11-09] MEDS: NIACIN SR (NIASPAN) 500 MG TAB PO SCH (20:36)
[2018-11-09] MEDS: BENAZEPRIL 20 MG TAB PO SCH (20:38)
[2018-11-09] MEDS: traZODone 25MG PER 1/2 TABLET PO PRN (22:10)
[2018-11-10 06:00] VITALS: BP 128/63
[2018-11-10] MEDS: VENLAFAXINE **XR** 75MG CAPSULE PO SCH (08:06)
[2018-11-10] MEDS: DOCUSATE SODIUM 100 MG CAP PO SCH ×2 (08:06→21:00)
[2018-11-10] MEDS: FLUoxetine 20 MG CAP PO SCH (08:06)
[2018-11-10] MEDS: ASPIRIN 81 MG CHEW TABLET PO SCH (08:06)
[2018-11-10] MEDS: MULTIVITAMINS/MINERALS THERAP 1 TAB PO SCH (08:06)
[2018-11-10] MEDS: FAMOTIDINE 20 MG TAB PO SCH (08:06)
[2018-11-10] MEDS: ATENOLOL 25 MG TAB PO SCH ×2 (08:06→20:50)
[2018-11-10] MEDS: HumaLOG INSULIN (NovoLOG) PER UNIT SC SCH ×7 (08:07→20:50)
[2018-11-10] MEDS: LEVEMIR (INSULIN DETEMIR) 1 UNITS/0.01ML SC SCH ×2 (08:07→21:00)
[2018-11-10] MEDS: BOUDREAUX'S BUTT PASTE 4OZ TOP SCH ×2 (08:08→21:01)
--- NOTE | 2018-11-10 11:26 | REP ---
CT brain without contrast: History: Question progression or new hemorrhage. Comparison CT study November 05, 2018. Findings: Previously noted area of infarction is again seen involving the right basal ganglia and right posterior frontal lobe periventricular white matter. There are hemorrhagic changes within the area of infarction. These are more prominent today than on the November 05, 2018 study although similar in distribution within the infarct. No josé miguel hematoma is seen. There is edema and mass effect attenuating the frontal horn of the right lateral ventricle similar to the prior study. No new infarct or hemorrhage is seen. Impression: Hemorrhagic changes within the right basal ganglia infarct, somewhat increased in size and extent compared to the most recent prior study of November 05, 2018. Electronically Signed by Tylor Resendiz MD 11/10/2018 12:51 P
[2018-11-10 14:00] VITALS: BP 143/66
--- NOTE | 2018-11-10 14:42 | IPNPDOC ---
Date Seen The patient was seen on 11/10/18. 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 He also had slipped out of his chair 10/26/18 sustaining left ankle fracture. Boot in place. Pt was transferred to the care of ARU, Dr Owen, 10/25/18. The pt is OOB, has been working with therapy, at bedside. Pt states he is feeling stronger, has noticed improvements with speech. Splint applied to left wrist, XR negative for fracture. [facility], Dr Main is following pt for Lt ankle fracture, last seen 11/06/18. Boot in place. Pt at bedside and states overall she feels he has been doing slightly better. Denies any increased weakness, dysarthria, dysphagia. Seems to be confused only when he is over tired per . Resolves with rest. Denies any fevers, chills, Headache, Chest Pain, Shortness of breath, cough, palpitations, abdominal pain, N/V/D or changes in bowel or bladder habits. PAST MEDICAL HISTORY: Diabetes Hypertension Arthrosclerotic disease. Cardiac defibrillator. Cardiac stent Lower extremity stents. Dr Cunningham. Hyperlipidemia GERD PAST SURGICAL HISTORY: 4 cardiac stents Hernia repair PE: GEN: 67yo, appears stated age. Alert and oriented x 3. HEENT: Normocephalic, atraumatic. Sclera are nonicteric. Conjunctiva without injection. Moist mucous membranes. CHEST: Regular rate and rhythm, +S1, +S2 LUNGS: Clear to auscultation bilaterally. No wheezes, rales, or rhonchi. ABD: Round, soft, non-tender, non-distended. +Bowel sounds throughout. EXT: No lower extremity edema appreciated. Boot in place LLE. SKIN: [place], dry, warm. No rashes. NEURO: Alert and oriented x 3. Left sided weakness. 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 He also had slipped out of his chair 10/26/18 sustaining left ankle fracture. Boot in place. Pt was transferred to the care of ARU, Dr Owen, 10/25/18. Left facial weakness / left upper + lower extremity weakness/acute CVA. Patient unable to have MRI given that he has an pacemaker in place - CT head 2/13: 1. Acute right basal ganglia, internal capsule, right temporal and parietal lobe infarction with a small hemorrhagic component unchanged compared to the previous study. 2. Small vessel ischemic disease. 3. Mild volume loss. - CTA head 10/18: Extremely high grade stenosis right middle cerebral artery approximately 1.3 cm distal to its origin. - CTA Neck 10/18: There is occlusion of the right internal carotid artery from its origin to its distal end. Stenosis of the left carotid bulb in the range of about 70-80%. 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 The left vertebral artery is reconstituted at the C3 level with multifocal stenosis of its distal aspect. 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 Vascular surgery consulted, possibly consider possible endarterectomy in 4-6 weeks, Outpt F/U. Outpt F/U with Neurology. Mgmt as per ARU. PT/OT/ST as per ARU. Pain control/Bowel care as per ARU. DVT prophylaxis as per ARU. TEDS. SQ Heparin d/cd 11/06. Disposition as per ARU. Continue ASA and Atorvastatin Plan at time of d/c was to resume Plavix in next 2 weeks pending F/U imaging. CTH 11/05/18 Evolving right sided infarct involving the basal ganglia, anterior limb internal capsule, , as well as portions of the right temporal and parietal lobes. Previously noted more inferior area of hemorrhage within the infarct has resolved, while there is a new tiny linear area of more acute hemorrhage, more superiorly in the area of infarction. Electronically Signed by Mushtaq Davidson MD 11/05/2018 07:47 PM CTH 11/10/18 Hemorrhagic changes within the right basal ganglia infarct, somewhat increased in size and extent compared to the most recent prior study of November 05, 2018. Electronically Signed by Tylor Resendiz MD 11/10/2018 12:51 P Imaging was reviewed by Dr Owen with Neurology, Dr Mayers. Recommended f/u CTH 11/11/18 and Hold off on restarting Plavix, cont with ASA 81mg daily for now. Discussed with Dr Owen, F/U CTH is planned for 11/11/18. Consider neurology consultation if needed. LLE ankle fracture Pt had slipped out of his chair 10/26/18 sustaining left ankle fracture. Mgmt as per Orthopedic Surgery, Dr Main. Boot ordered as per Orthopedic surgery. Pt reviewed by Orthopedics 11/04/18 with review of repeat imaging. XR Lt wrist unremarkable. Plan as per orthopedics is to continue with boot, WB as per orthopedics, repeat XR 1 week. Elevated Cr on CKD3 Cr trend 1.3-1.5. 1.51 leukocytosis. pt is afebrile. CXR 10/29 with NAD. UA neg 10/30 UA 11/04 neg. Monitor. Systolic and Diastolic CHF, compensated. ECHO 10/19: EF 30%, G1DD Would advise caution with IVF. CAD ASA, Atorvastatin DLP Atorvastatin and Niacin IDDM2 SSI adjustments as per Dr Owen. HTN Benazepril Atenolol Mood disorder Venlafaxine GERD Pepcid VS, I&O, 24H, Fishbone Vital Signs/I&O Vital Signs Date Time Temp Pulse Resp B/P (MAP) Pulse Ox O2 Delivery O2 Flow Rate FiO2 11/10/18 08:06 67 128/63 11/10/18 06:00 96.9 17 99 I&O- Last 24 Hours up to 6 AM 11/10/18 06:00 Intake Total 1300 ml Output Total 675 ml Balance 625 ml Laboratory Data 24H LABS Laboratory Tests 2 11/09/18 16:43: Bedside Glucose (Misc Panel) 145H 11/09/18 20:00: Bedside Glucose (Misc Panel) 252H 11/10/18 06:26: Bedside Glucose (Misc Panel) 136H 11/10/18 11:35: Bedside Glucose (Misc Panel) 223H Margaret Hsieh Nov 10, 2018 14:42
[2018-11-10] MEDS: ACETAMINOPHEN TAB 650MG DOSE (2X325MG) PO PRN ×2 (18:14→23:13)
[2018-11-10] MEDS: BENAZEPRIL 20 MG TAB PO SCH (20:50)
[2018-11-10] MEDS: ATORVASTATIN 20 MG TAB PO SCH (21:00)
[2018-11-10] MEDS: traZODone 25MG PER 1/2 TABLET PO SCH (21:00)
[2018-11-10] MEDS: SENNA 8.6 MG TAB (SENOKOT) PO SCH (21:00)
[2018-11-10] MEDS: NIACIN SR (NIASPAN) 500 MG TAB PO SCH (21:00)
[2018-11-10 21:24] VITALS: BP 113/63
[2018-11-11 05:07] VITALS: BP 138/80
[2018-11-11] MEDS: HumaLOG INSULIN (NovoLOG) PER UNIT SC SCH ×8 (07:30→21:55)
[2018-11-11] MEDS: FLUoxetine 20 MG CAP PO SCH (08:46)
[2018-11-11] MEDS: ATENOLOL 25 MG TAB PO SCH ×2 (08:46→21:45)
[2018-11-11] MEDS: MULTIVITAMINS/MINERALS THERAP 1 TAB PO SCH (08:46)
[2018-11-11] MEDS: DOCUSATE SODIUM 100 MG CAP PO SCH ×2 (08:46→21:44)
[2018-11-11] MEDS: VENLAFAXINE **XR** 75MG CAPSULE PO SCH (08:46)
[2018-11-11] MEDS: LEVEMIR (INSULIN DETEMIR) 1 UNITS/0.01ML SC SCH ×2 (08:47→21:46)
[2018-11-11] MEDS: FAMOTIDINE 20 MG TAB PO SCH (08:47)
[2018-11-11] MEDS: ASPIRIN 81 MG CHEW TABLET PO SCH (08:47)
[2018-11-11] MEDS: BOUDREAUX'S BUTT PASTE 4OZ TOP SCH ×2 (08:48→21:46)
--- NOTE | 2018-11-11 11:52 | REP ---
CT brain without contrast: History: Question of hemorrhage is still involving. Comparison is made with recent prior CT studies dated November 10 and November 05. Findings: The hemorrhagic component in the right basal ganglia infarct is unchanged from CT study of November 10, 2018 but increased compared to the hemorrhagic component in the infarct on November 05, 2018. No other new finding. Electronically Signed by Tylor Resendiz MD 11/11/2018 11:43 A
[2018-11-11 14:00] VITALS: BP 119/78
--- NOTE | 2018-11-11 15:35 | IPNPDOC ---
Date Seen The patient was seen on 11/11/18. 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 He also had slipped out of his chair 10/26/18 sustaining left ankle fracture. Boot in place. Pt was transferred to the care of ARU, Dr Owen, 10/25/18. The pt is OOB, has been working with therapy, at bedside. Pt states he is feeling stronger, has noticed improvements with speech. Splint applied to left wrist, XR negative for fracture. [facility], Dr Main is following pt for Lt ankle fracture, last seen 11/06/18. Boot in place. Pt at bedside and states overall she feels he has been doing slightly better. Denies any increased weakness, dysarthria, dysphagia. Seems to be confused only when he is over tired per . Resolves with rest. Denies any fevers, chills, Headache, Chest Pain, Shortness of breath, cough, palpitations, abdominal pain, N/V/D or changes in bowel or bladder habits. PAST MEDICAL HISTORY: Diabetes Hypertension Arthrosclerotic disease. Cardiac defibrillator. Cardiac stent Lower extremity stents. Dr Cunningham. Hyperlipidemia GERD PAST SURGICAL HISTORY: 4 cardiac stents Hernia repair PE: GEN: 67yo, appears stated age. Alert and oriented x 3. HEENT: Normocephalic, atraumatic. Sclera are nonicteric. Conjunctiva without injection. Moist mucous membranes. CHEST: Regular rate and rhythm, +S1, +S2 LUNGS: Clear to auscultation bilaterally. No wheezes, rales, or rhonchi. ABD: Round, soft, non-tender, non-distended. +Bowel sounds throughout. EXT: No lower extremity edema appreciated. Boot in place LLE. SKIN: [place], dry, warm. No rashes. NEURO: Alert and oriented x 3. Left sided weakness. 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 He also had slipped out of his chair 10/26/18 sustaining left ankle fracture. Boot in place. Pt was transferred to the care of ARU, Dr Owen, 10/25/18. Left facial weakness / left upper + lower extremity weakness/acute CVA. Patient unable to have MRI given that he has an pacemaker in place - CT head 2/13: 1. Acute right basal ganglia, internal capsule, right temporal and parietal lobe infarction with a small hemorrhagic component unchanged compared to the previous study. 2. Small vessel ischemic disease. 3. Mild volume loss. - CTA head 10/18: Extremely high grade stenosis right middle cerebral artery approximately 1.3 cm distal to its origin. - CTA Neck 10/18: There is occlusion of the right internal carotid artery from its origin to its distal end. Stenosis of the left carotid bulb in the range of about 70-80%. 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 The left vertebral artery is reconstituted at the C3 level with multifocal stenosis of its distal aspect. 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 Vascular surgery consulted, possibly consider possible endarterectomy in 4-6 weeks, Outpt F/U. Outpt F/U with Neurology. Mgmt as per ARU. PT/OT/ST as per ARU. Pain control/Bowel care as per ARU. DVT prophylaxis as per ARU. TEDS. SQ Heparin d/cd 11/06. Disposition as per ARU. Continue ASA and Atorvastatin Plan at time of d/c was to resume Plavix in next 2 weeks pending F/U imaging. CTH 11/05/18 Evolving right sided infarct involving the basal ganglia, anterior limb internal capsule, , as well as portions of the right temporal and parietal lobes. Previously noted more inferior area of hemorrhage within the infarct has resolved, while there is a new tiny linear area of more acute hemorrhage, more superiorly in the area of infarction. Electronically Signed by Mushtaq Davidson MD 11/05/2018 07:47 PM CTH 11/10/18 Hemorrhagic changes within the right basal ganglia infarct, somewhat increased in size and extent compared to the most recent prior study of November 05, 2018. Electronically Signed by Tylor Resendiz MD 11/10/2018 12:51 P CTH 11/11/18The hemorrhagic component in the right basal ganglia infarct is unchanged from CT study of November 10, 2018 but increased compared to the hemorrhagic component in the infarct on November 05, 2018. No other new finding. Electronically Signed by Tylor Resendiz MD 11/11/2018 11:43 A Imaging was reviewed by Dr Owen and also to be forwarded to Neurology. Continue with neuro recommendation to hold off on restarting Plavix, cont with ASA 81mg daily for now. Consider neurology consultation if needed. Plan for repeat imaging. Monitor. LLE ankle fracture Pt had slipped out of his chair 10/26/18 sustaining left ankle fracture. Mgmt as per Orthopedic Surgery, Dr Main. Boot ordered as per Orthopedic surgery. Pt reviewed by Orthopedics 11/04/18 with review of repeat imaging. XR Lt wrist unremarkable. Plan as per orthopedics is to continue with boot, WB as per orthopedics, repeat XR 1 week. Elevated Cr on CKD3 Cr trend 1.3-1.5. 1.51 leukocytosis. pt is afebrile. CXR 10/29 with NAD. UA neg 10/30 UA 11/04 neg. Monitor. Systolic and Diastolic CHF, compensated. ECHO 10/19: EF 30%, G1DD Would advise caution with IVF. CAD ASA, Atorvastatin DLP Atorvastatin and Niacin IDDM2 SSI adjustments as per Dr Owen. HTN Benazepril Atenolol Mood disorder Venlafaxine GERD pepcid VS, I&O, 24H, Fishbone Vital Signs/I&O Vital Signs Date Time Temp Pulse Resp B/P (MAP) Pulse Ox O2 Delivery O2 Flow Rate FiO2 11/11/18 14:00 97.4 92 17 119/78 (92) 97 I&O- Last 24 Hours up to 6 AM 11/11/18 06:00 Intake Total 620 ml Output Total 800 ml Balance -180 ml Laboratory Data 24H LABS Laboratory Tests 2 11/10/18 17:01: Bedside Glucose (Misc Panel) 181H 11/10/18 20:17: Bedside Glucose (Misc Panel) 223H 11/11/18 06:01: Bedside Glucose (Misc Panel) 197H 11/11/18 11:45: Bedside Glucose (Misc Panel) 197H Margaret Hsieh Nov 11, 2018 15:35
[2018-11-11] MEDS: ACETAMINOPHEN TAB 650MG DOSE (2X325MG) PO PRN (18:52)
[2018-11-11 20:00] VITALS: BP 128/64
[2018-11-11] MEDS: traZODone 25MG PER 1/2 TABLET PO SCH (21:44)
[2018-11-11] MEDS: NIACIN SR (NIASPAN) 500 MG TAB PO SCH (21:44)
[2018-11-11] MEDS: SENNA 8.6 MG TAB (SENOKOT) PO SCH (21:44)
[2018-11-11] MEDS: ATORVASTATIN 20 MG TAB PO SCH (21:45)
[2018-11-11] MEDS: BENAZEPRIL 20 MG TAB PO SCH (21:45)
[2018-11-12] MEDS: traZODone 25MG PER 1/2 TABLET PO PRN (00:43)
[2018-11-12 06:00] VITALS: BP 139/81
[2018-11-12] MEDS: MULTIVITAMINS/MINERALS THERAP 1 TAB PO SCH (09:31)
[2018-11-12] MEDS: FLUoxetine 20 MG CAP PO SCH (09:31)
[2018-11-12] MEDS: ATENOLOL 25 MG TAB PO SCH ×2 (09:31→20:41)
[2018-11-12] MEDS: ASPIRIN 81 MG CHEW TABLET PO SCH (09:31)
[2018-11-12] MEDS: DOCUSATE SODIUM 100 MG CAP PO SCH ×2 (09:31→20:41)
[2018-11-12] MEDS: FAMOTIDINE 20 MG TAB PO SCH (09:31)
[2018-11-12] MEDS: VENLAFAXINE **XR** 75MG CAPSULE PO SCH (09:31)
[2018-11-12] MEDS: HumaLOG INSULIN (NovoLOG) PER UNIT SC SCH ×7 (09:32→20:44)
[2018-11-12] MEDS: BOUDREAUX'S BUTT PASTE 4OZ TOP SCH ×2 (09:33→20:44)
[2018-11-12] MEDS: LEVEMIR (INSULIN DETEMIR) 1 UNITS/0.01ML SC SCH ×2 (09:33→20:42)
[2018-11-12 14:00] VITALS: BP 133/87
--- NOTE | 2018-11-12 14:02 | IPNPDOC ---
Date Seen The patient was seen on 11/12/18. 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 He also had slipped out of his chair 10/26/18 sustaining left ankle fracture. Boot in place. Pt was transferred to the care of ARU, Dr Owen, 10/25/18. The pt is OOB, has been working with therapy, at bedside. Pt states he is feeling stronger, has noticed improvements with speech. Splint applied to left wrist, XR negative for fracture. [facility], Dr Main is following pt for Lt ankle fracture, last seen 11/06/18. Boot in place. Pt at bedside and states overall she feels he has been doing better. Denies any increased weakness, dysarthria, dysphagia. Sometimes confused when he is over tired, resolves with rest. Denies any fevers, chills, Headache, Chest Pain, Shortness of breath, cough, palpitations, abdominal pain, N/V/D or changes in bowel or bladder habits. PAST MEDICAL HISTORY: Diabetes Hypertension Arthrosclerotic disease. Cardiac defibrillator. Cardiac stent Lower extremity stents. Dr Cunningham. Hyperlipidemia GERD PAST SURGICAL HISTORY: 4 cardiac stents Hernia repair PE: GEN: 67yo, appears stated age. Alert and oriented x 3. HEENT: Normocephalic, atraumatic. Sclera are nonicteric. Conjunctiva without injection. Moist mucous membranes. CHEST: Regular rate and rhythm, +S1, +S2 LUNGS: Clear to auscultation bilaterally. No wheezes, rales, or rhonchi. ABD: Round, soft, non-tender, non-distended. +Bowel sounds throughout. EXT: No lower extremity edema appreciated. Boot in place LLE. SKIN: [place], dry, warm. No rashes. NEURO: Alert and oriented x 3. Left sided weakness. 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 He also had slipped out of his chair 10/26/18 sustaining left ankle fracture. Boot in place. Pt was transferred to the care of ARU, Dr Owen, 10/25/18. Left facial weakness / left upper + lower extremity weakness/acute CVA. Patient unable to have MRI given that he has an pacemaker in place - CT head 10/22: 1. Acute right basal ganglia, internal capsule, right temporal and parietal lobe infarction with a small hemorrhagic component unchanged compared to the previous study. 2. Small vessel ischemic disease. 3. Mild volume loss. - CTA head 10/18: Extremely high grade stenosis right middle cerebral artery approximately 1.3 cm distal to its origin. - CTA Neck 10/18: There is occlusion of the right internal carotid artery from its origin to its distal end. Stenosis of the left carotid bulb in the range of about 70-80%. 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 The left vertebral artery is reconstituted at the C3 level with multifocal stenosis of its distal aspect. 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 Vascular surgery consulted, possibly consider possible endarterectomy in 4-6 weeks, Outpt F/U. Outpt F/U with Neurology. Mgmt as per ARU. PT/OT/ST as per ARU. Pain control/Bowel care as per ARU. DVT prophylaxis as per ARU. TEDS. SQ Heparin d/cd 11/06. Disposition as per ARU. Continue ASA and Atorvastatin Plan at time of d/c was to resume Plavix in next 2 weeks pending F/U imaging. CTH 11/05/18 Evolving right sided infarct involving the basal ganglia, anterior limb internal capsule, , as well as portions of the right temporal and parietal lobes. Previously noted more inferior area of hemorrhage within the infarct has resolved, while there is a new tiny linear area of more acute hemorrhage, more superiorly in the area of infarction. Electronically Signed by Mushtaq Davidson MD 11/05/2018 07:47 PM CTH 11/10/18 Hemorrhagic changes within the right basal ganglia infarct, somewhat increased in size and extent compared to the most recent prior study of November 05, 2018. Electronically Signed by Tylor Resendiz MD 11/10/2018 12:51 P CTH 11/11/18The hemorrhagic component in the right basal ganglia infarct is unchanged from CT study of November 10, 2018 but increased compared to the hemorrhagic component in the infarct on November 05, 2018. No other new finding. Electronically Signed by Tylor Resendiz MD 11/11/2018 11:43 A Imaging was reviewed by Dr Owen and also to be forwarded to Neurology. Continue with neuro recommendation to hold off on restarting Plavix, cont with ASA 81mg daily for now. Consider neurology consultation if needed. Plan for repeat imaging. Pt with no changes in symptom status. Monitor. LLE ankle fracture Pt had slipped out of his chair 10/26/18 sustaining left ankle fracture. Mgmt as per Orthopedic Surgery, Dr Main. Boot ordered as per Orthopedic surgery. Pt reviewed by Orthopedics 11/04/18 with review of repeat imaging. XR Lt wrist unremarkable. Plan as per orthopedics is to continue with boot, WB as per orthopedics, repeat XR 1 week. Elevated Cr on CKD3 Cr trend 1.3-1.5. 11/09/18 1.51 leukocytosis. pt is afebrile. CXR 10/29 with NAD. UA neg 10/30 UA 11/04 neg. Monitor. Systolic and Diastolic CHF, compensated. ECHO 10/19: EF 30%, G1DD Would advise caution with IVF. CAD ASA, Atorvastatin DLP Atorvastatin and Niacin IDDM2 SSI adjustments as per Dr Owen. HTN Benazepril Atenolol Mood disorder Venlafaxine GERD pepcid VS, I&O, 24H, Fishbone Vital Signs/I&O Vital Signs Date Time Temp Pulse Resp B/P (MAP) Pulse Ox O2 Delivery O2 Flow Rate FiO2 11/12/18 09:31 76 139/81 11/12/18 06:00 96.7 18 94 I&O- Last 24 Hours up to 6 AM 11/12/18 06:00 Intake Total 500 ml Output Total 525 ml Balance -25 ml Laboratory Data 24H LABS Laboratory Tests 2 11/11/18 16:38: Bedside Glucose (Misc Panel) 169H 11/11/18 20:16: Bedside Glucose (Misc Panel) 256H 11/12/18 06:31: Bedside Glucose (Misc Panel) 146H 11/12/18 11:28: Bedside Glucose (Misc Panel) 307H Margaret Hsieh Nov 12, 2018 14:02
[2018-11-12 20:00] VITALS: BP 159/75
--- NOTE | 2018-11-12 20:23 | IPNPDOC ---
PM&R Progress Note DATE OF SERVICE: Nov 11, 2018 Maxillofacial Pathology Progress Note Subjective: Patent and seen in gym ambulating well with CAM boot. REVIEW OF SYSTEMS: The following is a completed review of systems and has been reviewed. Review of systems otherwise unremarkable. PAIN: Patient self reports no pain EYES: Negative for recent vision loss EARS, NOSE, & THROAT: +dysphagia(improving) CARDIOVASCULAR: denies chest pain or palpitations PULMONARY: Negative. Denies shortness of breath GASTROINTESTINAL: Negative for diarrhea or constipation GENITOURINARY: Negative for dysuria or hematuria NEUROLOGICAL: left sided paresis MSK: left ankle fracture HEMATOLOGICAL: Negative SKIN: no rash or skin breakdown PSYCHIATRIC: Unremarkable All other review of systems found to be negative. PHYSICAL EXAMINATION: VITAL SIGNS: Please see below. GENERAL: Pleasant and cooperative. No acute distress. HEENT: PERRL. Extraocular movements intact. Clear conjunctiva, left facial droop CARDIOVASCULAR: Regular rate and rhythm. No murmurs, rubs, or gallops, +TTP left chest wall at the costo-sternal joint LUNGS: Clear to auscultation bilaterally. No wheezes. No rhonchi. ABDOMEN: Soft, nontender, nondistended. Positive bowel sounds. Normal active bowel sounds. NEUROLOGICAL: Alert and oriented times three. Cranial nerves II through XII grossly intact. Sensation grossly intact. EXTREMITIES: 5\\5 strength right upper extremities. 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 3/5 strength in left hip flexors, 3/5 knee extensors, ankle DF and EHL unable to be tested left wrist non-tender to palpation, however pain with valgus strain SKIN:+blanchable erythematous area dorsum of left foot, medial ankle resolved- covered with mepilex ASSESSMENT:67-year-old M with past medical history of CAD, DM, PAD who presents status post stroke with hemorrhagic conversion. PLAN: 1. Rehab: PT/OT, [facility] [facility], assess for DME needs, working on [id number], continue left wrist splint and left shoulder taping, better left knee stability in therapy -upgraded to regular diet 2. Neuro: s/p MCA territory stroke in the setting of "Extremely high grade stenosis right middle cerebral artery approximately 1.3 cm distal to its origin." and right ICA occlusion with hemorrhagic conversion, Plavix being held, continue ASA and statin therapy, avoid hypoperfusion -Prozac for motor recovery, monitor for serotonin syndrome with concurrent Effexors-stable -repeat CT11/05/18 showed new linear hemorrhage discussed with Dr. Osorio who recommended continue to hold Plavix and repeat imaging in a few days before considering restarting-will also hold prophylactic c heparin -repeat CTH 11/10/18 showed evolving hemorrhage in original infarcted region, CTH 11/11/18 showing, "hemorrhagic component in the right basal ganglia infarct is unchanged from CT study of November 10, 2018 but increased compared to the hemorrhagic component in the infarct on November 05, 2018"-will c/u ASA and plan for repeat cth in 2 weeks and o/p neuro -will need outpatient follow-up with Dr Porras for CEA in 4-6 weeks 3. Cardio: systolic and diastolic CHF with EF of 30% with defibrillator- medicine consulted, continue Atenolol and Benazepril with holding parameters -patient reported focal chest pain 11/04/18 with deep inhalation able to point to it with one finger and exam consistent with costochondritis treat with Tylenol- resolved 4. Resp: Monitor for infection, encourage incentive spirometry-stable -CXR 10/30/18 shows no active disease, no cough, no fever 5. Renal: CKD , s/p gentle hydration-stable 6. Endo: pmh uncontrolled DM, will increase evening Detemir to 40 units, add HS coverage and increased daily long-acting coverage, continue consistent carb diet and d/c glucerna, will continue to monitor and adjust prn-better 7. : admission UA and Ucx negative, monitor PVRs 8. DVT ppx: hold heparin, continue TEDs 9. Psych: pmh depression continue Effexor, episodes of delirium discussed this with patient's and will order repeat UA and optimize sleep-wake cycle and to look for infectious source, patient continue to be lucid on my exam today- repeat UA negative 10. 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 Main and discussed with patient, continue CAM boot and WBAT 11. Sleep: patient reporting insomnia- continue trazodone-improving 10. Dispo: 11/24/18 to home, progressing towards goals, home eval for next week Allergies Coded Allergies: No Known Allergies (Unverified , 10/18/18) Vital Signs Vital Signs Date Time Temp Pulse Resp B/P (MAP) Pulse Ox O2 Delivery O2 Flow Rate FiO2 11/12/18 14:00 97.4 88 18 133/87 (102) 97 Laboratory Data Labs 24H Laboratory Tests 2 11/12/18 06:31: Bedside Glucose (Misc Panel) 146H 11/12/18 11:28: Bedside Glucose (Misc Panel) 307H 11/12/18 16:46: Bedside Glucose (Misc Panel) 241H Current Medications Current Medications Current Medications Acetaminophen (Tylenol Tab) 650 mg Q4HP PRN PO fever/MILD PAIN (PS 1-4) Last administered on 11/11/18 18:52; Start 10/24/18 at 16:30 Aspirin (Aspirin Chewable) 81 mg DAILY PO Last administered on 11/12/18 09:31; Start 10/25/18 at 09:00 Atenolol (Tenormin) 25 mg BID PO Last administered on 11/12/18at 09:31; Start 10/25/18 at 15:00 Atorvastatin Calcium (Lipitor) 80 mg QHS PO Last administered on 11/11/18at 21:45; Start 10/24/18 at 21:00 Benazepril HCl (Lotensin) 20 mg QPM PO Last administered on 11/11/18at 21:45; Start 10/25/18 at 21:00 Dextrose (Dextrose 50%) 25 ml ASDIRECTED PRN IV SEE LABEL COMMENTS; Start 10/24/18 at 16:15; Stop 10/29/18 at 11:19; Status DC Dextrose (Dextrose 50%) 25 ml ASDIRECTED PRN IV SEE LABEL COMMENTS; Start 10/29/18 at 11:15 Docusate Sodium (Colace) 100 mg BID PO Last administered on 11/12/18 09:31; Start 10/24/18 at 21:00 Famotidine (Pepcid) 20 mg DAILY PO Last administered on 11/12/18at 09:31; Start 10/25/18 at 09:00 Fluoxetine HCl (PROzac) 20 mg DAILY PO Last administered on 11/12/18at 09:31; Start 10/25/18 at 09:00 Glucagon (Glucagon) 1 mg ASDIRECTED PRN SC SEE LABEL COMMENTS; Start 10/24/18 at 16:15; Stop 10/29/18 at 11:19; Status DC Glucagon (Glucagon) 1 mg ASDIRECTED PRN SC SEE LABEL COMMENTS; Start 10/29/18 at 11:15 Glucose (Glucose) 16 GM ASDIRECTED PRN PO SEE LABEL COMMENTS; Start 10/24/18 at 16:15; Stop 10/29/18 at 11:19; Status DC Glucose (Glucose) 16 GM ASDIRECTED PRN PO SEE LABEL COMMENTS; Start 10/29/18 at 11:15 Heparin Sodium (Porcine) (Heparin) 5,000 units Q8H SQ Last administered on 11/06/18at 05:41; Start 10/24/18 at 22:00; Stop 11/06/18 at 09:30; Status DC Insulin Detemir (Levemir Insulin) 5 units QHS SC Last administered on 10/24/18at 21:34; Start 10/24/18 at 21:00; Stop 10/25/18 at 13:03; Status DC Insulin Detemir (Levemir Insulin) 8 units DAILY SC ; Start 10/29/18 at 09:00; Stop 10/29/18 at 11:02; Status DC Insulin Detemir (Levemir Insulin) 10 units DAILY SC Last administered on 11/01/18at 08:30; Start 10/30/18 at 09:45; Stop 11/01/18 at 20:23; Status DC Insulin Detemir (Levemir Insulin) 12 units QHS SC Last administered on 10/26/18at 21:30; Start 10/25/18 at 21:00; Stop 10/27/18 at 11:48; Status DC Insulin Detemir (Levemir Insulin) 15 units DAILY SC Last administered on 11/04/18at 08:48; Start 11/02/18 at 09:00; Stop 11/04/18 at 14:17; Status DC Insulin Detemir (Levemir Insulin) 20 units DAILY SC Last administered on 11/12/18at 09:33; Start 11/05/18 at 09:00 Insulin Detemir (Levemir Insulin) 20 units QHS SC Last administered on 10/27/18at 21:35; Start 10/27/18 at 21:00; Stop 10/28/18 at 10:12; Status DC Insulin Detemir (Levemir Insulin) 25 units QHS SC Last administered on 10/28/18at 21:01; Start 10/28/18 at 21:00; Stop 10/29/18 at 11:17; Status DC Insulin Detemir (Levemir Insulin) 30 units QHS SC Last administered on 10/29/18at 21:57; Start 10/29/18 at 21:00; Stop 10/30/18 at 09:34; Status DC Insulin Detemir (Levemir Insulin) 36 units QHS SC Last administered on 10/30/18at 21:40; Start 10/30/18 at 21:00; Stop 10/31/18 at 07:18; Status DC Insulin Detemir (Levemir Insulin) 40 units QHS SC Last administered on 11/03/18 at 21:10; Start 10/31/18 at 21:00; Stop 11/04/18 at 10:24; Status DC Insulin Detemir (Levemir Insulin) 44 units QHS SC Last administered on 11/05/18at 20:41; Start 11/04/18 at 21:00; Stop 11/06/18 at 10:14; Status DC Insulin Detemir (Levemir Insulin) 46 units QHS SC Last administered on 11/07/18at 22:30; Start 11/06/18 at 21:00; Stop 11/08/18 at 14:21; Status DC Insulin Detemir (Levemir Insulin) 50 units QHS SC Last administered on 11/11/18at 21:46; Start 11/08/18 at 21:00 Insulin Human Lispro (HumaLOG INSULIN) 4 units AC SC Last administered on 11/01/18at 16:47; Start 10/28/18 at 17:30; Stop 11/01/18 at 20:23; Status DC Insulin Human Lispro (HumaLOG INSULIN) 6 units AC SC Last administered on 11/06/18at 12:07; Start 11/02/18 at 07:30; Stop 11/06/18 at 16:29; Status DC Insulin Human Lispro (HumaLOG INSULIN) 12 units AC SC Last administered on 11/08/18at 12:19; Start 11/06/18 at 17:30; Stop 11/08/18 at 14:21; Status DC Insulin Human Lispro (HumaLOG INSULIN) 18 units AC SC Last administered on 11/12/18at 17:20; Start 11/08/18 at 17:30 Insulin Human Lispro (HumaLOG INSULIN) SEE PROTOCOL TABLE AC SC Last administered on 11/12/18at 17:20; Start 10/24/18 at 17:30 Insulin Human Lispro (HumaLOG INSULIN) SEE PROTOCOL TABLE QHS SC Last administered on 10/26/18at 21:31; Start 10/24/18 at 21:00; Stop 10/27/18 at 11:48; Status DC Insulin Human Lispro (HumaLOG INSULIN) SEE PROTOCOL TABLE QHS SC Last administered on 11/11/18at 21:55; Start 10/29/18 at 21:00 Lidocaine (Lidoderm Patch) APPLY TO LEFT WRIST DAILY TD Last administered on 11/07/18at 09:33; Start 10/30/18 at 09:00; Stop 11/07/18 at 12:36; Status DC Miscellaneous (Unresolved Clarification Entry) SEE LABEL COMMENTS DAILY XX ; Start 11/06/18 at 09:00; Stop 11/06/18 at 09:33; Status DC Multivitamins (Theragram-M) 1 tab DAILY PO Last administered on 11/12/18 09:31; Start 10/25/18 at 09:00 Niacin (Niacin) 500 mg QHS PO ; Start 10/24/18 at 21:00; Stop 10/29/18 at 10:54; Status DC Niacin (Niaspan) 500 mg QHS PO Last administered on 11/11/18at 21:44; Start 10/29/18 at 21:00 Non-Formulary Medication ( See Comment Field Below ) REMOVE LIDODERM PATCH DAILY@21 XX Last administered on 2/27/19at 20:42; Start 10/30/18 at 21:00; Stop 11/07/18 at 12:36; Status DC Ondansetron HCl (Zofran) 4 mg Q6HP PRN PO NAUSEA; Start 10/24/18 at 16:30; Stop 11/04/18 at 16:22; Status DC Polyethylene Glycol (Miralax) 1 pkt DAILYPRN PRN PO CONSTIPATION; Start 10/24/18 at 16:15 Senna (Senokot) 1 tab QHS PO Last administered on 11/11/18 21:44; Start 10/24/18 at 21:00 Sodium Chloride 1,000 ml @ 80 mls/hr [id number] IV Last administered on 10/26/18 04:02; Start 10/25/18 at 13:30; Stop 10/26/18 at 19:59; Status DC Trazodone HCl (Desyrel) 25 mg QHS PO Last administered on 11/11/18 21:44; Start 11/04/18 at 21:00 Trazodone HCl (Desyrel) 25 mg QHSP PRN PO INSOMNIA Last administered on 11/12/18 00:43; Start 11/04/18 at 16:30 Venlafaxine HCl (Effexor Xr) 75 mg DAILY PO Last administered on 11/12/18 09:31; Start 10/25/18 at 09:00 Zinc Oxide (Boudreauxs Butt Paste) APPLY TO BUTTOCK AREA BID TOP Last admin istered on 11/12/18 09:33; Start 10/30/18 at 09:00 PAUL YE MD Nov 12, 2018 20:23
--- NOTE | 2018-11-12 20:24 | IPNPDOC ---
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 REVIEW OF SYSTEMS: The following is a completed review of systems and has been reviewed. Review of systems otherwise unremarkable. PAIN: Patient self reports no pain EYES: Negative for recent vision loss EARS, NOSE, & THROAT: +dysphagia(improving) CARDIOVASCULAR: denies chest pain or palpitations PULMONARY: Negative. Denies shortness of breath GASTROINTESTINAL: Negative for diarrhea or constipation GENITOURINARY: Negative for dysuria or hematuria NEUROLOGICAL: left sided paresis MSK: left ankle fracture HEMATOLOGICAL: Negative SKIN: no rash or skin breakdown PSYCHIATRIC: Unremarkable All other review of systems found to be negative. PHYSICAL EXAMINATION: VITAL SIGNS: Please see below. GENERAL: Pleasant and cooperative. No acute distress. HEENT: PERRL. Extraocular movements intact. Clear conjunctiva, left facial droop CARDIOVASCULAR: Regular rate and rhythm. No murmurs, rubs, or gallops, +TTP left chest wall at the costo-sternal joint LUNGS: Clear to auscultation bilaterally. No wheezes. No rhonchi. ABDOMEN: Soft, nontender, nondistended. Positive bowel sounds. Normal active bowel sounds. NEUROLOGICAL: Alert and oriented times three. Cranial nerves II through XII gucci ssly intact. Sensation grossly intact. EXTREMITIES: 5\\5 strength right upper extremities. 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 3/5 strength in left hip flexors, 3/5 knee extensors, ankle DF and EHL unable to be tested left wrist non-tender to palpation, however pain with valgus strain SKIN:+blanchable erythematous area dorsum of left foot, medial ankle resolved- covered with mepilex ASSESSMENT:67-year-old M with past medical history of CAD, DM, PAD who presents status post stroke with hemorrhagic conversion. PLAN: 1. 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 Neuro: s/p MCA territory stroke in the setting of "Extremely high grade stenosis right middle cerebral artery approximately 1.3 cm distal to its origin." and right ICA occlusion with hemorrhagic conversion, Plavix being held, continue ASA and statin therapy, avoid hypoperfusion -Prozac for motor recovery, monitor for serotonin syndrome with concurrent Effexors-stable -repeat CT11/05/18 showed new linear hemorrhage discussed with Dr. Osorio who recommended continue to hold Plavix and repeat imaging in a few days before considering restarting-will also hold prophylactic c heparin -repeat CTH 11/10/18 showed evolving hemorrhage in original infarcted region, CTH 11/11/18 showing, "hemorrhagic component in the right basal ganglia infarct is unchanged from CT study of November 10, 2018 but increased compared to the hemorrhagic component in the infarct on November 05, 2018"-will c/u ASA and plan for repeat cth in 2 weeks and o/p neuro -will need outpatient follow-up with Dr Porras for CEA in 4-6 weeks 3. Cardio: systolic and diastolic CHF with EF of 30% with defibrillator- medicine consulted, continue Atenolol and Benazepril with holding parameters -patient reported focal chest pain 11/04/18 with deep inhalation able to point to it with one finger and exam consistent with costochondritis treat with Tylenol- resolved 4. Resp: Monitor for infection, encourage incentive spirometry-stable -CXR 10/30/18 shows no active disease, no cough, no fever 5. Renal: CKD , s/p gentle hydration-stable 6. Endo: pmh uncontrolled DM, will increase evening Detemir to 40 units, add HS coverage and increased daily long-acting coverage, continue consistent carb diet and d/c glucerna, will continue to monitor and adjust prn-better 7. : admission UA and Ucx negative, monitor PVRs 8. DVT ppx: hold heparin, continue TEDs 9. Psych: pmh depression continue Effexor, episodes of delirium discussed this with patient's and will order repeat UA and optimize sleep-wake cycle and to look for infectious source, patient continue to be lucid on my exam today- repeat UA negative 10. 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 Main and discussed with patient, continue CAM boot and WBAT 11. Sleep: patient reporting insomnia- continue trazodone-improving 10. Dispo: 11/24/18 to home, progressing towards goals, home eval for next week Allergies Coded Allergies: No Known Allergies (Unverified , 10/18/18) Vital Signs Vital Signs Date Time Temp Pulse Resp B/P (MAP) Pulse Ox O2 Delivery O2 Flow Rate FiO2 11/12/18 14:00 97.4 88 18 133/87 (102) 97 Laboratory Data Labs 24H Laboratory Tests 2 11/12/18 06:31: Bedside Glucose (Misc Panel) 146H 11/12/18 11:28: Bedside Glucose (Misc Panel) 307H 11/12/18 16:46: Bedside Glucose (Misc Panel) 241H Current Medications Current Medications Current Medications Acetaminophen (Tylenol Tab) 650 mg Q4HP PRN PO fever/MILD PAIN (PS 1-4) Last administered on 11/11/18at 18:52; Start 10/24/18 at 16:30 Aspirin (Aspirin Chewable) 81 mg DAILY PO Last administered on 11/12/18 09:31; Start 10/25/18 at 09:00 Atenolol (Tenormin) 25 mg BID PO Last administered on 11/12/18at 09:31; Start 10/25/18 at 15:00 Atorvastatin Calcium (Lipitor) 80 mg QHS PO Last administered on 11/11/18at 21:45; Start 10/24/18 at 21:00 Benazepril HCl (Lotensin) 20 mg QPM PO Last administered on 11/11/18 21:45; Start 10/25/18 at 21:00 Dextrose (Dextrose 50%) 25 ml ASDIRECTED PRN IV SEE LABEL COMMENTS; Start 10/24/18 at 16:15; Stop 10/29/18 at 11:19; Status DC Dextrose (Dextrose 50%) 25 ml ASDIRECTED PRN IV SEE LABEL COMMENTS; Start 10/29/18 at 11:15 Docusate Sodium (Colace) 100 mg BID PO Last administered on 11/12/18 09:31; Start 10/24/18 at 21:00 Famotidine (Pepcid) 20 mg DAILY PO Last administered on 11/12/18 09:31; Start 10/25/18 at 09:00 Fluoxetine HCl (PROzac) 20 mg DAILY PO Last administered on 11/12/18 09:31; Start 10/25/18 at 09:00 Glucagon (Glucagon) 1 mg ASDIRECTED PRN SC SEE LABEL COMMENTS; Start 10/24/18 at 16:15; Stop 10/29/18 at 11:19; Status DC Glucagon (Glucagon) 1 mg ASDIRECTED PRN SC SEE LABEL COMMENTS; Start 10/29/18 at 11:15 Glucose (Glucose) 16 GM ASDIRECTED PRN PO SEE LABEL COMMENTS; Start 10/24/18 at 16:15; Stop 10/29/18 at 11:19; Status DC Glucose (Glucose) 16 GM ASDIRECTED PRN PO SEE LABEL COMMENTS; Start 10/29/18 at 11:15 Heparin Sodium (Porcine) (Heparin) 5,000 units Q8H SQ Last administered on 11/06/18at 05:41; Start 10/24/18 at 22:00; Stop 11/06/18 at 09:30; Status DC Insulin Detemir (Levemir Insulin) 5 units QHS SC Last administered on 10/24/18at 21:34; Start 10/24/18 at 21:00; Stop 10/25/18 at 13:03; Status DC Insulin Detemir (Levemir Insulin) 8 units DAILY SC ; Start 10/29/18 at 09:00; Stop 10/29/18 at 11:02; Status DC Insulin Detemir (Levemir Insulin) 10 units DAILY SC Last administered on 11/01/18at 08:30; Start 10/30/18 at 09:45; Stop 11/01/18 at 20:23; Status DC Insulin Detemir (Levemir Insulin) 12 units QHS SC Last administered on 10/26/18at 21:30; Start 10/25/18 at 21:00; Stop 10/27/18 at 11:48; Status DC Insulin Detemir (Levemir Insulin) 15 units DAILY SC Last administered on 11/04/18at 08:48; Start 11/02/18 at 09:00; Stop 11/04/18 at 14:17; Status DC Insulin Detemir (Levemir Insulin) 20 units DAILY SC Last administered on 11/12/18at 09:33; Start 11/05/18 at 09:00 Insulin Detemir (Levemir Insulin) 20 units QHS SC Last administered on 10/27/18at 21:35; Start 10/27/18 at 21:00; Stop 10/28/18 at 10:12; Status DC Insulin Detemir (Levemir Insulin) 25 units QHS SC Last administered on 10/28/18at 21:01; Start 10/28/18 at 21:00; Stop 10/29/18 at 11:17; Status DC Insulin Detemir (Levemir Insulin) 30 units QHS SC Last administered on 10/29/18at 21:57; Start 10/29/18 at 21:00; Stop 10/30/18 at 09:34; Status DC Insulin Detemir (Levemir Insulin) 36 units QHS SC Last administered on 10/30/18at 21:40; Start 10/30/18 at 21:00; Stop 10/31/18 at 07:18; Status DC Insulin Detemir (Levemir Insulin) 40 units QHS SC Last administered on 11/03/18 21:10; Start 10/31/18 at 21:00; Stop 11/04/18 at 10:24; Status DC Insulin Detemir (Levemir Insulin) 44 units QHS SC Last administered on 11/05/18at 20:41; Start 11/04/18 at 21:00; Stop 11/06/18 at 10:14; Status DC Insulin Detemir (Levemir Insulin) 46 units QHS SC Last administered on 11/07/18 22:30; Start 11/06/18 at 21:00; Stop 11/08/18 at 14:21; Status DC Insulin Detemir (Levemir Insulin) 50 units QHS SC Last administered on 11/11/18 21:46; Start 11/08/18 at 21:00 Insulin Human Lispro (HumaLOG INSULIN) 4 units AC SC Last administered on 11/01/18at 16:47; Start 10/28/18 at 17:30; Stop 11/01/18 at 20:23; Status DC Insulin Human Lispro (HumaLOG INSULIN) 6 units AC SC Last administered on 11/06/18at 12:07; Start 11/02/18 at 07:30; Stop 11/06/18 at 16:29; Status DC Insulin Human Lispro (HumaLOG INSULIN) 12 units AC SC Last administered on 11/08/18at 12:19; Start 11/06/18 at 17:30; Stop 11/08/18 at 14:21; Status DC Insulin Human Lispro (HumaLOG INSULIN) 18 units AC SC Last administered on 11/12/18at 17:20; Start 11/08/18 at 17:30 Insulin Human Lispro (HumaLOG INSULIN) SEE PROTOCOL TABLE AC SC Last administered on 11/12/18at 17:20; Start 10/24/18 at 17:30 Insulin Human Lispro (HumaLOG INSULIN) SEE PROTOCOL TABLE QHS SC Last administered on 10/26/18at 21:31; Start 10/24/18 at 21:00; Stop 10/27/18 at 11:48; Status DC Insulin Human Lispro (HumaLOG INSULIN) SEE PROTOCOL TABLE QHS SC Last administered on 11/11/18at 21:55; Start 10/29/18 at 21:00 Lidocaine (Lidoderm Patch) APPLY TO LEFT WRIST DAILY TD Last administered on 11/07/18at 09:33; Start 10/30/18 at 09:00; Stop 11/07/18 at 12:36; Status DC Miscellaneous (Unresolved Clarification Entry) SEE LABEL COMMENTS DAILY XX ; Start 11/06/18 at 09:00; Stop 11/06/18 at 09:33; Status DC Multivitamins (Theragram-M) 1 tab DAILY PO Last administered on 11/12/18 09:31; Start 10/25/18 at 09:00 Niacin (Niacin) 500 mg QHS PO ; Start 10/24/18 at 21:00; Stop 10/29/18 at 10:54; Status DC Niacin (Niaspan) 500 mg QHS PO Last administered on 11/11/18at 21:44; Start 10/29 at 21:00 Non-Formulary Medication ( See Comment Field Below ) REMOVE LIDODERM PATCH DAILY@21 XX Last administered on 11/05/18 20:42; Start 10/30/18 at 21:00; Stop 11/07/18 at 12:36; Status DC Ondansetron HCl (Zofran) 4 mg Q6HP PRN PO NAUSEA; Start 10/24/18 at 16:30; Stop 11/04/18 at 16:22; Status DC Polyethylene Glycol (Miralax) 1 pkt DAILYPRN PRN PO CONSTIPATION; Start 10/24/18 at 16:15 Senna (Senokot) 1 tab QHS PO Last administered on 11/11/18 21:44; Start 10/24/18 at 21:00 Sodium Chloride 1,000 ml @ 80 mls/hr [id number] IV Last administered on 10/26/18 04:02; Start 10/25/18 at 13:30; Stop 10/26/18 at 19:59; Status DC Trazodone HCl (Desyrel) 25 mg QHS PO Last administered on 11/11/18 21:44; Start 11/04/18 at 21:00 Trazodone HCl (Desyrel) 25 mg QHSP PRN PO INSOMNIA Last administered on 11/12/18 00:43; Start 11/04/18 at 16:30 Venlafaxine HCl (Effexor Xr) 75 mg DAILY PO Last administered on 11/12/18 09:31; Start 10/25/18 at 09:00 Zinc Oxide (Boudreauxs Butt Paste) APPLY TO BUTTOCK AREA BID TOP Last administered on 11/12/18 09:33; Start 10/30/18 at 09:00 PAUL YE MD Nov 12, 2018 20:24
[2018-11-12] MEDS: BENAZEPRIL 20 MG TAB PO SCH (20:41)
[2018-11-12] MEDS: traZODone 25MG PER 1/2 TABLET PO SCH (20:41)
[2018-11-12] MEDS: ATORVASTATIN 20 MG TAB PO SCH (20:41)
[2018-11-12] MEDS: SENNA 8.6 MG TAB (SENOKOT) PO SCH (20:41)
[2018-11-12] MEDS: NIACIN SR (NIASPAN) 500 MG TAB PO SCH (20:41)
[2018-11-13] MEDS: traZODone 25MG PER 1/2 TABLET PO PRN (00:06)
[2018-11-13 06:00] VITALS: BP 131/78
[2018-11-13 08:13] LABS: HEMATOCRIT 40.9 % (42.0-52.0); HEMOGLOBIN 13.8 g/dl (13.5-17.5); MEAN CORPUSCULAR HEMOGLOBIN 31.5 pg (27.0-33.0); MEAN CORPUSCULAR HGB CONC 33.7 g/dl (32.0-36.5); MEAN CORPUSCULAR VOLUME 93.4 fl (80.0-96.0); PLATELET COUNT, AUTOMATED 262 10^3/uL (150-450); RED BLOOD COUNT 4.38 10^6/uL (4.30-6.10)
[2018-11-13 08:17] LABS: WHITE BLOOD COUNT 15.6 10^3/uL (4.0-10.0)
[2018-11-13 08:30] LABS: CALCIUM LEVEL 9.2 MG/DL (8.8-10.2); CREATININE FOR GFR 1.39 MG/DL (0.70-1.30); GLOMERULAR FILTRATION RATE 54.1 (>49); POTASSIUM SERUM 3.9 MEQ/L (3.5-5.1)
[2018-11-13 08:50] LABS: EOSINOPHILS 4 % (0-5); LYMPHOCYTES 55 % (16-52); NEUTROPHILS 41 % (35-75); PLATELET ESTIMATE NORMAL (NORMAL)
[2018-11-13] MEDS: DOCUSATE SODIUM 100 MG CAP PO SCH ×2 (09:55→22:11)
[2018-11-13] MEDS: FLUoxetine 20 MG CAP PO SCH (09:55)
[2018-11-13] MEDS: ASPIRIN 81 MG CHEW TABLET PO SCH (09:55)
[2018-11-13] MEDS: MULTIVITAMINS/MINERALS THERAP 1 TAB PO SCH (09:55)
[2018-11-13] MEDS: FAMOTIDINE 20 MG TAB PO SCH (09:55)
[2018-11-13] MEDS: VENLAFAXINE **XR** 75MG CAPSULE PO SCH (09:55)
[2018-11-13] MEDS: ATENOLOL 25 MG TAB PO SCH ×2 (09:56→22:12)
[2018-11-13] MEDS: HumaLOG INSULIN (NovoLOG) PER UNIT SC SCH ×7 (09:57→21:00)
[2018-11-13] MEDS: LEVEMIR (INSULIN DETEMIR) 1 UNITS/0.01ML SC SCH ×2 (09:59→22:12)
[2018-11-13] MEDS: BOUDREAUX'S BUTT PASTE 4OZ TOP SCH ×2 (09:59→21:00)
[2018-11-13 14:00] VITALS: BP 123/69
--- NOTE | 2018-11-13 15:09 | IPNPDOC ---
Date Seen The patient was seen on 11/13/18. 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 He also had slipped out of his chair 10/26/18 sustaining left ankle fracture. Boot in place. Pt was transferred to the care of ARU, Dr Owen, 10/25/18. The pt is OOB, has been working with therapy, at bedside. Pt states he continues to feel stronger, has notices improvements with speech. Still tires easily. Splint applied to left wrist, XR negative for fracture. [facility], Dr Main is following pt for Lt ankle fracture, last seen 11/06/18. Boot in place. Denies any fevers, chills, Headache, Chest Pain, Shortness of breath, cough, palpitations, abdominal pain, N/V/D or changes in bowel or bladder habits. PAST MEDICAL HISTORY: Diabetes Hypertension Arthrosclerotic disease. Cardiac defibrillator. Cardiac stent Lower extremity stents. Dr Cunningham. Hyperlipidemia GERD PAST SURGICAL HISTORY: 4 cardiac stents Hernia repair PE: GEN: 67yo, appears stated age. Alert and oriented x 3. HEENT: Normocephalic, atraumatic. Sclera are nonicteric. Conjunctiva without injection. Moist mucous membranes. CHEST: Regular rate and rhythm, +S1, +S2 LUNGS: Clear to auscultation bilaterally. No wheezes, rales, or rhonchi. ABD: Round, soft, non-tender, non-distended. +Bowel sounds throughout. EXT: No lower extremity edema appreciated. Boot in place LLE. SKIN: [place], dry, warm. No rashes. NEURO: Alert and oriented x 3. Left sided weakness. 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 He also had slipped out of his chair 10/26/18 sustaining left ankle fracture. Boot in place. Pt was transferred to the care of ARU, Dr Owen, 10/25/18. Left facial weakness / left upper + lower extremity weakness/acute CVA. Patient unable to have MRI given that he has an pacemaker in place - CT head 10/22: 1. Acute right basal ganglia, internal capsule, right temporal and parietal lobe infarction with a small hemorrhagic component unchanged compared to the previous study. 2. Small vessel ischemic disease. 3. Mild volume loss. - CTA head 10/18: Extremely high grade stenosis right middle cerebral artery approximately 1.3 cm distal to its origin. - CTA Neck 10/18: There is occlusion of the right internal carotid artery from its origin to its distal end. Stenosis of the left carotid bulb in the range of about 70-80%. 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 The left vertebral artery is reconstituted at the C3 level with multifocal stenosis of its distal aspect. 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 Vascular surgery consulted, possibly consider possible endarterectomy in 4-6 weeks, Outpt F/U. Outpt F/U with Neurology. Mgmt as per ARU. PT/OT/ST as per ARU. Pain control/Bowel care as per ARU. DVT prophylaxis as per ARU. TEDS. SQ Heparin d/cd 11/06. Disposition as per ARU. Continue ASA and Atorvastatin Plan at time of d/c was to resume Plavix in next 2 weeks pending F/U imaging. CTH 11/05/18 Evolving right sided infarct involving the basal ganglia, anterior limb internal capsule, , as well as portions of the right temporal and parietal lobes. Previously noted more inferior area of hemorrhage within the infarct has resolved, while there is a new tiny linear area of more acute hemorrhage, more superiorly in the area of infarction. Electronically Signed by Mushtaq Davidson MD 11/05/2018 07:[address] 11/10/18 Hemorrhagic changes within the right basal ganglia infarct, somewhat increased in size and extent compared to the most recent prior study of November 05, 2018. Electronically Signed by Tylor Resendiz MD 11/10/2018 12:[address] 11/11/18The hemorrhagic component in the right basal ganglia infarct is unchanged from CT study of November 10, 2018 but increased compared to the hemorrhagic component in the infarct on November 05, 2018. No other new finding. Electronically Signed by Tylor Resendiz MD 11/11/2018 11:43 A Imaging was reviewed by Dr Owen and also to be forwarded to Neurology. Continue with neuro recommendation to hold off on restarting Plavix, cont with ASA 81mg daily for now. Consider neurology consultation if needed. Plan for repeat imaging. Pt with no changes in symptom status. Monitor. LLE ankle fracture Pt had slipped out of his chair 10/26/18 sustaining left ankle fracture. Mgmt as per Orthopedic Surgery, Dr Main. Boot ordered as per Orthopedic surgery. Pt reviewed by Orthopedics 11/04/18 with review of repeat imaging. XR Lt wrist unremarkable. Plan as per orthopedics is to continue with boot, WB as per orthopedics, repeat XR 1 week. Elevated Cr on CKD3 Cr trend 1.3-1.5. 11/09/18 1.39 leukocytosis. pt remains afebrile. CXR 10/29 with NAD. UA neg 10/30 UA 11/04 neg. Monitor. Systolic and Diastolic CHF, compensated. ECHO 10/19: EF 30%, G1DD Would advise caution with IVF. CAD ASA, Atorvastatin DLP Atorvastatin and Niacin IDDM2 SSI adjustments as per Dr Owen. HTN Benazepril Atenolol Mood disorder Venlafaxine GERD VS, I&O, 24H, Fishbone Vital Signs/I&O Vital Signs Date Time Temp Pulse Resp B/P (MAP) Pulse Ox O2 Delivery O2 Flow Rate FiO2 11/13/18 09:56 75 131/78 11/13/18 06:00 97.8 18 98 I&O- Last 24 Hours up to 6 AM 11/13/18 06:00 Intake Total 1665 ml Output Total 175 ml Balance 1490 ml Laboratory Data 24H LABS Laboratory Tests 2 11/12/18 16:46: Bedside Glucose (Misc Panel) 241H 11/12/18 20:21: Bedside Glucose (Misc Panel) 309H 11/13/18 05:46: Bedside Glucose (Misc Panel) 98 11/13/18 07:24: White Blood Count 15.6H, Red Blood Count 4.38, Hemoglobin 13.8, Hematocrit 40.9L, Mean Corpuscular Volume 93.4, Mean Corpuscular Hemoglobin 31.5, Mean Corpuscular Hemoglobin Concent 33.7, Red Cell Distribution Width 12.3, Platelet Count 262, Lymphocytes # (Auto) , Nucleated Red Blood Cells % (auto) 0.0, Neutrophils 41, Lymphocytes (Manual) 55H, Eosinophils (Manual) 4, Platelet Estimate NORMAL, Red Blood Cell Morphology NORMAL, Anion Gap 9, Glomerular Filtration Rate 54.1, Blood Urea Nitrogen 27H, Creatinine 1.39H, Sodium Level 140, Potassium Level 3.9, Chloride Level 106, Carbon Dioxide Level 25, Calcium Level 9.2 11/13/18 11:30: Bedside Glucose (Misc Panel) 230H CBC/BMP Laboratory Tests 11/13/18 07:24 Red Blood Count 4.38, Mean Corpuscular Volume 93.4, Mean Corpuscular Hemoglobin 31.5, Mean Corpuscular Hemoglobin Concent 33.7, Red Cell Distribution Width 12.3, Lymphocytes # (Auto) , Calcium Level 9.2 Margaret Hsieh Nov 13, 2018 15:09
[2018-11-13 20:00] VITALS: BP 140/70
[2018-11-13] MEDS: traZODone 25MG PER 1/2 TABLET PO SCH (22:11)
[2018-11-13] MEDS: SENNA 8.6 MG TAB (SENOKOT) PO SCH (22:11)
[2018-11-13] MEDS: NIACIN SR (NIASPAN) 500 MG TAB PO SCH (22:11)
[2018-11-13] MEDS: ATORVASTATIN 20 MG TAB PO SCH (22:11)
[2018-11-13] MEDS: BENAZEPRIL 20 MG TAB PO SCH (22:12)
[2018-11-14 06:00] VITALS: BP 154/75
[2018-11-14] MEDS: HumaLOG INSULIN (NovoLOG) PER UNIT SC SCH ×7 (08:47→22:18)
[2018-11-14] MEDS: LEVEMIR (INSULIN DETEMIR) 1 UNITS/0.01ML SC SCH ×2 (08:47→22:20)
[2018-11-14] MEDS: ASPIRIN 81 MG CHEW TABLET PO SCH (08:48)
[2018-11-14] MEDS: BOUDREAUX'S BUTT PASTE 4OZ TOP SCH ×2 (08:48→22:20)
[2018-11-14] MEDS: MULTIVITAMINS/MINERALS THERAP 1 TAB PO SCH (08:48)
[2018-11-14] MEDS: ATENOLOL 25 MG TAB PO SCH ×2 (08:48→22:19)
[2018-11-14] MEDS: FAMOTIDINE 20 MG TAB PO SCH (08:48)
[2018-11-14] MEDS: VENLAFAXINE **XR** 75MG CAPSULE PO SCH (08:48)
[2018-11-14] MEDS: FLUoxetine 20 MG CAP PO SCH (08:48)
[2018-11-14] MEDS: DOCUSATE SODIUM 100 MG CAP PO SCH ×2 (08:49→22:19)
[2018-11-14 14:00] VITALS: BP 130/69
--- NOTE | 2018-11-14 16:59 | IPNPDOC ---
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 REVIEW OF SYSTEMS: The following is a completed review of systems and has been reviewed. Review of systems otherwise unremarkable. PAIN: Patient self reports no pain EYES: Negative for recent vision loss EARS, NOSE, & THROAT: +dysphagia(improving) CARDIOVASCULAR: denies chest pain or palpitations PULMONARY: Negative. Denies shortness of breath GASTROINTESTINAL: Negative for diarrhea or constipation GENITOURINARY: Negative for dysuria or hematuria NEUROLOGICAL: left sided paresis MSK: left ankle fracture HEMATOLOGICAL: Negative SKIN: no rash or skin breakdown PSYCHIATRIC: Unremarkable All other review of systems found to be negative. PHYSICAL EXAMINATION: VITAL SIGNS: Please see below. GENERAL: Pleasant and cooperative. No acute distress. HEENT: PERRL. Extraocular movements intact. Clear conjunctiva, left facial droop CARDIOVASCULAR: Regular rate and rhythm. No murmurs, rubs, or gallops, +TTP left chest wall at the costo-sternal joint LUNGS: Clear to auscultation bilaterally. No wheezes. No rhonchi. ABDOMEN: Soft, nontender, nondistended. Positive bowel sounds. Normal active bowel sounds. NEUROLOGICAL: Alert and oriented times three. Cranial nerves II through XII grossly intact. Sensation grossly intact. EXTREMITIES: 5\\5 strength right upper extremities. Left biceps 2+/5, triceps 2+/5, wrist extension1/5, fixed route operator 2/5, 5\\5 strength right lower extremity. 3/5 strength in left hip flexors, 3/5 knee extensors, ankle DF and EHL unable to be tested left wrist non-tender to palpation, however pain with valgus strain SKIN:+blanchable erythematous area dorsum of left foot, medial ankle resolved- covered with mepilex ASSESSMENT:67-year-old M with past medical history of CAD, DM, PAD who presents status post stroke with hemorrhagic conversion. PLAN: 1. Rehab: PT/OT, F[employer]ER[employer]AT [employer]KER, assess for DME needs, working on [id number], continue left wrist splint and left shoulder taping, better left knee stability in therapy -upgraded to regular diet 2. Neuro: s/p MCA territory stroke in the setting of "Extremely high grade stenosis right middle cerebral artery approximately 1.3 cm distal to its origin." and right ICA occlusion with hemorrhagic conversion, Plavix being held, continue ASA and statin therapy, avoid hypoperfusion -Prozac for motor recovery, monitor for serotonin syndrome with concurrent Effexors-stable -repeat CT11/05/18 showed new linear hemorrhage discussed with Dr. Osorio who recommended continue to hold Plavix and repeat imaging in a few days before considering restarting-will also hold prophylactic c heparin -repeat CTH 11/10/18 showed evolving hemorrhage in original infarcted region, CTH 11/11/18 showing, "hemorrhagic component in the right basal ganglia infarct is unchanged from CT study of November 10, 2018 but increased compared to the hemorrhagic component in the infarct on November 05, 2018"-will c/u ASA and plan for repeat cth in 2 weeks on 11/25 and obtain o/p neuro f/u to monitor -will need outpatient follow-up with Dr Porras for CEA in 4-6 weeks 3. Cardio: systolic and diastolic CHF with EF of 30% with defibrillator- medicine consulted, continue Atenolol and Benazepril with holding parameters -patient reported focal chest pain 11/04/18 with deep inhalation able to point to it with one finger and exam consistent with costochondritis treat with Tylenol-resolved 4. Resp: Monitor for infection, encourage incentive spirometry-stable -CXR 10/30/18 shows no active disease, no cough, no fever 5. Renal: CKD , s/p gentle hydration-stable 6. Endo: pmh uncontrolled DM, will increase evening Detemir to 40 units, add HS coverage and increased daily long-acting coverage, continue consistent carb diet and d/c glucerna, will continue to monitor and adjust prn-better 7. : admission UA and Ucx negative, monitor PVRs 8. DVT ppx: hold heparin, continue TEDs 9. Psych: pmh depression continue Effexor, episodes of delirium discussed this with patient's and will order repeat UA and optimize sleep-wake cycle and to look for infectious source, patient continue to be lucid on my exam today- repeat UA negative 10. 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 Main and discussed with patient, continue CAM boot and WBAT 11. Sleep: patient reporting insomnia- continue trazodone-improving 10. Dispo: 11/24/18 to home, progressing towards goals, home eval for next week Allergies Coded Allergies: No Known Allergies (Unverified , 10/18/18) Vital Signs Vital Signs Date Time Temp Pulse Resp B/P (MAP) Pulse Ox O2 Delivery O2 Flow Rate FiO2 11/14/18 08:48 77 154/75 11/14/18 06:00 97.1 18 96 Laboratory Data Labs 24H Laboratory Tests 2 11/13/18 16:54: Bedside Glucose (Misc Panel) 147H 11/13/18 20:09: Bedside Glucose (Misc Panel) 200H 11/14/18 07:59: Bedside Glucose (Misc Panel) 295H 11/14/18 12:15: Bedside Glucose (Misc Panel) 179H Current Medications Current Medications Current Medications Acetaminophen (Tylenol Tab) 650 mg Q4HP PRN PO fever/MILD PAIN (PS 1-4) Last administered on 11/11/18at 18:52; Start 10/24/18 at 16:30 Aspirin (Aspirin Chewable) 81 mg DAILY PO Last administered on 11/14/18at 08:48; Start 10/25/18 at 09:00 Atenolol (Tenormin) 25 mg BID PO Last administered on 11/14/18at 08:48; Start 10/25/18 at 15:00 Atorvastatin Calcium (Lipitor) 80 mg QHS PO Last administered on 11/13/18at 22:11; Start 10/24/18 at 21:00 Benazepril HCl (Lotensin) 20 mg QPM PO Last administered on 11/13/18at 22:12; Start 10/25/18 at 21:00 Dextrose (Dextrose 50%) 25 ml ASDIRECTED PRN IV SEE LABEL COMMENTS; Start 10/24/18 at 16:15; Stop 10/29/18 at 11:19; Status DC Dextrose (Dextrose 50%) 25 ml ASDIRECTED PRN IV SEE LABEL COMMENTS; Start 10/29/18 at 11:15 Docusate Sodium (Colace) 100 mg BID PO Last administered on 11/13/18at 22:11; Start 10/24/18 at 21:00 Famotidine (Pepcid) 20 mg DAILY PO Last administered on 11/14/18at 08:48; Start 10/25/18 at 09:00 Fluoxetine HCl (PROzac) 20 mg DAILY PO Last administered on 11/14/18at 08:48; Start 10/25/18 at 09:00 Glucagon (Glucagon) 1 mg ASDIRECTED PRN SC SEE LABEL COMMENTS; Start 10/24/18 at 16:15; Stop 10/29/18 at 11:19; Status DC Glucagon (Glucagon) 1 mg ASDIRECTED PRN SC SEE LABEL COMMENTS; Start 10/29/18 at 11:15 Glucose (Glucose) 16 GM ASDIRECTED PRN PO SEE LABEL COMMENTS; Start 10/24/18 at 16:15; Stop 10/29/18 at 11:19; Status DC Glucose (Glucose) 16 GM ASDIRECTED PRN PO SEE LABEL COMMENTS; Start 10/29/18 at 11:15 Heparin Sodium (Porcine) (Heparin) 5,000 units Q8H SQ Last administered on 11/06/18at 05:41; Start 10/24/18 at 22:00; Stop 11/06/18 at 09:30; Status DC Insulin Detemir (Levemir Insulin) 5 units QHS SC Last administered on 10/24/18at 21:34; Start 10/24/18 at 21:00; Stop 10/25/18 at 13:03; Status DC Insulin Detemir (Levemir Insulin) 8 units DAILY SC ; Start 10/29/18 at 09:00; Stop 10/29/18 at 11:02; Status DC Insulin Detemir (Levemir Insulin) 10 units DAILY SC Last administered on 11/01/18at 08:30; Start 10/30/18 at 09:45; Stop 11/01/18 at 20:23; Status DC Insulin Detemir (Levemir Insulin) 12 units QHS SC Last administered on 10/26/18at 21:30; Start 10/25/18 at 21:00; Stop 10/27/18 at 11:48; Status DC Insulin Detemir (Levemir Insulin) 15 units DAILY SC Last administered on 11/04/18at 08:48; Start 11/02/18 at 09:00; Stop 11/04/18 at 14:17; Status DC Insulin Detemir (Levemir Insulin) 20 units DAILY SC Last administered on 11/14/18at 08:47; Start 11/05/18 at 09:00 Insulin Detemir (Levemir Insulin) 20 units QHS SC Last administered on 10/27/18at 21:35; Start 10/27/18 at 21:00; Stop 10/28/18 at 10:12; Status DC Insulin Detemir (Levemir Insulin) 25 units QHS SC Last administered on 10/28/18at 21:01; Start 10/28/18 at 21:00; Stop 10/29/18 at 11:17; Status DC Insulin Detemir (Levemir Insulin) 30 units QHS SC Last administered on 10/29/18 at 21:57; Start 10/29/18 at 21:00; Stop 10/30/18 at 09:34; Status DC Insulin Detemir (Levemir Insulin) 36 units QHS SC Last administered on 10/30/18at 21:40; Start 10/30/18 at 21:00; Stop 10/31/18 at 07:18; Status DC Insulin Detemir (Levemir Insulin) 40 units QHS SC Last administered on 11/03/18at 21:10; Start 10/31/18 at 21:00; Stop 11/04/18 at 10:24; Status DC Insulin Detemir (Levemir Insulin) 44 units QHS SC Last administered on 11/05/18at 20:41; Start 11/04/18 at 21:00; Stop 11/06/18 at 10:14; Status DC Insulin Detemir (Levemir Insulin) 46 units QHS SC Last administered on 11/07/18at 22:30; Start 11/06/18 at 21:00; Stop 11/08/18 at 14:21; Status DC Insulin Detemir (Levemir Insulin) 50 units QHS SC Last administered on 11/13/18at 22:12; Start 11/08/18 at 21:00 Insulin Human Lispro (HumaLOG INSULIN) 4 units AC SC Last administered on 11/01/18at 16:47; Start 10/28/18 at 17:30; Stop 11/01/18 at 20:23; Status DC Insulin Human Lispro (HumaLOG INSULIN) 6 units AC SC Last administered on 11/06/18at 12:07; Start 11/02/18 at 07:30; Stop 11/06/18 at 16:29; Status DC Insulin Human Lispro (HumaLOG INSULIN) 12 units AC SC Last administered on 11/08/18at 12:19; Start 11/06/18 at 17:30; Stop 11/08/18 at 14:21; Status DC Insulin Human Lispro (HumaLOG INSULIN) 18 units AC SC Last administered on 11/14/18at 12:33; Start 11/08/18 at 17:30 Insulin Human Lispro (HumaLOG INSULIN) SEE PROTOCOL TABLE AC SC Last administered on 11/14/18at 12:32; Start 10/24/18 at 17:30 Insulin Human Lispro (HumaLOG INSULIN) SEE PROTOCOL TABLE QHS SC Last administered on 10/26/18at 21:31; Start 10/24/18 at 21:00; Stop 10/27/18 at 11:48; Status DC Insulin Human Lispro (HumaLOG INSULIN) SEE PROTOCOL TABLE QHS SC Last administered on 11/12/18at 20:44; Start 10/29/18 at 21:00 Lidocaine (Lidoderm Patch) APPLY TO LEFT WRIST DAILY TD Last administered on 11/07/18 09:33; Start 10/30/18 at 09:00; Stop 11/07/18 at 12:36; Status DC Miscellaneous (Unresolved Clarification Entry) SEE LABEL COMMENTS DAILY XX ; Start 11/06/18 at 09:00; Stop 11/06/18 at 09:33; Status DC Multivitamins (Theragram-M) 1 tab DAILY PO Last administered on 11/14/18at 08:48; Start 10/25/18 at 09:00 Niacin (Niacin) 500 mg QHS PO ; Start 10/24/18 at 21:00; Stop 10/29/18 at 10:54; Status DC Niacin (Niaspan) 500 mg QHS PO Last administered on 11/13/18at 22:11; Start 10/29/18 at 21:00 Non-Formulary Medication ( See Comment Field Below ) REMOVE LIDODERM PATCH DAILY@21 XX Last administered on 11/05/18 20:42; Start 10/30/18 at 21:00; Stop 11/07/18 at 12:36; Status DC Ondansetron HCl (Zofran) 4 mg Q6HP PRN PO NAUSEA; Start 10/24/18 at 16:30; Stop 11/04/18 at 16:22; Status DC Polyethylene Glycol (Miralax) 1 pkt DAILYPRN PRN PO CONSTIPATION; Start 10/24/18 at 16:15 Senna (Senokot) 1 tab QHS PO Last administered on 11/13/18 22:11; Start 10/24/18 at 21:00 Sodium Chloride 1,000 ml @ 80 mls/hr [id number] IV Last administered on 10/26/18 04:02; Start 10/25/18 at 13:30; Stop 10/26/18 at 19:59; Status DC Trazodone HCl (Desyrel) 25 mg QHS PO Last administered on 11/13/18 22:11; Start 11/04/18 at 21:00 Trazodone HCl (Desyrel) 25 mg QHSP PRN PO INSOMNIA Last administered on 11/13/18 00:06; Start 11/04/18 at 16:30 Venlafaxine HCl (Effexor Xr) 75 mg DAILY PO Last administered on 11/14/18 08:48; Start 10/25/18 at 09:00 Zinc Oxide (Boudreauxs Butt Paste) APPLY TO BUTTOCK AREA BID TOP Last administered on 11/14/18 08:48; Start 10/30/18 at 09:00 PAUL YE MD Nov 14, 2018 16:59
--- NOTE | 2018-11-14 17:00 | IPNPDOC ---
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 REVIEW OF SYSTEMS: The following is a completed review of systems and has been reviewed. Review of systems otherwise unremarkable. PAIN: Patient self reports no pain EYES: Negative for recent vision loss EARS, NOSE, & THROAT: +dysphagia(improving) CARDIOVASCULAR: denies chest pain or palpitations PULMONARY: Negative. Denies shortness of breath GASTROINTESTINAL: Negative for diarrhea or constipation GENITOURINARY: Negative for dysuria or hematuria NEUROLOGICAL: left sided paresis MSK: left ankle fracture HEMATOLOGICAL: Negative SKIN: no rash or skin breakdown PSYCHIATRIC: Unremarkable All other review of systems found to be negative. PHYSICAL EXAMINATION: VITAL SIGNS: Please see below. GENERAL: Pleasant and cooperative. No acute distress. HEENT: PERRL. Extraocular movements intact. Clear conjunctiva, left facial droop CARDIOVASCULAR: Regular rate and rhythm. No murmurs, rubs, or gallops, +TTP left chest wall at the costo-sternal joint LUNGS: Clear to auscultation bilaterally. No wheezes. No rhonchi. ABDOMEN: Soft, nontender, nondistended. Positive bowel sounds. Normal active bowel sounds. NEUROLOGICAL: Alert and oriented times three. Cranial nerves II through XII grossly intact. Sensation grossly intact. EXTREMITIES: 5\\5 strength right upper extremities. Left biceps 2+/5, triceps 2+/5, wrist extension1/5, java grails developer 2/5, 5\\5 strength right lower extremity. 3/5 strength in left hip flexors, 3/5 knee extensors, ankle DF and EHL unable to be tested left wrist non-tender to palpation, however pain with valgus strain SKIN:+blanchable erythematous area dorsum of left foot, medial ankle resolved- covered with mepilex ASSESSMENT:67-year-old M with past medical history of CAD, DM, PAD who presents status post stroke with hemorrhagic conversion. PLAN: 1. 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 Neuro: s/p MCA territory stroke in the setting of "Extremely high grade stenosis right middle cerebral artery approximately 1.3 cm distal to its origin." and right ICA occlusion with hemorrhagic conversion, Plavix being held, continue ASA and statin therapy, avoid hypoperfusion -Prozac for motor recovery, monitor for serotonin syndrome with concurrent Effexors-stable -repeat CT11/05/18 showed new linear hemorrhage discussed with Dr. Osorio who recommended continue to hold Plavix and repeat imaging in a few days before considering restarting-will also hold prophylactic c heparin -repeat CTH 11/10/18 showed evolving hemorrhage in original infarcted region, CTH 11/11/18 showing, "hemorrhagic component in the right basal ganglia infarct is unchanged from CT study of November 10, 2018 but increased compared to the hemorrhagic component in the infarct on November 05, 2018"-will c/u ASA and plan for repeat cth in 2 weeks on 11/25 and obtain o/p neuro f/u to monitor -will need outpatient follow-up with Dr Porras for CEA in 4-6 weeks 3. Cardio: systolic and diastolic CHF with EF of 30% with defibrillator- medicine consulted, continue Atenolol and Benazepril with holding parameters -patient reported focal chest pain 11/04/18 with deep inhalation able to point to it with one finger and exam consistent with costochondritis treat with Tylenol- resolved 4. Resp: Monitor for infection, encourage incentive spirometry-stable -CXR 10/30/18 shows no active disease, no cough, no fever 5. Renal: CKD , s/p gentle hydration-stable 6. Endo: pmh uncontrolled DM, will increase evening Detemir to 40 units, add HS coverage and increased daily long-acting coverage, continue consistent carb diet and d/c glucerna, will continue to monitor and adjust prn-better 7. : admission UA and Ucx negative, monitor PVRs 8. DVT ppx: hold heparin, continue TEDs 9. Psych: pmh depression continue Effexor, episodes of delirium discussed this with patient's and will order repeat UA and optimize sleep-wake cycle and to look for infectious source, patient continue to be lucid on my exam today- repeat UA negative 10. Ortho: s/p fall on 10/25/18 with left ankle fracture, CAM boot placed, WBAT, mold closer and ortho recs appreciated, monitor for skin breakdown, mepilex applied to left ankle, sock removed -left shoulder pain-improves with taping, encouraging patient and therapists to work on scapular retraction -left wrist pain- recent XRs negative for fracture, no swelling suspect ligamental injury, will continue splint- requesting to stop lidoderm patch -repeat ankle X-ray ordered showing mild lateral malleoli displacement, reviewed by Dr. Main and discussed with patient, continue CAM boot and WBAT 11. Sleep: patient reporting insomnia- continue trazodone-improving 10. Dispo: 11/24/18 to home, progressing towards goals, home eval for next week Allergies Coded Allergies: No Known Allergies (Unverified , 10/18/18) Vital Signs Vital Signs Date Time Temp Pulse Resp B/P (MAP) Pulse Ox O2 Delivery O2 Flow Rate FiO2 11/14/18 14:00 97.8 83 18 130/69 (89) 98 Laboratory Data Labs 24H Laboratory Tests 2 11/13/18 20:09: Bedside Glucose (Misc Panel) 200H 11/14/18 07:59: Bedside Glucose (Misc Panel) 295H 11/14/18 12:15: Bedside Glucose (Misc Panel) 179H 11/14/18 16:26: Bedside Glucose (Misc Panel) 218H Current Medications Current Medications Current Medications Acetaminophen (Tylenol Tab) 650 mg Q4HP PRN PO fever/MILD PAIN (PS 1-4) Last administered on 11/11/18at 18:52; Start 10/24/18 at 16:30 Aspirin (Aspirin Chewable) 81 mg DAILY PO Last administered on 11/14/18at 08:48; Start 10/25/18 at 09:00 Atenolol (Tenormin) 25 mg BID PO Last administered on 11/14/18at 08:48; Start 10/25/18 at 15:00 Atorvastatin Calcium (Lipitor) 80 mg QHS PO Last administered on 11/13/18 22:11; Start 10/24/18 at 21:00 Benazepril HCl (Lotensin) 20 mg QPM PO Last administered on 11/13/18at 22:12; Start 10/25/18 at 21:00 Dextrose (Dextrose 50%) 25 ml ASDIRECTED PRN IV SEE LABEL COMMENTS; Start 10/24/18 at 16:15; Stop 10/29/18 at 11:19; Status DC Dextrose (Dextrose 50%) 25 ml ASDIRECTED PRN IV SEE LABEL COMMENTS; Start 10/29/18 at 11:15 Docusate Sodium (Colace) 100 mg BID PO Last administered on 11/13/18at 22:11; Start 10/24/18 at 21:00 Famotidine (Pepcid) 20 mg DAILY PO Last administered on 11/14/18at 08:48; Start 10/25/18 at 09:00 Fluoxetine HCl (PROzac) 20 mg DAILY PO Last administered on 11/14/18at 08:48; Start 10/25/18 at 09:00 Glucagon (Glucagon) 1 mg ASDIRECTED PRN SC SEE LABEL COMMENTS; Start 10/24/18 at 16:15; Stop 10/29/18 at 11:19; Status DC Glucagon (Glucagon) 1 mg ASDIRECTED PRN SC SEE LABEL COMMENTS; Start 10/29/18 at 11:15 Glucose (Glucose) 16 GM ASDIRECTED PRN PO SEE LABEL COMMENTS; Start 10/24/18 at 16:15; Stop 10/29/18 at 11:19; Status DC Glucose (Glucose) 16 GM ASDIRECTED PRN PO SEE LABEL COMMENTS; Start 10/29/18 at 11:15 Heparin Sodium (Porcine) (Heparin) 5,000 units Q8H SQ Last administered on 11/06/18at 05:41; Start 10/24/18 at 22:00; Stop 11/06/18 at 09:30; Status DC Insulin Detemir (Levemir Insulin) 5 units QHS SC Last administered on 10/24/18at 21:34; Start 10/24/18 at 21:00; Stop 10/25/18 at 13:03; Status DC Insulin Detemir (Levemir Insulin) 8 units DAILY SC ; Start 10/29/18 at 09:00; Stop 10/29/18 at 11:02; Status DC Insulin Detemir (Levemir Insulin) 10 units DAILY SC Last administered on 11/01/18at 08:30; Start 10/30/18 at 09:45; Stop 11/01/18 at 20:23; Status DC Insulin Detemir (Levemir Insulin) 12 units QHS SC Last administered on 10/26/18at 21:30; Start 10/25/18 at 21:00; Stop 10/27/18 at 11:48; Status DC Insulin Detemir (Levemir Insulin) 15 units DAILY SC Last administered on 11/04/18at 08:48; Start 11/02/18 at 09:00; Stop 11/04/18 at 14:17; Status DC Insulin Detemir (Levemir Insulin) 20 units DAILY SC Last administered on 11/14/18at 08:47; Start 11/05/18 at 09:00 Insulin Detemir (Levemir Insulin) 20 units QHS SC Last administered on 10/27/18at 21:35; Start 10/27/18 at 21:00; Stop 10/28/18 at 10:12; Status DC Insulin Detemir (Levemir Insulin) 25 units QHS SC Last administered on 10/28/18at 21:01; Start 10/28/18 at 21:00; Stop 10/29/18 at 11:17; Status DC Insulin Detemir (Levemir Insulin) 30 units QHS SC Last administered on 10/29/18at 21:57; Start 10/29/18 at 21:00; Stop 10/30/18 at 09:34; Status DC Insulin Detemir (Levemir Insulin) 36 units QHS SC Last administered on 10/30/18at 21:40; Start 10/30/18 at 21:00; Stop 10/31/18 at 07:18; Status DC Insulin Detemir (Levemir Insulin) 40 units QHS SC Last administered on 11/03/18at 21:10; Start 10/31/18 at 21:00; Stop 11/04/18 at 10:24; Status DC Insulin Detemir (Levemir Insulin) 44 units QHS SC Last administered on 11/05/18at 20:41; Start 11/04/18 at 21:00; Stop 11/06/18 at 10:14; Status DC Insulin Detemir (Levemir Insulin) 46 units QHS SC Last administered on 11/07/18at 22:30; Start 11/06/18 at 21:00; Stop 11/08/18 at 14:21; Status DC Insulin Detemir (Levemir Insulin) 50 units QHS SC Last administered on 11/13/18at 22:12; Start 11/08/18 at 21:00 Insulin Human Lispro (HumaLOG INSULIN) 4 units AC SC Last administered on 11/01/18at 16:47; Start 10/28/18 at 17:30; Stop 11/01/18 at 20:23; Status DC Insulin Human Lispro (HumaLOG INSULIN) 6 units AC SC Last administered on 11/06/18at 12:07; Start 11/02/18 at 07:30; Stop 11/06/18 at 16:29; Status DC Insulin Human Lispro (HumaLOG INSULIN) 12 units AC SC Last administered on 11/08/18at 12:19; Start 11/06/18 at 17:30; Stop 11/08/18 at 14:21; Status DC Insulin Human Lispro (HumaLOG INSULIN) 18 units AC SC Last administered on 11/14/18at 12:33; Start 11/08/18 at 17:30 Insulin Human Lispro (HumaLOG INSULIN) SEE PROTOCOL TABLE AC SC Last administered on 11/14/18at 12:32; Start 10/24/18 at 17:30 Insulin Human Lispro (HumaLOG INSULIN) SEE PROTOCOL TABLE QHS SC Last administered on 10/26/18at 21:31; Start 10/24/18 at 21:00; Stop 10/27/18 at 11:48; Status DC Insulin Human Lispro (HumaLOG INSULIN) SEE PROTOCOL TABLE QHS SC Last admini stered on 11/12/18at 20:44; Start 10/29/18 at 21:00 Lidocaine (Lidoderm Patch) APPLY TO LEFT WRIST DAILY TD Last administered on 11/07/18at 09:33; Start 10/30/18 at 09:00; Stop 11/07/18 at 12:36; Status DC Miscellaneous (Unresolved Clarification Entry) SEE LABEL COMMENTS DAILY XX ; Start 11/06/18 at 09:00; Stop 11/06/18 at 09:33; Status DC Multivitamins (Theragram-M) 1 tab DAILY PO Last administered on 11/14/18at 08:48; Start 10/25/18 at 09:00 Niacin (Niacin) 500 mg QHS PO ; Start 10/24/18 at 21:00; Stop 10/29/18 at 10:54; Status DC Niacin (Niaspan) 500 mg QHS PO Last administered on 11/13/18 22:11; Start 10/29/18 at 21:00 Non-Formulary Medication ( See Comment Field Below ) REMOVE LIDODERM PATCH DAILY@21 XX Last administered on 11/05/18 20:42; Start 10/30/18 at 21:00; Stop 11/07/18 at 12:36; Status DC Ondansetron HCl (Zofran) 4 mg Q6HP PRN PO NAUSEA; Start 10/24/18 at 16:30; Stop 11/04/18 at 16:22; Status DC Polyethylene Glycol (Miralax) 1 pkt DAILYPRN PRN PO CONSTIPATION; Start 10/24/18 at 16:15 Senna (Senokot) 1 tab QHS PO Last administered on 11/13/18 22:11; Start 10/24/18 at 21:00 Sodium Chloride 1,000 ml @ 80 mls/hr [id number] IV Last administered on 10/26/18 04:02; Start 10/25/18 at 13:30; Stop 10/26/18 at 19:59; Status DC Trazodone HCl (Desyrel) 25 mg QHS PO Last administered on 11/13/18 22:11; Start 11/04/18 at 21:00 Trazodone HCl (Desyrel) 25 mg QHSP PRN PO INSOMNIA Last administered on 11/13/18 00:06; Start 11/04/18 at 16:30 Venlafaxine HCl (Effexor Xr) 75 mg DAILY PO Last administered on 11/14/18 08:48; Start 10/25/18 at 09:00 Zinc Oxide (Boudreauxs Butt Paste) APPLY TO BUTTOCK AREA BID TOP Last administered on 11/14/18 08:48; Start 10/30/18 at 09:00 PAUL YE MD Nov 14, 2018 17:00
[2018-11-14 20:40] VITALS: BP 117/64
[2018-11-14] MEDS: NIACIN SR (NIASPAN) 500 MG TAB PO SCH (22:17)
[2018-11-14] MEDS: ATORVASTATIN 20 MG TAB PO SCH (22:17)
[2018-11-14] MEDS: BENAZEPRIL 20 MG TAB PO SCH (22:18)
[2018-11-14] MEDS: SENNA 8.6 MG TAB (SENOKOT) PO SCH (22:19)
[2018-11-14] MEDS: traZODone 25MG PER 1/2 TABLET PO SCH (22:20)
[2018-11-15 07:00] VITALS: BP 153/78
[2018-11-15] MEDS: HumaLOG INSULIN (NovoLOG) PER UNIT SC SCH ×7 (07:30→21:00)
[2018-11-15] MEDS: LEVEMIR (INSULIN DETEMIR) 1 UNITS/0.01ML SC SCH ×2 (08:50→22:09)
[2018-11-15] MEDS: DOCUSATE SODIUM 100 MG CAP PO SCH ×2 (09:28→22:07)
[2018-11-15] MEDS: ATENOLOL 25 MG TAB PO SCH ×2 (09:29→22:10)
[2018-11-15] MEDS: FLUoxetine 20 MG CAP PO SCH (09:29)
[2018-11-15] MEDS: MULTIVITAMINS/MINERALS THERAP 1 TAB PO SCH (09:29)
[2018-11-15] MEDS: VENLAFAXINE **XR** 75MG CAPSULE PO SCH (09:29)
[2018-11-15] MEDS: FAMOTIDINE 20 MG TAB PO SCH (09:29)
[2018-11-15] MEDS: BOUDREAUX'S BUTT PASTE 4OZ TOP SCH ×2 (09:29→22:10)
[2018-11-15] MEDS: ASPIRIN 81 MG CHEW TABLET PO SCH (09:29)
[2018-11-15 14:00] VITALS: BP 140/79
[2018-11-15 20:00] VITALS: BP 158/88
[2018-11-15] MEDS: traZODone 25MG PER 1/2 TABLET PO SCH (22:07)
[2018-11-15] MEDS: ATORVASTATIN 20 MG TAB PO SCH (22:08)
[2018-11-15] MEDS: NIACIN SR (NIASPAN) 500 MG TAB PO SCH (22:08)
[2018-11-15] MEDS: SENNA 8.6 MG TAB (SENOKOT) PO SCH (22:08)
[2018-11-15] MEDS: BENAZEPRIL 20 MG TAB PO SCH (22:10)
[2018-11-15] MEDS: traZODone 25MG PER 1/2 TABLET PO PRN (23:55)
[2018-11-16 06:00] VITALS: BP 121/67
[2018-11-16] MEDS: HumaLOG INSULIN (NovoLOG) PER UNIT SC SCH ×7 (07:30→20:34)
[2018-11-16] MEDS: VENLAFAXINE **XR** 75MG CAPSULE PO SCH (09:11)
[2018-11-16] MEDS: DOCUSATE SODIUM 100 MG CAP PO SCH ×2 (09:11→21:17)
[2018-11-16] MEDS: ASPIRIN 81 MG CHEW TABLET PO SCH (09:11)
[2018-11-16] MEDS: FAMOTIDINE 20 MG TAB PO SCH (09:11)
[2018-11-16] MEDS: MULTIVITAMINS/MINERALS THERAP 1 TAB PO SCH (09:11)
[2018-11-16] MEDS: FLUoxetine 20 MG CAP PO SCH (09:11)
[2018-11-16] MEDS: ATENOLOL 25 MG TAB PO SCH ×2 (09:11→21:18)
[2018-11-16] MEDS: LEVEMIR (INSULIN DETEMIR) 1 UNITS/0.01ML SC SCH ×2 (09:13→21:18)
[2018-11-16] MEDS: BOUDREAUX'S BUTT PASTE 4OZ TOP SCH ×2 (09:14→21:18)
[2018-11-16 15:00] VITALS: BP 140/70
[2018-11-16] MEDS: ACETAMINOPHEN TAB 650MG DOSE (2X325MG) PO PRN (18:39)
[2018-11-16 20:00] VITALS: BP 129/75
[2018-11-16] MEDS: ATORVASTATIN 20 MG TAB PO SCH (21:17)
[2018-11-16] MEDS: NIACIN SR (NIASPAN) 500 MG TAB PO SCH (21:17)
[2018-11-16] MEDS: SENNA 8.6 MG TAB (SENOKOT) PO SCH (21:17)
[2018-11-16] MEDS: traZODone 25MG PER 1/2 TABLET PO SCH (21:17)
[2018-11-16] MEDS: BENAZEPRIL 20 MG TAB PO SCH (21:19)
[2018-11-17 05:15] VITALS: BP 106/57
[2018-11-17 07:12] LABS: HEMATOCRIT 36.6 % (42.0-52.0); HEMOGLOBIN 12.5 g/dl (13.5-17.5); MEAN CORPUSCULAR HGB CONC 34.2 g/dl (32.0-36.5); MEAN CORPUSCULAR VOLUME 90.8 fl (80.0-96.0); PLATELET COUNT, AUTOMATED 197 10^3/uL (150-450); RED BLOOD COUNT 4.03 10^6/uL (4.30-6.10)
[2018-11-17 07:16] LABS: WHITE BLOOD COUNT 11.6 10^3/uL (4.0-10.0)
[2018-11-17 07:57] LABS: EOSINOPHILS 2 % (0-5); LYMPHOCYTES 56 % (16-52); NEUTROPHILS 42 % (35-75); PLATELET ESTIMATE NORMAL (NORMAL)
[2018-11-17] MEDS: HumaLOG INSULIN (NovoLOG) PER UNIT SC SCH ×7 (08:38→21:00)
[2018-11-17] MEDS: LEVEMIR (INSULIN DETEMIR) 1 UNITS/0.01ML SC SCH ×2 (08:38→20:28)
[2018-11-17] MEDS: ASPIRIN 81 MG CHEW TABLET PO SCH (08:39)
[2018-11-17] MEDS: VENLAFAXINE **XR** 75MG CAPSULE PO SCH (08:39)
[2018-11-17] MEDS: DOCUSATE SODIUM 100 MG CAP PO SCH ×2 (08:39→20:28)
[2018-11-17] MEDS: FLUoxetine 20 MG CAP PO SCH (08:39)
[2018-11-17] MEDS: FAMOTIDINE 20 MG TAB PO SCH (08:39)
[2018-11-17] MEDS: ATENOLOL 25 MG TAB PO SCH ×2 (08:40→20:29)
[2018-11-17] MEDS: BOUDREAUX'S BUTT PASTE 4OZ TOP SCH ×2 (08:40→20:29)
[2018-11-17] MEDS: MULTIVITAMINS/MINERALS THERAP 1 TAB PO SCH (08:40)
--- NOTE | 2018-11-17 09:41 | IPNPDOC ---
Date Seen The patient was seen on 11/17/18. 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 He also had slipped out of his chair 10/26/18 sustaining left ankle fracture. Boot in place. Pt was transferred to the care of ARU, Dr Owen, 10/25/18. The pt is OOB to chair for breakfast and states his weekend went well. denies any new medical complaints or concerns. Pt states he continues to feel stronger. Splint applied to left wrist, XR negative for fracture. [facility], Dr Main is following pt for Lt ankle fracture, last seen 11/06/18. Boot in place. Denies any fevers, chills, Headache, Chest Pain, Shortness of breath, cough, palpitations, abdominal pain, N/V/D or changes in bowel or bladder habits. PAST MEDICAL HISTORY: Diabetes Hypertension Arthrosclerotic disease. Cardiac defibrillator. Cardiac stent Lower extremity stents. Dr Cunningham. Hyperlipidemia GERD PAST SURGICAL HISTORY: 4 cardiac stents Hernia repair PE: GEN: 67yo, appears stated age. Alert and oriented x 3. HEENT: Normocephalic, atraumatic. Sclera are nonicteric. Conjunctiva without injection. Moist mucous membranes. CHEST: Regular rate and rhythm, +S1, +S2 LUNGS: Clear to auscultation bilaterally. No wheezes, rales, or rhonchi. ABD: Round, soft, non-tender, non-distended. +Bowel sounds throughout. EXT: No lower extremity edema appreciated. Boot in place LLE. SKIN: [place], dry, warm. No rashes. NEURO: Alert and oriented x 3. Left sided weakness. 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 He also had slipped out of his chair 10/26/18 sustaining left ankle fracture. Boot in place. Pt was transferred to the care of ARU, Dr Owen, 10/25/18. Left facial weakness / left upper + lower extremity weakness/acute CVA. Patient unable to have MRI given that he has an pacemaker in place - CT head 10/22: 1. Acute right basal ganglia, internal capsule, right temporal and parietal lobe infarction with a small hemorrhagic component unchanged compared to the previous study. 2. Small vessel ischemic disease. 3. Mild volume loss. - CTA head 10/18: Extremely high grade stenosis right middle cerebral artery approximately 1.3 cm distal to its origin. - CTA Neck 10/18: There is occlusion of the right internal carotid artery from its origin to its distal end. Stenosis of the left carotid bulb in the range of about 70-80%. 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 The left vertebral artery is reconstituted at the C3 level with multifocal stenosis of its distal aspect. 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 Vascular surgery consulted, possibly consider possible endarterectomy in 4-6 weeks, Outpt F/U. Outpt F/U with Neurology. Mgmt as per ARU. PT/OT/ST as per ARU. Pain control/Bowel care as per ARU. DVT prophylaxis as per ARU. TEDS. SQ Heparin d/cd 11/06. Disposition as per ARU. Continue ASA and Atorvastatin Plan at time of d/c was to resume Plavix in next 2 weeks pending F/U imaging. CTH 11/05/18 Evolving right sided infarct involving the basal ganglia, anterior limb internal capsule, , as well as portions of the right temporal and parietal lobes. Previously noted more inferior area of hemorrhage within the infarct has resolved, while there is a new tiny linear area of more acute hemorrhage, more superiorly in the area of infarction. Electronically Signed by Mushtaq Davidson MD 11/05/2018 07:[address] 11/10/18 Hemorrhagic changes within the right basal ganglia infarct, somewhat increased in size and extent compared to the most recent prior study of November 05, 2018. Electronically Signed by Tylor Resendiz MD 11/10/2018 12:[address] 11/11/18The hemorrhagic component in the right basal ganglia infarct is unchanged from CT study of November 10, 2018 but increased compared to the hemorrhagic component in the infarct on November 05, 2018. No other new finding. Electronically Signed by Tylor Resendiz MD 11/11/2018 11:43 A Imaging was reviewed by Dr Owen and also to be forwarded to Neurology. Continue with neuro recommendation to hold off on restarting Plavix, cont with ASA 81mg daily for now. Consider neurology consultation if needed. Plan for repeat imaging. Pt with no changes in symptom status. Continue to closely monitor. Disposition as per Dr Owen. LLE ankle fracture Pt had slipped out of his chair 10/26/18 sustaining left ankle fracture. Mgmt as per Orthopedic Surgery, Dr Main. Boot ordered as per Orthopedic surgery. Pt reviewed by Orthopedics 11/04/18 with review of repeat imaging. XR Lt wrist unremarkable. Plan as per orthopedics is to continue with boot, WB as per orthopedics, repeat XR as per Orthopedics. Elevated Cr on CKD3 Cr trend 1.3-1.5. 11/13/18 1.39, repeat BMP in AM. leukocytosis. pt remains afebrile. CXR 10/29 with NAD. UA neg 10/30 UA 11/04 neg. downtrending, 11.6 this AM. Monitor. CBC in Am. Systolic and Diastolic CHF, compensated. ECHO 10/19: EF 30%, G1DD Would advise caution with IVF. CAD ASA, Atorvastatin DLP Atorvastatin and Niacin IDDM2 SSI adjustments as per Dr Owen. HTN Benazepril 20 mg daily with hold parameter SBP <120. Atenolol 25 mg BID with hold parameter SBP <110, HR <60 Mood disorder Venlafaxine GERD pepcid. VS, I&O, 24H, Fishbone Vital Signs/I&O Vital Signs Date Time Temp Pulse Resp B/P (MAP) Pulse Ox O2 Delivery O2 Flow Rate FiO2 11/17/18 08:40 65 106/57 11/17/18 05:15 97.3 18 97 I&O- Last 24 Hours up to 6 AM 11/17/18 06:00 Intake Total 1300 ml Output Total 800 ml Balance 500 ml Laboratory Data 24H LABS Laboratory Tests 2 11/16/18 12:33: Bedside Glucose (Misc Panel) 151H 11/16/18 16:57: Bedside Glucose (Misc Panel) 241H 11/16/18 19:46: Bedside Glucose (Misc Panel) 216H 11/17/18 05:12: Bedside Glucose (Misc Panel) 153H 11/17/18 06:51: White Blood Count 11.6H, Red Blood Count 4.03L, Hemoglobin 12.5L, Hematocrit 36.6L, Mean Corpuscular Volume 90.8, Mean Corpuscular Hemoglobin 31.0, Mean Corpuscular Hemoglobin Concent 34.2, Red Cell Distribution Width 12.3, Platelet Count 197, Lymphocytes # (Auto) , Nucleated Red Blood Cells % (auto) 0.0, Neutrophils 42, Lymphocytes (Manual) 56H, Eosinophils (Manual) 2, Platelet Estimate NORMAL, Red Blood Cell Morphology NORMAL CBC/BMP Laboratory Tests 11/17/18 06:51 Red Blood Count 4.03 L, Mean Corpuscular Volume 90.8, Mean Corpuscular Hemoglobin 31.0, Mean Corpuscular Hemoglobin Concent 34.2, Red Cell Distribution Width 12.3, Lymphocytes # (Auto) Margaret Hsieh Nov 17, 2018 09:41
[2018-11-17 14:00] VITALS: BP 121/60
--- NOTE | 2018-11-17 17:27 | REP ---
Left ankle five views: Comparisons are 10/25/2015 and 11/03/2018. There is a nondisplaced transverse fracture of the distal fibula with no significant interval position shift. There is soft tissue edema laterally. The mortise appears symmetric. Mineralization is normal. Electronically Signed by Mushtaq Muñiz MD 11/17/2018 05:18 P
[2018-11-17 20:00] VITALS: BP 134/72
[2018-11-17] MEDS: SENNA 8.6 MG TAB (SENOKOT) PO SCH (20:28)
[2018-11-17] MEDS: ATORVASTATIN 20 MG TAB PO SCH (20:28)
[2018-11-17] MEDS: traZODone 25MG PER 1/2 TABLET PO SCH (20:29)
[2018-11-17] MEDS: BENAZEPRIL 20 MG TAB PO SCH (20:29)
[2018-11-17] MEDS: NIACIN SR (NIASPAN) 500 MG TAB PO SCH (20:29)
[2018-11-18 06:00] VITALS: BP 102/54
[2018-11-18 07:03] LABS: HEMATOCRIT 39.8 % (42.0-52.0); HEMOGLOBIN 13.1 g/dl (13.5-17.5); MEAN CORPUSCULAR HEMOGLOBIN 30.5 pg (27.0-33.0); MEAN CORPUSCULAR HGB CONC 32.9 g/dl (32.0-36.5); MEAN CORPUSCULAR VOLUME 92.8 fl (80.0-96.0); PLATELET COUNT, AUTOMATED 227 10^3/uL (150-450); RED BLOOD COUNT 4.29 10^6/uL (4.30-6.10); WHITE BLOOD COUNT 12.8 10^3/uL (4.0-10.0)
[2018-11-18 07:31] LABS: CALCIUM LEVEL 8.9 MG/DL (8.8-10.2); CREATININE FOR GFR 1.35 MG/DL (0.70-1.30)
[2018-11-18] MEDS: ATENOLOL 25 MG TAB PO SCH ×3 (09:00→20:07)
[2018-11-18] MEDS: HumaLOG INSULIN (NovoLOG) PER UNIT SC SCH ×7 (09:19→20:07)
[2018-11-18] MEDS: LEVEMIR (INSULIN DETEMIR) 1 UNITS/0.01ML SC SCH ×2 (09:22→20:08)
[2018-11-18] MEDS: MULTIVITAMINS/MINERALS THERAP 1 TAB PO SCH (09:23)
[2018-11-18] MEDS: DOCUSATE SODIUM 100 MG CAP PO SCH ×2 (09:23→20:06)
[2018-11-18] MEDS: FAMOTIDINE 20 MG TAB PO SCH (09:23)
[2018-11-18] MEDS: FLUoxetine 20 MG CAP PO SCH (09:23)
[2018-11-18] MEDS: VENLAFAXINE **XR** 75MG CAPSULE PO SCH (09:23)
[2018-11-18] MEDS: ASPIRIN 81 MG CHEW TABLET PO SCH (09:24)
[2018-11-18] MEDS: BOUDREAUX'S BUTT PASTE 4OZ TOP SCH ×2 (09:25→20:08)
[2018-11-18 14:00] VITALS: BP 141/93
--- NOTE | 2018-11-18 14:16 | IPNPDOC ---
Date Seen The patient was seen on 11/18/18. 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 He also had slipped out of his chair 10/26/18 sustaining left ankle fracture. Boot in place. Pt was transferred to the care of ARU, Dr Owen, 10/25/18. The pt has been OOB this AM with therapy. at bedside and states has been doing well. Pt denies any new medical complaints or concerns. Pt states he continues to feel stronger. Speech improving. [facility], Dr Main is following pt for Lt ankle fracture, last seen 11/06/18. Boot in place. Denies any fevers, chills, Headache, Chest Pain, Shortness of breath, cough, palpitations, abdominal pain, N/V/D or changes in bowel or bladder habits. PAST MEDICAL HISTORY: Diabetes Hypertension Arthrosclerotic disease. Cardiac defibrillator. Cardiac stent Lower extremity stents. Dr Cunningham. Hyperlipidemia GERD PAST SURGICAL HISTORY: 4 cardiac stents Hernia repair PE: GEN: 67yo, appears stated age. Alert and oriented x 3. HEENT: Normocephalic, atraumatic. Sclera are nonicteric. Conjunctiva without injection. Moist mucous membranes. CHEST: Regular rate and rhythm, +S1, +S2 LUNGS: Clear to auscultation bilaterally. No wheezes, rales, or rhonchi. ABD: Round, soft, non-tender, non-distended. +Bowel sounds throughout. EXT: No lower extremity edema appreciated. Boot in place LLE. SKIN: [place], dry, warm. No rashes. NEURO: Alert and oriented x 3. Left sided weakness. 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 He also had slipped out of his chair 10/26/18 sustaining left ankle fracture. Boot in place. Pt was transferred to the care of ARU, Dr Owen, 10/25/18. Left facial weakness / left upper + lower extremity weakness/acute CVA. Patient unable to have MRI given that he has an pacemaker in place - CT head 10/22: 1. Acute right basal ganglia, internal capsule, right temporal and parietal lobe infarction with a small hemorrhagic component unchanged compared to the previous study. 2. Small vessel ischemic disease. 3. Mild volume loss. - CTA head 10/18: Extremely high grade stenosis right middle cerebral artery approximately 1.3 cm distal to its origin. - CTA Neck 10/18: There is occlusion of the right internal carotid artery from its origin to its distal end. Stenosis of the left carotid bulb in the range of about 70-80%. 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 The left vertebral artery is reconstituted at the C3 level with multifocal stenosis of its distal aspect. 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 Vascular surgery consulted, possibly consider possible endarterectomy in 4-6 weeks, Outpt F/U. Outpt F/U with Neurology. Mgmt as per ARU. PT/OT/ST as per ARU. Pain control/Bowel care as per ARU. DVT prophylaxis as per ARU. TEDS. SQ Heparin d/cd 11/06. Disposition as per ARU. Continue ASA and Atorvastatin Plan at time of d/c was to resume Plavix in next 2 weeks pending F/U imaging. CTH 11/05/18 Evolving right sided infarct involving the basal ganglia, anterior limb internal capsule, , as well as portions of the right temporal and parietal lobes. Previously noted more inferior area of hemorrhage within the infarct has resolved, while there is a new tiny linear area of more acute hemorrhage, more superiorly in the area of infarction. Electronically Signed by Mushtaq Davidson MD 11/05/2018 07:47 PM CTH 11/10/18 Hemorrhagic changes within the right basal ganglia infarct, somewhat increased in size and extent compared to the most recent prior study of November 05, 2018. Electronically Signed by Tylor Resendiz MD 11/10/2018 12:51 P CTH 11/11/18The hemorrhagic component in the right basal ganglia infarct is unchanged from CT study of November 10, 2018 but increased compared to the hemorrhagic component in the infarct on November 05, 2018. No other new finding. Electronically Signed by Tylor Resendiz MD 11/11/2018 11:43 A Imaging was reviewed by Dr Owen and also to be forwarded to Neurology. Continue with neuro recommendation to hold off on restarting Plavix, cont with ASA 81mg daily for now. Consider neurology consultation if needed. Plan for repeat imaging 11/25/18. Pt with no changes in symptom status. Continue to closely monitor. Disposition as per Dr Owen. LLE ankle fracture Pt had slipped out of his chair 10/26/18 sustaining left ankle fracture. Mgmt as per Orthopedic Surgery, Dr Main. Boot ordered as per Orthopedic surgery. Pt reviewed by Orthopedics 11/04/18 with review of repeat imaging. XR Lt wrist unremarkable. Plan as per orthopedics is to continue with boot, WB as per orthopedics, repeat XR as per Orthopedics. Elevated Cr on CKD3 Cr trend 1.3-1.5. 11/18/18 1.35. Monitor BMP. leukocytosis. pt remains afebrile. CXR 10/29 with NAD. UA neg 10/30 UA 11/04 neg. trend stable. Monitor. CBC 11/20/18. Systolic and Diastolic CHF, compensated. ECHO 10/19: EF 30%, G1DD Would advise caution with IVF. CAD ASA, Atorvastatin DLP Atorvastatin and Niacin IDDM2 SSI adjustments as per Dr Owen. HTN Benazepril 20 mg daily with hold parameter SBP <120. SBP this AM 102, will decrease HS Benazepril to 10 mg with hold parameters. Atenolol 25 mg BID with hold parameter SBP <110, HR <60 Continue to monitor. Mood disorder Venlafaxine GERD pepcid. VS, I&O, 24H, Fishbone Vital Signs/I&O Vital Signs Date Time Temp Pulse Resp B/P (MAP) Pulse Ox O2 Delivery O2 Flow Rate FiO2 11/18/18 09:00 71 102/54 11/18/18 06:00 98.0 18 95 I&O- Last 24 Hours up to 6 AM 11/18/18 06:00 Intake Total 1620 ml Output Total 950 ml Balance 670 ml Laboratory Data 24H LABS Laboratory Tests 2 11/17/18 16:46: Bedside Glucose (Misc Panel) 202H 11/17/18 19:45: Bedside Glucose (Misc Panel) 221H 11/18/18 06:25: Bedside Glucose (Misc Panel) 185H 11/18/18 06:47: Nucleated Red Blood Cells % (auto) 0.0, Anion Gap 7L, Glomerular Filtration Rate 56.0, Blood Urea Nitrogen 26H, Creatinine 1.35H, Sodium Level 139, Potassium Level 4.0, Chloride Level 104, Carbon Dioxide Level 28, Calcium Level 8.9 11/18/18 11:19: Bedside Glucose (Misc Panel) 213H CBC/BMP Laboratory Tests 11/18/18 06:47 Red Blood Count 4.29 L, Mean Corpuscular Volume 92.8, Mean Corpuscular Hemoglobin 30.5, Mean Corpuscular Hemoglobin Concent 32.9, Red Cell Distribution Width 12.4, Calcium Level 8.9 Margaret Hsieh Nov 18, 2018 14:16
[2018-11-18] MEDS: EUCERIN 120GM CREAM TOP PRN (17:09)
[2018-11-18 20:00] VITALS: BP 125/64
[2018-11-18] MEDS: ATORVASTATIN 20 MG TAB PO SCH (20:06)
[2018-11-18] MEDS: SENNA 8.6 MG TAB (SENOKOT) PO SCH (20:06)
[2018-11-18] MEDS: traZODone 25MG PER 1/2 TABLET PO SCH (20:06)
[2018-11-18] MEDS: NIACIN SR (NIASPAN) 500 MG TAB PO SCH (20:06)
[2018-11-18] MEDS: BENAZEPRIL 5 MG TAB PO SCH (20:07)
--- NOTE | 2018-11-18 20:55 | IPNPDOC ---
PM&R Progress Note DATE OF SERVICE: Nov 17, 2018 [employer] Progress Note Subjective: Patient and had home eval today which they think went well and realize what they will need to adjust at home. patient reports no significant left ankle pain and requesting repeat X-ray to monitor progression. Patient has more return in left biceps and fisher trot line getting much stronger, encouraged to keep focus on bringing his hand to mouth fo future feeding. REVIEW OF SYSTEMS: The following is a completed review of systems and has been reviewed. Review of systems otherwise unremarkable. PAIN: Patient self reports no pain EYES: Negative for recent vision loss EARS, NOSE, & THROAT: +dysphagia(improving) CARDIOVASCULAR: denies chest pain or palpitations PULMONARY: Negative. Denies shortness of breath GASTROINTESTINAL: Negative for diarrhea or constipation GENITOURINARY: Negative for dysuria or hematuria NEUROLOGICAL: left sided paresis MSK: left ankle fracture HEMATOLOGICAL: Negative SKIN: no rash or skin breakdown PSYCHIATRIC: Unremarkable All other review of systems found to be negative. PHYSICAL EXAMINATION: VITAL SIGNS: Please see below. GENERAL: Pleasant and cooperative. No acute distress. HEENT: PERRL. Extraocular movements intact. Clear conjunctiva, left facial droop CARDIOVASCULAR: Regular rate and rhythm. No murmurs, rubs, or gallops, +TTP left chest wall at the costo-sternal joint LUNGS: Clear to auscultation bilaterally. No wheezes. No rhonchi. ABDOMEN: Soft, nontender, nondistended. Positive bowel sounds. Normal active b owel sounds. NEUROLOGICAL: Alert and oriented times three. Cranial nerves II through XII grossly intact. Sensation grossly intact. EXTREMITIES: 5\\5 strength right upper extremities. Left biceps 2+/5, triceps 2+/5, wrist extension1/5, fisher trot line 2/5, 5\\5 strength right lower extremity. 3/5 strength in left hip flexors, 3/5 knee extensors, ankle DF and EHL unable to be tested left wrist non-tender to palpation, however pain with valgus strain SKIN:+blanchable erythematous area dorsum of left foot, medial ankle resolved- covered with mepilex ASSESSMENT:67-year-old M with past medical history of CAD, DM, PAD who presents status post stroke with hemorrhagic conversion. PLAN: 1. Rehab: PT/OT, [employer], assess for DME needs, working on [id number], continue left wrist splint and left shoulder taping, better left knee stability in therapy -upgraded to regular diet, getting good return in left arm, will encourage OT to work on self feeding with universal cuff 2. Neuro: s/p MCA territory stroke in the setting of "Extremely high grade stenosis right middle cerebral artery approximately 1.3 cm distal to its origin." and right ICA occlusion with hemorrhagic conversion, Plavix being held, continue ASA and statin therapy, avoid hypoperfusion -Prozac for motor recovery, monitor for serotonin syndrome with concurrent Effexors-stable -repeat CT11/05/18 showed new linear hemorrhage discussed with Dr. Osorio who recommended continue to hold Plavix and repeat imaging in a few days before con sidering restarting-will also hold prophylactic heparin -repeat CTH 11/10/18 showed evolving hemorrhage in original infarcted region, CTH 11/11/18 showing, "hemorrhagic component in the right basal ganglia infarct is unchanged from CT study of November 10, 2018 but increased compared to the hemorrhagic component in the infarct on November 05, 2018"-will c/u ASA and plan for repeat cth in 2 weeks on 11/25 and obtain o/p neuro f/u to monitor -will need outpatient follow-up with Dr Porras for CEA in 4-6 weeks 3. Cardio: systolic and diastolic CHF with EF of 30% with defibrillator- medicine consulted, continue Atenolol and Benazepril with holding parameters -patient reported focal chest pain 11/04/18 with deep inhalation able to point to it with one finger and exam consistent with costochondritis treat with Tylenol- resolved 4. Resp: Monitor for infection, encourage incentive spirometry-stable -CXR 10/30/18 shows no active disease, no cough, no fever 5. Renal: CKD , s/p gentle hydration-stable 6. Endo: pmh uncontrolled DM, will increase evening Detemir to 40 units, add HS coverage and increased daily long-acting coverage, continue consistent carb diet and d/c glucerna, will continue to monitor and adjust prn-better 7. : admission and repeat UA and Ucx's negative, monitor PVRs 8. DVT ppx: hold heparin, continue TEDs 9. Psych: pmh depression continue Effexor 10. Ortho: s/p fall on 10/25/18 with left ankle fracture, CAM boot placed, WBAT, glove turner and former and ortho recs appreciated -left shoulder pain-improves with taping, encouraging patient and therapists to work on scapular retraction -left wrist pain- recent XRs negative for fracture, no swelling suspect ligamental injury, will continue splint- requesting to stop lidoderm patch -repeat ankle X-ray 11/03/18 showing mild lateral malleoli displacement, reviewed by Dr. Main and discussed with patient, continue CAM boot and WBAT -ankle X-ray ordered today to monitor progression per patient and 's request 11. Sleep: patient reporting insomnia- continue trazodone-improving 10. Dispo: 11/24/18 to home, progressing towards goals, home eval today Allergies Coded Allergies: No Known Allergies (Unverified , 10/18/18) Vital Signs Vital Signs Date Time Temp Pulse Resp B/P (MAP) Pulse Ox O2 Delivery O2 Flow Rate FiO2 11/18/18 20:07 88 125/64 11/18/18 14:00 97.8 17 96 Laboratory Data CBC/BMP Laboratory Tests 11/18/18 06:47 Red Blood Count 4.29 L, Mean Corpuscular Volume 92.8, Mean Corpuscular Hemoglobin 30.5, Mean Corpuscular Hemoglobin Concent 32.9, Red Cell Distribution Width 12.4, Calcium Level 8.9 Labs 24H Laboratory Tests 2 11/18/18 06:25: Bedside Glucose (Misc Panel) 185H 11/18/18 06:47: Nucleated Red Blood Cells % (auto) 0.0, Anion Gap 7L, Glomerular Filtration Rate 56.0, Blood Urea Nitrogen 26H, Creatinine 1.35H, Sodium Level 139, Potassium Level 4.0, Chloride Level 104, Carbon Dioxide Level 28, Calcium Level 8.9 11/18/18 11:19: Bedside Glucose (Misc Panel) 213H 11/18/18 16:24: Bedside Glucose (Misc Panel) 280H 11/18/18 20:05: Bedside Glucose (Misc Panel) 250H Current Medications Current Medications Current Medications Acetaminophen (Tylenol Tab) 650 mg Q4HP PRN PO fever/MILD PAIN (PS 1-4) Last administered on 11/16/18at 18:39; Start 10/24/18 at 16:30 Aspirin (Aspirin Chewable) 81 mg DAILY PO Last administered on 11/18/18 09:24; Start 10/25/18 at 09:00 Atenolol (Tenormin) 25 mg BID PO Last administered on 11/18/18 20:07; Start 10/25/18 at 15:00 Atorvastatin Calcium (Lipitor) 80 mg QHS PO Last administered on 11/18/18 20:06; Start 10/24/18 at 21:00 Benazepril HCl (Lotensin) 10 mg QHS PO Last administered on 11/18/18 20:07; Start 11/18/18 at 21:00 Benazepril HCl (Lotensin) 20 mg QPM PO Last administered on 11/17/18 20:29; Start 10/25/18 at 21:00; Stop 11/18/18 at 14:15; Status DC Dextrose (Dextrose 50%) 25 ml ASDIRECTED PRN IV SEE LABEL COMMENTS; Start 10/24/18 at 16:15; Stop 10/29/18 at 11:19; Status DC Dextrose (Dextrose 50%) 25 ml ASDIRECTED PRN IV SEE LABEL COMMENTS; Start 10/29/18 at 11:15 Docusate Sodium (Colace) 100 mg BID PO Last administered on 11/18/18 20:06; Start 10/24/18 at 21:00 Famotidine (Pepcid) 20 mg DAILY PO Last administered on 11/18/18 09:23; Start 10/25/18 at 09:00 Fluoxetine HCl (PROzac) 20 mg DAILY PO Last administered on 11/18/18at 09:23; Start 10/25/18 at 09:00 Glucagon (Glucagon) 1 mg ASDIRECTED PRN SC SEE LABEL COMMENTS; Start 10/24/18 at 16:15; Stop 10/29/18 at 11:19; Status DC Glucagon (Glucagon) 1 mg ASDIRECTED PRN SC SEE LABEL COMMENTS; Start 10/29/18 at 11:15 Glucose (Glucose) 16 GM ASDIRECTED PRN PO SEE LABEL COMMENTS; Start 10/24/18 at 16:15; Stop 10/29/18 at 11:19; Status DC Glucose (Glucose) 16 GM ASDIRECTED PRN PO SEE LABEL COMMENTS; Start 10/29/18 at 11:15 Heparin Sodium (Porcine) (Heparin) 5,000 units Q8H SQ Last administered on 11/06/18at 05:41; Start 10/24/18 at 22:00; Stop 11/06/18 at 09:30; Status DC Insulin Detemir (Levemir Insulin) 5 units QHS SC Last administered on 10/24/18at 21:34; Start 10/24/18 at 21:00; Stop 10/25/18 at 13:03; Status DC Insulin Detemir (Levemir Insulin) 8 units DAILY SC ; Start 10/29/18 at 09:00; Stop 10/29/18 at 11:02; Status DC Insulin Detemir (Levemir Insulin) 10 units DAILY SC Last administered on 11/01/18at 08:30; Start 10/30/18 at 09:45; Stop 11/01/18 at 20:23; Status DC Insulin Detemir (Levemir Insulin) 12 units QHS SC Last administered on 10/26 21:30; Start 10/25/18 at 21:00; Stop 10/27/18 at 11:48; Status DC Insulin Detemir (Levemir Insulin) 15 units DAILY SC Last administered on 11/04/18at 08:48; Start 11/02/18 at 09:00; Stop 11/04/18 at 14:17; Status DC Insulin Detemir (Levemir Insulin) 20 units DAILY SC Last administered on 08/27at 09:22; Start 11/05/18 at 09:00 Insulin Detemir (Levemir Insulin) 20 units QHS SC Last administered on 10/27/18at 21:35; Start 10/27/18 at 21:00; Stop 10/28/18 at 10:12; Status DC Insulin Detemir (Levemir Insulin) 25 units QHS SC Last administered on 10/28/18at 21:01; Start 10/28/18 at 21:00; Stop 10/29/18 at 11:17; Status DC Insulin Detemir (Levemir Insulin) 30 units QHS SC Last administered on 10/29/18 21:57; Start 10/29/18 at 21:00; Stop 10/30/18 at 09:34; Status DC Insulin Detemir (Levemir Insulin) 36 units QHS SC Last administered on 10/30/18at 21:40; Start 10/30/18 at 21:00; Stop 10/31/18 at 07:18; Status DC Insulin Detemir (Levemir Insulin) 40 units QHS SC Last administered on 11/03/18at 21:10; Start 10/31/18 at 21:00; Stop 11/04/18 at 10:24; Status DC Insulin Detemir (Levemir Insulin) 44 units QHS SC Last administered on 11/05/18at 20:41; Start 11/04/18 at 21:00; Stop 11/06/18 at 10:14; Status DC Insulin Detemir (Levemir Insulin) 46 units QHS SC Last administered on 11/07/18at 22:30; Start 11/06/18 at 21:00; Stop 11/08/18 at 14:21; Status DC Insulin Detemir (Levemir Insulin) 50 units QHS SC Last administered on 11/18/18at 20:08; Start 11/08/18 at 21:00 Insulin Human Lispro (HumaLOG INSULIN) 4 units AC SC Last administered on 11/01/18at 16:47; Start 10/28/18 at 17:30; Stop 11/01/18 at 20:23; Status DC Insulin Human Lispro (HumaLOG INSULIN) 6 units AC SC Last administered on 11/06/18at 12:07; Start 11/02/18 at 07:30; Stop 11/06/18 at 16:29; Status DC Insulin Human Lispro (HumaLOG INSULIN) 12 units AC SC Last administered on 11/08/18 12:19; Start 11/06/18 at 17:30; Stop 11/08/18 at 14:21; Status DC Insulin Human Lispro (HumaLOG INSULIN) 18 units AC SC Last administered on 11/18/18at 17:10; Start 11/08/18 at 17:30 Insulin Human Lispro (HumaLOG INSULIN) SEE PROTOCOL TABLE AC SC Last administered on 11/18/18at 17:09; Start 10/24/18 at 17:30 Insulin Human Lispro (HumaLOG INSULIN) SEE PROTOCOL TABLE QHS SC Last administered on 10/26/18at 21:31; Start 10/24/18 at 21:00; Stop 10/27/18 at 11:48; Status DC Insulin Human Lispro (HumaLOG INSULIN) SEE PROTOCOL TABLE QHS SC Last administered on 11/12/18at 20:44; Start 10/29/18 at 21:00 Lidocaine (Lidoderm Patch) APPLY TO LEFT WRIST DAILY TD Last administered on 11/07/18 09:33; Start 10/30/18 at 09:00; Stop 11/07/18 at 12:36; Status DC Mineral Oil/White Petrolatum (Eucerin) Apply to LEs as needed DAILY PRN TOP DRY SKIN Last administered on 11/18/18at 17:09; Start 11/18/18 at 14:15 Miscellaneous (Unresolved Clarification Entry) SEE LABEL COMMENTS DAILY XX ; Start 11/06/18 at 09:00; Stop 11/06/18 at 09:33; Status DC Multivitamins (Theragram-M) 1 tab DAILY PO Last administered on 11/18/18 09:23; Start 10/25/18 at 09:00 Niacin (Niacin) 500 mg QHS PO ; Start 10/24/18 at 21:00; Stop 10/29/18 at 10:54; Status DC Niacin (Niaspan) 500 mg QHS PO Last administered on 11/18/18 20:06; Start 10/29/18 at 21:00 Non-Formulary Medication ( See Comment Field Below ) REMOVE LIDODERM PATCH DAILY@21 XX Last administered on 11/05/18at 20:42; Start 10/30/18 at 21:00; Stop 11/07/18 at 12:36; Status DC Ondansetron HCl (Zofran) 4 mg Q6HP PRN PO NAUSEA; Start 10/24/18 at 16:30; Stop 11/04/18 at 16:22; Status DC Polyethylene Glycol (Miralax) 1 pkt DAILYPRN PRN PO CONSTIPATION; Start 10/24/18 at 16:15 Senna (Senokot) 1 tab QHS PO Last administered on 11/18/18 20:06; Start 10/24/18 at 21:00 Sodium Chloride 1,000 ml @ 80 mls/hr [id number] IV Last administered on 10/26/18at 04:02; Start 10/25/18 at 13:30; Stop 10/26/18 at 19:59; Status DC Trazodone HCl (Desyrel) 25 mg QHS PO Last administered on 11/18/18 20:06; Start 11/04/18 at 21:00 Trazodone HCl (Desyrel) 25 mg QHSP PRN PO INSOMNIA Last administered on 11/15/18at 23:55; Start 11/04/18 at 16:30 Venlafaxine HCl (Effexor Xr) 75 mg DAILY PO Last administered on 11/18/18at 09:23; Start 10/25/18 at 09:00 Zinc Oxide (Boudreauxs Butt Paste) APPLY TO BUTTOCK AREA BID TOP Last administered on 11/18/18at 20:08; Start 10/30/18 at 09:00 PAUL YE MD Nov 18, 2018 20:55
[2018-11-19 06:00] VITALS: BP 114/59
[2018-11-19] MEDS: HumaLOG INSULIN (NovoLOG) PER UNIT SC SCH ×7 (07:30→20:07)
[2018-11-19] MEDS: ASPIRIN 81 MG CHEW TABLET PO SCH (08:55)
[2018-11-19] MEDS: FAMOTIDINE 20 MG TAB PO SCH (08:55)
[2018-11-19] MEDS: ATENOLOL 25 MG TAB PO SCH ×2 (08:56→20:11)
[2018-11-19] MEDS: MULTIVITAMINS/MINERALS THERAP 1 TAB PO SCH (08:57)
[2018-11-19] MEDS: DOCUSATE SODIUM 100 MG CAP PO SCH ×2 (08:57→20:10)
[2018-11-19] MEDS: VENLAFAXINE **XR** 75MG CAPSULE PO SCH (08:57)
[2018-11-19] MEDS: FLUoxetine 20 MG CAP PO SCH (08:57)
[2018-11-19] MEDS: LEVEMIR (INSULIN DETEMIR) 1 UNITS/0.01ML SC SCH ×2 (08:58→20:11)
[2018-11-19] MEDS: BOUDREAUX'S BUTT PASTE 4OZ TOP SCH ×2 (09:00→20:11)
--- NOTE | 2018-11-19 12:09 | IPNPDOC ---
Date Seen The patient was seen on 11/19/18. 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 He also had slipped out of his chair 10/26/18 sustaining left ankle fracture. Boot in place. Pt was transferred to the care of ARU, Dr Owen, 10/25/18. The pt has been OOB this AM with therapy. at bedside and states has been doing well. Pt denies any new medical complaints or concerns. Pt states he continues to feel stronger. Speech improving. [facility], Dr Main is following pt for Lt ankle fracture, last seen 11/06/18. Boot in place. Denies any fevers, chills, Headache, Chest Pain, Shortness of breath, cough, palpitations, abdominal pain, N/V/D or changes in bowel or bladder habits. PAST MEDICAL HISTORY: Diabetes Hypertension Arthrosclerotic disease. Cardiac defibrillator. Cardiac stent Lower extremity stents. Dr Cunningham. Hyperlipidemia GERD PAST SURGICAL HISTORY: 4 cardiac stents Hernia repair PE: GEN: 67yo, appears stated age. Alert and oriented x 3. HEENT: Normocephalic, atraumatic. Sclera are nonicteric. Conjunctiva without injection. Moist mucous membranes. CHEST: Regular rate and rhythm, +S1, +S2 LUNGS: Clear to auscultation bilaterally. No wheezes, rales, or rhonchi. ABD: Round, soft, non-tender, non-distended. +Bowel sounds throughout. EXT: No lower extremity edema appreciated. Boot in place LLE. SKIN: [place], dry, warm. No rashes. NEURO: Alert and oriented x 3. Left sided weakness. 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 He also had slipped out of his chair 10/26/18 sustaining left ankle fracture. Boot in place. Pt was transferred to the care of ARU, Dr Owen, 10/25/18. Left facial weakness / left upper + lower extremity weakness/acute CVA. Patient unable to have MRI given that he has an pacemaker in place - CT head 10/22: 1. Acute right basal ganglia, internal capsule, right temporal and parietal lobe infarction with a small hemorrhagic component unchanged compared to the previous study. 2. Small vessel ischemic disease. 3. Mild volume loss. - CTA head 10/18: Extremely high grade stenosis right middle cerebral artery approximately 1.3 cm distal to its origin. - CTA Neck 10/18: There is occlusion of the right internal carotid artery from its origin to its distal end. Stenosis of the left carotid bulb in the range of about 70-80%. 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 The left vertebral artery is reconstituted at the C3 level with multifocal stenosis of its distal aspect. 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 Vascular surgery consulted, possibly consider possible endarterectomy in 4-6 weeks, Outpt F/U. Outpt F/U with Neurology. Mgmt as per ARU. PT/OT/ST as per ARU. Pain control/Bowel care as per ARU. DVT prophylaxis as per ARU. TEDS. SQ Heparin d/cd 11/06. Disposition as per ARU. Continue ASA and Atorvastatin Plan at time of d/c was to resume Plavix in next 2 weeks pending F/U imaging. CTH 11/05/18 Evolving right sided infarct involving the basal ganglia, anterior limb internal capsule, , as well as portions of the right temporal and parietal lobes. Previously noted more inferior area of hemorrhage within the infarct has resolved, while there is a new tiny linear area of more acute hemorrhage, more superiorly in the area of infarction. Electronically Signed by Mushtaq Davidson MD 11/05/2018 07:47 PM CTH 11/10/18 Hemorrhagic changes within the right basal ganglia infarct, somewhat increased in size and extent compared to the most recent prior study of November 05, 2018. Electronically Signed by Tylor Resendiz MD 11/10/2018 12:51 P CTH 11/11/18The hemorrhagic component in the right basal ganglia infarct is unchanged from CT study of November 10, 2018 but increased compared to the hemorrhagic component in the infarct on November 05, 2018. No other new finding. Electronically Signed by Tylor Resendiz MD 11/11/2018 11:43 A Imaging was reviewed by Dr Owen and also to be forwarded to Neurology. Continue with neuro recommendation to hold off on restarting Plavix, cont with ASA 81mg daily for now. Consider neurology consultation if needed. Plan for repeat imaging 11/25/18. Pt with no changes in symptom status. Continue to closely monitor. Disposition as per Dr Owen. LLE ankle fracture Pt had slipped out of his chair 10/26/18 sustaining left ankle fracture. Mgmt as per Orthopedic Surgery, Dr Main. Boot ordered as per Orthopedic surgery. Pt reviewed by Orthopedics 11/04/18 with review of repeat imaging. XR Lt wrist unremarkable. Plan as per orthopedics is to continue with boot, WB as per orthopedics, repeat XR as per Orthopedics. Elevated Cr on CKD3 Cr trend 1.3-1.5. 11/18/18 1.35. Monitor BMP. leukocytosis. pt remains afebrile. CXR 10/29 with NAD. UA neg 10/30 UA 11/04 neg. trend stable. Monitor. CBC 11/20/18. Systolic and Diastolic CHF, compensated. ECHO 10/19: EF 30%, G1DD Would advise caution with IVF. CAD ASA, Atorvastatin DLP Atorvastatin and Niacin IDDM2 SSI adjustments as per Dr Owen. HTN Benazepril to 10 mg with hold parameters. Atenolol 25 mg BID with hold parameter SBP <110, HR <60 BP controlled. Continue to monitor. Mood disorder Venlafaxine GERD pepcid. VS, I&O, 24H, Fishbone Vital Signs/I&O Vital Signs Date Time Temp Pulse Resp B/P (MAP) Pulse Ox O2 Delivery O2 Flow Rate FiO2 11/19/18 08:56 84 139/75 11/19/18 06:00 96.8 18 97 I&O- Last 24 Hours up to 6 AM 11/19/18 06:00 Intake Total 1600 ml Output Total 450 ml Balance 1150 ml Laboratory Data 24H LABS Laboratory Tests 2 11/18/18 16:24: Bedside Glucose (Misc Panel) 280H 11/18/18 20:05: Bedside Glucose (Misc Panel) 250H 11/19/18 06:58: Bedside Glucose (Misc Panel) 126H 11/19/18 11:41: Bedside Glucose (Misc Panel) 140H Margaret Hsieh Nov 19, 2018 12:09
--- NOTE | 2018-11-19 12:11 | IPNPDOC ---
PM&R Progress Note DATE OF SERVICE: Nov 19, 2018 Rn Transport Progress Note Subjective: Patient seen in therapy on Nu-Step, instructed to continue working on scapular retraction and bicep strengthening in left arm. His was instructed on how to stretch the left pectoralis tendon to prevent internal rotation impingement. REVIEW OF SYSTEMS: The following is a completed review of systems and has been reviewed. Review of systems otherwise unremarkable. PAIN: Patient self reports no pain EYES: Negative for recent vision loss EARS, NOSE, & THROAT: +dysphagia(improving) CARDIOVASCULAR: denies chest pain or palpitations PULMONARY: Negative. Denies shortness of breath GASTROINTESTINAL: Negative for diarrhea or constipation GENITOURINARY: Negative for dysuria or hematuria NEUROLOGICAL: left sided paresis MSK: left ankle fracture HEMATOLOGICAL: Negative SKIN: no rash or skin breakdown PSYCHIATRIC: Unremarkable All other review of systems found to be negative. PHYSICAL EXAMINATION: VITAL SIGNS: Please see below. GENERAL: Pleasant and cooperative. No acute distress. HEENT: PERRL. Extraocular movements intact. Clear conjunctiva, left facial droop CARDIOVASCULAR: Regular rate and rhythm. No murmurs, rubs, or gallops, +TTP left chest wall at the costo-sternal joint LUNGS: Clear to auscultation bilaterally. No wheezes. No rhonchi. ABDOMEN: Soft, nontender, nondistended. Positive bowel sounds. Normal active bowel sounds. NEUROLOGICAL: Alert and oriented times three. Cranial nerves II through XII grossly intact. Sensation grossly intact. EXTREMITIES: 5\\5 strength right upper extremities. Left biceps 2+/5, triceps 2+/5, wrist extension1/5, creative strategist 2/5, 5\\5 strength right lower extremity. 3/5 strength in left hip flexors, 3/5 knee extensors, ankle DF and EHL unable to be tested left wrist non-tender to palpation, however pain with valgus strain +Neers left shoulder SKIN:+blanchable erythematous area dorsum of left foot, medial ankle resolved- covered with mepilex ASSESSMENT:67-year-old M with past medical history of CAD, DM, PAD who presents status post stroke with hemorrhagic conversion. PLAN: 1. Rehab: PT/OT, PHARMACIST HELPER, assess for DME needs, working on [id number], continue left wrist splint and left shoulder taping, better left knee stability in therapy, ambulating further with Platform RW -upgraded to regular diet, getting good return in left arm, will encourage OT to work on self feeding with universal cuff 2. Neuro: s/p MCA territory stroke in the setting of "Extremely high grade stenosis right middle cerebral artery approximately 1.3 cm distal to its origin." and right ICA occlusion with hemorrhagic conversion, Plavix being held, continue ASA and statin therapy, avoid hypoperfusion -Prozac for motor recovery, monitor for serotonin syndrome with concurrent Effexors-stable -repeat CT11/05/18 showed new linear hemorrhage discussed with Dr. Osorio who recommended continue to hold Plavix and repeat imaging in a few days before considering restarting-will also hold prophylactic heparin -repeat CTH 11/10/18 showed evolving hemorrhage in original infarcted region, CTH 11/11/18 showing, "hemorrhagic component in the right basal ganglia infarct is unchanged from CT study of November 10, 2018 but increased compared to the hemorrhagic component in the infarct on November 05, 2018"-will c/u ASA and plan for repeat cth in 2 weeks on 11/25 and obtain o/p neuro f/u to monitor -will need outpatient follow-up with Dr Porras for CEA in 4-6 weeks 3. Cardio: systolic and diastolic CHF with EF of 30% with defibrillator- medicine consulted, continue Atenolol and Benazepril with holding parameters -patient reported focal chest pain 11/04/18 with deep inhalation able to point to it with one finger and exam consistent with costochondritis treat with Tylenol- resolved 4. Resp: Monitor for infection, encourage incentive spirometry-stable -CXR 10/30/18 shows no active disease, no cough, no fever 5. Renal: CKD , s/p gentle hydration-stable 6. Endo: pmh uncontrolled DM, will increase evening Detemir to 40 units, add HS coverage and increased daily long-acting coverage, continue consistent carb diet and d/c glucerna, will continue to monitor and adjust prn-better 7. : admission and repeat UA and Ucx's negative, monitor PVRs 8. DVT ppx: hold heparin, continue TEDs-will order dopplers today to check for DVTs 9. Psych: pmh depression continue Effexor 10. 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 Main and discussed with patient, continue CAM boot and WBAT -ankle X-ray 11/17/18 shows no change in alignment of lateral malleoli fracture 11. Sleep: patient reporting insomnia- continue trazodone-improving 10. Dispo: 11/24/18 to home, progressing towards goals, home eval completed Allergies Coded Allergies: No Known Allergies (Unverified , 10/18/18) Vital Signs Vital Signs Date Time Temp Pulse Resp B/P (MAP) Pulse Ox O2 Delivery O2 Flow Rate FiO2 11/19/18 08:56 84 139/75 11/19/18 06:00 96.8 18 97 Laboratory Data Labs 24H Laboratory Tests 2 11/18/18 16:24: Bedside Glucose (Misc Panel) 280H 11/18/18 20:05: Bedside Glucose (Misc Panel) 250H 11/19/18 06:58: Bedside Glucose (Misc Panel) 126H 11/19/18 11:41: Bedside Glucose (Misc Panel) 140H Current Medications Current Medications Current Medications Acetaminophen (Tylenol Tab) 650 mg Q4HP PRN PO fever/MILD PAIN (PS 1-4) Last administered on 11/16/18at 18:39; Start 10/24/18 at 16:30 Aspirin (Aspirin Chewable) 81 mg DAILY PO Last administered on 11/19/18 08:55; Start 10/25/18 at 09:00 Atenolol (Tenormin) 25 mg BID PO Last administered on 11/19/18at 08:56; Start 10/25/18 at 15:00 Atorvastatin Calcium (Lipitor) 80 mg QHS PO Last administered on 11/18/18at 20:06; Start 10/24/18 at 21:00 Benazepril HCl (Lotensin) 10 mg QHS PO Last administered on 11/18/18at 20:07; Start 11/18/18 at 21:00 Benazepril HCl (Lotensin) 20 mg QPM PO Last administered on 11/17/18at 20:29; Start 10/25/18 at 21:00; Stop 11/18/18 at 14:15; Status DC Dextrose (Dextrose 50%) 25 ml ASDIRECTED PRN IV SEE LABEL COMMENTS; Start 10/24/18 at 16:15; Stop 10/29/18 at 11:19; Status DC Dextrose (Dextrose 50%) 25 ml ASDIRECTED PRN IV SEE LABEL COMMENTS; Start 10/29/18 at 11:15 Docusate Sodium (Colace) 100 mg BID PO Last administered on 11/19/18at 08:57; Start 10/24/18 at 21:00 Famotidine (Pepcid) 20 mg DAILY PO Last administered on 11/19/18at 08:55; Start 10/25/18 at 09:00 Fluoxetine HCl (PROzac) 20 mg DAILY PO Last administered on 11/19/18at 08:57; Start 10/25/18 at 09:00 Glucagon (Glucagon) 1 mg ASDIRECTED PRN SC SEE LABEL COMMENTS; Start 10/24/18 at 16:15; Stop 10/29/18 at 11:19; Status DC Glucagon (Glucagon) 1 mg ASDIRECTED PRN SC SEE LABEL COMMENTS; Start 10/29/18 at 11:15 Glucose (Glucose) 16 GM ASDIRECTED PRN PO SEE LABEL COMMENTS; Start 10/24/18 at 16:15; Stop 10/29/18 at 11:19; Status DC Glucose (Glucose) 16 GM ASDIRECTED PRN PO SEE LABEL COMMENTS; Start 10/29/18 at 11:15 Heparin Sodium (Porcine) (Heparin) 5,000 units Q8H SQ Last administered on 11/06/18at 05:41; Start 10/24/18 at 22:00; Stop 11/06/18 at 09:30; Status DC Insulin Detemir (Levemir Insulin) 5 units QHS SC Last administered on 10/24/18at 21:34; Start 10/24/18 at 21:00; Stop 10/25/18 at 13:03; Status DC Insulin Detemir (Levemir Insulin) 8 units DAILY SC ; Start 10/29/18 at 09:00; Stop 10/29/18 at 11:02; Status DC Insulin Detemir (Levemir Insulin) 10 units DAILY SC Last administered on 11/01/18at 08:30; Start 10/30/18 at 09:45; Stop 11/01/18 at 20:23; Status DC Insulin Detemir (Levemir Insulin) 12 units QHS SC Last administered on at 21:30; Start 10/25/18 at 21:00; Stop 10/27/18 at 11:48; Status DC Insulin Detemir (Levemir Insulin) 15 units DAILY SC Last administered on 11/04/18at 08:48; Start 11/02/18 at 09:00; Stop 11/04/18 at 14:17; Status DC Insulin Detemir (Levemir Insulin) 20 units DAILY SC Last administered on 11/19/18at 08:58; Start 11/05/18 at 09:00 Insulin Detemir (Levemir Insulin) 20 units QHS SC Last administered on 10/27/18at 21:35; Start 10/27/18 at 21:00; Stop 10/28/18 at 10:12; Status DC Insulin Detemir (Levemir Insulin) 25 units QHS SC Last administered on 10/28/18at 21:01; Start 10/28/18 at 21:00; Stop 10/29/18 at 11:17; Status DC Insulin Detemir (Levemir Insulin) 30 units QHS SC Last administered on 10/29/18at 21:57; Start 10/29/18 at 21:00; Stop 10/30/18 at 09:34; Status DC Insulin Detemir (Levemir Insulin) 36 units QHS SC Last administered on 10/30/18at 21:40; Start 10/30/18 at 21:00; Stop 10/31/18 at 07:18; Status DC Insulin Detemir (Levemir Insulin) 40 units QHS SC Last administered on 11/03/18at 21:10; Start 10/31/18 at 21:00; Stop 11/04/18 at 10:24; Status DC Insulin Detemir (Levemir Insulin) 44 units QHS SC Last administered on 11/05/18at 20:41; Start 11/04/18 at 21:00; Stop 11/06/18 at 10:14; Status DC Insulin Detemir (Levemir Insulin) 46 units QHS SC Last administered on 11/07/18at 22:30; Start 11/06/18 at 21:00; Stop 11/08/18 at 14:21; Status DC Insulin Detemir (Levemir Insulin) 50 units QHS SC Last administered on 11/18/18at 20:08; Start 11/08/18 at 21:00 Insulin Human Lispro (HumaLOG INSULIN) 4 units AC SC Last administered on 11/01/18at 16:47; Start 10/28/18 at 17:30; Stop 11/01/18 at 20:23; Status DC Insulin Human Lispro (HumaLOG INSULIN) 6 units AC SC Last administered on 11/06/18at 12:07; Start 11/02/18 at 07:30; Stop 11/06/18 at 16:29; Status DC Insulin Human Lispro (HumaLOG INSULIN) 12 units AC SC Last administered on 11/08/18at 12:19; Start 11/06/18 at 17:30; Stop 11/08/18 at 14:21; Status DC Insulin Human Lispro (HumaLOG INSULIN) 18 units AC SC Last administered on 11/19/18at 12:00; Start 11/08/18 at 17:30 Insulin Human Lispro (HumaLOG INSULIN) SEE PROTOCOL TABLE AC SC Last administered on 11/19/18at 12:05; Start 10/24/18 at 17:30 Insulin Human Lispro (HumaLOG INSULIN) SEE PROTOCOL TABLE QHS SC Last administered on 10/26/18at 21:31; Start 10/24/18 at 21:00; Stop 10/27/18 at 11:48; Status DC Insulin Human Lispro (HumaLOG INSULIN) SEE PROTOCOL TABLE QHS SC Last administ ered on 11/12/18at 20:44; Start 10/29/18 at 21:00 Lidocaine (Lidoderm Patch) APPLY TO LEFT WRIST DAILY TD Last administered on 09:33; Start 10/30/18 at 09:00; Stop 11/07/18 at 12:36; Status DC Mineral Oil/White Petrolatum (Eucerin) Apply to LEs as needed DAILY PRN TOP DRY SKIN Last administered on 11/18/18at 17:09; Start 11/18/18 at 14:15 Miscellaneous (Unresolved Clarification Entry) SEE LABEL COMMENTS DAILY XX ; Start 11/06/18 at 09:00; Stop 11/06/18 at 09:33; Status DC Multivitamins (Theragram-M) 1 tab DAILY PO Last administered on 11/19/18 08:57; Start 10/25/18 at 09:00 Niacin (Niacin) 500 mg QHS PO ; Start 10/24/18 at 21:00; Stop 10/29/18 at 10:54; Status DC Niacin (Niaspan) 500 mg QHS PO Last administered on 11/18/18at 20:06; Start 10/29/18 at 21:00 Non-Formulary Medication ( See Comment Field Below ) REMOVE LIDODERM PATCH DAILY@21 XX Last administered on 11/05/18at 20:42; Start 10/30/18 at 21:00; Stop 11/07/18 at 12:36; Status DC Ondansetron HCl (Zofran) 4 mg Q6HP PRN PO NAUSEA; Start 10/24/18 at 16:30; Stop 11/04/18 at 16:22; Status DC Polyethylene Glycol (Miralax) 1 pkt DAILYPRN PRN PO CONSTIPATION; Start 10/24/18 at 16:15 Senna (Senokot) 1 tab QHS PO Last administered on 11/18/18 20:06; Start 10/24/18 at 21:00 Sodium Chloride 1,000 ml @ 80 mls/hr [id number] IV Last administered on 10/26/18at 04:02; Start 10/25/18 at 13:30; Stop 10/26/18 at 19:59; Status DC Trazodone HCl (Desyrel) 25 mg QHS PO Last administered on 11/18/18 20:06; Start 11/04/18 at 21:00 Trazodone HCl (Desyrel) 25 mg QHSP PRN PO INSOMNIA Last administered on 11/15/18at 23:55; Start 11/04/18 at 16:30 Venlafaxine HCl (Effexor Xr) 75 mg DAILY PO Last administered on 11/19/18at 08:57; Start 10/25/18 at 09:00 Zinc Oxide (Boudreauxs Butt Paste) APPLY TO BUTTOCK AREA BID TOP Last administered on 11/18/18at 20:08; Start 10/30/18 at 09:00 PAUL YE MD Nov 19, 2018 12:11
[2018-11-19 14:00] VITALS: BP 150/90
--- NOTE | 2018-11-19 15:27 | REP ---
BILATERAL LOWER EXTREMITY DOPPLER VENOUS ULTRASOUND: 11/19/2018. Clinical history: Immobility, evaluate for possible DVT. Comparison: None. Technique: The deep venous system of the bilateral lower extremities is evaluated with miles scale imaging, compression ultrasound, color imaging and duplex Doppler interrogation. Examination from the groin through the popliteal fossa into the proximal calf. Findings: There is full compressibility from the common femoral vein in the inguinal region through the popliteal vein on both sides. Color imaging confirms patency throughout the course of the deep venous system. There is respiratory variation and augmented flow at all levels. Impression: 1. No Doppler venous ultrasound evidence of DVT in the bilateral lower extremities. Electronically Signed by Brian Sotelo MD 11/19/2018 03:19 P
[2018-11-19 20:00] VITALS: BP 154/83
[2018-11-19] MEDS: traZODone 25MG PER 1/2 TABLET PO SCH (20:10)
[2018-11-19] MEDS: NIACIN SR (NIASPAN) 500 MG TAB PO SCH (20:10)
[2018-11-19] MEDS: ACETAMINOPHEN TAB 650MG DOSE (2X325MG) PO PRN (20:10)
[2018-11-19] MEDS: SENNA 8.6 MG TAB (SENOKOT) PO SCH (20:10)
[2018-11-19] MEDS: ATORVASTATIN 20 MG TAB PO SCH (20:10)
[2018-11-19] MEDS: BENAZEPRIL 5 MG TAB PO SCH (20:11)
[2018-11-20 06:00] VITALS: BP 117/74
[2018-11-20 07:14] LABS: HEMATOCRIT 38.2 % (42.0-52.0); HEMOGLOBIN 12.7 g/dl (13.5-17.5); MEAN CORPUSCULAR HEMOGLOBIN 31.1 pg (27.0-33.0); MEAN CORPUSCULAR HGB CONC 33.2 g/dl (32.0-36.5); MEAN CORPUSCULAR VOLUME 93.6 fl (80.0-96.0); PLATELET COUNT, AUTOMATED 188 10^3/uL (150-450); RED BLOOD COUNT 4.08 10^6/uL (4.30-6.10); WHITE BLOOD COUNT 9.8 10^3/uL (4.0-10.0)
[2018-11-20 07:33] LABS: BLOOD UREA NITROGEN 22 MG/DL (7-18); CALCIUM LEVEL 9.1 MG/DL (8.8-10.2); CARBON DIOXIDE LEVEL 29 MEQ/L (21-32); CHLORIDE LEVEL 104 MEQ/L (98-107); CREATININE FOR GFR 1.19 MG/DL (0.70-1.30); GLOMERULAR FILTRATION RATE > 60.0 (>49); GLUCOSE, FASTING 101 MG/DL (70-100); POTASSIUM SERUM 3.7 MEQ/L (3.5-5.1); SODIUM LEVEL 140 MEQ/L (136-145)
[2018-11-20] MEDS: HumaLOG INSULIN (NovoLOG) PER UNIT SC SCH ×7 (08:35→21:00)
[2018-11-20] MEDS: LEVEMIR (INSULIN DETEMIR) 1 UNITS/0.01ML SC SCH ×2 (08:36→21:23)
[2018-11-20] MEDS: DOCUSATE SODIUM 100 MG CAP PO SCH ×2 (08:38→21:00)
[2018-11-20] MEDS: MULTIVITAMINS/MINERALS THERAP 1 TAB PO SCH (08:38)
[2018-11-20] MEDS: VENLAFAXINE **XR** 75MG CAPSULE PO SCH (08:38)
[2018-11-20] MEDS: FAMOTIDINE 20 MG TAB PO SCH (08:38)
[2018-11-20] MEDS: FLUoxetine 20 MG CAP PO SCH (08:38)
[2018-11-20] MEDS: ASPIRIN 81 MG CHEW TABLET PO SCH (08:41)
[2018-11-20] MEDS: ATENOLOL 25 MG TAB PO SCH ×2 (08:41→21:22)
[2018-11-20] MEDS: EUCERIN 120GM CREAM TOP PRN (08:42)
[2018-11-20] MEDS: BOUDREAUX'S BUTT PASTE 4OZ TOP SCH ×2 (08:42→21:24)
[2018-11-20 14:00] VITALS: BP 143/75
[2018-11-20] MEDS: ACETAMINOPHEN TAB 650MG DOSE (2X325MG) PO PRN (19:12)
[2018-11-20 20:00] VITALS: BP 119/69
[2018-11-20] MEDS: SENNA 8.6 MG TAB (SENOKOT) PO SCH (21:00)
[2018-11-20] MEDS: NIACIN SR (NIASPAN) 500 MG TAB PO SCH (21:21)
[2018-11-20] MEDS: BENAZEPRIL 5 MG TAB PO SCH (21:22)
[2018-11-20] MEDS: traZODone 25MG PER 1/2 TABLET PO SCH (21:22)
[2018-11-20] MEDS: ATORVASTATIN 20 MG TAB PO SCH (21:22)
[2018-11-21 05:33] VITALS: BP 100/55
[2018-11-21] MEDS: HumaLOG INSULIN (NovoLOG) PER UNIT SC SCH ×7 (07:30→21:00)
[2018-11-21] MEDS: ATENOLOL 25 MG TAB PO SCH ×2 (09:00→20:53)
[2018-11-21] MEDS: FLUoxetine 20 MG CAP PO SCH (09:06)
[2018-11-21] MEDS: MULTIVITAMINS/MINERALS THERAP 1 TAB PO SCH (09:06)
[2018-11-21] MEDS: ASPIRIN 81 MG CHEW TABLET PO SCH (09:06)
[2018-11-21] MEDS: VENLAFAXINE **XR** 75MG CAPSULE PO SCH (09:06)
[2018-11-21] MEDS: FAMOTIDINE 20 MG TAB PO SCH (09:06)
[2018-11-21] MEDS: DOCUSATE SODIUM 100 MG CAP PO SCH ×2 (09:06→20:52)
[2018-11-21] MEDS: LEVEMIR (INSULIN DETEMIR) 1 UNITS/0.01ML SC SCH ×2 (09:07→20:54)
[2018-11-21] MEDS: BOUDREAUX'S BUTT PASTE 4OZ TOP SCH ×2 (09:07→20:54)
--- NOTE | 2018-11-21 12:29 | IPNPDOC ---
Date Seen The patient was seen on 11/21/18. 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 He also had slipped out of his chair 10/26/18 sustaining left ankle fracture. Boot in place. Pt was transferred to the care of ARU, Dr Owen, 10/25/18. The pt has been OOB this AM with therapy. at bedside and states has been doing well. Pt denies any new medical complaints or concerns. [facility], Dr Main is following pt for Lt ankle fracture, last seen 11/06/18. Boot in place. Pt is anxious for discharge. Denies any fevers, chills, Headache, Chest Pain, Shortness of breath, cough, palpitations, abdominal pain, N/V/D or changes in bowel or bladder habits. PAST MEDICAL HISTORY: Diabetes Hypertension Arthrosclerotic disease. Cardiac defibrillator. Cardiac stent Lower extremity stents. Dr Cunningham. Hyperlipidemia GERD PAST SURGICAL HISTORY: 4 cardiac stents Hernia repair PE: GEN: 67yo, appears stated age. Alert and oriented x 3. HEENT: Normocephalic, atraumatic. Sclera are nonicteric. Conjunctiva without injection. Moist mucous membranes. CHEST: Regular rate and rhythm, +S1, +S2 LUNGS: Clear to auscultation bilaterally. No wheezes, rales, or rhonchi. ABD: Round, soft, non-tender, non-distended. +Bowel sounds throughout. EXT: No lower extremity edema appreciated. Boot in place LLE. SKIN: [place], dry, warm. No rashes. NEURO: Alert and oriented x 3. Left sided weakness. 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 He also had slipped out of his chair 10/26/18 sustaining left ankle fracture. Boot in pl [place]. Pt was transferred to the care of ARU, Dr Owen, 10/25/18. Left facial weakness / left upper + lower extremity weakness/acute CVA. Patient unable to have MRI given that he has an pacemaker in place - CT head 10/22: 1. Acute right basal ganglia, internal capsule, right temporal and parietal lobe infarction with a small hemorrhagic component unchanged compared to the previous study. 2. Small vessel ischemic disease. 3. Mild volume loss. - CTA head 10/18: Extremely high grade stenosis right middle cerebral artery approximately 1.3 cm distal to its origin. - CTA Neck 10/18: There is occlusion of the right internal carotid artery from its origin to its distal end. Stenosis of the left carotid bulb in the range of about 70-80%. 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 The left vertebral artery is reconstituted at the C3 level with multifocal stenosis of its distal aspect. 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 Vascular surgery consulted, possibly consider possible endarterectomy in 4-6 weeks, Outpt F/U. Outpt F/U with Neurology. Mgmt as per ARU. PT/OT/ST as per ARU. Pain control/Bowel care as per ARU. DVT prophylaxis as per ARU. TEDS. SQ Heparin d/cd 11/06. Disposition as per ARU. Continue ASA and Atorvastatin Plan at time of d/c was to resume Plavix in next 2 weeks pending F/U imaging. CTH 11/05/18 Evolving right sided infarct involving the basal ganglia, anterior limb internal capsule, , as well as portions of the right temporal and parietal lobes. Previously noted more inferior area of hemorrhage within the infarct has resolved, while there is a new tiny linear area of more acute hemorrhage, more superiorly in the area of infarction. Electronically Signed by Mushtaq Davidson MD 11/05/2018 07:47 PM CTH 11/10/18 Hemorrhagic changes within the right basal ganglia infarct, somewhat increased in size and extent compared to the most recent prior study of November 05, 2018. Electronically Signed by Tylor Resendiz MD 11/10/2018 12:51 P CTH 11/11/18The hemorrhagic component in the right basal ganglia infarct is unchanged from CT study of November 10, 2018 but increased compared to the hemorrhagic component in the infarct on November 05, 2018. No other new finding. Electronically Signed by Tylor Resendiz MD 11/11/2018 11:43 A Imaging was reviewed by Dr Owen and also to be forwarded to Neurology. Continue with neuro recommendation to hold off on restarting Plavix, cont with ASA 81mg daily for now. Consider neurology consultation if needed. Plan for repeat imaging 11/25/18. Pt with no changes in symptom status. Continue to closely monitor. Disposition as per Dr Owen. LLE ankle fracture Pt had slipped out of his chair 10/26/18 sustaining left ankle fracture. Mgmt as per Orthopedic Surgery, Dr Main. Boot ordered as per Orthopedic surgery. Pt reviewed by Orthopedics 11/04/18 with review of repeat imaging. XR Lt wrist unremarkable. Plan as per orthopedics is to continue with boot, WB as per orthopedics, repeat XR as per Orthopedics. Elevated Cr on CKD3 Cr trend 1.3-1.5. 11/20/18 1.19. Monitor. leukocytosis. Resolved. pt remains afebrile. CXR 10/29 with NAD. UA neg 10/30 UA 11/04 neg. WBC 9.8 11/20/18. Systolic and Diastolic CHF, compensated. ECHO 10/19: EF 30%, G1DD Would advise caution with IVF. CAD ASA, Atorvastatin DLP Atorvastatin and Niacin IDDM2 SSI adjustments as per Dr Owen. HTN Benazepril 10mg HS with hold parameters. Atenolol 25 mg BID with hold parameter SBP <110, HR <60 BP controlled. Continue to monitor. Mood disorder Venlafaxine GERD pepcid. VS, I&O, 24H, Fishbone Vital Signs/I&O Vital Signs Date Time Temp Pulse Resp B/P (MAP) Pulse Ox O2 Delivery O2 Flow Rate FiO2 11/21/18 09:00 69 100/55 11/21/18 05:33 96.9 18 98 I&O- Last 24 Hours up to 6 AM 11/21/18 06:00 Intake Total 1440 ml Output Total 1125 ml Balance 315 ml Laboratory Data 24H LABS Laboratory Tests 2 11/20/18 16:38: Bedside Glucose (Misc Panel) 159H 11/20/18 19:48: Bedside Glucose (Misc Panel) 240H 11/21/18 06:19: Bedside Glucose (Misc Panel) 96 11/21/18 11:50: Bedside Glucose (Misc Panel) 219H Margaret Hsieh Nov 21, 2018 12:29
[2018-11-21] MEDS: ACETAMINOPHEN TAB 650MG DOSE (2X325MG) PO PRN ×2 (13:43→20:59)
[2018-11-21 14:00] VITALS: BP 160/76
[2018-11-21 20:00] VITALS: BP 133/83
[2018-11-21] MEDS: SENNA 8.6 MG TAB (SENOKOT) PO SCH (20:53)
[2018-11-21] MEDS: NIACIN SR (NIASPAN) 500 MG TAB PO SCH (20:53)
[2018-11-21] MEDS: BENAZEPRIL 5 MG TAB PO SCH (20:53)
[2018-11-21] MEDS: traZODone 25MG PER 1/2 TABLET PO SCH (20:53)
[2018-11-21] MEDS: ATORVASTATIN 20 MG TAB PO SCH (20:54)
[2018-11-22 06:00] VITALS: BP 132/72
[2018-11-22] MEDS: HumaLOG INSULIN (NovoLOG) PER UNIT SC SCH ×7 (07:30→21:00)
[2018-11-22] MEDS: ASPIRIN 81 MG CHEW TABLET PO SCH (09:54)
[2018-11-22] MEDS: ATENOLOL 25 MG TAB PO SCH ×2 (09:54→21:52)
[2018-11-22] MEDS: VENLAFAXINE **XR** 75MG CAPSULE PO SCH (09:54)
[2018-11-22] MEDS: DOCUSATE SODIUM 100 MG CAP PO SCH ×2 (09:54→21:51)
[2018-11-22] MEDS: MULTIVITAMINS/MINERALS THERAP 1 TAB PO SCH (09:54)
[2018-11-22] MEDS: FAMOTIDINE 20 MG TAB PO SCH (09:54)
[2018-11-22] MEDS: FLUoxetine 20 MG CAP PO SCH (09:55)
[2018-11-22] MEDS: LEVEMIR (INSULIN DETEMIR) 1 UNITS/0.01ML SC SCH ×2 (09:56→21:53)
[2018-11-22] MEDS: BOUDREAUX'S BUTT PASTE 4OZ TOP SCH ×2 (09:58→21:00)
[2018-11-22 14:00] VITALS: BP 138/68
--- NOTE | 2018-11-22 15:46 | IPNPDOC ---
Text Note Date of Service The patient was seen on 11/22/18. NOTE Subjective: Patient was examined at the bedside. . Currently, patient is advised me that he schedule to go home on Saturday. He denies any chest pain, shortness of breath or palpitations. Denies nausea, vomiting, any abdominal pain, constipation, di arrhea or discomfort with urination. Has been progressing well with physical therapy. Objective: Vitals (See below) General: Alert and oriented 3,follows commands HEENT: NC, AT, facial asymmetry CVS: +S1S2 Lungs: Fair air entry bilaterally, auscultation is without wheezing, rhonchi or rales Extremities: Lower extremities are without any edema, no calf tenderness, Neuro: There is still remains left-sided weakness of U/LE Assessment and plan: Left facial weakness / left upper + lower extremity weakness - likely 2/2 acute CVA - likely 2/2 ischemic etiology, possibly conversion to hemorrhagic - Physical with persistent left-sided weakness - Patient is unable to go for MRI given that he has an pacemaker in place - CT head 10/22: 1. Acute right basal ganglia, internal capsule, right temporal and parietal lobe infarction with a small hemorrhagic component unchanged compared to the previous study. 2. Small vessel ischemic disease. 3. Mild volume loss. - CT head 10/21: 1. An acute infarction in the right basal ganglia, internal capsule, insular, sub insular right temporal lobe and centrum semiovale of the the anterior right parietal lobe. A small hemorrhagic component is present. There is no midline shift. 2. Small vessel ischemic disease. 3. Mild volume loss. - CT head 10/19: Findings consistent with acute infarct involving the vascular distribution of the right middle cerebral artery. No acute intracranial hemorrhage. There is mild edema and mild impression upon the frontal horn of the right lateral ventricle. - CT head 10/18: Atrophy. Mild periventricular small vessel ischemic change. Vascular calcifications. No acute intracranial process identified. - CTA head 10/18: Extremely high grade stenosis right middle cerebral artery approximately 1.3 cm distal to its origin. - CTA Neck 10/18: There is occlusion of the right internal carotid artery from its origin to its distal end. Stenosis of the left carotid bulb in the range of about 70-80%. 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 The left vertebral artery is reconstituted at the C3 level with multifocal stenosis of its distal aspect. 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 - CT Head 11/05: Evolving right sided infarct involving the basal ganglia, anterior limb internal capsule, as well as portions of the right temporal and parietal lobes. Previously noted more inferior area of hemorrhage within the infarct has resolved, while there is a new tiny linear area of more acute hemorrhage, more superiorly in the area of infarction. - CT Head 11/10: Hemorrhagic changes within the right basal ganglia infarct, somewhat increased in size and extent compared to the most recent prior study of November 05, 2018. - CT Head 11/11: The hemorrhagic component in the right basal ganglia infarct is unchanged from CT study of November 10, 2018 but increased compared to the hemorrhagic component in the infarct on November 05, 2018. No other new finding. - Patient has indicated that he will follow with Dr. Fletcher in [place] for vascular intervention - c/w ASA and Atorvastatin; s/p Plavix - has been discussed with urology and Dr. Owen; will continue to hold on Plavix - Patient will have outpatient follow-up with neurology and vascular surgery Left ankle pain - likely 2/2 fracture - likely 2/2 mechanical fall of recliner - Imaging reviewed - c/w pain control and PT - Orthopedic surgery on consultation; recommended a boot; no indications for surgery at this time - Will have outpatient follow up Elevated Cr on CKD3 - Cr has remained unchanged - s/p IV fluids Compensated Systolic and Diastolic CHF - No evidence of fluid overload - ECHO 10/19: EF 30%, G1DD - Currently not on any diuretics CAD - c/w ASA, Atorvastatin DLP - c/w Atorvastatin and Niacin IDDM2 - c/w ISS HTN - BP well controlled - c/w Benazepril and Atenolol Mood disorder - c/w Venlafaxine GERD - c/w Famotine DVT prophylaxis - As per ARUDr. Owen Disposition: -Anticipate discharge on Saturday VS,Fishbone, I+O VS, Fishbone, I+O Vital Signs Date Time Temp Pulse Resp B/P (MAP) Pulse Ox O2 Delivery O2 Flow Rate FiO2 11/22/18 14:00 97.6 87 18 138/68 (91) 94 I&O- Last 24 Hours up to 6 AM 11/22/18 06:00 Intake Total 960 ml Output Total 1150 ml Balance -190 ml VANIA BORJA MD Nov 22, 2018 15:46
[2018-11-22 20:00] VITALS: BP 129/70
[2018-11-22] MEDS: traZODone 25MG PER 1/2 TABLET PO SCH (21:52)
[2018-11-22] MEDS: NIACIN SR (NIASPAN) 500 MG TAB PO SCH (21:52)
[2018-11-22] MEDS: SENNA 8.6 MG TAB (SENOKOT) PO SCH (21:52)
[2018-11-22] MEDS: ATORVASTATIN 20 MG TAB PO SCH (21:52)
[2018-11-22] MEDS: BENAZEPRIL 5 MG TAB PO SCH (21:53)
[2018-11-22] MEDS: ACETAMINOPHEN TAB 650MG DOSE (2X325MG) PO PRN (21:54)
[2018-11-23 06:00] VITALS: BP 136/66
[2018-11-23] MEDS: BOUDREAUX'S BUTT PASTE 4OZ TOP SCH ×2 (08:59→21:58)
[2018-11-23] MEDS: LEVEMIR (INSULIN DETEMIR) 1 UNITS/0.01ML SC SCH (08:59)
[2018-11-23] MEDS: MULTIVITAMINS/MINERALS THERAP 1 TAB PO SCH (08:59)
[2018-11-23] MEDS: FLUoxetine 20 MG CAP PO SCH (09:00)
[2018-11-23] MEDS: FAMOTIDINE 20 MG TAB PO SCH (09:00)
[2018-11-23] MEDS: VENLAFAXINE **XR** 75MG CAPSULE PO SCH (09:00)
[2018-11-23] MEDS: DOCUSATE SODIUM 100 MG CAP PO SCH ×2 (09:00→21:54)
[2018-11-23] MEDS: ASPIRIN 81 MG CHEW TABLET PO SCH (09:00)
[2018-11-23] MEDS: HumaLOG INSULIN (NovoLOG) PER UNIT SC SCH ×7 (09:01→21:00)
[2018-11-23] MEDS: ACETAMINOPHEN TAB 650MG DOSE (2X325MG) PO PRN ×2 (09:05→21:54)
[2018-11-23] MEDS: ATENOLOL 25 MG TAB PO SCH ×2 (09:05→21:56)
[2018-11-23 14:00] VITALS: BP 128/72
--- NOTE | 2018-11-23 16:39 | IPNPDOC ---
Text Note Date of Service The patient was seen on 11/23/18. NOTE Subjective: Patient was examined while participating with physical therapy. Patient appears to be doing well. Denies any chest pain, shortness of breath or palpitations. Is looking for to going home tomorrow. Objective: Vitals (See below) General: Alert and oriented 3,follows commands HEENT: NC, AT, facial asymmetry CVS: +S1S2 Lungs: Fair entry, again is fair bilaterally. No evidence of rhonchi, rales or wheezing Extremities: No calf tenderness, trace pitting edema at left ankle Neuro: There is still remains left-sided weakness of U/LE Assessment and plan: Left facial weakness / left upper + lower extremity weakness - likely 2/2 acute CVA - likely 2/2 ischemic etiology, possibly conversion to hemorrhagic - Physical with persistent left-sided weakness - Patient is unable to go for MRI given that he has an pacemaker in place - CT head 10/22: 1. Acute right basal ganglia, internal capsule, right temporal and parietal lobe infarction with a small hemorrhagic component unchanged compared to the previous study. 2. Small vessel ischemic disease. 3. Mild volume loss. - CT head 10/21: 1. An acute infarction in the right basal ganglia, internal capsule, insular, sub insular right temporal lobe and centrum semiovale of the the anterior right parietal lobe. A small hemorrhagic component is present. There is no midline shift. 2. Small vessel ischemic disease. 3. Mild volume loss. - CT head 10/19: Findings consistent with acute infarct involving the vascular distribution of the right middle cerebral artery. No acute intracranial hemorrhage. There is mild edema and mild impression upon the frontal horn of the right lateral ventricle. - CT head 10/18: Atrophy. Mild periventricular small vessel ischemic change. Vascular calcifications. No acute intracranial process identified. - CTA head 10/18: Extremely high grade stenosis right middle cerebral artery approximately 1.3 cm distal to its origin. - CTA Neck 10/18: There is occlusion of the right internal carotid artery from its origin to its distal end. Stenosis of the left carotid bulb in the range of about 70-80%. 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 The left vertebral artery is reconstituted at the C3 level with multifocal stenosis of its distal aspect. 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 - CT Head 11/05: Evolving right sided infarct involving the basal ganglia, anterior limb internal capsule, as well as portions of the right temporal and parietal lobes. Previously noted more inferior area of hemorrhage within the infarct has resolved, while there is a new tiny linear area of more acute hemorrhage, more superiorly in the area of infarction. - CT Head 11/10: Hemorrhagic changes within the right basal ganglia infarct, somewhat increased in size and extent compared to the most recent prior study of November 05, 2018. - CT Head 11/11: The hemorrhagic component in the right basal ganglia infarct is unchanged from CT study of November 10, 2018 but increased compared to the hemorrhagic component in the infarct on November 05, 2018. No other new finding. - Patient has indicated that he will follow with Dr. Fletcher in [place] for vascular intervention - c/w ASA and Atorvastatin; s/p Plavix - has been discussed with urology and Dr. Owen; will continue to hold on Plavix - Patient will have outpatient follow-up with neurology and vascular surgery Left ankle pain - likely 2/2 fracture - likely 2/2 mechanical fall of recliner - Imaging reviewed - c/w pain control and PT - Orthopedic surgery on consultation; recommended a boot; no indications for s urgery at this time - Will have outpatient follow up Elevated Cr on CKD3 - Cr has remained unchanged - s/p IV fluids Compensated Systolic and Diastolic CHF - No evidence of fluid overload - ECHO 10/19: EF 30%, G1DD - Currently not on any diuretics CAD - c/w ASA, Atorvastatin DLP - c/w Atorvastatin and Niacin IDDM2 - c/w ISS HTN - BP well controlled - c/w Benazepril and Atenolol Mood disorder - c/w Venlafaxine GERD - c/w Famotine DVT prophylaxis - As per Dr. Brayden BELTRAN Disposition: -Anticipate discharge on tomorrow; when cleared by a ARU VS,Agnese, I+O VS, Agnese, I+O Vital Signs Date Time Temp Pulse Resp B/P (MAP) Pulse Ox O2 Delivery O2 Flow Rate FiO2 11/23/18 14:00 97.4 75 17 128/72 (90) 75 I&O- Last 24 Hours up to 6 AM 11/23/18 05:59 Intake Total 820 ml Output Total 900 ml Balance -80 ml VANIA BORJA MD Nov 23, 2018 16:39
--- NOTE | 2018-11-23 19:44 | IPNPDOC ---
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 REVIEW OF SYSTEMS: The following is a completed review of systems and has been reviewed. Review of systems otherwise unremarkable. PAIN: Patient self reports no pain EYES: Negative for recent vision loss EARS, NOSE, & THROAT: +dysphagia(improving) CARDIOVASCULAR: denies chest pain or palpitations PULMONARY: Negative. Denies shortness of breath GASTROINTESTINAL: Negative for diarrhea or constipation GENITOURINARY: Negative for dysuria or hematuria NEUROLOGICAL: left sided paresis MSK: left ankle fracture HEMATOLOGICAL: Negative SKIN: no rash or skin breakdown PSYCHIATRIC: Unremarkable All other review of systems found to be negative. PHYSICAL EXAMINATION: VITAL SIGNS: Please see below. GENERAL: Pleasant and cooperative. No acute distress. HEENT: PERRL. Extraocular movements intact. Clear conjunctiva, left facial droop CARDIOVASCULAR: Regular rate and rhythm. No murmurs, rubs, or gallops, +TTP left chest wall at the costo-sternal joint LUNGS: Clear to auscultation bilaterally. No wheezes. No rhonchi. ABDOMEN: Soft, nontender, nondistended. Positive bowel sounds. Normal active bowel sounds. NEUROLOGICAL: Alert and oriented times three. Cranial nerves II through XII grossly intact. Sensation grossly intact. EXTREMITIES: 5\\5 strength right upper extremities. 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 3/5 strength in left hip flexors, 3/5 knee extensors, ankle DF and EHL unable to be tested left wrist non-tender to palpation, however pain with valgus strain +Neers left shoulder SKIN:+blanchable erythematous area dorsum of left foot, medial ankle resolved- covered with mepilex ASSESSMENT:67-year-old M with past medical history of CAD, DM, PAD who presents status post stroke with hemorrhagic conversion. PLAN: 1. 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 Neuro: s/p MCA territory stroke in the setting of "Extremely high grade stenosis right middle cerebral artery approximately 1.3 cm distal to its orig in." and right ICA occlusion with hemorrhagic conversion, Plavix being held, continue ASA and statin therapy, avoid hypoperfusion -Prozac for motor recovery, monitor for serotonin syndrome with concurrent Effexors-stable -repeat CT11/05/18 showed new linear hemorrhage discussed with Dr. Osorio who recommended continue to hold Plavix and repeat imaging in a few days before considering restarting-will also hold prophylactic heparin -repeat CTH 11/10/18 showed evolving hemorrhage in original infarcted region, CTH 11/11/18 showing, "hemorrhagic component in the right basal ganglia infarct is unchanged from CT study of November 10, 2018 but increased compared to the hemorrhagic component in the infarct on November 05, 2018"-will c/u ASA and plan for repeat cth in 2 weeks on 11/25 and obtain o/p neuro f/u to monitor -will need outpatient follow-up with Dr Porras for CEA in 4-6 weeks 3. Cardio: systolic and diastolic CHF with EF of 30% with defibrillator- medicine consulted, continue Atenolol and Benazepril with holding parameters -patient reported focal chest pain 11/04/18 with deep inhalation able to point to it with one finger and exam consistent with costochondritis treat with Tylenol- resolved 4. Resp: Monitor for infection, encourage incentive spirometry-stable -CXR 10/30/18 shows no active disease, no cough, no fever 5. Renal: CKD , s/p gentle hydration-stable 6. Endo: pmh uncontrolled DM, will increase evening Detemir to 40 units, add HS coverage and increased daily long-acting coverage, continue consistent carb diet and d/c glucerna, will continue to monitor and adjust prn-better 7. : admission and repeat UA and Ucx's negative, monitor PVRs 8. DVT ppx: hold heparin, continue TEDs-will order dopplers negative for DVTs 9. Psych: pmh depression continue Effexor 10. 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 Main and discussed with patient, continue CAM boot and WBAT -ankle X-ray 11/17/18 shows no change in alignment of lateral malleoli fracture 11. Sleep: patient reporting insomnia- continue trazodone-improving 10. Dispo: 11/24/18 to home, progressing towards goals, home eval completed Allergies Coded Allergies: No Known Allergies (Unverified , 10/18/18) Vital Signs Vital Signs Date Time Temp Pulse Resp B/P (MAP) Pulse Ox O2 Delivery O2 Flow Rate FiO2 11/23/18 14:00 97.4 75 17 128/72 (90) 75 Laboratory Data Labs 24H Laboratory Tests 2 11/22/18 20:17: Bedside Glucose (Misc Panel) 199H 11/23/18 05:48: Bedside Glucose (Misc Panel) 105 11/23/18 11:52: Bedside Glucose (Misc Panel) 114 11/23/18 16:57: Bedside Glucose (Misc Panel) 52L 11/23/18 18:04: Bedside Glucose (Misc Panel) 95 Current Medications Current Medications Current Medications Acetaminophen (Tylenol Tab) 650 mg Q4HP PRN PO fever/MILD PAIN (PS 1-4) Last administered on 11/23/18at 09:05; Start 10/24/18 at 16:30 Aspirin (Aspirin Chewable) 81 mg DAILY PO Last administered on 11/23/18at 09:00; Start 10/25/18 at 09:00 Atenolol (Tenormin) 25 mg BID PO Last administered on 11/23/18at 09:05; Start 10/25/18 at 15:00 Atorvastatin Calcium (Lipitor) 80 mg QHS PO Last administered on 11/22/18at 21:52; Start 10/24/18 at 21:00 Benazepril HCl (Lotensin) 10 mg QHS PO Last administered on 11/22/18at 21:53; Start 11/18/18 at 21:00 Benazepril HCl (Lotensin) 20 mg QPM PO Last administered on 11/17/18at 20:29; Start 10/25/18 at 21:00; Stop 11/18/18 at 14:15; Status DC Dextrose (Dextrose 50%) 25 ml ASDIRECTED PRN IV SEE LABEL COMMENTS; Start 10/24/18 at 16:15; Stop 10/29/18 at 11:19; Status DC Dextrose (Dextrose 50%) 25 ml ASDIRECTED PRN IV SEE LABEL COMMENTS; Start 10/29/18 at 11:15 Docusate Sodium (Colace) 100 mg BID PO Last administered on 11/23/18at 09:00; Start 10/24/18 at 21:00 Famotidine (Pepcid) 20 mg DAILY PO Last administered on 11/23/18at 09:00; Start 10/25/18 at 09:00 Fluoxetine HCl (PROzac) 20 mg DAILY PO Last administered on 11/23/18at 09:00; Start 10/25/18 at 09:00 Glucagon (Glucagon) 1 mg ASDIRECTED PRN SC SEE LABEL COMMENTS; Start 10/24/18 at 16:15; Stop 10/29/18 at 11:19; Status DC Glucagon (Glucagon) 1 mg ASDIRECTED PRN SC SEE LABEL COMMENTS; Start 10/29/18 at 11:15 Glucose (Glucose) 16 GM ASDIRECTED PRN PO SEE LABEL COMMENTS; Start 10/24/18 at 16:15; Stop 10/29/18 at 11:19; Status DC Glucose (Glucose) 16 GM ASDIRECTED PRN PO SEE LABEL COMMENTS; Start 10/29/18 at 11:15 Heparin Sodium (Porcine) (Heparin) 5,000 units Q8H SQ Last administered on 11/06/18at 05:41; Start 10/24/18 at 22:00; Stop 11/06/18 at 09:30; Status DC Insulin Detemir (Levemir Insulin) 5 units QHS SC Last administered on 10/24/18at 21:34; Start 10/24/18 at 21:00; Stop 10/25/18 at 13:03; Status DC Insulin Detemir (Levemir Insulin) 8 units DAILY SC ; Start 10/29/18 at 09:00; Stop 10/29/18 at 11:02; Status DC Insulin Detemir (Levemir Insulin) 10 units DAILY SC Last administered on 11/01/18at 08:30; Start 10/30/18 at 09:45; Stop 11/01/18 at 20:23; Status DC Insulin Detemir (Levemir Insulin) 12 units QHS SC Last administered on 10/26/18 21:30; Start 10/25/18 at 21:00; Stop 10/27/18 at 11:48; Status DC Insulin Detemir (Levemir Insulin) 15 units DAILY SC Last administered on 11/04/18at 08:48; Start 11/02/18 at 09:00; Stop 11/04/18 at 14:17; Status DC Insulin Detemir (Levemir Insulin) 20 units DAILY SC Last administered on 11/23/18at 08:59; Start 11/05/18 at 09:00 Insulin Detemir (Levemir Insulin) 20 units QHS SC Last administered on 10/27/18at 21:35; Start 10/27/18 at 21:00; Stop 10/28/18 at 10:12; Status DC Insulin Detemir (Levemir Insulin) 25 units QHS SC Last administered on 10/10 05/28at 21:01; Start 10/28/18 at 21:00; Stop 10/29/18 at 11:17; Status DC Insulin Detemir (Levemir Insulin) 30 units QHS SC Last administered on 10/29/18at 21:57; Start 10/29/18 at 21:00; Stop 10/30/18 at 09:34; Status DC Insulin Detemir (Levemir Insulin) 36 units QHS SC Last administered on 10/30/18at 21:40; Start 10/30/18 at 21:00; Stop 10/31/18 at 07:18; Status DC Insulin Detemir (Levemir Insulin) 40 units QHS SC Last administered on 11/03/18at 21:10; Start 10/31/18 at 21:00; Stop 11/04/18 at 10:24; Status DC Insulin Detemir (Levemir Insulin) 44 units QHS SC Last administered on 11/05/18 20:41; Start 11/04/18 at 21:00; Stop 11/06/18 at 10:14; Status DC Insulin Detemir (Levemir Insulin) 46 units QHS SC Last administered on 3/1/19at 22:30; Start 11/06/18 at 21:00; Stop 11/08/18 at 14:21; Status DC Insulin Detemir (Levemir Insulin) 50 units QHS SC Last administered on 11/22/18 at 21:53; Start 11/08/18 at 21:00 Insulin Human Lispro (HumaLOG INSULIN) 4 units AC SC Last administered on 11/01/18at 16:47; Start 10/28/18 at 17:30; Stop 11/01/18 at 20:23; Status DC Insulin Human Lispro (HumaLOG INSULIN) 6 units AC SC Last administered on 11/06/18at 12:07; Start 11/02/18 at 07:30; Stop 11/06/18 at 16:29; Status DC Insulin Human Lispro (HumaLOG INSULIN) 12 units AC SC Last administered on 11/08/18at 12:19; Start 11/06/18 at 17:30; Stop 11/08/18 at 14:21; Status DC Insulin Human Lispro (HumaLOG INSULIN) 18 units AC SC Last administered on 11/23/18at 12:30; Start 11/08/18 at 17:30 Insulin Human Lispro (HumaLOG INSULIN) SEE PROTOCOL TABLE AC SC Last administered on 11/23/18at 12:29; Start 10/24/18 at 17:30 Insulin Human Lispro (HumaLOG INSULIN) SEE PROTOCOL TABLE QHS SC Last administered on 10/26/18at 21:31; Start 10/24/18 at 21:00; Stop 10/27/18 at 11:48; Status DC Insulin Human Lispro (HumaLOG INSULIN) SEE PROTOCOL TABLE QHS SC Last administered on 11/12/18at 20:44; Start 10/29/18 at 21:00 Lidocaine (Lidoderm Patch) APPLY TO LEFT WRIST DAILY TD Last administered on 11/07/18at 09:33; Start 10/30/18 at 09:00; Stop 11/07/18 at 12:36; Status DC Mineral Oil/White Petrolatum (Eucerin) Apply to LEs as needed DAILY PRN TOP DRY SKIN Last administered on 11/20/18at 08:42; Start 11/18/18 at 14:15 Miscellaneous (Unresolved Clarification Entry) SEE LABEL COMMENTS DAILY XX ; Start 11/06/18 at 09:00; Stop 11/06/18 at 09:33; Status DC Multivitamins (Theragram-M) 1 tab DAILY PO Last administered on 11/23/18at 0 8:59; Start 10/25/18 at 09:00 Niacin (Niacin) 500 mg QHS PO ; Start 10/24/18 at 21:00; Stop 10/29/18 at 10:54; Status DC Niacin (Niaspan) 500 mg QHS PO Last administered on 11/22/18at 21:52; Start 10/29/18 at 21:00 Non-Formulary Medication ( See Comment Field Below ) REMOVE LIDODERM PATCH DAILY@21 XX Last administered on 11/05/18at 20:42; Start 10/30/18 at 21:00; Stop 11/07/18 at 12:36; Status DC Ondansetron HCl (Zofran) 4 mg Q6HP PRN PO NAUSEA; Start 10/24/18 at 16:30; Stop 11/04/18 at 16:22; Status DC Polyethylene Glycol (Miralax) 1 pkt DAILYPRN PRN PO CONSTIPATION; Start 10/24/18 at 16:15 Senna (Senokot) 1 tab QHS PO Last administered on 11/22/18at 21:52; Start 10/24/18 at 21:00 Sodium Chloride 1,000 ml @ 80 mls/hr [id number] IV Last administered on 10/26/18 04:02; Start 10/25/18 at 13:30; Stop 10/26/18 at 19:59; Status DC Trazodone HCl (Desyrel) 25 mg QHS PO Last administered on 11/22/18at 21:52; Start 11/04/18 at 21:00 Trazodone HCl (Desyrel) 25 mg QHSP PRN PO INSOMNIA Last administered on at 23:55; Start 11/04/18 at 16:30 Venlafaxine HCl (Effexor Xr) 75 mg DAILY PO Last administered on 11/23/18at 09:00; Start 10/25/18 at 09:00 Zinc Oxide (Boudreauxs Butt Paste) APPLY TO BUTTOCK AREA BID TOP Last administered on 11/23/18at 08:59; Start 10/30/18 at 09:00 PAUL YE MD Nov 23, 2018 19:44
--- NOTE | 2018-11-23 19:46 | IPNPDOC ---
PM&R Progress Note DATE OF SERVICE: Nov 21, 2018 Promotions Assistant Sales Marketing Progress Note Subjective: Discussed repeating CTH prior to discharge and encouraged patient to keep left arm externally rotated in order to decrease impingement pain. REVIEW OF SYSTEMS: The following is a completed review of systems and has been reviewed. Review of systems otherwise unremarkable. PAIN: Patient self reports no pain EYES: Negative for recent vision loss EARS, NOSE, & THROAT: +dysphagia(improving) CARDIOVASCULAR: denies chest pain or palpitations PULMONARY: Negative. Denies shortness of breath GASTROINTESTINAL: Negative for diarrhea or constipation GENITOURINARY: Negative for dysuria or hematuria NEUROLOGICAL: left sided paresis MSK: left ankle fracture HEMATOLOGICAL: Negative SKIN: no rash or skin breakdown PSYCHIATRIC: Unremarkable All other review of systems found to be negative. PHYSICAL EXAMINATION: VITAL SIGNS: Please see below. GENERAL: Pleasant and cooperative. No acute distress. HEENT: PERRL. Extraocular movements intact. Clear conjunctiva, left facial droop CARDIOVASCULAR: Regular rate and rhythm. No murmurs, rubs, or gallops, +TTP left chest wall at the costo-sternal joint LUNGS: Clear to auscultation bilaterally. No wheezes. No rhonchi. ABDOMEN: Soft, nontender, nondistended. Positive bowel sounds. Normal active bowel sounds. NEUROLOGICAL: Alert and oriented times three. Cranial nerves II through XII grossly intact. Sensation grossly intact. EXTREMITIES: 5\\5 strength right upper extremities. Left biceps 2+/5, triceps 2+/5, wrist extension1/5, casino host 2/5, 5\\5 strength right lower extremity. 3/5 strength in left hip flexors, 3/5 knee extensors, ankle DF and EHL unable to be tested left wrist non-tender to palpation, however pain with valgus strain +Neers left shoulder SKIN:+blanchable erythematous area dorsum of left foot, medial ankle resolved- covered with mepilex ASSESSMENT:67-year-old M with past medical history of CAD, DM, PAD who presents status post stroke with hemorrhagic conversion. PLAN: 1. Rehab: PT/OT, RESTORATION OFFICER, assess for DME needs, working on [id number], continue left wrist splint and left shoulder taping, better left knee stability in therapy, ambulating further with Platform RW -upgraded to regular diet, getting good return in left arm, will encourage OT to work on self feeding with universal cuff 2. Neuro: s/p MCA territory stroke in the setting of "Extremely high grade stenosis right middle cerebral artery approximately 1.3 cm distal to its lu gin." and right ICA occlusion with hemorrhagic conversion, Plavix being held, continue ASA and statin therapy, avoid hypoperfusion -Prozac for motor recovery, monitor for serotonin syndrome with concurrent Effexors-stable -repeat CT11/05/18 showed new linear hemorrhage discussed with Dr. Osorio who recommended continue to hold Plavix and repeat imaging in a few days before considering restarting-will also hold prophylactic heparin -repeat CTH 11/10/18 showed evolving hemorrhage in original infarcted region, CTH 11/11/18 showing, "hemorrhagic component in the right basal ganglia infarct is unchanged from CT study of November 10, 2018 but increased compared to the hemorrhagic component in the infarct on November 05, 2018"-will c/u ASA and plan for repeat cth in 2 weeks on 11/24 and obtain o/p neuro f/u to monitor -will need outpatient follow-up with Dr Porras for CEA in 4-6 weeks 3. Cardio: systolic and diastolic CHF with EF of 30% with defibrillator- medicine consulted, continue Atenolol and Benazepril with holding parameters -patient reported focal chest pain 11/04/18 with deep inhalation able to point to it with one finger and exam consistent with costochondritis treat with Tylenol- resolved 4. Resp: Monitor for infection, encourage incentive spirometry-stable -CXR 10/30/18 shows no active disease, no cough, no fever 5. Renal: CKD , s/p gentle hydration-stable 6. Endo: pmh uncontrolled DM, will increase evening Detemir to 40 units, add HS coverage and increased daily long-acting coverage, continue consistent carb diet and d/c glucerna, will continue to monitor and adjust prn-better 7. : admission and repeat UA and Ucx's negative, monitor PVRs 8. DVT ppx: hold heparin, continue TEDs-will order dopplers today to check for DVTs 9. Psych: pmh depression continue Effexor 10. Ortho: s/p fall on 10/25/18 with left ankle fracture, CAM boot placed, WBAT, crisis intervention specialist and ortho recs appreciated -left shoulder pain-improves with taping, encouraging patient and therapists to work on scapular retraction and pectoralis minor tendon stretching -left wrist pain- recent XRs negative for fracture, no swelling suspect ligamental injury, will continue splint- requesting to stop lidoderm patch -repeat ankle X-ray 11/03/18 showing mild lateral malleoli displacement, reviewed by Dr. Main and discussed with patient, continue CAM boot and WBAT -ankle X-ray 11/17/18 shows no change in alignment of lateral malleoli fracture 11. Sleep: patient reporting insomnia- continue trazodone-improving 10. Dispo: 11/24/18 to home, progressing towards goals, home eval completed Allergies Coded Allergies: No Known Allergies (Unverified , 10/18/18) Vital Signs Vital Signs Date Time Temp Pulse Resp B/P (MAP) Pulse Ox O2 Delivery O2 Flow Rate FiO2 11/23/18 14:00 97.4 75 17 128/72 (90) 75 Laboratory Data Labs 24H Laboratory Tests 2 11/22/18 20:17: Bedside Glucose (Misc Panel) 199H 11/23/18 05:48: Bedside Glucose (Misc Panel) 105 11/23/18 11:52: Bedside Glucose (Misc Panel) 114 11/23/18 16:57: Bedside Glucose (Misc Panel) 52L 11/23/18 18:04: Bedside Glucose (Misc Panel) 95 Current Medications Current Medications Current Medications Acetaminophen (Tylenol Tab) 650 mg Q4HP PRN PO fever/MILD PAIN (PS 1-4) Last administered on 11/23/18at 09:05; Start 10/24/18 at 16:30 Aspirin (Aspirin Chewable) 81 mg DAILY PO Last administered on 11/23/18at 09:00; Start 10/25/18 at 09:00 Atenolol (Tenormin) 25 mg BID PO Last administered on 11/23/18at 09:05; Start 10/25/18 at 15:00 Atorvastatin Calcium (Lipitor) 80 mg QHS PO Last administered on 11/22/18at 21:52; Start 10/24/18 at 21:00 Benazepril HCl (Lotensin) 10 mg QHS PO Last administered on 11/22/18at 21:53; Start 11/18/18 at 21:00 Benazepril HCl (Lotensin) 20 mg QPM PO Last administered on 11/17/18at 20:29; Start 10/25/18 at 21:00; Stop 11/18/18 at 14:15; Status DC Dextrose (Dextrose 50%) 25 ml ASDIRECTED PRN IV SEE LABEL COMMENTS; Start 10/24/18 at 16:15; Stop 10/29/18 at 11:19; Status DC Dextrose (Dextrose 50%) 25 ml ASDIRECTED PRN IV SEE LABEL COMMENTS; Start 10/29/18 at 11:15 Docusate Sodium (Colace) 100 mg BID PO Last administered on 11/23/18at 09:00; Start 10/24/18 at 21:00 Famotidine (Pepcid) 20 mg DAILY PO Last administered on 11/23/18at 09:00; Start 10/25/18 at 09:00 Fluoxetine HCl (PROzac) 20 mg DAILY PO Last administered on 11/23/18at 09:00; Start 10/25/18 at 09:00 Glucagon (Glucagon) 1 mg ASDIRECTED PRN SC SEE LABEL COMMENTS; Start 10/24/18 at 16:15; Stop 10/29/18 at 11:19; Status DC Glucagon (Glucagon) 1 mg ASDIRECTED PRN SC SEE LABEL COMMENTS; Start 10/29/18 at 11:15 Glucose (Glucose) 16 GM ASDIRECTED PRN PO SEE LABEL COMMENTS; Start 10/24/18 at 16:15; Stop 10/29/18 at 11:19; Status DC Glucose (Glucose) 16 GM ASDIRECTED PRN PO SEE LABEL COMMENTS; Start 10/29/18 at 11:15 Heparin Sodium (Porcine) (Heparin) 5,000 units Q8H SQ Last administered on 11/06/18at 05:41; Start 10/24/18 at 22:00; Stop 11/06/18 at 09:30; Status DC Insulin Detemir (Levemir Insulin) 5 units QHS SC Last administered on 10/24/18at 21:34; Start 10/24/18 at 21:00; Stop 10/25/18 at 13:03; Status DC Insulin Detemir (Levemir Insulin) 8 units DAILY SC ; Start 10/29/18 at 09:00; Stop 10/29/18 at 11:02; Status DC Insulin Detemir (Levemir Insulin) 10 units DAILY SC Last administered on 11/01/18 08:30; Start 10/30/18 at 09:45; Stop 11/01/18 at 20:23; Status DC Insulin Detemir (Levemir Insulin) 12 units QHS SC Last administered on 10/26/18 21:30; Start 10/25/18 at 21:00; Stop 10/27/18 at 11:48; Status DC Insulin Detemir (Levemir Insulin) 15 units DAILY SC Last administered on 11/04/18at 08:48; Start 11/02/18 at 09:00; Stop 11/04/18 at 14:17; Status DC Insulin Detemir (Levemir Insulin) 20 units DAILY SC Last administered on 11/23/18at 08:59; Start 11/05/18 at 09:00 Insulin Detemir (Levemir Insulin) 20 units QHS SC Last administered on 10/27/18at 21:35; Start 10/27/18 at 21:00; Stop 10/28/18 at 10:12; Status DC Insulin Detemir (Levemir Insulin) 25 units QHS SC Last administered on at 21:01; Start 10/28/18 at 21:00; Stop 10/29/18 at 11:17; Status DC Insulin Detemir (Levemir Insulin) 30 units QHS SC Last administered on 10/29/18at 21:57; Start 10/29/18 at 21:00; Stop 10/30/18 at 09:34; Status DC Insulin Detemir (Levemir Insulin) 36 units QHS SC Last administered on 10/30/18at 21:40; Start 10/30/18 at 21:00; Stop 10/31/18 at 07:18; Status DC Insulin Detemir (Levemir Insulin) 40 units QHS SC Last administered on 11/03/18at 21:10; Start 10/31/18 at 21:00; Stop 11/04/18 at 10:24; Status DC Insulin Detemir (Levemir Insulin) 44 units QHS SC Last administered on 11/05/18at 20:41; Start 11/04/18 at 21:00; Stop 11/06/18 at 10:14; Status DC Insulin Detemir (Levemir Insulin) 46 units QHS SC Last administered on 11/07/18 22:30; Start 11/06/18 at 21:00; Stop 11/08/18 at 14:21; Status DC Insulin Detemir (Levemir Insulin) 50 units QHS SC Last administered on 11/22/18at 21:53; Start 11/08/18 at 21:00 Insulin Human Lispro (HumaLOG INSULIN) 4 units AC SC Last administered on 11/01/18at 16:47; Start 10/28/18 at 17:30; Stop 11/01/18 at 20:23; Status DC Insulin Human Lispro (HumaLOG INSULIN) 6 units AC SC Last administered on 11/06/18at 12:07; Start 11/02/18 at 07:30; Stop 11/06/18 at 16:29; Status DC Insulin Human Lispro (HumaLOG INSULIN) 12 units AC SC Last administered on 11/08/18 12:19; Start 11/06/18 at 17:30; Stop 11/08/18 at 14:21; Status DC Insulin Human Lispro (HumaLOG INSULIN) 18 units AC SC Last administered on 11/23/18at 12:30; Start 11/08/18 at 17:30 Insulin Human Lispro (HumaLOG INSULIN) SEE PROTOCOL TABLE AC SC Last administered on 11/23/18 12:29; Start 10/24/18 at 17:30 Insulin Human Lispro (HumaLOG INSULIN) SEE PROTOCOL TABLE QHS SC Last administered on 10/26/18at 21:31; Start 10/24/18 at 21:00; Stop 10/27/18 at 11:48; Status DC Insulin Human Lispro (HumaLOG INSULIN) SEE PROTOCOL TABLE QHS SC Last administered on 11/12/18at 20:44; Start 10/29/18 at 21:00 Lidocaine (Lidoderm Patch) APPLY TO LEFT WRIST DAILY TD Last administered on 11/07/18 09:33; Start 10/30/18 at 09:00; Stop 11/07/18 at 12:36; Status DC Mineral Oil/White Petrolatum (Eucerin) Apply to LEs as needed DAILY PRN TOP DRY SKIN Last administered on 11/20/18at 08:42; Start 11/18/18 at 14:15 Miscellaneous (Unresolved Clarification Entry) SEE LABEL COMMENTS DAILY XX ; Start 11/06/18 at 09:00; Stop 11/06/18 at 09:33; Status DC Multivitamins (Theragram-M) 1 tab DAILY PO Last administered on 11/23/18at 08: 59; Start 10/25/18 at 09:00 Niacin (Niacin) 500 mg QHS PO ; Start 10/24/18 at 21:00; Stop 10/29/18 at 10:54; Status DC Niacin (Niaspan) 500 mg QHS PO Last administered on 11/22/18at 21:52; Start 10/29/18 at 21:00 Non-Formulary Medication ( See Comment Field Below ) REMOVE LIDODERM PATCH DAILY@21 XX Last administered on 11/05/18at 20:42; Start 10/30/18 at 21:00; Stop 11/07/18 at 12:36; Status DC Ondansetron HCl (Zofran) 4 mg Q6HP PRN PO NAUSEA; Start 10/24/18 at 16:30; Stop 11/04/18 at 16:22; Status DC Polyethylene Glycol (Miralax) 1 pkt DAILYPRN PRN PO CONSTIPATION; Start 10/24/18 at 16:15 Senna (Senokot) 1 tab QHS PO Last administered on 11/22/18at 21:52; Start 10/24/18 at 21:00 Sodium Chloride 1,000 ml @ 80 mls/hr [id number] IV Last administered on 10/26/18at 04:02; Start 10/25/18 at 13:30; Stop 10/26/18 at 19:59; Status DC Trazodone HCl (Desyrel) 25 mg QHS PO Last administered on 11/22/18at 21:52; Start 11/04/18 at 21:00 Trazodone HCl (Desyrel) 25 mg QHSP PRN PO INSOMNIA Last administered on 11/15/18 at 23:55; Start 11/04/18 at 16:30 Venlafaxine HCl (Effexor Xr) 75 mg DAILY PO Last administered on 11/23/18at 09:00; Start 10/25/18 at 09:00 Zinc Oxide (Boudreauxs Butt Paste) APPLY TO BUTTOCK AREA BID TOP Last administered on 11/23/18at 08:59; Start 10/30/18 at 09:00 PAUL YE MD Nov 23, 2018 19:46
[2018-11-23 20:00] VITALS: BP 133/82
[2018-11-23] MEDS ORDERED: LEVEMIR (INSULIN DETEMIR) 1 UNITS/0.01ML SC SCH (21:00)
[2018-11-23] MEDS ORDERED: ATOR1TAB21 PO (21:07)
[2018-11-23] MEDS ORDERED: FLUO20CA19 PO (21:07)
[2018-11-23] MEDS ORDERED: CHIL81CH2 PO (21:07)
[2018-11-23] MEDS ORDERED: TRAZ25TA PO (21:07)
[2018-11-23] MEDS ORDERED: VENL75CA47 PO (21:07)
[2018-11-23] MEDS ORDERED: INSUH10VL SC (21:07)
[2018-11-23] MEDS ORDERED: BENA5TA PO (21:07)
[2018-11-23] MEDS ORDERED: TOUJ1.2I SC (21:07)
[2018-11-23] MEDS ORDERED: ATEN25TA PO (21:07)
[2018-11-23] MEDS: traZODone 25MG PER 1/2 TABLET PO SCH (21:54)
[2018-11-23] MEDS: ATORVASTATIN 20 MG TAB PO SCH (21:55)
[2018-11-23] MEDS: NIACIN SR (NIASPAN) 500 MG TAB PO SCH (21:55)
[2018-11-23] MEDS: SENNA 8.6 MG TAB (SENOKOT) PO SCH (21:56)
[2018-11-23] MEDS: BENAZEPRIL 5 MG TAB PO SCH (21:56)
[2018-11-24] MEDS ORDERED: HumaLOG INSULIN (NovoLOG) PER UNIT SC SCH (07:30)
--- NOTE | 2018-11-24 08:40 | REP ---
CT Head without contrast HISTORY: Hemorrhagic infarction COMPARISON: 11/11/2018 An evolving hemorrhagic infarction is present in the right basal ganglia , temporal and parietal lobes. A small amount of hemorrhage is present . There is minimal mass effect with partial effacement of the overlying cortical sulci and body of the right lateral ventricle unchanged compared to the previous study. Areas of decreased attenuation are present in the periventricular white matter. This represents small-vessel ischemic disease. The ventricular system and cortical sulci are dilated consistent with mild volume loss. There is no extra cerebral collection. There is no fracture. Mucosal thickening is present in the left ethmoid sinus. IMPRESSION: 1. Evolving hemorrhagic infarction in the right basal ganglia and temporal parietal lobes unchanged compared to the previous study. 2. Small vessel ischemic disease. 3. Mild volume loss. Electronically Signed by Yuriy Grey MD 11/24/2018 08:32 A
[2018-11-24] MEDS: HumaLOG INSULIN (NovoLOG) PER UNIT SC SCH (09:17)
[2018-11-24] MEDS: BOUDREAUX'S BUTT PASTE 4OZ TOP SCH (09:17)
[2018-11-24] MEDS: LEVEMIR (INSULIN DETEMIR) 1 UNITS/0.01ML SC SCH (09:17)
[2018-11-24 09:18] VITALS: BP 133/82
[2018-11-24] MEDS: DOCUSATE SODIUM 100 MG CAP PO SCH (09:18)
[2018-11-24] MEDS: VENLAFAXINE **XR** 75MG CAPSULE PO SCH (09:18)
[2018-11-24] MEDS: ACETAMINOPHEN TAB 650MG DOSE (2X325MG) PO PRN (09:18)
[2018-11-24] MEDS: ATENOLOL 25 MG TAB PO SCH (09:18)
[2018-11-24] MEDS: FLUoxetine 20 MG CAP PO SCH (09:18)
[2018-11-24] MEDS: FAMOTIDINE 20 MG TAB PO SCH (09:18)
[2018-11-24] MEDS: MULTIVITAMINS/MINERALS THERAP 1 TAB PO SCH (09:18)
[2018-11-24] MEDS: ASPIRIN 81 MG CHEW TABLET PO SCH (09:18)
== END 2018-11-24 11:55 | disposition home health service (06) | DRG 57 ==
LOC: M PM&R 14:30
PROVIDERS: ADMIT Physical Medicine & Rehabilitation; ATTEND Physical Medicine & Rehabilitation
DX: I69.354 Hemiplegia and hemiparesis following cerebral infarction affecting left non-dominant side (principal); I50.42 Chronic combined systolic (congestive) and diastolic (congestive) heart failure; I69.391 Dysphagia following cerebral infarction; E11.51 Type 2 diabetes mellitus with diabetic peripheral angiopathy without gangrene; S82.62XA Displaced fracture of lateral malleolus of left fibula, initial encounter for closed fracture; I25.10 Atherosclerotic heart disease of native coronary artery without angina pectoris; K21.9 Gastro-esophageal reflux disease without esophagitis; F32.9 Major depressive disorder, single episode, unspecified; R13.10 Dysphagia, unspecified; N18.3 Chronic kidney disease, stage 3 (moderate); E11.22 Type 2 diabetes mellitus with diabetic chronic kidney disease; R26.9 Unspecified abnormalities of gait and mobility; I69.392 Facial weakness following cerebral infarction; M25.532 Pain in left wrist; I65.02 Occlusion and stenosis of left vertebral artery; M25.512 Pain in left shoulder; G47.00 Insomnia, unspecified; D72.829 Elevated white blood cell count, unspecified; I65.23 Occlusion and stenosis of bilateral carotid arteries; Z79.4 Long term (current) use of insulin; Z87.891 Personal history of nicotine dependence; Z95.5 Presence of coronary angioplasty implant and graft; Z79.82 Long term (current) use of aspirin; Z79.899 Other long term (current) drug therapy; W07.XXXA Fall from chair, initial encounter; Y92.230 Patient room in hospital as the place of occurrence of the external cause; Z95.810 Presence of automatic (implantable) cardiac defibrillator; Z95.820 Peripheral vascular angioplasty status with implants and grafts

== ENCOUNTER 2018-12-03 07:53 | Outpatient (RCR) | payer MEDICARE, OTHER ==
--- NOTE | 2018-11-26 17:05 | NUR ---
Patient presents with a moderate cognitive linguistic deficit which impacts his ability to communicate and independently complete tasks in DLE. Patient presents with decreased attention span and appears to present with decreased motivation, which may negatively impact progress in therapy. ST recommends therapy 2 x weekly for at least the next 4 weeks. Therapy will focus on cognitive-linguistic skills (i.e. memory, problem solving, orientation, etc.) to improve independence and participation in daily activities. Addendum: 11/26/18 at 1706 by REDD PADRON Amended: Links added.
[~2018-12-03 07:53] MED LIST changes: +ATEN25TA PO; +ATOR1TAB21 PO; +BENA5TA PO; +CHIL81CH2 PO; +FLUO20CA19 PO; +TOUJ1.2I SC; +TRAZ25TA PO
== END 2018-12-07 ==
LOC: M ST 07:53
PROVIDERS: ATTEND Family Medicine
DX: I63.9 Cerebral infarction, unspecified (principal)
CPT/HCPCS: 96125; 97110; 97116; 97162; 97165; G0515

== ENCOUNTER → 2019-01-06 | Outpatient (RCR) | payer MEDICARE, OTHER ==
[~2019-01-06] MED LIST changes: +ASPI-286 PO; -CHIL81CH2 PO
== END ==
LOC: M ST 12-08 08:58 → M PT 12-10 08:00 → M OT 12-22 08:59 → M PT 12-24 08:00 → M OT 12-31 08:55 → M PT 08:45
PROVIDERS: ATTEND Family Medicine
DX: I63.9 Cerebral infarction, unspecified (principal)
CPT/HCPCS: 97110; 97112; 97116; 97140; 97530; G0515

== ENCOUNTER → 2019-01-12 | Outpatient (CLI) | payer MEDICARE, OTHER ==
[2019-01-12 11:47] LABS: HEMATOCRIT 41.7 % (42.0-52.0); HEMOGLOBIN 13.7 g/dl (13.5-17.5); MEAN CORPUSCULAR HEMOGLOBIN 30.4 pg (27.0-33.0); MEAN CORPUSCULAR HGB CONC 32.9 g/dl (32.0-36.5); MEAN CORPUSCULAR VOLUME 92.5 fl (80.0-96.0); PLATELET COUNT, AUTOMATED 243 10^3/uL (150-450); RED BLOOD COUNT 4.51 10^6/uL (4.30-6.10); WHITE BLOOD COUNT 12.4 10^3/uL (4.0-10.0)
[2019-01-12 12:34] LABS: CALCIUM LEVEL 9.1 MG/DL (8.8-10.2); CREATININE FOR GFR 1.31 MG/DL (0.70-1.30); GLOMERULAR FILTRATION RATE 57.8 (>49); MAGNESIUM LEVEL 1.7 MG/DL (1.8-2.4); POTASSIUM SERUM 4.7 MEQ/L (3.5-5.1)
== END ==
LOC: M LAB 11:17
PROVIDERS: ATTEND Physician Assistant
DX: I25.5 Ischemic cardiomyopathy (principal); I25.118 Atherosclerotic heart disease of native coronary artery with other forms of angina pectoris

== ENCOUNTER → 2019-01-27 | Outpatient (CLI) | payer MEDICARE, OTHER ==
--- NOTE | 2019-01-27 13:57 | REP ---
CT Head without contrast HISTORY: Left hemiplegia COMPARISON: 12/26/2018 An area of decreased attenuation is present in the right basal ganglia, temporal and parietal lobes. This represents an old infarction. There has been resolution of the previously noted small chronic hemorrhagic component. Areas of decreased attenuation are present in the periventricular white matter. This represents small-vessel ischemic disease. There is no intraparenchymal hemorrhage, acute infarct, mass or midline shift. The ventricular system and cortical sulci are dilated consistent with mild volume loss. There is no extra cerebral collection. There is no fracture. The visualized sinuses are clear. IMPRESSION: 1. Old right basal ganglia and temporal parietal lobe infarction. 2. Small vessel ischemic disease. 3. Mild volume loss. Electronically Signed by Yuriy Grey MD 01/27/2019 01:48 P
== END ==
LOC: M RAD 13:18
PROVIDERS: ATTEND Psychiatry & Neurology Neurology
DX: I67.82 Cerebral ischemia (principal); G31.9 Degenerative disease of nervous system, unspecified; G81.04 Flaccid hemiplegia affecting left nondominant side; I65.23 Occlusion and stenosis of bilateral carotid arteries; I61.0 Nontraumatic intracerebral hemorrhage in hemisphere, subcortical

== ENCOUNTER 2019-02-04 08:56 | Outpatient (RCR) | payer MEDICARE, OTHER | END 2019-02-06 | LOC: M OT 08:56 | PROVIDERS: ATTEND Family Medicine | DX: I63.9 Cerebral infarction, unspecified (principal) | CPT/HCPCS: 97032; 97110; 97112; 97116; 97530; G0515 ==

== ENCOUNTER 2019-03-04 08:58 | Outpatient (RCR) | payer MEDICARE, OTHER ==
[~2019-03-04 08:58] MED LIST changes: +TRAZ1TAB11 PO; -TRAZ25TA PO
== END 2019-03-08 ==
LOC: M OT 08:58
PROVIDERS: ATTEND Family Medicine
DX: I63.9 Cerebral infarction, unspecified (principal)
CPT/HCPCS: 92507; 97032; 97110; 97112; 97116; 97542; G0515

== ENCOUNTER → 2019-04-06 | Outpatient (CLI) | payer MEDICARE, OTHER ==
[2019-04-06 13:18] LABS: CREATININE FOR GFR 1.29 MG/DL (0.70-1.30); GLOMERULAR FILTRATION RATE 58.8 (>49); MAGNESIUM LEVEL 1.6 MG/DL (1.8-2.4); POTASSIUM SERUM 5.1 MEQ/L (3.5-5.1)
== END ==
LOC: M LAB 11:28
PROVIDERS: ATTEND Physician Assistant
DX: I25.5 Ischemic cardiomyopathy (principal)

== ENCOUNTER → 2019-04-08 | Outpatient (RCR) | payer MEDICARE, OTHER | LOC: M OT 03-11 08:58 → M PT 03-16 08:45 → M OT 03-23 08:43 → M PT 03-25 10:15 → M OT 04-06 09:00 → M PT 10:15 | PROVIDERS: ATTEND Family Medicine | DX: Z51.89 Encounter for other specified aftercare (principal); I69.354 Hemiplegia and hemiparesis following cerebral infarction affecting left non-dominant side; I69.320 Aphasia following cerebral infarction ==

== ENCOUNTER → 2019-04-27 | Outpatient (REF) | payer MEDICARE, OTHER ==
[2019-04-27 13:52] LABS: APPEARANCE, URINE HAZY (CLEAR); BACTERIA, URINE AUTO NEGATIVE (NEGATIVE); BILIRUBIN, URINE AUTO NEGATIVE (NEGATIVE); BLOOD, URINE BLOOD NEGATIVE (NEGATIVE); CALCIUM OXALATE CRYSTALS SMALL; COLOR, URINE YELLOW (YELLOW); GLUCOSE, URINE (UA) AUTO NEGATIVE (NEGATIVE); KETONE, URINE AUTO NEGATIVE (NEGATIVE); LEUKOCYTE ESTERASE, URINE AUTO NEGATIVE (NEGATIVE); MUCUS, URINE SMALL (NEGATIVE); NITRITE, URINE AUTO NEGATIVE (NEGATIVE); PROTEIN, URINE AUTO NEGATIVE (NEGATIVE); RBC, URINE AUTO 1 /HPF (0-3); SPECIFIC GRAVITY URINE AUTO 1.025 (1.002-1.035); SQUAMOUS EPITHELIAL CELL UR AU 0 /HPF (0-6); UROBILINOGEN, URINE AUTO 0.2 mg/dL (0.0-2.0); WBC, URINE AUTO 1 /HPF (0-3)
== END ==
LOC: M LAB REF 12:25
PROVIDERS: ATTEND Family Medicine
DX: R31.0 Gross hematuria (principal)

== ENCOUNTER 2019-05-06 09:25 | Outpatient (RCR) | payer MEDICARE, OTHER | END 2019-05-09 | LOC: M PT 09:25 | PROVIDERS: ATTEND Family Medicine | DX: I63.9 Cerebral infarction, unspecified (principal) ==

== ENCOUNTER → 2019-06-08 | Outpatient (RCR) | payer MEDICARE, OTHER | LOC: M PT 05-12 09:31 | PROVIDERS: ATTEND Family Medicine | DX: I63.9 Cerebral infarction, unspecified (principal) ==

== ENCOUNTER 2019-07-08 10:30 | Outpatient (RCR) | payer MEDICARE, OTHER ==
[~2019-07-08 10:30] MED LIST changes: -GLIM4TAB PO; +GLIM4TAB3 PO
== END 2019-07-09 ==
LOC: M OT 10:30
PROVIDERS: ATTEND Family Medicine
DX: I63.9 Cerebral infarction, unspecified (principal); G81.94 Hemiplegia, unspecified affecting left nondominant side

== ENCOUNTER → 2019-07-13 | Outpatient (CLI) | payer MEDICARE, OTHER ==
[2019-07-13 12:24] LABS: CALCIUM LEVEL 9.4 MG/DL (8.8-10.2); CREATININE FOR GFR 1.34 MG/DL (0.70-1.30); GLOMERULAR FILTRATION RATE 56.3 (>49); MAGNESIUM LEVEL 1.6 MG/DL (1.8-2.4); POTASSIUM SERUM 4.3 MEQ/L (3.5-5.1)
== END ==
LOC: M LAB 11:14
PROVIDERS: ATTEND Physician Assistant
DX: I25.5 Ischemic cardiomyopathy (principal)

== ENCOUNTER 2019-08-05 10:33 | Outpatient (RCR) | payer MEDICARE, OTHER | END 2019-08-08 | LOC: M OT 10:33 | PROVIDERS: ATTEND Family Medicine | DX: I63.9 Cerebral infarction, unspecified (principal) ==

== ENCOUNTER 2019-08-31 10:26 | Outpatient (RCR) | payer MEDICARE, OTHER | END 2019-09-08 | LOC: M OT 10:26 → M PT 10:26 | PROVIDERS: ATTEND Family Medicine | DX: I63.9 Cerebral infarction, unspecified (principal) ==

== ENCOUNTER 2019-09-30 10:35 | Outpatient (RCR) | payer MEDICARE, OTHER ==
[~2019-09-30 10:35] MED LIST changes: -GLIM4TAB3 PO; +GLIM4TAB5 PO
== END 2019-10-09 ==
LOC: M PT 10:35
PROVIDERS: ATTEND Family Medicine
DX: I63.9 Cerebral infarction, unspecified (principal)

== ENCOUNTER → 2019-10-07 | Outpatient (CLI) | payer MEDICARE, OTHER ==
[2019-10-07 13:00] LABS: ALBUMIN 4.1 GM/DL (3.2-5.2); ALT/SGPT 27 U/L (12-78); BILIRUBIN,TOTAL 0.5 MG/DL (0.2-1.0); BLOOD UREA NITROGEN 20 MG/DL (7-18); CALCIUM LEVEL 9.6 MG/DL (8.8-10.2); CARBON DIOXIDE LEVEL 31 MEQ/L (21-32); CHLORIDE LEVEL 104 MEQ/L (98-107); CHOLESTEROL LEVEL 92 MG/DL (<200); CHOLESTEROL RISK RATIO 2.875 (<5); CREATININE FOR GFR 1.17 MG/DL (0.70-1.30); GLOMERULAR FILTRATION RATE > 60.0 (>49); GLUCOSE, FASTING 133 MG/DL (70-100); HDL CHOLESTEROL 32 MG/DL (>40); LDL CHOLESTEROL 42 MG/DL (<100); MAGNESIUM LEVEL 1.7 MG/DL (1.8-2.4); NON-HDL-C 60 MG/DL; POTASSIUM SERUM 4.3 MEQ/L (3.5-5.1); SODIUM LEVEL 140 MEQ/L (136-145); TOTAL PROTEIN 7.4 GM/DL (6.4-8.2); TRIGLYCERIDES LEVEL 89 MG/DL (<150)
== END ==
LOC: M LAB 10:31
PROVIDERS: ATTEND Physician Assistant
DX: I25.5 Ischemic cardiomyopathy (principal); E78.00 Pure hypercholesterolemia, unspecified; I25.118 Atherosclerotic heart disease of native coronary artery with other forms of angina pectoris

== ENCOUNTER → 2019-12-09 | Outpatient (CLI) | payer MEDICARE, OTHER ==
[~2019-12-09] MED LIST changes: -FLUO20CA19 PO; +FLUO20CA22 PO
[2019-12-09 10:53] LABS: CREATININE FOR GFR 1.32 MG/DL (0.70-1.30); GLOMERULAR FILTRATION RATE 57.1 (>42); MAGNESIUM LEVEL 1.5 MG/DL (1.8-2.4)
== END ==
LOC: M LAB 09:40
PROVIDERS: ATTEND Physician Assistant
DX: I25.5 Ischemic cardiomyopathy (principal)

== ENCOUNTER → 2019-12-09 | Outpatient (CLI) | payer MEDICARE, OTHER ==
--- NOTE | 2019-12-09 11:24 | REP ---
REASON FOR EXAM: Memory loss. COMPARISON: Multiple, the latest 01/27/2019. There has been no significant change from the prior exam. Once again, there is evidence of an old basal ganglia and right temporoparietal lobe infarction. Patchy lucency is again seen throughout the deep cerebral white matter consistent with small vessel ischemic disease. There is cerebral and cerebellar atrophic change status quo. There is no evidence of an acute intracranial hemorrhagic or nonhemorrhagic event. The ventricles and sulci are unchanged. There is no shift of the midline structures. There is no evidence of a skull fracture. The mastoid air cells are stable and clear. Soft tissue density is seen in the frontal sinuses and extending into the frontal ethmoid recess on the left. This represents a change from the prior exam. IMPRESSION: 1. No evidence of an acute intracranial process with chronic changes as described above. 2. Soft tissue density consistent with mucosal thickening in the paranasal sinuses as described above. Electronically Signed by Jamar Adair DO 12/09/2019 02:12 P
== END ==
LOC: M RAD 09:45
PROVIDERS: ATTEND Psychiatry & Neurology Neurology
DX: R41.3 Other amnesia (principal); I25.5 Ischemic cardiomyopathy

== ENCOUNTER → 2020-01-08 | Outpatient (CLI) | payer MEDICARE, OTHER ==
[2020-01-08 16:47] LABS: CALCIUM LEVEL 9.2 MG/DL (8.8-10.2); CREATININE FOR GFR 1.48 MG/DL (0.70-1.30); MAGNESIUM LEVEL 1.9 MG/DL (1.8-2.4)
== END ==
LOC: M LAB 15:34
PROVIDERS: ATTEND Physician Assistant
DX: I25.5 Ischemic cardiomyopathy (principal)

== ENCOUNTER → 2020-01-26 | Outpatient (CLI) | payer MEDICARE, OTHER ==
[2020-01-26 14:33] LABS: CALCIUM LEVEL 9.7 MG/DL (8.8-10.2); CREATININE FOR GFR 1.32 MG/DL (0.70-1.30); GLOMERULAR FILTRATION RATE 57.1 (>42); MAGNESIUM LEVEL 1.6 MG/DL (1.8-2.4); POTASSIUM SERUM 4.3 MEQ/L (3.5-5.1); THYROID STIMULATING HORMONE 1.15 uIU/ML (0.358-3.740)
== END ==
LOC: M LAB 13:05
PROVIDERS: ATTEND Physician Assistant
DX: I25.5 Ischemic cardiomyopathy (principal); I49.01 Ventricular fibrillation

== ENCOUNTER → 2020-05-10 | Outpatient (CLI) | payer MEDICARE, OTHER ==
[2020-05-10 16:54] LABS: CALCIUM LEVEL 9.3 MG/DL (8.8-10.2); CREATININE FOR GFR 1.41 MG/DL (0.70-1.30); GLOMERULAR FILTRATION RATE 52.9 (>42); POTASSIUM SERUM 4.2 MEQ/L (3.5-5.1)
== END ==
LOC: M LAB 16:05
PROVIDERS: ATTEND Physician Assistant
DX: I25.5 Ischemic cardiomyopathy (principal)

== ENCOUNTER → 2020-08-08 | Outpatient (REF) | payer MEDICARE, OTHER ==
[2020-08-08 12:38] LABS: APPEARANCE, URINE CLEAR (CLEAR); BACTERIA, URINE AUTO NEGATIVE (NEGATIVE); BILIRUBIN, URINE AUTO NEGATIVE (NEGATIVE); BLOOD, URINE BLOOD NEGATIVE (NEGATIVE); CALCIUM OXALATE CRYSTALS MODERATE; COLOR, URINE YELLOW (YELLOW); GLUCOSE, URINE (UA) AUTO 1+ mg/dL (NEGATIVE); KETONE, URINE AUTO NEGATIVE (NEGATIVE); LEUKOCYTE ESTERASE, URINE AUTO NEGATIVE (NEGATIVE); MUCUS, URINE SMALL (NEGATIVE); NITRITE, URINE AUTO NEGATIVE (NEGATIVE); PROTEIN, URINE AUTO NEGATIVE (NEGATIVE); RBC, URINE AUTO 1 /HPF (0-3); SPECIFIC GRAVITY URINE AUTO 1.021 (1.002-1.035); SQUAMOUS EPITHELIAL CELL UR AU 0 /HPF (0-6); UROBILINOGEN, URINE AUTO 0.2 mg/dL (0.0-2.0); WBC, URINE AUTO 1 /HPF (0-3)
== END ==
LOC: M LAB REF 11:46
PROVIDERS: ATTEND Family Medicine
DX: R31.9 Hematuria, unspecified (principal)

== ENCOUNTER → 2020-08-18 | Outpatient (CLI) | payer MEDICARE, OTHER ==
[2020-08-18 16:44] LABS: CALCIUM LEVEL 9.1 MG/DL (8.8-10.2); CREATININE FOR GFR 1.46 MG/DL (0.70-1.30); GLOMERULAR FILTRATION RATE 50.8 (>42); MAGNESIUM LEVEL 1.7 MG/DL (1.8-2.4); POTASSIUM SERUM 3.9 MEQ/L (3.5-5.1)
== END ==
LOC: M LAB 15:52
PROVIDERS: ATTEND Physician Assistant
DX: I25.5 Ischemic cardiomyopathy (principal)

== ENCOUNTER → 2020-12-12 | Outpatient (CLI) | payer MEDICARE, OTHER ==
[~2020-12-12] MED LIST changes: +ISOS1TAB35 PO; -ISOS30TA4 PO
[2020-12-12 12:56] LABS: HEMATOCRIT 47.3 % (42.0-52.0); MEAN CORPUSCULAR HEMOGLOBIN 30.5 pg (27.0-33.0); MEAN CORPUSCULAR HGB CONC 31.7 g/dl (32.0-36.5); MEAN CORPUSCULAR VOLUME 96.1 fl (80.0-96.0); PLATELET COUNT, AUTOMATED 197 10^3/uL (150-450); RED BLOOD COUNT 4.92 10^6/uL (4.30-6.10); WHITE BLOOD COUNT 15.8 10^3/uL (4.0-10.0)
[2020-12-12 13:39] LABS: ALT/SGPT 39 U/L (12-78); BILIRUBIN,TOTAL 0.5 MG/DL (0.2-1.0); BLOOD UREA NITROGEN 22 MG/DL (7-18); CALCIUM LEVEL 9.3 MG/DL (8.8-10.2); CARBON DIOXIDE LEVEL 31 MEQ/L (21-32); CHLORIDE LEVEL 106 MEQ/L (98-107); CHOLESTEROL LEVEL 75 MG/DL (<200); CHOLESTEROL RISK RATIO 2.343 (<5); CREATININE FOR GFR 1.21 MG/DL (0.70-1.30); GLOMERULAR FILTRATION RATE > 60.0 (>42); GLUCOSE, FASTING 128 MG/DL (70-100); HDL CHOLESTEROL 32 MG/DL (>40); LDL CHOLESTEROL 25 MG/DL (<100); NON-HDL-C 43 MG/DL; POTASSIUM SERUM 3.7 MEQ/L (3.5-5.1); SODIUM LEVEL 142 MEQ/L (136-145); TRIGLYCERIDES LEVEL 89 MG/DL (<150)
== END ==
LOC: M LAB 11:40
PROVIDERS: ATTEND Physician Assistant
DX: I25.118 Atherosclerotic heart disease of native coronary artery with other forms of angina pectoris (principal); I25.5 Ischemic cardiomyopathy; E78.00 Pure hypercholesterolemia, unspecified

== ENCOUNTER 2021-02-20 12:16 | Emergency (ER) | payer MEDICARE, OTHER ==
[~2021-02-20] VITALS: Ht 177.8 cm; Wt 62.8 kg
--- NOTE | 2021-02-20 12:59 | REP ---
INDICATION: CHEST PAIN. COMPARISON: 10/29/2018 also P TECHNIQUE: Portable FINDINGS: The technique utilized in obtaining the radiograph has magnified the cardiac silhouette and accentuated the interstitial markings. The superior mediastinal structures are midline. The cardiac silhouette is unremarkable in size, shape, and position. The diaphragmatic surfaces of the lungs are regular, and the costophrenic angles are clear. The pulmonary william are clear. The imaged osseous structures show a permeative type pattern involving the left scapula and proximal left humerus. The single chamber bipolar pacemaker devices unchanged. Note is again made of previous median sternotomy. IMPRESSION: There is no acute cardiopulmonary disease. There is an abnormal bone pattern involving the imaged portion of the left humerus and left scapula. Does this patient have myeloma or other form of proliferative disease? Further workup is suggested along with clinical correlation. <Electronically signed by Jamar Adair > 02/20/21 1890
[2021-02-20 13:09] LABS: HEMATOCRIT 47.8 % (42.0-52.0); HEMOGLOBIN 15.2 g/dl (13.5-17.5); MEAN CORPUSCULAR HEMOGLOBIN 30.2 pg (27.0-33.0); MEAN CORPUSCULAR HGB CONC 31.8 g/dl (32.0-36.5); MEAN CORPUSCULAR VOLUME 94.8 fl (80.0-96.0); PLATELET COUNT, AUTOMATED 231 10^3/uL (150-450); RED BLOOD COUNT 5.04 10^6/uL (4.30-6.10); WHITE BLOOD COUNT 17.1 10^3/uL (4.0-10.0)
[2021-02-20] MEDS ORDERED: FAMO40TA3 (13:28)
[2021-02-20] MEDS ORDERED: METF10004 (13:28)
[2021-02-20] MEDS ORDERED: COLA100C5 PO (13:28)
[2021-02-20] MEDS ORDERED: CLOP75TA2 (13:28)
[2021-02-20] MEDS ORDERED: VENL150C43 (13:28)
[2021-02-20] MEDS ORDERED: ENTR1TAB PO (13:28)
[2021-02-20 13:33] LABS: ATYPICAL LYMPH 5 % (0-5); LYMPHOCYTES 41 % (16-44); MONOCYTES 2 % (0-5); NEUTROPHILS 52 % (28-66); PLATELET ESTIMATE NORMAL (NORMAL); SMUDGE CELLS 1+
[2021-02-20 13:34] LABS: ANISOCYTOSIS 1+; POIKILOCYTOSIS 1+
[2021-02-20 13:44] LABS: ALBUMIN 3.6 GM/DL (3.2-5.2); ALT/SGPT 38 U/L (12-78); BILIRUBIN,DIRECT 0.2 MG/DL (0.0-0.2); BILIRUBIN,TOTAL 0.5 MG/DL (0.2-1.0); BLOOD UREA NITROGEN 21 MG/DL (7-18); CALCIUM LEVEL 9.5 MG/DL (8.8-10.2); CARBON DIOXIDE LEVEL 26 MEQ/L (21-32); CHLORIDE LEVEL 108 MEQ/L (98-107); CPK CREATINE PHOSPHOKINASE 59 U/L (39-308); CREATININE FOR GFR 1.27 MG/DL (0.70-1.30); GLOMERULAR FILTRATION RATE 59.5 (>42); GLUCOSE, FASTING 191 MG/DL (70-100); MB/CK RELATIVE INDEX 1.69 (< OR =4); POTASSIUM SERUM 4.8 MEQ/L (3.5-5.1); SODIUM LEVEL 140 MEQ/L (136-145); TOTAL PROTEIN 6.8 GM/DL (6.4-8.2)
[2021-02-20 13:45] LABS: FREE T4 0.99 NG/DL (0.76-1.46); LIPASE 208 U/L (73-393); TROPONIN I < 0.02 NG/ML (< 0.10)
--- NOTE | 2021-02-20 14:34 | ED PDOC ---
Post-Departure Follow-Up dr oliver faxed formal report of cxr for fu Chantal Reyes MD Feb 20, 2021 14:34
[2021-02-20] MEDS ORDERED: CLOPIDOGREL 75 MG TAB PO ONE (15:25)
[2021-02-20 15:40] LABS: INR 0.9; PROTHROMBIN TIME 12.3 SECONDS (12.5-14.3)
[2021-02-20 15:41] LABS: PARTIAL THROMBOPLASTIN TIME 29.2 SECONDS (24.2-38.5)
[2021-02-20 16:23] LABS: RSV AMPLIFICATION NEGATIVE (NEGATIVE)
[2021-02-20 16:24] LABS: CK-MB VALUE MASS < 1.0 NG/ML (<3.6); CPK CREATINE PHOSPHOKINASE 50 U/L (39-308); TROPONIN I < 0.02 NG/ML (< 0.10)
--- NOTE | 2021-02-20 17:05 | ECGEPIP ---
[facility] - ED Test Date: 2021-02-20 Pat Name: FORD KAPADIA Department: Room: - Gender: Male Operations Associate: JOSE RAFAEL : 1950 Requested By: DANYELLE Ordoñez Order Number: [id number] Reading MD: Lissa Andrea Measurements Intervals [place] Rate: 75 P: 64 MD: 150 QRS: -18 QRSD: 102 T: 57 QT: 388 QTc: 433 Interpretive Statements Normal sinus rhythm Minimal voltage criteria for LVH, may be normal variant ( R in aVL ) Nonspecific T wave abnormality increased rate 10/18/18 Electronically Signed on 02-20-2021 17:05:07 EDT by Lissa Andrea
[2021-02-20 18:03] VITALS: BP 139/66
== END 2021-02-20 18:05 | disposition short-term general hospital (02) ==
LOC: EDBD 12:16 → M ED 12:16 → EDSEX 12:16 → M ED 18:05
DX: I24.9 Acute ischemic heart disease, unspecified (principal); R93.89 Abnormal findings on diagnostic imaging of other specified body structures; E11.9 Type 2 diabetes mellitus without complications; F33.9 Major depressive disorder, recurrent, unspecified; K21.9 Gastro-esophageal reflux disease without esophagitis; I25.2 Old myocardial infarction; Z79.899 Other long term (current) drug therapy; Z79.82 Long term (current) use of aspirin; Z79.4 Long term (current) use of insulin; Z95.0 Presence of cardiac pacemaker; Z95.1 Presence of aortocoronary bypass graft; Z95.5 Presence of coronary angioplasty implant and graft; Z87.891 Personal history of nicotine dependence

== ENCOUNTER → 2021-03-08 | Outpatient (CLI) | payer MEDICARE, OTHER ==
[~2021-03-08] MED LIST changes: +CLOP75TA2; +COLA100C5 PO; +ENTR1TAB PO; +FAMO40TA3; +METF10004; +VENL150C43
[2021-03-08 16:23] LABS: CALCIUM LEVEL 9.1 MG/DL (8.8-10.2); CREATININE FOR GFR 1.4 MG/DL (0.70-1.30); GLOMERULAR FILTRATION RATE 53.2 (>42); MAGNESIUM LEVEL 2.1 MG/DL (1.8-2.4); POTASSIUM SERUM 4.1 MEQ/L (3.5-5.1)
== END ==
LOC: M LAB 15:20
PROVIDERS: ATTEND Physician Assistant
DX: I25.2 Old myocardial infarction (principal)

== ENCOUNTER → 2021-06-13 | Outpatient (CLI) | payer MEDICARE, OTHER ==
[2021-06-13 17:46] LABS: BLOOD UREA NITROGEN 20 MG/DL (7-18); CALCIUM LEVEL 9.1 MG/DL (8.8-10.2); CARBON DIOXIDE LEVEL 28 MEQ/L (21-32); CHLORIDE LEVEL 104 MEQ/L (98-107); CREATININE FOR GFR 1.21 MG/DL (0.70-1.30); GLOMERULAR FILTRATION RATE > 60.0 (>42); GLUCOSE, FASTING 195 MG/DL (70-100); MAGNESIUM LEVEL 1.7 MG/DL (1.8-2.4); POTASSIUM SERUM 3.7 MEQ/L (3.5-5.1); SODIUM LEVEL 140 MEQ/L (136-145)
== END ==
LOC: M LAB 16:13
PROVIDERS: ATTEND Physician Assistant
DX: I25.5 Ischemic cardiomyopathy (principal)

== ENCOUNTER 2021-08-03 13:29 | Inpatient (IN) | payer MEDICARE, OTHER ==
[~2021-08-03] VITALS: Ht 177.8 cm; Wt 65.9 kg
[2021-08-03 00:08] VITALS: BP 136/66
[2021-08-03] MEDS: atenoloL 25 MG TAB PO SCH (09:00)
[~2021-08-03 13:29] MED LIST changes: +BENA-8 PO; +BENA1TAB23 PO; -BENA20TA8 PO; -BENA5TA PO; -CLOP75TA2; -FAMO40TA3; +FAMO40TA3 PO; -METF10004; -VENL150C43; +VENL150C43 PO
[2021-08-03] MEDS ORDERED: JARD1TAB PO (13:41)
[2021-08-03] MEDS ORDERED: ATEN25TA PO ×2 (13:41→16:34)
[2021-08-03] MEDS ORDERED: TOUJ1.2I SC (13:41)
[2021-08-03] MEDS ORDERED: NS 1,000 ML IV ONE (14:10)
[2021-08-03] MEDS ORDERED: PANTOPRAZOLE 40MG VIAL (C9113 PER 1) IV ONE (14:10)
[2021-08-03] MEDS ORDERED: ONDANSETRON 4MG/2ML VIAL IV ONE (14:10)
[2021-08-03 14:24] LABS: HEMATOCRIT 30.4 % (42.0-52.0); MEAN CORPUSCULAR HEMOGLOBIN 31.6 pg (27.0-33.0); MEAN CORPUSCULAR HGB CONC 32.9 g/dl (32.0-36.5); MEAN CORPUSCULAR VOLUME 96.2 fl (80.0-96.0); RED BLOOD COUNT 3.16 10^6/uL (4.30-6.10); WHITE BLOOD COUNT 17.3 10^3/uL (4.0-10.0)
[2021-08-03 14:33] LABS: INR 1.11; PARTIAL THROMBOPLASTIN TIME 30.1 SECONDS (25.9-37.0); PROTHROMBIN TIME 14.7 SECONDS (12.7-14.5)
[2021-08-03 14:46] LABS: BILIRUBIN,DIRECT 0.2 MG/DL (0.0-0.2); BILIRUBIN,TOTAL 0.6 MG/DL (0.2-1.0); CALCIUM LEVEL 8.7 MG/DL (8.8-10.2); CREATININE FOR GFR 1.63 MG/DL (0.70-1.30); GLOMERULAR FILTRATION RATE 44.6 (>42); POTASSIUM SERUM 4.2 MEQ/L (3.5-5.1); TOTAL PROTEIN 7.2 GM/DL (6.4-8.2)
[2021-08-03 14:49] LABS: PLATELET COUNT, AUTOMATED 4 10^3/uL (150-450)
[2021-08-03 14:55] LABS: ATYPICAL LYMPH 4 % (0-5); BLAST CELLS 1 % (0-0); LYMPHOCYTES 84 % (16-44); MONOCYTES 6 % (0-5); MYELOCYTES 2 % (0-0); NEUTROPHILS 3 % (28-66); PLATELET ESTIMATE MARKED DECREASE (NORMAL)
[2021-08-03 14:56] LABS: ANISOCYTOSIS 1+
[2021-08-03 15:08] LABS: RSV AMPLIFICATION NEGATIVE (NEGATIVE)
[2021-08-03 15:29] VITALS: BP 124/59
[2021-08-03 15:50] VITALS: BP 120/70
[2021-08-03] MEDS ORDERED: ACETAMINOPHEN TAB 650MG DOSE (2X325MG) PO PRN (16:30)
[2021-08-03] MEDS ORDERED: DEXTROSE 50% 50 ML SYRINGE IV PRN (16:30)
[2021-08-03] MEDS ORDERED: GLUCOSE 4GM CHEW TABLET PO PRN (16:30)
[2021-08-03] MEDS ORDERED: GLUCAGON INJ 1MG VIAL SC PRN (16:30)
[2021-08-03] MEDS ORDERED: ATOR80TA59 PO (16:34)
[2021-08-03] MEDS ORDERED: ASPI81TA26 PO (16:34)
[2021-08-03] MEDS ORDERED: INSUH10VL SC (16:34)
[2021-08-03] MEDS ORDERED: HOME MED LIST COMPLETE! XX SCH (16:35)
[2021-08-03 17:26] VITALS: BP 114/72
[2021-08-03 17:41] LABS: HEMATOCRIT 23.8 % (42.0-52.0); LYMPH % 77.5 % (24.0-44.0); MEAN CORPUSCULAR HGB CONC 33.2 g/dl (32.0-36.5); MEAN CORPUSCULAR VOLUME 96.4 fl (80.0-96.0); MONO # 0.8 10^3/uL (0.0-0.8); NEUTROPHILS % 12.5 % (36.0-66.0); RED BLOOD COUNT 2.47 10^6/uL (4.30-6.10); WHITE BLOOD COUNT 7.7 10^3/uL (4.0-10.0)
[2021-08-03 17:44] LABS: HEMOGLOBIN 7.9 g/dl (13.5-17.5)
[2021-08-03 17:58] LABS: PLATELET COUNT, AUTOMATED 24 10^3/uL (150-450)
[2021-08-03] MEDS: HumaLOG INSULIN (NovoLOG) PER UNIT SC SCH (18:00)
[2021-08-03] MEDS ORDERED: LIDOCAINE 2% 100MG/5ML SDV (FOR ANES.) As Ordered ONE (18:41)
[2021-08-03] MEDS ORDERED: propofoL 200 MG/20 ML VIAL As Ordered ONE (18:41)
[2021-08-03] MEDS ORDERED: fentaNYL 100 MCG/2 ML INJECTION As Ordered ONE (18:42)
[2021-08-03] MEDS ORDERED: MIDAZOLAM INJ 2MG/2ML VIAL (J2250 PER 1MG) As Ordered ONE (18:42)
[2021-08-03] MEDS: PANTOPRAZOLE 40MG VIAL (C9113 PER 1) IV SCH (20:48)
[2021-08-03] MEDS: SUCRALFATE 1 GM TAB PO SCH (21:00)
[2021-08-03] MEDS ORDERED: ONDANSETRON 4MG/2ML VIAL IV PRN (22:20)
[2021-08-03] MEDS ORDERED: fentaNYL 100 MCG/2 ML INJECTION IV PRN (22:20)
[2021-08-03] MEDS ORDERED: METOCLOPRAMIDE INJ 10MG/2ML VIAL (J2765 PER 1) IV PRN (22:20)
[2021-08-03] MEDS ORDERED: LR 1,000 ML IV SCH (22:20)
[2021-08-03 23:38] VITALS: BP 132/77
[2021-08-03 23:53] VITALS: BP 157/74
[2021-08-04] VITALS (13 sets, daily range): BP systolic 119–147; BP diastolic 56–76
[2021-08-04 05:12] LABS: HEMATOCRIT 30.1 % (42.0-52.0); MEAN CORPUSCULAR HEMOGLOBIN 30.7 pg (27.0-33.0); MEAN CORPUSCULAR HGB CONC 32.9 g/dl (32.0-36.5); MEAN CORPUSCULAR VOLUME 93.2 fl (80.0-96.0); RED BLOOD COUNT 3.23 10^6/uL (4.30-6.10); WHITE BLOOD COUNT 6.9 10^3/uL (4.0-10.0)
[2021-08-04 05:13] LABS: HEMOGLOBIN 9.9 g/dl (13.5-17.5)
[2021-08-04 05:14] LABS: PLATELET COUNT, AUTOMATED 3 10^3/uL (150-450)
[2021-08-04 05:36] LABS: ALBUMIN 2.6 GM/DL (3.2-5.2); ALT/SGPT 27 U/L (12-78); BILIRUBIN,TOTAL 0.5 MG/DL (0.2-1.0); BLOOD UREA NITROGEN 37 MG/DL (7-18); CALCIUM LEVEL 8.2 MG/DL (8.8-10.2); CARBON DIOXIDE LEVEL 26 MEQ/L (21-32); CHLORIDE LEVEL 110 MEQ/L (98-107); CREATININE FOR GFR 1.18 MG/DL (0.70-1.30); GLOMERULAR FILTRATION RATE > 60.0 (>42); GLUCOSE, FASTING 89 MG/DL (70-100); MAGNESIUM LEVEL 1.9 MG/DL (1.8-2.4); POTASSIUM SERUM 3.5 MEQ/L (3.5-5.1); SODIUM LEVEL 142 MEQ/L (136-145); TOTAL PROTEIN 6.3 GM/DL (6.4-8.2)
[2021-08-04] MEDS: HumaLOG INSULIN (NovoLOG) PER UNIT SC SCH ×3 (06:00→11:33)
[2021-08-04] MEDS: atenoloL 25 MG TAB PO SCH (08:43)
[2021-08-04] MEDS: PANTOPRAZOLE 40MG VIAL (C9113 PER 1) IV SCH (08:43)
[2021-08-04] MEDS: SUCRALFATE 1 GM TAB PO SCH ×2 (08:44→13:07)
[2021-08-04] MEDS ORDERED: allopurinoL 300 MG TAB PO SCH (09:00)
[2021-08-04 09:34] LABS: INR 1.15; PROTHROMBIN TIME 15.1 SECONDS (12.7-14.5)
[2021-08-04 09:35] LABS: FIBRINOGEN 326 MG/DL (268-480); PARTIAL THROMBOPLASTIN TIME 34.1 SECONDS (25.9-37.0)
[2021-08-04 10:05] LABS: D-DIMER QUANT > 4000.0 ng/ml (<500)
[2021-08-04 11:15] LABS: PHOSPHORUS LEVEL 3.4 MG/DL (2.5-4.9); URIC ACID 5.2 MG/DL (3.5-7.2)
[2021-08-04 12:06] LABS: HEMATOCRIT 27.6 % (42.0-52.0); HEMOGLOBIN 9.2 g/dl (13.5-17.5); MEAN CORPUSCULAR HEMOGLOBIN 30.9 pg (27.0-33.0); MEAN CORPUSCULAR HGB CONC 33.3 g/dl (32.0-36.5); MEAN CORPUSCULAR VOLUME 92.6 fl (80.0-96.0); RED BLOOD COUNT 2.98 10^6/uL (4.30-6.10)
[2021-08-04 12:09] LABS: PLATELET COUNT, AUTOMATED 10 10^3/uL (150-450)
== END 2021-08-04 15:30 | disposition short-term general hospital (02) | DRG 378 ==
LOC: M ED 13:29 → M ED INP 16:28 → M PCU 21:25
PROVIDERS: ADMIT Family Medicine; ATTEND Family Medicine
PROC: 30233N1 Transfusion of Nonautologous Red Blood Cells into Peripheral Vein, Percutaneous Approach (ICD-10-PCS; 2021-08-03)
PROC: 30233R1 Transfusion of Nonautologous Platelets into Peripheral Vein, Percutaneous Approach (ICD-10-PCS; 2021-08-03)
PROC: 0DJ08ZZ Inspection of Upper Intestinal Tract, Via Natural or Artificial Opening Endoscopic (ICD-10-PCS; principal; 2021-08-03 17:00)
DX: K92.0 Hematemesis (principal); I50.22 Chronic systolic (congestive) heart failure; D62 Acute posthemorrhagic anemia; D69.6 Thrombocytopenia, unspecified; I25.10 Atherosclerotic heart disease of native coronary artery without angina pectoris; F32.A Depression, unspecified; E11.51 Type 2 diabetes mellitus with diabetic peripheral angiopathy without gangrene; G40.909 Epilepsy, unspecified, not intractable, without status epilepticus; K21.9 Gastro-esophageal reflux disease without esophagitis; E78.5 Hyperlipidemia, unspecified; I11.0 Hypertensive heart disease with heart failure; K31.89 Other diseases of stomach and duodenum; I25.2 Old myocardial infarction; Z86.73 Personal history of transient ischemic attack (TIA), and cerebral infarction without residual deficits; Z95.5 Presence of coronary angioplasty implant and graft; Z95.810 Presence of automatic (implantable) cardiac defibrillator; Z87.891 Personal history of nicotine dependence; Z20.822 Contact with and (suspected) exposure to COVID-19; Z79.82 Long term (current) use of aspirin; Z79.02 Long term (current) use of antithrombotics/antiplatelets; Z79.4 Long term (current) use of insulin; Z79.899 Other long term (current) drug therapy